=== PATIENT | male | born 1945 | race Caucasian/White ===

== ENCOUNTER 2016-04-21 06:43 | Day surgery (SDC) | payer MEDICARE, OTHER ==
[~2016-04-21] VITALS: Ht 175.3 cm; Wt 72.7 kg
[2016-04-21] VITALS (8 sets, daily range): BP systolic 129–155; BP diastolic 65–71; PULSE 74–104; RESP 12–19; Ht 175.3 cm; Wt 72.7 kg
[~2016-04-21 06:43] MED LIST: AMLO5TAB4 PO; CHOL20003 PO; CLOP75TA27 PO; HYDR-3671 PO; INSU100C3 SQ; INSU100I27 SQ; LEVO88TA3 PO; LINA5TAB PO; PENT400T2 PO; SEVE800T7 PO; URSO300C3 PO
[2016-04-21] MEDS ORDERED: LIDOCAINE 2% (SDV) 5 ML INJ ONE (07:08)
[2016-04-21] MEDS ORDERED: PROPOFOL 20 ML ONE (07:08)
[2016-04-21] MEDS ORDERED: ROCURONIUM 50 MG INJ ONE (07:08)
[2016-04-21] MEDS ORDERED: GLYCOPYRROLATE 0.4 MG INJ ONE (07:08)
[2016-04-21] MEDS ORDERED: MIDAZOLAM 1 MG/ML 2 ML INJ ONE (07:08)
[2016-04-21] MEDS ORDERED: NEOSTIGMINE 3 MG/3 ML SYRINGE ONE (07:08)
[2016-04-21] MEDS ORDERED: SUCCINYLCHOLINE CHLORIDE 100 MG/5 ML SYG IV ONE (07:09)
[2016-04-21] MEDS ORDERED: FENTAnyl 50 MCG/ML VIAL ONE (07:09)
[2016-04-21] MEDS ORDERED: OXYCODONE/ACETAMINOPHEN (5/325) TAB PO PRN ×2 (07:30)
[2016-04-21] MEDS ORDERED: MEPERIDINE 25 MG INJ IV PRN (07:30)
[2016-04-21] MEDS ORDERED: ATROPINE 1 MG/10 ML SYRINGE IV PRN (07:30)
[2016-04-21] MEDS ORDERED: DIPHENHYDRAMINE 50 MG INJ IV PRN (07:30)
[2016-04-21] MEDS ORDERED: hydrALAzine 20 MG INJ IV PRN (07:30)
[2016-04-21] MEDS ORDERED: HYDROmorphONE (0.2 MG/ML) 10ML SYG IV PRN ×3 (07:30)
[2016-04-21] MEDS ORDERED: MIDAZOLAM 1 MG/ML 2 ML INJ IV PRN (07:30)
[2016-04-21] MEDS ORDERED: EPHEDrine SULFATE 50 MG/5 ML SYG IV PRN (07:30)
[2016-04-21] MEDS ORDERED: ONDANSETRON 4 MG INJ IV PRN (07:30)
[2016-04-21] MEDS ORDERED: FENTAnyl 50 MCG/ML VIAL IV PRN ×2 (07:30)
[2016-04-21] MEDS ORDERED: LABETALOL HCL 20MG INJ IV PRN (07:30)
[2016-04-21] MEDS ORDERED: morphine (1 MG/ML) 10ML SYRINGE IV PRN ×3 (07:30)
[2016-04-21] MEDS ORDERED: LEVO75TA65 PO (07:37)
[2016-04-21] MEDS ORDERED: FOLI1CAP PO (07:38)
[2016-04-21] MEDS ORDERED: FOLI-49 PO (07:39)
[2016-04-21] MEDS ORDERED: ASPI-664 PO (07:39)
[2016-04-21] MEDS ORDERED: LEVEM SC (07:41)
[2016-04-21] MEDS ORDERED: NOVO3I SC (07:41)
[2016-04-21] MEDS ORDERED: AMLO5TAB4 PO (07:44)
[2016-04-21] MEDS ORDERED: IOHEXOL 300MG/ML 30 ML BTL ONE (08:17)
[2016-04-21 08:25] LABS: POTASSIUM 5.1 mmol/L (3.5-5.1)
[2016-04-21 08:27] LABS: INR 1.08; PARTIAL THROMBOPLASTIN TIME 33.1 Sec (25.0-35.0); PT RATIO 1.1
[2016-04-21 08:44] LABS: CALCIUM 8.4 mg/dl (8.4-10.2); CREATININE 7.93 mg/dl (0.61-1.24)
[2016-04-21 09:00] LABS: BASOPHILS % 0.8 % (0.0-2.0); EOSINOPHILS # 0.3 10^3/ul (0.0-0.5); EOSINOPHILS % 6.2 % (0.0-7.0); HEMATOCRIT 28.7 % (42.0-52.0); LYMPHOCYTES # 0.8 10^3/ul (0.8-2.9); LYMPHOCYTES % 15.5 % (15.0-51.0); MEAN CORPUSCULAR HEMOGLOBIN 29.7 pg (29.0-33.0); MEAN CORPUSCULAR HGB CONC 34.9 g/dl (32.0-37.0); MEAN CORPUSCULAR VOLUME 85.1 fl (82.0-101.0); MEAN PLATELET VOLUME 7.3 fl (7.4-10.4); MONOCYTE # 0.5 10^3/ul (0.3-0.9); MONOCYTES % 9.7 % (0.0-11.0); NEUTROPHIL # 3.6 10^3/ul (1.6-7.5); NEUTROPHILS % 67.8 % (39.0-77.0); PLATELET COUNT 246 10^3/UL (140-440); RED BLOOD COUNT 3.38 10^6/ul (4.70-6.10); RED CELL DISTRIBUTION WIDTH 15.5 % (11.5-14.5); UNCORRECTED WBC 5.3 10^3/ul (4.8-10.8); WHITE BLOOD COUNT 5.3 10^3/ul (4.8-10.8)
[2016-04-21] MEDS ORDERED: EPHEDrine SULFATE 50 MG/5 ML SYG ONE (09:07)
[2016-04-21 09:09] LABS: CONDITION 1; LH ANALYZER COMMENTS 1
--- NOTE | 2016-04-21 10:11 | RADRPT ---
PROCEDURE: XR Chest. CLINICAL INDICATION: Preoperative. TECHNIQUE: Single frontal view. COMPARISON: 02/20/2016. FINDINGS: The left internal jugular vein dialysis catheter has been removed. There is mild atelectasis at the lung bases. The lung otherwise clear. The heart is enlarged. There is calcification in the aorta consistent with atherosclerosis. There is no pleural effusion. There is no pneumothorax. IMPRESSION: 1. Left IJ catheter removed. 2. Mild atelectasis at the lung bases. 3. Cardiomegaly and atherosclerosis. RPTAT: QQ .Andrea Barry MD, MD Date Time Electronically viewed and signed by .Andrea Barry MD, on 04/21/2016 10:10 .R/
--- NOTE | 2016-04-21 11:36 | RADRPT ---
PROCEDURE: Intraoperative imaging for ERCP with fluoroscopy. CLINICAL INDICATION: Right upper quadrant pain. Intraoperative. TECHNIQUE: 8 images of the right upper quadrant of the abdomen were obtained in the operating room with an image intensifier. No radiologist was in attendance. 111 seconds of fluoroscopy time was used. COMPARISON: ERCP dated 03/05/2016. FINDINGS: Images demonstrate the endoscope in position. Contrast was injected into the common bile duct. The common bile duct is dilated. A balloon sweep was made. IMPRESSION: 1. ERCP as described above. RPTAT: QQ .Andrea Barry MD, Date Time Electronically viewed and signed by .Andrea Barry MD, on 04/21/2016 11:36 .R/
--- NOTE | 2016-04-21 21:13 | RADRPT ---
Vent Rate: 70 bpm RR Interval: 0 msec PA Interval: 240 msec QRS Duration: 82 msec QT Interval: 408 msec QTC Interval: 440 msec P-R-T [place]: 39 - 14 - 44 degrees Sinus rhythm with 1st degree AV block with premature atrial complexes Low voltage QRS Cannot rule out Anterior infarct , age undetermined Abnormal ECG Electronically Signed By: Pete Leonard [id number]
--- NOTE | 2016-04-21 22:19 | GILP ---
DATE OF PROCEDURE: NAME OF PREOPERATIVE: 1. Endoscopic retrograde cholangiopancreatography. 2. Removal of a common bile duct stent. 3. Removal of common bile duct stones. PREOPERATIVE DIAGNOSIS: Common bile duct stent. POSTOPERATIVE DIAGNOSES: 1. Common bile duct stones. 2. Common bile duct stents. DESCRIPTION OF PROCEDURE: After the informed written consent was obtained, the patient was intubate d by anesthesiologist, Dr. Torres. When the patient was somnolent in the prone position, Olympus vi karlo side-viewing duodenoscope was inserted into the oropharynx, then into the esophagus, subsequentl y into the stomach and then into the duodenum. There is a stent noted in place. By using the snare , the stent was removed. Subsequently a 9 x 12 balloon was inserted into the common bile duct. Mul tiple sweepings were performed. Large amount of sludge and multiple stones were removed. At the en d of the procedure, no more filling defects noted and at this time, procedure was terminated. PLAN: Recommend to follow the patient closely in the office. Dictated By: MARIA DEL CARMEN JUSTIN/AILYN Conf#: [id number] DID#: [id number] CC: FELIX DREW MD;*EndCC*
== END 2016-04-21 11:20 | disposition home or self-care (01) ==
LOC: SDS 06:43
PROVIDERS: ATTEND Internal Medicine Gastroenterology
DX: K80.50 Calculus of bile duct without cholangitis or cholecystitis without obstruction (principal); E11.9 Type 2 diabetes mellitus without complications; Z79.4 Long term (current) use of insulin; E78.5 Hyperlipidemia, unspecified; Z87.01 Personal history of pneumonia (recurrent)
CPT/HCPCS: 43264; 43275; 71010; 74330; 80048; 82962; 85025; 85610; 85730; 93005; J0330; J2250; J2710; J3010; Q9967

== ENCOUNTER 2016-06-22 09:55 | Inpatient (IN) | payer MEDICARE, OTHER ==
[~2016-06-22] VITALS: Ht 175.3 cm; Wt 65.8 kg
[2016-06-22] VITALS (26 sets, daily range): BP systolic 108–195; BP diastolic 53–77; PULSE 65–76; RESP 8–20; Ht 175.3 cm; Wt 65.8 kg
[~2016-06-22 09:55] MED LIST changes: +ASPI-664 PO; +BUPIVACAINE 0.25%/EPI (SDV) 30 ML INJ INJ ONE; +CEFAZOLIN 1 GM INJ ONE; +FENTAnyl 50 MCG/ML VIAL ONE; +FOLI-49 PO; +FOLI1CAP PO; -INSU100C3 SQ; -INSU100I27 SQ; +LEVEM SC; +LEVO75TA65 PO; -LEVO88TA3 PO; +LIDOCAINE 1% (MPF) 30 ML INJ INJ ONE; -LINA5TAB PO; +NOVO3I SC; -PENT400T2 PO
[2016-06-22] MEDS ORDERED: LACTATED RINGER'S 1,000 ML IV* SCH (10:00)
[2016-06-22] MEDS ORDERED: PYRI50TA80 PO (10:57)
[2016-06-22] MEDS ORDERED: ISON100T25 PO (10:58)
[2016-06-22] MEDS ORDERED: VADADUSTAT PO (11:00)
[2016-06-22] MEDS ORDERED: LEVO100T87 PO (11:01)
[2016-06-22 11:16] LABS: ADD SCAN DIFF NO
[2016-06-22 11:22] LABS: BASOPHIL # 0.1 10^3/ul (0.0-0.1); EOSINOPHILS # 0.4 10^3/ul (0.0-0.5); EOSINOPHILS % 7.3 % (0.0-7.0); HEMATOCRIT 28.3 % (42.0-52.0); HEMOGLOBIN 9.4 g/dl (14.0-18.0); LYMPHOCYTES % 21.6 % (15.0-51.0); MEAN CORPUSCULAR HEMOGLOBIN 30.1 pg (29.0-33.0); MEAN CORPUSCULAR HGB CONC 33.2 g/dl (32.0-37.0); MEAN CORPUSCULAR VOLUME 90.7 fl (82.0-101.0); MEAN PLATELET VOLUME 9.9 fl (7.4-10.4); MONOCYTE # 0.5 10^3/ul (0.3-0.9); MONOCYTES % 9.6 % (0.0-11.0); NEUTROPHIL # 2.9 10^3/ul (1.6-7.5); NEUTROPHILS % 59.9 % (39.0-77.0); PLATELET COUNT 162 10^3/UL (140-415); RED BLOOD COUNT 3.12 10^6/ul (4.70-6.10); RED CELL DISTRIBUTION WIDTH 14.5 % (11.5-14.5); WHITE BLOOD COUNT 4.8 10^3/ul (4.8-10.8)
[2016-06-22 11:50] LABS: CALCIUM 9.1 mg/dl (8.4-10.2); CREATININE 6.95 mg/dl (0.61-1.24); INR 1.09; POTASSIUM 4.9 mmol/L (3.5-5.1); PROTIME 14.1 Sec (12.2-14.2); PT RATIO 1.1
[2016-06-22 11:51] LABS: PARTIAL THROMBOPLASTIN TIME 32.4 Sec (25.0-35.0)
[2016-06-22] MEDS ORDERED: LIDOCAINE 1% (STERILE-PAK) 30 ML INJ ONE (11:52)
[2016-06-22] MEDS ORDERED: BUPIVACAINE 0.25%/EPI (SDV) 30 ML INJ ONE (11:52)
--- NOTE | 2016-06-22 12:05 | HPN ---
Date/Time of Note Date/Time of Note DATE: 06/22/16 TIME: 12:04 Interval H&P Admission Note Pt. seen H&P reviewed: No system changes patient cleared by pmd and cardiology WALLACE INGRAM MD Jun 22, 2016 12:05
[2016-06-22] MEDS ORDERED: GLUCAGON 1 MG INJ IM PRN (12:30)
[2016-06-22] MEDS ORDERED: ONDANSETRON 4 MG INJ IV PRN ×3 (12:30→19:30)
[2016-06-22] MEDS ORDERED: DEXTROSE 50% 50 ML SYRINGE IV PRN ×2 (12:30)
[2016-06-22] MEDS ORDERED: GLUCOSE GEL 15 GRAM TUBE BUCCAL PRN (12:30)
[2016-06-22] MEDS ORDERED: HYDROmorphONE (0.2 MG/ML) 10ML SYG IV PRN ×3 (12:30)
[2016-06-22] MEDS ORDERED: FENTAnyl 50 MCG/ML VIAL IV PRN ×3 (12:30)
[2016-06-22] MEDS ORDERED: MEPERIDINE 25 MG INJ IV PRN (12:30)
[2016-06-22] MEDS ORDERED: EPHEDrine SULFATE 50 MG/5 ML SYG IV PRN (12:30)
[2016-06-22] MEDS ORDERED: LABETALOL HCL 20MG INJ IV PRN (12:30)
[2016-06-22] MEDS ORDERED: INSULIN ASPART [NOVOLOG] 3 ML PEN SC SCH (12:30)
[2016-06-22] MEDS ORDERED: hydrALAzine 20 MG INJ IV PRN (12:30)
[2016-06-22] MEDS ORDERED: GLUCOSE GEL 15 GRAM TUBE PO PRN ×2 (12:30)
[2016-06-22] MEDS ORDERED: HYDROCODONE/APAP (5/325) TAB PO PRN ×2 (15:00)
[2016-06-22] MEDS ORDERED: HYDROmorphONE 1 MG/ML SYG IV PRN (15:00)
--- NOTE | 2016-06-22 16:34 | OPR ---
Date/Time of Note Date/Time of Note DATE: 06/22/16 TIME: 16:24 Operative Report Procedure Date: Jun 22, 2016 Preoperative Diagnosis Ventral incisional hernia Postoperative Diagnosis 1. Ventral incisional hernia 2. Significant adhesions Operation Performed 1. Laparoscopic ventral herniorrhaphy 2. Laparoscopic extensive lysis of adhesions 3. Local anesthetic injection, [id number] 4. Laparoscopic guided bilateral transversus abdominis plane block Surgeon: WALLACE INGRAM MD Anesthesia: general (Plus local plus regional) Anesthesiologist: RIYA DAVIS Estimated Blood Loss: 0 - 10 ml's Specimens None Tubes/Drains 10 x [address] Secure strap tacker Complications: None Pt Condition Post Procedure: stable Disposition: PACU Indications 71-year-old male here for ventral herniorrhaphy. Patient has been evaluated and cleared by primary and cardiology. Risks include but are not limited to bleeding, infection, abscess, seroma, leak , damage to intestines or any intra-abdominal/intrapelvic structures, hernia formation or recurrent, chronic pain, need for re-operations or further surgeries, TN, stroke, PE, DVT, pneumonia, organ failures, or even . Procedure Description Patient was brought and placed supine on the operating table SCDs were placed, preoperative antibiotics were administered, all pressure points were well-padded , left arm were tucked, and after induction of anesthesia patient was prepped and draped in usual sterile fashion and timeout was performed. Incision was made in the left lower quadrant, and using Optiview port and a 5 mm 0 scope abdomen was entered and insufflated to 15mmHg. Laparoscopy was performed with a 5 mm 30 scope. No injuries were identified. Another 5 mm port and a 12 mm port were placed in the left upper quadrant. 4 cm ventral incisional hernia was identified. There was extensive adhesions of bowel to the abdominal wall superior and inferior to the hernia. All port sites were injected with half percent Marcaine with epi and 1% lidocaine prior to any incisions. Bilateral transversus abdominis plane block was performed under laparoscopic visualization to aid with pain control intra-and postoperatively. Using sharp dissection I was able to open up enough space to allow repair of the ventral hernia. There was complete hemostasis. Using Endo Close, #1 Vicryl sutures were placed across the defect to approximated in a [id number] manner. Mesh was placed through the 12 mm port intra-abdominally with 4 tacking sutures of #1 Vicryl. After the mesh was positioned covering all hernia sites with at least 5 cm coverage on either side , transfacial sutures were exteriorized with an Endo Close. Then the secure strap tacker was used to tack the mesh circumferentially after the abdominal pressure was decreased to 10. There was complete hemostasis. 12 mm made port site fascia was closed with Endo Close and 0 Vicryl in a figure- of-eight manner. Ports and CO2 were removed under direct visualization. There was complete hemostasis. Wounds were thoroughly irrigated skin was closed with 4 -0 Monocryl in subcuticular fashion. Dermabond was applied. Patient was extubated and transferred to recovery room in stable condition and all counts were correct and the end of the operation 2. Abdominal binder was applied. Copies To: CC: FELIX DREW MD, SAMUEL MD Jun 22, 2016 16:34
[2016-06-22] MEDS ORDERED: NACL 0.9% 3 ML SYG IV SCH (19:30)
--- NOTE | 2016-06-22 19:46 | CONS ---
Date/Time of Note Date/Time of Note DATE: 06/22/16 TIME: 19:32 Assessment/Plan Assessment/Plan Problems: (1) Essential (primary) hypertension Status: Chronic Comment: Cont. hydralazine, amlodipine (2) DM renal manif type II Status: Chronic Comment: Cont. lantus, tradjenta, ISS. Monitor glucose (3) Hypothyroidism Status: Chronic Comment: Cont. LT4 Qualifiers: Qualified Code: E03.9 - Acquired hypothyroidism (4) End stage renal disease Status: Chronic Comment: HD tomorrow per renal (5) Latent tuberculosis by blood test Status: Chronic Comment: Cont. INH (6) Encounter for surgical aftercare following surgery of digestive system Status: Acute Comment: PT post-op. If ambulating and tolerating diet and pain controlled, d/ c home when cleared by surgery team. Consultation Date/Type/Reason Admit Date/Time Jun 22, 2016 at 14:39 Date of Consultation: Jun 22, 2016 Type of Consultation: Med/Endo Reason for Consultation Diabetes Management Referring Provider: WALLACE INGRAM MD Hx of Present Illness 71 y/o H M w/ h/o multiple medical problems incl. 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 Doing well POD#0. Constitutional: improved, no complaints Eyes: no complaints ENT: no complaints Respiratory: no complaints Cardiovascular: no complaints Gastrointestinal: pain (mild) Genitourinary: no complaints Musculoskeletal: no complaints Neurologic: no complaints Past Medical History Medical History: diabetes, high cholesterol, hypertension, hypothyroid, renal disease, other (PVD, ischemic colitis, ) Past Surgical History Past Surgical Hx: other (cataracts, facial surgery, L ankle ORIF, L 5th digit amputation, inguinal hernia repair, LLE angioplasty, ERCP) Family History Significant Family History: cancer (mother), diabetes (father, brother, son), hypertension (father), renal disease (father, brother) Social History Nicolás Esquivel, in [place] 40 y, 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 ago) Drug Use: none Exam/Review of Systems Vital Signs Vitals VS - Last 72 Hours, by Label Date Time Temp Pulse Resp B/P Pulse Ox O2 Delivery O2 Flow Rate FiO2 06/22/16 16:25 97.6 76 18 141/64 98 06/22/16 15:55 74 15 125/64 96 Room Air 06/22/16 15:45 76 17 113/64 97 Room Air 06/22/16 15:40 74 9 113/60 96 Room Air 06/22/16 15:35 74 10 118/57 96 Room Air 06/22/16 15:30 74 11 110/58 96 Room Air 06/22/16 15:25 74 9 113/53 96 Room Air 06/22/16 15:20 74 13 110/55 97 Room Air 06/22/16 15:15 74 10 115/57 96 Room Air 06/22/16 15:10 74 20 116/57 97 Room Air 06/22/16 15:05 74 11 113/54 96 Room Air 06/22/16 15:00 74 12 108/55 97 Room Air 06/22/16 14:55 72 11 111/57 97 Room Air 06/22/16 14:50 74 11 108/57 97 Room Air 06/22/16 14:45 74 14 121/56 97 Room Air 06/22/16 14:40 74 13 118/57 97 Room Air 06/22/16 14:35 74 15 120/56 97 Room Air 06/22/16 14:30 72 12 126/59 97 Room Air 06/22/16 14:25 72 8 117/59 99 Room Air 06/22/16 14:20 74 11 123/60 98 Room Air 06/22/16 14:15 72 11 114/59 99 Room Air 06/22/16 14:10 74 18 131/59 99 Room Air 06/22/16 14:05 74 18 140/64 99 Room Air 06/22/16 13:57 98.0 74 16 131/59 100 Room Air 06/22/16 11:07 97.6 65 18 195/77 100 Room Air Vital Signs Date Time Temp Pulse Resp B/P Pulse Ox O2 Delivery O2 Flow Rate FiO2 06/22/16 16:25 97.6 76 18 141/64 98 06/22/16 15:55 Room Air Intake and Output 06/21/16 06/21/16 06/22/16 15:00 23:00 07:00 Intake Total 250 ml Output Total 20 ml Balance 230 ml Exam Constitutional: alert, frail, oriented Psych: nl mood/affect, no complaints Eyes: EOMI, PERRL, nl conjunctiva, nl lids, nl sclera ENMT: mucosa pink and moist, nl external ears & nose Neck: non-tender, supple, No bruits, No masses, No thyromegaly Respiratory: clear to auscultation, normal air movement Cardiovascular: regular rate and rhythm, No edema, No murmurs/extra sounds, No rub Gastrointestinal: No bowel sounds, No soft (abd. wrapped in binder) Musculoskeletal: nl extremities to inspection Extremities: No clubbing, No cyanosis, No edema, No normal pulses 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: DIRECTOR OF ARCHITECTURE II-XII intact, nl mental status, nl speech, nl strength Additional Comments Bedside Glucose - 72 Hours Test 06/22/16 10:58 06/22/16 14:04 06/22/16 16:39 Bedside Glucose 95mg/dL (70-220) 107mg/dL (70-220) 104mg/dL (70-220) Results Result Diagram: 06/22/16 1105 06/22/16 1105 Results 24 hrs Laboratory Tests Test 06/22/16 10:58 06/22/16 11:05 06/22/16 14:04 06/22/16 16:39 Bedside Glucose 95 107 104 Activated Partial Thromboplast Time 32.4 Anion Gap 22 H Basophils # 0.1 Basophils % 1.0 Blood Urea Nitrogen 79 H Calcium Level 9.1 Carbon Dioxide Level 30 Chloride Level 100 Creatinine 6.95 H Eosinophils # 0.4 Eosinophils % 7.3 H Glucose Level 92 Hematocrit 28.3 L Hemoglobin 9.4 L INR International Normalized Ratio 1.09 Lymphocytes # 1.0 Lymphocytes % 21.6 Mean Corpuscular Hemoglobin 30.1 Mean Corpuscular Hemoglobin Concent 33.2 Mean Corpuscular Volume 90.7 Mean Platelet Volume 9.9 # Monocytes # 0.5 Monocytes % 9.6 Neutrophils # 2.9 Neutrophils % 59.9 Nucleated Red Blood Cells # 0.0 Nucleated Red Blood Cells % 0.0 Platelet Count 162 Potassium Level 4.9 Prothrombin Time 14.1 Prothrombin Time Ratio 1.1 Red Blood Count 3.12 L Red Cell Distribution Width 14.5 Sodium Level 147 H White Blood Count 4.8 Medications Medications Current Medications Lactated Ringer's (Lr) 1,000 ml @ 50 mls/hr Q20H IV* ; Start 06/22/16 at 10:00 ; Stop 06/23/16 at 05:59 Miscellaneous Information 1 ea NOTE XX ; Start 06/22/16 at 12:30 Glucose (Glutose) 15 gm Q15M PRN PO DECREASED GLUCOSE; Start 06/22/16 at 12:30 Glucose (Glutose) 22.5 gm Q15M PRN PO DECREASED GLUCOSE; Start 06/22/16 at 12: 30 Dextrose (D50w Syringe) 25 ml Q15M PRN IV DECREASED GLUCOSE; Start 06/22/16 at 12:30 Dextrose (D50w Syringe) 50 ml Q15M PRN IV DECREASED GLUCOSE; Start 06/22/16 at 12:30 Glucagon (Glucagen) 1 mg Q15M PRN IM DECREASED GLUCOSE; Start 06/22/16 at 12:30 Glucose (Glutose) 15 gm Q15M PRN BUCCAL DECREASED GLUCOSE; Start 06/22/16 at 12 :30 Ondansetron HCl (Zofran Inj) 4 mg Q6H PRN IV NAUSEA AND/OR VOMITING; Start at 15:00 Pantoprazole (Protonix Tab) 40 mg DAILY@06 PO ; Start 06/23/16 at 06:00 Acetaminophen/ Hydrocodone Bitart ([place] (5/325)) 2 tab Q4H PRN PO Pain 6-10; Start 06/22/16 at 15:00 Acetaminophen/ Hydrocodone Bitart ([place] (5/325)) 1 tab Q4H PRN PO Pain 1-5; Start 06/22/16 at 15:00 Hydromorphone HCl (Dilaudid) 0.5 mg Q2H PRN IV Breakthrough PAIN; Start at 15:00 Insulin Glargine (Lantus) 4 unit DAILY@20 SC ; Start 06/22/16 at 20:00; Status UNV Miscellaneous Information (* Miscellaneous Pharmacy Order) HYPOGLYCEMIA PROTOCOL w... ONCE ONCE XX ; Start 06/22/16 at 19:30; Stop 06/22/16 at 19:31; Status UNV Miscellaneous Information (* Miscellaneous Pharmacy Order) Discontinue Glyburide , Glipizide,... ONCE ONCE XX ; Start 06/22/16 at 19:30; Stop 06/22/16 at 19:31 ; Status UNV Miscellaneous Information (* Miscellaneous Pharmacy Order) Discontinue all previ... ONCE ONCE XX ; Start 06/22/16 at 19:30; Stop 06/22/16 at 19:31; Status UNV Diagnostic Test (Pha) (Accucheck) 1 ea XX ; Start 06/23/16 at 02:00; Status UNV Linagliptin (Tradjenta) 5 mg DAILY PO ; Start 06/23/16 at 09:00; Status UNV Amlodipine Besylate (Norvasc) 5 mg DAILY PO ; Start 06/23/16 at 09:00 Aspirin (Halfprin) 81 mg DAILY PO ; Start 06/23/16 at 09:00 Cholecalciferol (Vitamin D) 2,000 unit DAILY PO ; Start 06/23/16 at 09:00; Status UNV Clopidogrel Bisulfate (plaVIX) 75 mg DAILY PO ; Start 06/23/16 at 09:00; Status UNV Folic Acid (Folic Acid) 1 mg DAILY PO ; Start 06/23/16 at 09:00; Status UNV Hydralazine HCl (Apresoline) 75 mg TID PO ; Start 06/22/16 at 21:00; Status UNV Isoniazid (Isoniazid) 100 mg DAILY PO ; Start 06/23/16 at 09:00 Pyridoxine HCl (Vitamin B6) 100 mg DAILY PO ; Start 06/23/16 at 09:00 Miscellaneous Information 1 mg DAILY PO ; Start 06/23/16 at 09:00; Status UNV Ondansetron HCl (Zofran Inj) 4 mg Q6H PRN IV NAUSEA AND/OR VOMITING; Start at 19:30; Status UNV FELIX DREW MD Jun 22, 2016 19:43
[2016-06-22] MEDS: INSULIN ASPART [NOVOLOG] 3 ML PEN SC SCH (21:00)
[2016-06-22] MEDS: INSULIN GLARGINE [LANtus] 3 ML PEN SC SCH (21:13)
[2016-06-23] VITALS (10 sets, daily range): BP systolic 106–145; BP diastolic 51–67; PULSE 77–84; RESP 18–20
--- NOTE | 2016-06-23 00:03 | HP ---
DATE OF ADMISSION: 06/22/2016 PRESENTING COMPLAINT: Elective ventral herniorrhaphy. HISTORY OF PRESENTING COMPLAINT: Mr. Gianni Lee is a 71-year-old male with an extensive medica l history summarized below, who was brought in today by Dr. Hema Harris for an elective laparosco pic ventral herniorrhaphy and lysis of adhesions. The patient reports having a ventral incisional h ernia for the last 11 months. His primary care physician as an outpatient is Dr. Pete Rodrigues, wh o will also follow him and consult in house. At this time, he is postoperative and he is quite comf ortable, denies abdominal pain. Reports remains slightly lethargic. Has had no fever. Denies chest pain, shortness of breath. The patient does have a history of end-stage renal disease on hemodialy sis and is requesting that his dialysis doctor be notified for continued in-house dialysis. PAST MEDICAL HISTORY: 1. End-stage renal disease on hemodialysis. 2. Diabetes mellitus type 2. 3. . 4. Dyslipidemia. 5. Hypothyroidism. 6. Chronic peripheral vascular disease with history of nonhealing ulcer. SURGICAL HISTORY: Includes: 1. Small bowel resection for necrotic bowel June 2014. 2. Recent ERCP for common bile duct stone. 3. Recent open right inguinal hernia repair February of 2016. 4. Left lower extremity angiogram with atherectomy and angioplasty. Please see Dr. Kamara's not es from February of 2016 for details. 5. He has had amputation of his left 5th toe. ALLERGIES: HE HAS NO KNOWN DRUG ALLERGIES. SOCIAL HISTORY: The patient is a remote smoker but has not smoked in about 10 years. Denies alcohol or illicit drug use. FAMILY HISTORY: Positive for high blood pressure and diabetes. REVIEW OF SYSTEMS: A 12-point review of system was done and pertinent findings as noted in the HPI. PHYSICAL EXAMINATION VITAL SIGNS: Temperature 97.6, pulse is 76, respirations 18, blood pressure 141/64, saturations 98% on room air. GENERAL: The patient was calm, in no distress, alert and oriented, afebrile to touch. HEENT: Head was normocephalic. Pupils equal, round, and reactive. Mucous membranes were moist. T here was no scleral jaundice. No conjunctival pallor. Posterior pharynx was clear of erythema and exudate. NECK: Supple without JVD. CHEST: Clear with clear breath sounds bilaterally. CARDIOVASCULAR: Heart sounds S1 and 2 without murmurs. ABDOMEN: Mildly distended. He had laparoscopic scars that were open to air. They were not oozing, no bleeding, no evidence of erythema or cellulitis. He did have hypoactive bowel sounds, however. O verall his abdomen was soft. EXTREMITIES: Lower extremity was negative for edema. PSYCHIATRIC: He was calm, cooperative with exam. LABORATORY VALUES: His hemoglobin was 9.4 and hematocrit 28.3, which is stable from previous. Whit e count normal, platelet count is normal. His chemistry was consistent with his history of end-stag e renal disease with a creatinine of 6.9 and a BUN of 79. Anion gap was 22, slightly elevated. Sodiu m was also slightly elevated at 147. His potassium, chloride levels and glucose levels were within n ormal range. Calcium level 9.1, within normal range as well. Coagulation profile was normal. Urin alysis was mildly suggestive of a UTI with a cloudy clarity, 2+ leukocyte esterase, greater than 50 white blood cells, many bacteria, 2+ hemoglobin and 2+ protein. IMAGING: There are no imaging studies to report at this time. IMPRESSION: A 71-year-old male with the followin. Ventral wall hernia status post elective repair today 06/22/2016, laparoscopically. 2. End-stage renal disease on hemodialysis. 3. Hypertension with good control. 4. Diabetes mellitus type 2. 5. Dyslipidemia. 6. Chronic hypothyroidism. 7. Chronic peripheral arterial disease status post multiple interventions in the past. 8. History of a CBD status post cholecystectomy, right inguinal hernia repair in the past. PLAN OF CARE: Admit the patient for continued postoperative supportive care to include antiemetics, pain control, and if necessary antipyretics. Dr. Harris will continue to follow the patient and wi ll manage his wound and his bowel issues. We will consult Nephrology, Dr. Garcia and Dr. Roche for i n-house dialysis and I will also notify Dr. Rodrigues to follow the patient for diabetic management. In the interim, we will continue with all of the medications, titrate his medications as indicated. Further interventions will depend on his clinical course. For further information and clarificatio n, please review the patient's chart and my orders. Dictated By: MARILEE AGUILAR MD BA/NTS Conf#: [id number] DID#: [id number]
[2016-06-23] MEDS: ACCU-CHEK XX SCH (02:00)
[2016-06-23] MEDS: LEVOTHYROXINE 100 MCG TAB PO SCH (06:13)
[2016-06-23] MEDS: PANTOPRAZOLE (EC) 40 MG TAB PO SCH (06:13)
[2016-06-23 06:27] LABS: ADD SCAN DIFF NO
[2016-06-23 06:40] LABS: BASOPHIL # 0.1 10^3/ul (0.0-0.1); BASOPHILS % 0.6 % (0.0-2.0); EOSINOPHILS # 0.2 10^3/ul (0.0-0.5); EOSINOPHILS % 2.9 % (0.0-7.0); HEMATOCRIT 28.5 % (42.0-52.0); HEMOGLOBIN 9.4 g/dl (14.0-18.0); LYMPHOCYTES # 0.8 10^3/ul (0.8-2.9); LYMPHOCYTES % 10.1 % (15.0-51.0); MEAN CORPUSCULAR HEMOGLOBIN 30.2 pg (29.0-33.0); MEAN CORPUSCULAR VOLUME 91.6 fl (82.0-101.0); MEAN PLATELET VOLUME 10.1 fl (7.4-10.4); MONOCYTE # 0.6 10^3/ul (0.3-0.9); MONOCYTES % 7.8 % (0.0-11.0); NEUTROPHIL # 6.3 10^3/ul (1.6-7.5); PLATELET COUNT 175 10^3/UL (140-415); RED BLOOD COUNT 3.11 10^6/ul (4.70-6.10); RED CELL DISTRIBUTION WIDTH 14.7 % (11.5-14.5)
[2016-06-23 07:32] LABS: ALBUMIN 3.8 g/dl (3.3-4.9)
[2016-06-23 07:33] LABS: POTASSIUM 5.3 mmol/L (3.5-5.1)
[2016-06-23 07:35] LABS: BILIRUBIN,INDIRECT 0.1 mg/dl (0-1.1); BILIRUBIN,TOTAL 0.1 mg/dl (0.2-1.3); CREATININE 7.53 mg/dl (0.61-1.24)
[2016-06-23 07:36] LABS: ALBUMIN/GLOBULIN RATIO 1.22; CALCIUM 8.7 mg/dl (8.4-10.2); TOTAL PROTEIN 6.9 g/dl (6.1-8.1)
[2016-06-23] MEDS: AMLODIPINE 5 MG TAB PO SCH (09:00)
[2016-06-23] MEDS: ISONIAZID 100 MG TAB PO SCH (09:00)
[2016-06-23] MEDS: INSULIN ASPART [NOVOLOG] 3 ML PEN SC SCH ×4 (09:13→21:00)
[2016-06-23] MEDS: MULTIVIT/CA CARB/B CMPLX/FA TAB PO SCH (09:19)
[2016-06-23] MEDS: PYRIDOXINE 50 MG TAB PO SCH (09:19)
[2016-06-23] MEDS: FOLIC ACID 1 MG TAB PO SCH (09:19)
[2016-06-23] MEDS: CLOPIDOGREL 75 MG TAB PO SCH (09:19)
[2016-06-23] MEDS: ASPIRIN (EC) 81 MG TAB PO SCH (09:19)
[2016-06-23] MEDS: CHOLECALCIFEROL 2,000 UNIT CAP PO SCH (09:19)
[2016-06-23] MEDS: LINAGLIPTIN 5 MG TABLET PO SCH (09:19)
[2016-06-23] MEDS: SEVELAMER CARBONATE 0.8 GM PKT PO SCH ×3 (09:21→17:50)
--- NOTE | 2016-06-23 10:19 | PN ---
Date/Time of Note Date/Time of Note DATE: 06/23/16 TIME: 10:15 Assessment/Plan VTE Prophylaxis VTE Prophylaxis Intervention: SCD's Lines/Catheters IV Catheter Type (from Nrsg): Saline Lock Assessment/Plan Assessment/Plan A 71-year-old male with the followin. Ventral wall hernia status post elective repair 06/22/2016, laparoscopically. 2. End-stage renal disease on hemodialysis. 3. Hypertension with good control. 4. Diabetes mellitus type 2. 5. Dyslipidemia. 6. Chronic hypothyroidism. 7. Chronic peripheral arterial disease status post multiple interventions in the past. 8. History of a CBD status post cholecystectomy, right inguinal hernia repair in the past. 9. 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 PLAN OF CARE: * continue post op care and mgt to include PRN pain control/ antiemetics/ antipyretics * Clear liquid diet for now for abd distention * Encourage ambulation * Continue HD MWF regimen * Continue home med * appreciate all consultants PROPHYLAXIS: SCDs / Protonix Subjective 24 Hr Interval Summary Free Text/Dictation feels ok, no new issues Exam/Review of Systems Vital Signs Vitals Vital Signs Date Time Temp Pulse Resp B/P Pulse Ox O2 Delivery O2 Flow Rate FiO2 06/23/16 07:21 97.6 76 18 106/56 97 06/22/16 15:55 Room Air Intake and Output 06/22/16 06/22/16 06/23/16 15:00 23:00 07:00 Intake Total 900 ml Output Total 2500 ml Balance -1600 ml Exam GENERAL: The patient was calm, in no distress, alert and oriented, afebrile to touch. HEENT: Head was normocephalic. Pupils equal, round, and reactive. Mucous membranes were moist. There was no scleral jaundice. No conjunctival pallor. Posterior pharynx was clear of erythema and exudate. NECK: Supple without JVD. CHEST: Clear with clear breath sounds bilaterally. CARDIOVASCULAR: Heart sounds S1 and 2 without murmurs. ABDOMEN: More distended. He had laparoscopic scars that were open to air. They were not oozing, no bleeding, no evidence of erythema or cellulitis. He did have hypoactive bowel sounds, however. EXTREMITIES: Lower extremity was negative for edema. PSYCHIATRIC: He was calm, cooperative with exam. Results Result Diagram: 06/23/16 0535 06/23/16 0600 Results 24 hrs Laboratory Tests Test 06/22/16 10:58 06/22/16 11:05 06/22/16 14:04 06/22/16 16:39 Bedside Glucose 95 107 104 Activated Partial Thromboplast Time 32.4 Anion Gap 22 H Basophils # 0.1 Basophils % 1.0 Blood Urea Nitrogen 79 H Calcium Level 9.1 Carbon Dioxide Level 30 Chloride Level 100 Creatinine 6.95 H Eosinophils # 0.4 Eosinophils % 7.3 H Glucose Level 92 Hematocrit 28.3 L Hemoglobin 9.4 L INR International Normalized Ratio 1.09 Lymphocytes # 1.0 Lymphocytes % 21.6 Mean Corpuscular Hemoglobin 30.1 Mean Corpuscular Hemoglobin Concent 33.2 Mean Corpuscular Volume 90.7 Mean Platelet Volume 9.9 # Monocytes # 0.5 Monocytes % 9.6 Neutrophils # 2.9 Neutrophils % 59.9 Nucleated Red Blood Cells # 0.0 Nucleated Red Blood Cells % 0.0 Platelet Count 162 Potassium Level 4.9 Prothrombin Time 14.1 Prothrombin Time Ratio 1.1 Red Blood Count 3.12 L Red Cell Distribution Width 14.5 Sodium Level 147 H White Blood Count 4.8 Test 06/22/16 21:11 06/23/16 05:35 06/23/16 06:00 06/23/16 07:42 Bedside Glucose 95 182 Basophils # 0.1 Basophils % 0.6 Eosinophils # 0.2 Eosinophils % 2.9 Hematocrit 28.5 L Hemoglobin 9.4 L Lymphocytes # 0.8 Lymphocytes % 10.1 L Magnesium Level 2.2 Mean Corpuscular Hemoglobin 30.2 Mean Corpuscular Hemoglobin Concent 33.0 Mean Corpuscular Volume 91.6 Mean Platelet Volume 10.1 Monocytes # 0.6 Monocytes % 7.8 Neutrophils # 6.3 Neutrophils % 78.0 H Nucleated Red Blood Cells # 0.0 Nucleated Red Blood Cells % 0.0 Phosphorus Level 5.9 H Platelet Count 175 Red Blood Count 3.11 L Red Cell Distribution Width 14.7 H White Blood Count 8.0 # Alanine Aminotransferase (ALT/SGPT) 17 Albumin 3.8 Albumin/Globulin Ratio 1.22 Alkaline Phosphatase 135 H Anion Gap 28 H Aspartate Amino Transf (AST/SGOT) 41 Blood Urea Nitrogen 83 H Calcium Level 8.7 Carbon Dioxide Level 22 Chloride Level 100 Creatinine 7.53 H Direct Bilirubin 0.00 Globulin 3.10 Glucose Level 128 Indirect Bilirubin 0.1 Potassium Level 5.3 H Sodium Level 145 H Total Bilirubin 0.1 L Total Protein 6.9 Medications Medications Current Medications Miscellaneous Information 1 ea NOTE XX ; Start 06/22/16 at 12:30 Glucose (Glutose) 15 gm Q15M PRN PO DECREASED GLUCOSE; Start 06/22/16 at 12:30 Glucose (Glutose) 22.5 gm Q15M PRN PO DECREASED GLUCOSE; Start 06/22/16 at 12: 30 Dextrose (D50w Syringe) 25 ml Q15M PRN IV DECREASED GLUCOSE; Start 06/22/16 at 12:30 Dextrose (D50w Syringe) 50 ml Q15M PRN IV DECREASED GLUCOSE; Start 06/22/16 at 12:30 Glucagon (Glucagen) 1 mg Q15M PRN IM DECREASED GLUCOSE; Start 06/22/16 at 12:30 Glucose (Glutose) 15 gm Q15M PRN BUCCAL DECREASED GLUCOSE; Start 06/22/16 at 12 :30 Pantoprazole (Protonix Tab) 40 mg DAILY@06 PO Last administered on 06/23/16 06 :13; Admin Dose 40 MG; Start 06/23/16 at 06:00 Acetaminophen/ Hydrocodone Bitart ([place] (5/325)) 2 tab Q4H PRN PO Pain 6-10 Last administered on 06/23/16 02:25; Admin Dose 2 TAB; Start 06/22/16 at 15:00 Acetaminophen/ Hydrocodone Bitart ([place] (5/325)) 1 tab Q4H PRN PO Pain 1-5 Last administered on 06/23/16 06:13; Admin Dose 1 TAB; Start 06/22/16 at 15:00 Hydromorphone HCl (Dilaudid) 0.5 mg Q2H PRN IV Breakthrough PAIN; Start at 15:00 Insulin Glargine (Lantus) 4 unit DAILY@20 SC Last administered on 06/22/16 21: 13; Admin Dose 4 UNIT; Start 06/22/16 at 20:00 Diagnostic Test (Pha) (Accucheck) 1 ea 02 XX ; Start 06/23/16 at 02:00 Linagliptin (Tradjenta) 5 mg DAILY PO Last administered on 06/23/16 09:19; Admin Dose 5 MG; Start 06/23/16 at 09:00 Amlodipine Besylate (Norvasc) 5 mg DAILY PO ; Start 06/23/16 at 09:00 Aspirin (Halfprin) 81 mg DAILY PO Last administered on 06/23/16 09:19; Admin Dose 81 MG; Start 06/23/16 at 09:00 Cholecalciferol (Vitamin D) 2,000 unit DAILY PO Last administered on 06/23/16 09:19; Admin Dose 2,000 UNIT; Start 06/23/16 at 09:00 Clopidogrel Bisulfate (plaVIX) 75 mg DAILY PO Last administered on 06/23/16 09 :19; Admin Dose 75 MG; Start 06/23/16 at 09:00 Folic Acid (Folic Acid) 1 mg DAILY PO Last administered on 06/23/16 09:19; Admin Dose 1 MG; Start 06/23/16 at 09:00 Hydralazine HCl (Apresoline) 75 mg TID PO Last administered on 06/22/16 21:07 ; Admin Dose 75 MG; Start 06/22/16 at 21:00 Isoniazid (Isoniazid) 100 mg DAILY PO ; Start 06/23/16 at 09:00 Pyridoxine HCl (Vitamin B6) 100 mg DAILY PO Last administered on 06/23/16 09: 19; Admin Dose 100 MG; Start 06/23/16 at 09:00 Multivit/Ca Carb/ B Cmplx/FA/Prenat (Manasa-Haris) 1 tab DAILY PO Last administered on 06/23/16 09:19; Admin Dose 1 TAB; Start 06/23/16 at 09:00 Ondansetron HCl (Zofran Inj) 4 mg Q6H PRN IV NAUSEA AND/OR VOMITING; Start at 19:30 MARILEE AGUILAR Jun 23, 2016 10:19
--- NOTE | 2016-06-23 11:26 | CONS ---
Date/Time of Note Date/Time of Note DATE: 06/23/16 TIME: 11:22 Assessment/Plan Assessment/Plan Additional Assessment/Plan 71-year-old male with 1. Ventral wall hernia status post elective repair 06/22/2016 2. End-stage renal disease on hemodialysis. 3. Hypertension with good control. 4. Diabetes mellitus type 2. 5. Dyslipidemia. 6. Hypothyroidism. 7. Anemia, Chronic, ESRD 8. Mineral Bone disease, ESRD Cont maintenance HD Schedule HD Ordered, Low UF for today Cont current med Rx and plan [facility] with HD DM/Renal diet as tolerated Thank you for the opportunity to participate in the care of MR Lee. Consultation Date/Type/Reason Admit Date/Time Jun 22, 2016 at 14:39 Type of Consultation: Nephrology Reason for Consultation ESRD Referring Provider: MARILEE AGUILAR Hx of Present Illness 11-year-old male brought in by Dr. Hmea Harris for an elective laparoscopic ventral herniorrhaphy and lysis of adhesions. Historyof ventral incisional hernia for the last 11 months. Pt is S/p OR without any complication. He is due for HD today, regular HD schedule is every Tuesday, Tuesday and . Has had no fever. Denies chest pain, shortness of breath. Nephrology consulted for management of ESRD. S/p HD this am Constitutional: improved, no complaints Eyes: no complaints ENT: no complaints Respiratory: no complaints Cardiovascular: no complaints Gastrointestinal: pain (mild) Genitourinary: no complaints Musculoskeletal: no complaints Neurologic: no complaints Psychological: nl mood/affect, no complaints Past Medical History Medical History: diabetes, high cholesterol, hypertension, hypothyroid, renal disease, other (PVD, ischemic colitis, ) Past Surgical History Past Surgical Hx: other (cataracts, facial surgery, L ankle ORIF, L 5th digit amputation, inguinal hernia repair, LLE angioplasty, ERCP) Family History Significant Family History: no pertinent family hx Social History Alcohol Use: sober Smoking Status: Former smoker (1.5 ppd x 20 y, quit 14 y. ago) Drug Use: none Exam/Review of Systems Vital Signs Vitals Vital Signs Date Time Temp Pulse Resp B/P Pulse Ox O2 Delivery O2 Flow Rate FiO2 06/23/16 07:21 97.6 76 18 106/56 97 06/22/16 15:55 Room Air Intake and Output 06/22/16 06/22/16 06/23/16 15:00 23:00 07:00 Intake Total 900 ml Output Total 2500 ml Balance -1600 ml Exam Constitutional: alert, oriented, No distress Psych: No anxiety Head: atraumatic, normocephalic Eyes: EOMI ENMT: mucosa pink and moist Neck: No jvd Respiratory: clear to auscultation, No diminished breath sounds, No labored breathing Cardiovascular: regular rate and rhythm, No edema Gastrointestinal: ascites, soft, tender, No rebound or guarding Musculoskeletal: nl extremities to inspection Extremities: other (RUE AVF Good thrill) 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, nl mental status, nl speech Skin: No diaphoresis Results Result Diagram: 06/23/16 0535 06/23/16 0600 Results 24 hrs Laboratory Tests Test 06/22/16 14:04 06/22/16 16:39 06/22/16 21:11 06/23/16 05:35 Bedside Glucose 107 104 95 White Blood Count 8.0 # Red Blood Count 3.11 L Hemoglobin 9.4 L Hematocrit 28.5 L Mean Corpuscular Volume 91.6 Mean Corpuscular Hemoglobin 30.2 Mean Corpuscular Hemoglobin Concent 33.0 Red Cell Distribution Width 14.7 H Platelet Count 175 Mean Platelet Volume 10.1 Neutrophils % 78.0 H Lymphocytes % 10.1 L Monocytes % 7.8 Eosinophils % 2.9 Basophils % 0.6 Nucleated Red Blood Cells % 0.0 Neutrophils # 6.3 Lymphocytes # 0.8 Monocytes # 0.6 Eosinophils # 0.2 Basophils # 0.1 Nucleated Red Blood Cells # 0.0 Phosphorus Level 5.9 H Magnesium Level 2.2 Test 06/23/16 06:00 06/23/16 07:42 Sodium Level 145 H Potassium Level 5.3 H Chloride Level 100 Carbon Dioxide Level 22 Anion Gap 28 H Blood Urea Nitrogen 83 H Creatinine 7.53 H Glucose Level 128 Calcium Level 8.7 Total Bilirubin 0.1 L Direct Bilirubin 0.00 Indirect Bilirubin 0.1 Aspartate Amino Transf (AST/SGOT) 41 Alanine Aminotransferase (ALT/SGPT) 17 Alkaline Phosphatase 135 H Total Protein 6.9 Albumin 3.8 Globulin 3.10 Albumin/Globulin Ratio 1.22 Bedside Glucose 182 Medications Medications Current Medications Miscellaneous Information 1 ea NOTE XX ; Start 06/22/16 at 12:30 Glucose (Glutose) 15 gm Q15M PRN PO DECREASED GLUCOSE; Start 06/22/16 at 12:30 Glucose (Glutose) 22.5 gm Q15M PRN PO DECREASED GLUCOSE; Start 06/22/16 at 12: 30 Dextrose (D50w Syringe) 25 ml Q15M PRN IV DECREASED GLUCOSE; Start 06/22/16 at 12:30 Dextrose (D50w Syringe) 50 ml Q15M PRN IV DECREASED GLUCOSE; Start 06/22/16 at 12:30 Glucagon (Glucagen) 1 mg Q15M PRN IM DECREASED GLUCOSE; Start 06/22/16 at 12:30 Glucose (Glutose) 15 gm Q15M PRN BUCCAL DECREASED GLUCOSE; Start 06/22/16 at 12 :30 Pantoprazole (Protonix Tab) 40 mg DAILY@06 PO Last administered on 06/23/16 06 :13; Admin Dose 40 MG; Start 06/23/16 at 06:00 Acetaminophen/ Hydrocodone Bitart ([place] (5/325)) 2 tab Q4H PRN PO Pain 6-10 Last administered on 06/23/16 02:25; Admin Dose 2 TAB; Start 06/22/16 at 15:00 Acetaminophen/ Hydrocodone Bitart ([place] (5/325)) 1 tab Q4H PRN PO Pain 1-5 Last administered on 06/23/16 06:13; Admin Dose 1 TAB; Start 06/22/16 at 15:00 Hydromorphone HCl (Dilaudid) 0.5 mg Q2H PRN IV Breakthrough PAIN; Start at 15:00 Insulin Glargine (Lantus) 4 unit DAILY@20 SC Last administered on 06/22/16 21: 13; Admin Dose 4 UNIT; Start 06/22/16 at 20:00 Diagnostic Test (Pha) (Accucheck) 1 ea 02 XX ; Start 06/23/16 at 02:00 Linagliptin (Tradjenta) 5 mg DAILY PO Last administered on 06/23/16 09:19; Admin Dose 5 MG; Start 06/23/16 at 09:00 Amlodipine Besylate (Norvasc) 5 mg DAILY PO ; Start 06/23/16 at 09:00 Aspirin (Halfprin) 81 mg DAILY PO Last administered on 06/23/16 09:19; Admin Dose 81 MG; Start 06/23/16 at 09:00 Cholecalciferol (Vitamin D) 2,000 unit DAILY PO Last administered on 06/23/16 09:19; Admin Dose 2,000 UNIT; Start 06/23/16 at 09:00 Clopidogrel Bisulfate (plaVIX) 75 mg DAILY PO Last administered on 06/23/16 09 :19; Admin Dose 75 MG; Start 06/23/16 at 09:00 Folic Acid (Folic Acid) 1 mg DAILY PO Last administered on 06/23/16 09:19; Admin Dose 1 MG; Start 06/23/16 at 09:00 Hydralazine HCl (Apresoline) 75 mg TID PO Last administered on 06/22/16 21:07 ; Admin Dose 75 MG; Start 06/22/16 at 21:00 Isoniazid (Isoniazid) 100 mg DAILY PO ; Start 06/23/16 at 09:00 Pyridoxine HCl (Vitamin B6) 100 mg DAILY PO Last administered on 06/23/16 09: 19; Admin Dose 100 MG; Start 06/23/16 at 09:00 Multivit/Ca Carb/ B Cmplx/FA/Prenat (Manasa-Haris) 1 tab DAILY PO Last administered on 06/23/16 09:19; Admin Dose 1 TAB; Start 06/23/16 at 09:00 Ondansetron HCl (Zofran Inj) 4 mg Q6H PRN IV NAUSEA AND/OR VOMITING; Start at 19:30 JOAQUIN DESAI MD Jun 23, 2016 11:26
--- NOTE | 2016-06-23 19:55 | CONS ---
Date/Time of Note Date/Time of Note DATE: 06/23/16 TIME: 19:50 Assessment/Plan Assessment/Plan Chief Complaint/Hosp Course Doing well POD#1 Problems: (1) Diabetes mellitus type 2 with complications Status: Chronic Comment: Glucose levels in good control. Cont. current insulin doses. Qualifiers: Diabetes mellitus intermediate card tender insulin use: with half-way use Qualified Code : E11.8 - Type 2 diabetes mellitus with complication, with long-term current use of insulin Consultation Date/Type/Reason Admit Date/Time Jun 22, 2016 at 14:39 Initial Consult Date 06/22/16 Type of Consultation: Endocrinology Reason for Consultation T2DM management Referring Provider: MARILEE AGUILAR 24 HR Interval Summary Constitutional: improved, no complaints Detailed Summary Respiratory: no complaints Cardiovascular: no complaints Gastrointestinal: pain (appropriate post-op, mostly good control, ambulating) Genitourinary: no complaints Musculoskeletal: no complaints Neurologic: no complaints Exam/Review of Systems Vital Signs Vitals VS - Last 72 Hours, by Label Date Time Temp Pulse Resp B/P Pulse Ox O2 Delivery O2 Flow Rate FiO2 06/23/16 12:12 84 145/63 06/23/16 07:21 97.6 76 18 106/56 97 06/23/16 07:00 79 06/23/16 07:00 79 18 06/23/16 06:30 79 06/23/16 06:00 79 06/23/16 05:30 80 06/23/16 05:00 78 06/23/16 04:30 79 06/23/16 04:00 77 06/23/16 04:00 77 18 06/22/16 19:56 97.5 77 16 158/66 98 06/22/16 16:25 97.6 76 18 141/64 98 06/22/16 15:55 74 15 125/64 96 Room Air 06/22/16 15:45 76 17 113/64 97 Room Air 06/22/16 15:40 74 9 113/60 96 Room Air 06/22/16 15:35 74 10 118/57 96 Room Air 06/22/16 15:30 74 11 110/58 96 Room Air 06/22/16 15:25 74 9 113/53 96 Room Air 06/22/16 15:20 74 13 110/55 97 Room Air 06/22/16 15:15 74 10 115/57 96 Room Air 06/22/16 15:10 74 20 116/57 97 Room Air 06/22/16 15:05 74 11 113/54 96 Room Air 06/22/16 15:00 74 12 108/55 97 Room Air 06/22/16 14:55 72 11 111/57 97 Room Air 06/22/16 14:50 74 11 108/57 97 Room Air 06/22/16 14:45 74 14 121/56 97 Room Air 06/22/16 14:40 74 13 118/57 97 Room Air 06/22/16 14:35 74 15 120/56 97 Room Air 06/22/16 14:30 72 12 126/59 97 Room Air 06/22/16 14:25 72 8 117/59 99 Room Air 06/22/16 14:20 74 11 123/60 98 Room Air 06/22/16 14:15 72 11 114/59 99 Room Air 06/22/16 14:10 74 18 131/59 99 Room Air 06/22/16 14:05 74 18 140/64 99 Room Air 06/22/16 13:57 98.0 74 16 131/59 100 Room Air 06/22/16 11:07 97.6 65 18 195/77 100 Room Air Vital Signs Date Time Temp Pulse Resp B/P Pulse Ox O2 Delivery O2 Flow Rate FiO2 06/23/16 12:12 84 145/63 06/23/16 07:21 97.6 18 97 06/22/16 15:55 Room Air Intake and Output 06/22/16 06/22/16 06/23/16 15:00 23:00 07:00 Intake Total 900 ml Output Total 2500 ml Balance -1600 ml Exam Constitutional: alert, frail, oriented Psych: nl mood/affect, no complaints Respiratory: clear to auscultation, normal air movement Cardiovascular: regular rate and rhythm, No edema, No murmurs/extra sounds, No rub Gastrointestinal: nl liver, spleen, soft, tender (appropriate) Musculoskeletal: nl extremities to inspection Extremities: No clubbing, No cyanosis, No edema 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, nl mental status, nl speech, nl strength Additional Comments Bedside Glucose - 72 Hours Test 06/22/16 10:58 06/22/16 14:04 06/22/16 16:39 06/22/16 21:11 Bedside Glucose 95mg/dL (70-220) 107mg/dL (70-220) 104mg/dL (70-220) 95mg/dL (70-220) Test 06/23/16 07:42 06/23/16 12:06 06/23/16 17:19 Bedside Glucose 182mg/dL (70-220) 150mg/dL (70-220) 147mg/dL (70-220) Results Result Diagram: 06/23/16 0535 06/23/16 0600 Results 24 hrs Laboratory Tests Test 06/22/16 21:11 06/23/16 05:35 06/23/16 06:00 06/23/16 07:42 Bedside Glucose 95 182 White Blood Count 8.0 # Red Blood Count 3.11 L Hemoglobin 9.4 L Hematocrit 28.5 L Mean Corpuscular Volume 91.6 Mean Corpuscular Hemoglobin 30.2 Mean Corpuscular Hemoglobin Concent 33.0 Red Cell Distribution Width 14.7 H Platelet Count 175 Mean Platelet Volume 10.1 Neutrophils % 78.0 H Lymphocytes % 10.1 L Monocytes % 7.8 Eosinophils % 2.9 Basophils % 0.6 Nucleated Red Blood Cells % 0.0 Neutrophils # 6.3 Lymphocytes # 0.8 Monocytes # 0.6 Eosinophils # 0.2 Basophils # 0.1 Nucleated Red Blood Cells # 0.0 Phosphorus Level 5.9 H Magnesium Level 2.2 Sodium Level 145 H Potassium Level 5.3 H Chloride Level 100 Carbon Dioxide Level 22 Anion Gap 28 H Blood Urea Nitrogen 83 H Creatinine 7.53 H Glucose Level 128 Calcium Level 8.7 Total Bilirubin 0.1 L Direct Bilirubin 0.00 Indirect Bilirubin 0.1 Aspartate Amino Transf (AST/SGOT) 41 Alanine Aminotransferase (ALT/SGPT) 17 Alkaline Phosphatase 135 H Total Protein 6.9 Albumin 3.8 Globulin 3.10 Albumin/Globulin Ratio 1.22 Test 06/23/16 12:06 06/23/16 17:19 Bedside Glucose 150 147 Medications Medications Current Medications Miscellaneous Information 1 ea NOTE XX ; Start 06/22/16 at 12:30 Glucose (Glutose) 15 gm Q15M PRN PO DECREASED GLUCOSE; Start 06/22/16 at 12:30 Glucose (Glutose) 22.5 gm Q15M PRN PO DECREASED GLUCOSE; Start 06/22/16 at 12: 30 Dextrose (D50w Syringe) 25 ml Q15M PRN IV DECREASED GLUCOSE; Start 06/22/16 at 12:30 Dextrose (D50w Syringe) 50 ml Q15M PRN IV DECREASED GLUCOSE; Start 06/22/16 at 12:30 Glucagon (Glucagen) 1 mg Q15M PRN IM DECREASED GLUCOSE; Start 06/22/16 at 12:30 Glucose (Glutose) 15 gm Q15M PRN BUCCAL DECREASED GLUCOSE; Start 06/22/16 at 12 :30 Pantoprazole (Protonix Tab) 40 mg DAILY@06 PO Last administered on 06/23/16 06 :13; Admin Dose 40 MG; Start 06/23/16 at 06:00 Acetaminophen/ Hydrocodone Bitart ([place] (5/325)) 2 tab Q4H PRN PO Pain 6-10 Last administered on 06/23/16 02:25; Admin Dose 2 TAB; Start 06/22/16 at 15:00 Acetaminophen/ Hydrocodone Bitart ([place] (5/325)) 1 tab Q4H PRN PO Pain 1-5 Last administered on 06/23/16 06:13; Admin Dose 1 TAB; Start 06/22/16 at 15:00 Hydromorphone HCl (Dilaudid) 0.5 mg Q2H PRN IV Breakthrough PAIN; Start at 15:00 Insulin Glargine (Lantus) 4 unit DAILY@20 SC Last administered on 06/22/16 21: 13; Admin Dose 4 UNIT; Start 06/22/16 at 20:00 Diagnostic Test (Pha) (Accucheck) 1 ea 02 XX ; Start 06/23/16 at 02:00 Linagliptin (Tradjenta) 5 mg DAILY PO Last administered on 06/23/16 09:19; Admin Dose 5 MG; Start 06/23/16 at 09:00 Amlodipine Besylate (Norvasc) 5 mg DAILY PO ; Start 06/23/16 at 09:00 Aspirin (Halfprin) 81 mg DAILY PO Last administered on 06/23/16 09:19; Admin Dose 81 MG; Start 06/23/16 at 09:00 Cholecalciferol (Vitamin D) 2,000 unit DAILY PO Last administered on 06/23/16 09:19; Admin Dose 2,000 UNIT; Start 06/23/16 at 09:00 Clopidogrel Bisulfate (plaVIX) 75 mg DAILY PO Last administered on 06/23/16 09 :19; Admin Dose 75 MG; Start 06/23/16 at 09:00 Folic Acid (Folic Acid) 1 mg DAILY PO Last administered on 06/23/16 09:19; Admin Dose 1 MG; Start 06/23/16 at 09:00 Hydralazine HCl (Apresoline) 75 mg TID PO Last administered on 06/22/16 21:07 ; Admin Dose 75 MG; Start 06/22/16 at 21:00 Isoniazid (Isoniazid) 100 mg DAILY PO ; Start 06/23/16 at 09:00 Pyridoxine HCl (Vitamin B6) 100 mg DAILY PO Last administered on 06/23/16 09: 19; Admin Dose 100 MG; Start 06/23/16 at 09:00 Multivit/Ca Carb/ B Cmplx/FA/Prenat (Manasa-Haris) 1 tab DAILY PO Last administered on 06/23/16 09:19; Admin Dose 1 TAB; Start 06/23/16 at 09:00 Ondansetron HCl (Zofran Inj) 4 mg Q6H PRN IV NAUSEA AND/OR VOMITING; Start at 19:30 FELIX DREW MD Jun 23, 2016 19:54
[2016-06-23] MEDS: INSULIN GLARGINE [LANtus] 3 ML PEN SC SCH (22:26)
--- NOTE | 2016-06-23 23:00 | PN ---
Date/Time of Note Date/Time of Note DATE: 06/23/16 TIME: 22:56 Assessment/Plan Lines/Catheters IV Catheter Type (from Nrsg): Saline Lock Assessment/Plan Chief Complaint/Hosp Course 1. ?Urinary retention -bladder scan and possible turpin 2. ESRD on HD 3. DM-II -nutrition and medication optimization 4. HTN -nutrition and medication optimization 5. Dyslipidemia -nutrition and medication optimization 6. Hypothyroidism -replete hormone Thank you, Problems: Subjective 24 Hr Interval Summary No f/c. Min n/v this am but resolved now. No cough. No almanzar/dizzy/visual or neuro changes. No u/o (pt reports makes some urine at home). Flatus and diarrhea. Pain 3/10. Min ambulatory. Exam/Review of Systems Vital Signs Vitals Vital Signs Date Time Temp Pulse Resp B/P Pulse Ox O2 Delivery O2 Flow Rate FiO2 06/23/16 20:44 99.0 90 20 137/63 98 06/22/16 15:55 Room Air Intake and Output 06/22/16 06/22/16 06/23/16 15:00 23:00 07:00 Intake Total 900 ml Output Total 2500 ml Balance -1600 ml Exam Constitutional: alert, oriented, other (Uncomfortable), No distress Psych: nl mood/affect, No confusion Head: atraumatic, normocephalic Eyes: EOMI, PERRL, nl conjunctiva, No icteric ENMT: mucosa pink and moist, nl external ears & nose Neck: non-tender, supple Respiratory: normal air movement, No congested cough, No labored breathing Cardiovascular: regular rate and rhythm, No edema Gastrointestinal: distended, soft, tender, No rebound or guarding Musculoskeletal: nl extremities to inspection, No joint tenderness Extremities: normal pulses, No calf tenderness, No cyanosis 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: nl mental status, nl speech, nl strength Skin: nl turgor, No diaphoresis, No rash or lesions Lymph: nl lymph nodes Results Result Diagram: 06/23/16 0535 06/23/16 0600 WALLACE INGRAM MD Jun 23, 2016 22:59
[2016-06-24] MEDS: ACCU-CHEK XX SCH (02:00)
[2016-06-24 05:31] LABS: ADD SCAN DIFF NO
[2016-06-24 05:44] LABS: ALBUMIN 3.3 g/dl (3.3-4.9); POTASSIUM 3.9 mmol/L (3.5-5.1)
[2016-06-24 05:47] LABS: CREATININE 5.89 mg/dl (0.61-1.24)
[2016-06-24 05:48] LABS: CALCIUM 8.2 mg/dl (8.4-10.2); PHOSPHORUS 4.9 mg/dl (2.5-4.9)
[2016-06-24 05:57] LABS: BASOPHILS % 0.4 % (0.0-2.0); EOSINOPHILS # 0.1 10^3/ul (0.0-0.5); EOSINOPHILS % 2.6 % (0.0-7.0); HEMATOCRIT 23.3 % (42.0-52.0); HEMOGLOBIN 7.9 g/dl (14.0-18.0); LYMPHOCYTES # 0.7 10^3/ul (0.8-2.9); LYMPHOCYTES % 12.3 % (15.0-51.0); MEAN CORPUSCULAR HEMOGLOBIN 30.5 pg (29.0-33.0); MEAN CORPUSCULAR HGB CONC 33.9 g/dl (32.0-37.0); MEAN PLATELET VOLUME 9.7 fl (7.4-10.4); MONOCYTE # 0.5 10^3/ul (0.3-0.9); MONOCYTES % 10.1 % (0.0-11.0); NEUTROPHILS % 74.2 % (39.0-77.0); PLATELET COUNT 143 10^3/UL (140-415); RED BLOOD COUNT 2.59 10^6/ul (4.70-6.10); RED CELL DISTRIBUTION WIDTH 14.6 % (11.5-14.5); WHITE BLOOD COUNT 5.4 10^3/ul (4.8-10.8)
[2016-06-24] MEDS: LEVOTHYROXINE 100 MCG TAB PO SCH (06:29)
[2016-06-24] MEDS: PANTOPRAZOLE (EC) 40 MG TAB PO SCH (06:29)
[2016-06-24 07:42] VITALS: BP 155/71; RESP 18
[2016-06-24] MEDS: INSULIN ASPART [NOVOLOG] 3 ML PEN SC SCH ×4 (08:15→20:53)
[2016-06-24] MEDS: SEVELAMER CARBONATE 0.8 GM PKT PO SCH ×3 (08:38→17:05)
[2016-06-24] MEDS: CHOLECALCIFEROL 2,000 UNIT CAP PO SCH (08:39)
[2016-06-24] MEDS: MULTIVIT/CA CARB/B CMPLX/FA TAB PO SCH (08:39)
[2016-06-24] MEDS: CLOPIDOGREL 75 MG TAB PO SCH (08:39)
[2016-06-24] MEDS: ASPIRIN (EC) 81 MG TAB PO SCH (08:39)
[2016-06-24] MEDS: AMLODIPINE 5 MG TAB PO SCH (08:40)
[2016-06-24] MEDS: LINAGLIPTIN 5 MG TABLET PO SCH (08:40)
[2016-06-24] MEDS: PYRIDOXINE 50 MG TAB PO SCH (08:40)
[2016-06-24] MEDS: FOLIC ACID 1 MG TAB PO SCH (08:45)
[2016-06-24] MEDS: ISONIAZID 100 MG TAB PO SCH (11:00)
--- NOTE | 2016-06-24 12:48 | PN ---
Date/Time of Note Date/Time of Note DATE: 06/24/16 TIME: 12:41 Assessment/Plan VTE Prophylaxis VTE Prophylaxis Intervention: heparin Lines/Catheters IV Catheter Type (from Nrs): Saline Lock Urinary Cath still in place: Yes Reason Cath still needed: urinary retention Assessment/Plan Assessment/Plan A 71-year-old male with the followin. Ventral wall hernia status post elective repair 06/22/2016, laparoscopically. 2. End-stage renal disease on hemodialysis. 3. Hypertension with good control. 4. Diabetes mellitus type 2. 5. Dyslipidemia. 6. Chronic hypothyroidism. 7. Chronic peripheral arterial disease status post multiple interventions in the past. 8. History of a CBD status post cholecystectomy, right inguinal hernia repair in the past. 9. 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 + Hx of recurrent ascites and anasarca PLAN OF CARE: * US eval and paracentesis if enough fluid * Remain on clear liquid for now, If uSS negative, will make NPO and place NGT * encourage ambulation / Reglan therapy / miralax * continue post op care and mgt to include PRN pain control/ antiemetics/ antipyretics * Continue HD MWF regimen * Continue home med * appreciate all consultants PROPHYLAXIS: SCDs / Protonix Subjective 24 Hr Interval Summary Free Text/Dictation * c/o abd distention is persistent, patient now complaining of discomfort * he wants the fluid out, he reports hx of paracentesis a few years ago * no nausea or vomiting Exam/Review of Systems Vital Signs Vitals Vital Signs Date Time Temp Pulse Resp B/P Pulse Ox O2 Delivery O2 Flow Rate FiO2 06/24/16 07:42 98.8 82 18 155/71 100 06/22/16 15:55 Room Air Intake and Output 06/23/16 06/23/16 06/24/16 15:00 23:00 07:00 Intake Total 180 ml Balance 180 ml Exam Constitutional: alert, frail, oriented Psych: anxiety Head: normocephalic Eyes: PERRL ENMT: mucosa pink and moist Respiratory: clear to auscultation, diminished breath sounds Cardiovascular: regular rate and rhythm, No murmurs/extra sounds Gastrointestinal: bowel sounds, distended, firm, soft, surgical scars (clean and non oozing, abd binder in place) Extremities: No edema 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: lethargic Results Result Diagram: 06/24/16 0510 06/24/16 0510 Results 24 hrs Laboratory Tests Test 06/23/16 17:19 06/23/16 22:20 06/24/16 05:10 06/24/16 08:37 Bedside Glucose 147 165 119 White Blood Count 5.4 # Red Blood Count 2.59 L Hemoglobin 7.9 L Hematocrit 23.3 L Mean Corpuscular Volume 90.0 Mean Corpuscular Hemoglobin 30.5 Mean Corpuscular Hemoglobin Concent 33.9 Red Cell Distribution Width 14.6 H Platelet Count 143 Mean Platelet Volume 9.7 Neutrophils % 74.2 Lymphocytes % 12.3 L Monocytes % 10.1 Eosinophils % 2.6 Basophils % 0.4 Nucleated Red Blood Cells % 0.0 Neutrophils # 4.0 Lymphocytes # 0.7 L Monocytes # 0.5 Eosinophils # 0.1 Basophils # 0.0 Nucleated Red Blood Cells # 0.0 Sodium Level 144 Potassium Level 3.9 Chloride Level 101 Carbon Dioxide Level 28 Anion Gap 19 #H Blood Urea Nitrogen 54 H Creatinine 5.89 H Glucose Level 124 Calcium Level 8.2 L Phosphorus Level 4.9 Albumin 3.3 Test 06/24/16 12:15 Bedside Glucose 118 Medications Medications Current Medications Miscellaneous Information 1 ea NOTE XX ; Start 06/22/16 at 12:30 Glucose (Glutose) 15 gm Q15M PRN PO DECREASED GLUCOSE; Start 06/22/16 at 12:30 Glucose (Glutose) 22.5 gm Q15M PRN PO DECREASED GLUCOSE; Start 06/22/16 at 12: 30 Dextrose (D50w Syringe) 25 ml Q15M PRN IV DECREASED GLUCOSE; Start 06/22/16 at 12:30 Dextrose (D50w Syringe) 50 ml Q15M PRN IV DECREASED GLUCOSE; Start 06/22/16 at 12:30 Glucagon (Glucagen) 1 mg Q15M PRN IM DECREASED GLUCOSE; Start 06/22/16 at 12:30 Glucose (Glutose) 15 gm Q15M PRN BUCCAL DECREASED GLUCOSE; Start 06/22/16 at 12 :30 Pantoprazole (Protonix Tab) 40 mg DAILY@06 PO Last administered on 06/24/16t 06 :29; Admin Dose 40 MG; Start 06/23/16 at 06:00 Acetaminophen/ Hydrocodone Bitart ([place] (5/325)) 2 tab Q4H PRN PO Pain 6-10 Last administered on 06/23/16 02:25; Admin Dose 2 TAB; Start 06/22/16 at 15:00 Acetaminophen/ Hydrocodone Bitart ([place] (5/325)) 1 tab Q4H PRN PO Pain 1-5 Last administered on 06/23/16 06:13; Admin Dose 1 TAB; Start 06/22/16 at 15:00 Hydromorphone HCl (Dilaudid) 0.5 mg Q2H PRN IV Breakthrough PAIN; Start at 15:00 Insulin Glargine (Lantus) 4 unit DAILY@20 SC Last administered on 06/23/16 22: 26; Admin Dose 4 UNIT; Start 06/22/16 at 20:00 Diagnostic Test (Pha) (Accucheck) 1 ea 02 XX ; Start 06/23/16 at 02:00 Linagliptin (Tradjenta) 5 mg DAILY PO Last administered on 06/24/16 08:40; Admin Dose 5 MG; Start 06/23/16 at 09:00 Amlodipine Besylate (Norvasc) 5 mg DAILY PO Last administered on 06/24/16 08: 40; Admin Dose 5 MG; Start 06/23/16 at 09:00 Aspirin (Halfprin) 81 mg DAILY PO Last administered on 06/24/16 08:39; Admin Dose 81 MG; Start 06/23/16 at 09:00 Cholecalciferol (Vitamin D) 2,000 unit DAILY PO Last administered on 06/24/16 08:39; Admin Dose 2,000 UNIT; Start 06/23/16 at 09:00 Clopidogrel Bisulfate (plaVIX) 75 mg DAILY PO Last administered on 06/24/16 08 :39; Admin Dose 75 MG; Start 06/23/16 at 09:00 Folic Acid (Folic Acid) 1 mg DAILY PO Last administered on 06/24/16 08:45; Admin Dose 1 MG; Start 06/23/16 at 09:00 Hydralazine HCl (Apresoline) 75 mg TID PO Last administered on 06/24/16 08:40 ; Admin Dose 75 MG; Start 06/22/16 at 21:00 Isoniazid (Isoniazid) 100 mg DAILY PO Last administered on 06/24/16 11:00; Admin Dose 100 MG; Start 06/23/16 at 09:00 Pyridoxine HCl (Vitamin B6) 100 mg DAILY PO Last administered on 06/24/16 08: 40; Admin Dose 100 MG; Start 06/23/16 at 09:00 Multivit/Ca Carb/ B Cmplx/FA/Prenat (Manasa-Haris) 1 tab DAILY PO Last administered on 06/24/16 08:39; Admin Dose 1 TAB; Start 06/23/16 at 09:00 Ondansetron HCl (Zofran Inj) 4 mg Q6H PRN IV NAUSEA AND/OR VOMITING; Start at 19:30 MARILEE AGUILAR Jun 24, 2016 12:48
[2016-06-24] MEDS: POLYETHYLENE GLYCOL 17 GM PACKET PO SCH (13:00)
[2016-06-24] MEDS: METOCLOPRAMIDE 10 MG INJ IV SCH ×3 (13:00→23:53)
--- NOTE | 2016-06-24 13:33 | RADRPT ---
PROCEDURE: Ultrasound guided paracentesis. CLINICAL INDICATION: Ascites and shortness of breath. COMPARISON: No prior studies are available for comparison. TECHNIQUE: The risks, benefits, and alternatives were explained to the patient and/or the patient's family, inc luding but not limited to bleeding, infection, pain, visceral or vascular damage, shock, and . The patient and/or the patient's family understood the risks and the alternatives and wished to pro ceed with the procedure. Informed written consent was obtained. A procedural time out was performed . The patient's name, date of , and procedure to be performed were verified. Utilizing ultrasound guidance, optimal location for entry to the peritoneal cavity was ascertained. The overlying skin was prepped and draped in the usual sterile fashion. Approximately 10 ml of 1% Xylocaine was injected locally for pain control. Using ultrasound guidance, an 8 [place] catheter wa s introduced into the peritoneal cavity in the right lower quadrant without difficulty. FINDINGS: Initial images demonstrate ascites. Approximately 7.0 liters of serous fluid was aspirated and disc arded. The patient tolerated the procedure well without complication. IMPRESSION: 1. Successful ultrasound-guided paracentesis. RPTAT: QQ .Andrea Barry MD, Date Time Electronically viewed and signed by .Andrea Barry MD, on 06/24/2016 13:33 .R/
[2016-06-24] MEDS ORDERED: LIDOCAINE 1% (MPF) 5 ML VIAL ONE (13:36)
--- NOTE | 2016-06-24 18:28 | CONS ---
Date/Time of Note Date/Time of Note DATE: 06/24/16 TIME: 18:26 Assessment/Plan Assessment/Plan Chief Complaint/Hosp Course Doing well POD#2 but required paracentesis today. Problems: (1) Diabetes mellitus type 2 with complications Status: Chronic Comment: Ongoing excellent glycemic control on minimal interventions. Will continue. 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 Qualified Code : E11.8 - Type 2 diabetes mellitus with complication, with long-term current use of insulin Consultation Date/Type/Reason Admit Date/Time Jun 24, 2016 at 11:19 Initial Consult Date 06/22/16 Type of Consultation: Endocrinology Reason for Consultation T2DM management Referring Provider: MARILEE AGUILAR 24 HR Interval Summary Subjective hx not possible: pt non-verbal (sleeping) Exam/Review of Systems Vital Signs Vitals VS - Last 72 Hours, by Label Date Time Temp Pulse Resp B/P Pulse Ox O2 Delivery O2 Flow Rate FiO2 06/24/16 07:42 98.8 82 18 155/71 100 06/23/16 20:44 99.0 90 20 137/63 98 06/23/16 12:12 84 145/63 06/23/16 07:21 97.6 76 18 106/56 97 06/23/16 07:00 79 06/23/16 07:00 79 18 06/23/16 06:30 79 06/23/16 06:00 79 06/23/16 05:30 80 06/23/16 05:00 78 06/23/16 04:30 79 06/23/16 04:00 77 06/23/16 04:00 77 18 06/22/16 19:56 97.5 77 16 158/66 98 06/22/16 16:25 97.6 76 18 141/64 98 06/22/16 15:55 74 15 125/64 96 Room Air 06/22/16 15:45 76 17 113/64 97 Room Air 06/22/16 15:40 74 9 113/60 96 Room Air 06/22/16 15:35 74 10 118/57 96 Room Air 06/22/16 15:30 74 11 110/58 96 Room Air 06/22/16 15:25 74 9 113/53 96 Room Air 06/22/16 15:20 74 13 110/55 97 Room Air 06/22/16 15:15 74 10 115/57 96 Room Air 06/22/16 15:10 74 20 116/57 97 Room Air 06/22/16 15:05 74 11 113/54 96 Room Air 06/22/16 15:00 74 12 108/55 97 Room Air 06/22/16 14:55 72 11 111/57 97 Room Air 06/22/16 14:50 74 11 108/57 97 Room Air 06/22/16 14:45 74 14 121/56 97 Room Air 06/22/16 14:40 74 13 118/57 97 Room Air 06/22/16 14:35 74 15 120/56 97 Room Air 06/22/16 14:30 72 12 126/59 97 Room Air 06/22/16 14:25 72 8 117/59 99 Room Air 06/22/16 14:20 74 11 123/60 98 Room Air 06/22/16 14:15 72 11 114/59 99 Room Air 06/22/16 14:10 74 18 131/59 99 Room Air 06/22/16 14:05 74 18 140/64 99 Room Air 06/22/16 13:57 98.0 74 16 131/59 100 Room Air 06/22/16 11:07 97.6 65 18 195/77 100 Room Air Vital Signs Date Time Temp Pulse Resp B/P Pulse Ox O2 Delivery O2 Flow Rate FiO2 06/24/16 07:42 98.8 82 18 155/71 100 06/22/16 15:55 Room Air Intake and Output 06/23/16 06/23/16 06/24/16 15:00 23:00 07:00 Intake Total 180 ml Balance 180 ml Exam Constitutional: non-verbal, No alert (sleeping) Respiratory: clear to auscultation, normal air movement Cardiovascular: regular rate and rhythm, No edema, No murmurs/extra sounds, No rub Gastrointestinal: bowel sounds, nl liver, spleen, non-tender, soft, No mass, No rebound or guarding Musculoskeletal: nl extremities to inspection Extremities: No clubbing, No cyanosis, No edema 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: other (asleep) Additional Comments Bedside Glucose - 72 Hours Test 06/22/16 10:58 06/22/16 14:04 06/22/16 16:39 06/22/16 21:11 Bedside Glucose 95mg/dL (70-220) 107mg/dL (70-220) 104mg/dL (70-220) 95mg/dL (70-220) Test 06/23/16 07:42 06/23/16 12:06 06/23/16 17:19 06/23/16 22:20 Bedside Glucose 182mg/dL (70-220) 150mg/dL (70-220) 147mg/dL (70-220) 165mg/dL (70-220) Test 06/24/16 08:37 06/24/16 12:15 06/24/16 16:58 Bedside Glucose 119mg/dL (70-220) 118mg/dL (70-220) 138mg/dL (70-220) Results Result Diagram: 06/24/16 0510 06/24/16 0510 Results 24 hrs Laboratory Tests Test 06/23/16 22:20 06/24/16 05:10 06/24/16 08:37 06/24/16 12:15 Bedside Glucose 165 119 118 White Blood Count 5.4 # Red Blood Count 2.59 L Hemoglobin 7.9 L Hematocrit 23.3 L Mean Corpuscular Volume 90.0 Mean Corpuscular Hemoglobin 30.5 Mean Corpuscular Hemoglobin Concent 33.9 Red Cell Distribution Width 14.6 H Platelet Count 143 Mean Platelet Volume 9.7 Neutrophils % 74.2 Lymphocytes % 12.3 L Monocytes % 10.1 Eosinophils % 2.6 Basophils % 0.4 Nucleated Red Blood Cells % 0.0 Neutrophils # 4.0 Lymphocytes # 0.7 L Monocytes # 0.5 Eosinophils # 0.1 Basophils # 0.0 Nucleated Red Blood Cells # 0.0 Sodium Level 144 Potassium Level 3.9 Chloride Level 101 Carbon Dioxide Level 28 Anion Gap 19 #H Blood Urea Nitrogen 54 H Creatinine 5.89 H Glucose Level 124 Calcium Level 8.2 L Phosphorus Level 4.9 Albumin 3.3 Test 06/24/16 16:58 Bedside Glucose 138 Medications Medications Current Medications Miscellaneous Information 1 ea NOTE XX ; Start 06/22/16 at 12:30 Glucose (Glutose) 15 gm Q15M PRN PO DECREASED GLUCOSE; Start 06/22/16 at 12:30 Glucose (Glutose) 22.5 gm Q15M PRN PO DECREASED GLUCOSE; Start 06/22/16 at 12: 30 Dextrose (D50w Syringe) 25 ml Q15M PRN IV DECREASED GLUCOSE; Start 06/22/16 at 12:30 Dextrose (D50w Syringe) 50 ml Q15M PRN IV DECREASED GLUCOSE; Start 06/22/16 at 12:30 Glucagon (Glucagen) 1 mg Q15M PRN IM DECREASED GLUCOSE; Start 06/22/16 at 12:30 Glucose (Glutose) 15 gm Q15M PRN BUCCAL DECREASED GLUCOSE; Start 06/22/16 at 12 :30 Pantoprazole (Protonix Tab) 40 mg DAILY@06 PO Last administered on 06/24/16 06 :29; Admin Dose 40 MG; Start 06/23/16 at 06:00 Acetaminophen/ Hydrocodone Bitart ([place] (5/325)) 2 tab Q4H PRN PO Pain 6-10 Last administered on 06/23/16 02:25; Admin Dose 2 TAB; Start 06/22/16 at 15:00 Acetaminophen/ Hydrocodone Bitart ([place] (5/325)) 1 tab Q4H PRN PO Pain 1-5 Last administered on 06/23/16 06:13; Admin Dose 1 TAB; Start 06/22/16 at 15:00 Hydromorphone HCl (Dilaudid) 0.5 mg Q2H PRN IV Breakthrough PAIN; Start at 15:00 Insulin Glargine (Lantus) 4 unit DAILY@20 SC Last administered on 06/23/16 22: 26; Admin Dose 4 UNIT; Start 06/22/16 at 20:00 Diagnostic Test (Pha) (Accucheck) 1 ea 02 XX ; Start 06/23/16 at 02:00 Linagliptin (Tradjenta) 5 mg DAILY PO Last administered on 06/24/16 08:40; Admin Dose 5 MG; Start 06/23/16 at 09:00 Amlodipine Besylate (Norvasc) 5 mg DAILY PO Last administered on 06/24/16 08: 40; Admin Dose 5 MG; Start 06/23/16 at 09:00 Aspirin (Halfprin) 81 mg DAILY PO Last administered on 06/24/16 08:39; Admin Dose 81 MG; Start 06/23/16 at 09:00 Cholecalciferol (Vitamin D) 2,000 unit DAILY PO Last administered on 06/24/16 08:39; Admin Dose 2,000 UNIT; Start 06/23/16 at 09:00 Clopidogrel Bisulfate (plaVIX) 75 mg DAILY PO Last administered on 06/24/16 08 :39; Admin Dose 75 MG; Start 06/23/16 at 09:00 Folic Acid (Folic Acid) 1 mg DAILY PO Last administered on 06/24/16 08:45; Admin Dose 1 MG; Start 06/23/16 at 09:00 Hydralazine HCl (Apresoline) 75 mg TID PO Last administered on 06/24/16 08:40 ; Admin Dose 75 MG; Start 06/22/16 at 21:00 Isoniazid (Isoniazid) 100 mg DAILY PO Last administered on 06/24/16 11:00; Admin Dose 100 MG; Start 06/23/16 at 09:00 Pyridoxine HCl (Vitamin B6) 100 mg DAILY PO Last administered on 06/24/16 08: 40; Admin Dose 100 MG; Start 06/23/16 at 09:00 Multivit/Ca Carb/ B Cmplx/FA/Prenat (Manasa-Haris) 1 tab DAILY PO Last administered on 06/24/16 08:39; Admin Dose 1 TAB; Start 06/23/16 at 09:00 Ondansetron HCl (Zofran Inj) 4 mg Q6H PRN IV NAUSEA AND/OR VOMITING; Start at 19:30 Metoclopramide HCl (Reglan) 5 mg Q6 IV Last administered on 06/24/16 17:05; Admin Dose 5 MG; Start 06/24/16 at 13:00; Stop 06/26/16 at 12:59 Polyethylene Glycol (Miralax) 17 gm DAILY PO ; Start 06/24/16 at 13:00 Heparin Sodium (Porcine) (Heparin (5000 Units/0.5 ml)) 5,000 unit BID SC ; Start 06/24/16 at 21:00 FELIX DREW MD Jun 24, 2016 18:28
[2016-06-24 19:26] VITALS: BP 135/61; RESP 16
[2016-06-24] MEDS: INSULIN GLARGINE [LANtus] 3 ML PEN SC SCH (20:52)
--- NOTE | 2016-06-24 20:58 | CONS ---
Date/Time of Note Date/Time of Note DATE: 06/24/16 TIME: 20:51 Assessment/Plan Assessment/Plan Additional Assessment/Plan Will transfuse in AM with HD Consultation Date/Type/Reason Admit Date/Time Jun 24, 2016 at 11:19 Initial Consult Date 06/22/16 Type of Consultation: renal Referring Provider: MARILEE AGUILAR 24 HR Interval Summary Free Text/Dictation Pt had paracentasis Constitutional: improved Exam/Review of Systems Vital Signs Vitals Vital Signs Date Time Temp Pulse Resp B/P Pulse Ox O2 Delivery O2 Flow Rate FiO2 06/24/16 19:26 98.6 82 16 135/61 99 06/22/16 15:55 Room Air Intake and Output 06/23/16 06/23/16 06/24/16 15:00 23:00 07:00 Intake Total 180 ml Balance 180 ml Exam Constitutional: alert, oriented, well developed Psych: nl mood/affect, no complaints Head: atraumatic, normocephalic Eyes: EOMI, PERRL, nl conjunctiva, nl lids, nl sclera ENMT: nl external ears & nose, nl lips & teeth, nl nasal mucosa & septum Neck: non-tender, supple Respiratory: clear to auscultation, normal air movement Cardiovascular: nl pulses, regular rate and rhythm Gastrointestinal: nl liver, spleen, non-tender, other (Dressing in place around abd wall), soft Musculoskeletal: nl extremities to inspection, nl gait and stance Extremities: normal pulses 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, nl mental status, nl speech, nl strength Skin: nl turgor, No rash or lesions Lymph: nl lymph nodes Results Note drop in hbg Result Diagram: 06/24/16 0510 06/24/16 0510 Results 24 hrs Laboratory Tests Test 06/23/16 22:20 06/24/16 05:10 06/24/16 08:37 06/24/16 12:15 Bedside Glucose 165 119 118 White Blood Count 5.4 # Red Blood Count 2.59 L Hemoglobin 7.9 L Hematocrit 23.3 L Mean Corpuscular Volume 90.0 Mean Corpuscular Hemoglobin 30.5 Mean Corpuscular Hemoglobin Concent 33.9 Red Cell Distribution Width 14.6 H Platelet Count 143 Mean Platelet Volume 9.7 Neutrophils % 74.2 Lymphocytes % 12.3 L Monocytes % 10.1 Eosinophils % 2.6 Basophils % 0.4 Nucleated Red Blood Cells % 0.0 Neutrophils # 4.0 Lymphocytes # 0.7 L Monocytes # 0.5 Eosinophils # 0.1 Basophils # 0.0 Nucleated Red Blood Cells # 0.0 Sodium Level 144 Potassium Level 3.9 Chloride Level 101 Carbon Dioxide Level 28 Anion Gap 19 #H Blood Urea Nitrogen 54 H Creatinine 5.89 H Glucose Level 124 Calcium Level 8.2 L Phosphorus Level 4.9 Albumin 3.3 Test 06/24/16 16:58 06/24/16 20:45 Bedside Glucose 138 135 Medications Medications Current Medications Miscellaneous Information 1 ea NOTE XX ; Start 06/22/16 at 12:30 Glucose (Glutose) 15 gm Q15M PRN PO DECREASED GLUCOSE; Start 06/22/16 at 12:30 Glucose (Glutose) 22.5 gm Q15M PRN PO DECREASED GLUCOSE; Start 06/22/16 at 12: 30 Dextrose (D50w Syringe) 25 ml Q15M PRN IV DECREASED GLUCOSE; Start 06/22/16 at 12:30 Dextrose (D50w Syringe) 50 ml Q15M PRN IV DECREASED GLUCOSE; Start 06/22/16 at 12:30 Glucagon (Glucagen) 1 mg Q15M PRN IM DECREASED GLUCOSE; Start 06/22/16 at 12:30 Glucose (Glutose) 15 gm Q15M PRN BUCCAL DECREASED GLUCOSE; Start 06/22/16 at 12 :30 Pantoprazole (Protonix Tab) 40 mg DAILY@06 PO Last administered on 06/24/16 06 :29; Admin Dose 40 MG; Start 06/23/16 at 06:00 Acetaminophen/ Hydrocodone Bitart ([place] (5/325)) 2 tab Q4H PRN PO Pain 6-10 Last administered on 06/23/16 02:25; Admin Dose 2 TAB; Start 06/22/16 at 15:00 Acetaminophen/ Hydrocodone Bitart ([place] (5/325)) 1 tab Q4H PRN PO Pain 1-5 Last administered on 06/23/16 06:13; Admin Dose 1 TAB; Start 06/22/16 at 15:00 Hydromorphone HCl (Dilaudid) 0.5 mg Q2H PRN IV Breakthrough PAIN; Start at 15:00 Insulin Glargine (Lantus) 4 unit DAILY@20 SC Last administered on 06/23/16 22: 26; Admin Dose 4 UNIT; Start 06/22/16 at 20:00 Diagnostic Test (Pha) (Accucheck) 1 ea 02 XX ; Start 06/23/16 at 02:00 Linagliptin (Tradjenta) 5 mg DAILY PO Last administered on 06/24/16 08:40; Admin Dose 5 MG; Start 06/23/16 at 09:00 Amlodipine Besylate (Norvasc) 5 mg DAILY PO Last administered on 06/24/16 08: 40; Admin Dose 5 MG; Start 06/23/16 at 09:00 Aspirin (Halfprin) 81 mg DAILY PO Last administered on 06/24/16 08:39; Admin Dose 81 MG; Start 06/23/16 at 09:00 Cholecalciferol (Vitamin D) 2,000 unit DAILY PO Last administered on 06/24/16 08:39; Admin Dose 2,000 UNIT; Start 06/23/16 at 09:00 Clopidogrel Bisulfate (plaVIX) 75 mg DAILY PO Last administered on 06/24/16 08 :39; Admin Dose 75 MG; Start 06/23/16 at 09:00 Folic Acid (Folic Acid) 1 mg DAILY PO Last administered on 06/24/16 08:45; Admin Dose 1 MG; Start 06/23/16 at 09:00 Hydralazine HCl (Apresoline) 75 mg TID PO Last administered on 06/24/16 08:40 ; Admin Dose 75 MG; Start 06/22/16 at 21:00 Isoniazid (Isoniazid) 100 mg DAILY PO Last administered on 06/24/16 11:00; Admin Dose 100 MG; Start 06/23/16 at 09:00 Pyridoxine HCl (Vitamin B6) 100 mg DAILY PO Last administered on 06/24/16 08: 40; Admin Dose 100 MG; Start 06/23/16 at 09:00 Multivit/Ca Carb/ B Cmplx/FA/Prenat (Manasa-Haris) 1 tab DAILY PO Last administered on 06/24/16 08:39; Admin Dose 1 TAB; Start 06/23/16 at 09:00 Ondansetron HCl (Zofran Inj) 4 mg Q6H PRN IV NAUSEA AND/OR VOMITING; Start at 19:30 Metoclopramide HCl (Reglan) 5 mg Q6 IV Last administered on 06/24/16t 17:05; Admin Dose 5 MG; Start 06/24/16 at 13:00; Stop 06/26/16 at 12:59 Polyethylene Glycol (Miralax) 17 gm DAILY PO ; Start 06/24/16 at 13:00 Heparin Sodium (Porcine) (Heparin (5000 Units/0.5 ml)) 5,000 unit BID SC ; Start 06/24/16 at 21:00 RUFINO AMBRIZ MD Jun 24, 2016 20:58
[2016-06-24] MEDS: HEPARIN 5,000 UNIT/0.5 ML SYG SC SCH (21:42)
[2016-06-25] VITALS (13 sets, daily range): BP systolic 105–155; BP diastolic 51–68; PULSE 75–78; RESP 16–18
[2016-06-25] MEDS: ACCU-CHEK XX SCH (01:50)
[2016-06-25 05:29] LABS: ADD SCAN DIFF NO
[2016-06-25 05:51] LABS: BASOPHILS % 0.5 % (0.0-2.0); EOSINOPHILS # 0.2 10^3/ul (0.0-0.5); EOSINOPHILS % 3.8 % (0.0-7.0); HEMATOCRIT 26.1 % (42.0-52.0); LYMPHOCYTES # 1.2 10^3/ul (0.8-2.9); LYMPHOCYTES % 19.4 % (15.0-51.0); MEAN CORPUSCULAR HEMOGLOBIN 30.6 pg (29.0-33.0); MEAN CORPUSCULAR HGB CONC 34.5 g/dl (32.0-37.0); MEAN CORPUSCULAR VOLUME 88.8 fl (82.0-101.0); MONOCYTE # 0.6 10^3/ul (0.3-0.9); MONOCYTES % 9.1 % (0.0-11.0); NEUTROPHIL # 4.2 10^3/ul (1.6-7.5); NEUTROPHILS % 66.7 % (39.0-77.0); PLATELET COUNT 142 10^3/UL (140-415); RED BLOOD COUNT 2.94 10^6/ul (4.70-6.10); RED CELL DISTRIBUTION WIDTH 14.4 % (11.5-14.5); WHITE BLOOD COUNT 6.3 10^3/ul (4.8-10.8)
[2016-06-25] MEDS: PANTOPRAZOLE (EC) 40 MG TAB PO SCH (05:59)
[2016-06-25] MEDS: METOCLOPRAMIDE 10 MG INJ IV SCH ×3 (06:00→18:24)
[2016-06-25 06:11] LABS: POTASSIUM 4.4 mmol/L (3.5-5.1)
[2016-06-25 06:13] LABS: CREATININE 7.94 mg/dl (0.61-1.24)
[2016-06-25 06:14] LABS: CALCIUM 7.9 mg/dl (8.4-10.2); PHOSPHORUS 6.2 mg/dl (2.5-4.9)
[2016-06-25] MEDS: LEVOTHYROXINE 100 MCG TAB PO SCH (06:41)
--- NOTE | 2016-06-25 07:45 | PN ---
Date/Time of Note Date/Time of Note DATE: 06/24/16 TIME: 17:43 Assessment/Plan Lines/Catheters IV Catheter Type (from Nrs): Saline Lock Turpin in Place (from Nrs): Yes Assessment/Plan Chief Complaint/Hosp Course 1. ?Urinary retention turpin placed -?dc turpin per primary team 2. ESRD on HD 3. DM-II -nutrition and medication optimization 4. HTN -nutrition and medication optimization 5. Dyslipidemia -nutrition and medication optimization 6. Hypothyroidism -replete hormone 7. Ascitis s/p paracentesis Thank you, Problems: Subjective 24 Hr Interval Summary s/p paracentesis. feeling better. no f/c. no n/v. no cp/sob/almanzar/dizzy/visual or neuro changes. no cough. Exam/Review of Systems Vital Signs Vitals Vital Signs Date Time Temp Pulse Resp B/P Pulse Ox O2 Delivery O2 Flow Rate FiO2 06/25/16 01:05 98.6 75 16 113/56 98 06/22/16 15:55 Room Air Intake and Output 06/24/16 06/24/16 06/25/16 15:00 23:00 07:00 Intake Total 1000 ml 400 ml Output Total 200 ml Balance 800 ml 400 ml Exam Free Text/Dictation Constitutional: alert, oriented, other (Uncomfortable), No distress Psych: nl mood/affect, No confusion Head: atraumatic, normocephalic Eyes: EOMI, PERRL, nl conjunctiva, No icteric ENMT: mucosa pink and moist, nl external ears & nose Neck: non-tender, supple Respiratory: normal air movement, No congested cough, No labored breathing Cardiovascular: regular rate and rhythm, No edema Gastrointestinal: distended, soft, tender, No rebound or guarding Musculoskeletal: nl extremities to inspection, No joint tenderness Extremities: normal pulses, No calf tenderness, No cyanosis 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: nl mental status, nl speech, nl strength Skin: nl turgor, No diaphoresis, No rash or lesions Lymph: nl lymph nodes Results Result Diagram: 06/25/16 0455 06/25/16 0455 WALLACE INGRAM MD Jun 25, 2016 07:45
[2016-06-25] MEDS: INSULIN ASPART [NOVOLOG] 3 ML PEN SC SCH ×4 (08:06→20:45)
[2016-06-25] MEDS: ASPIRIN (EC) 81 MG TAB PO SCH (08:26)
[2016-06-25] MEDS: MULTIVIT/CA CARB/B CMPLX/FA TAB PO SCH (08:26)
[2016-06-25] MEDS: CLOPIDOGREL 75 MG TAB PO SCH (08:26)
[2016-06-25] MEDS: PYRIDOXINE 50 MG TAB PO SCH (08:26)
[2016-06-25] MEDS: LINAGLIPTIN 5 MG TABLET PO SCH (08:26)
[2016-06-25] MEDS: FOLIC ACID 1 MG TAB PO SCH (08:26)
[2016-06-25] MEDS: CHOLECALCIFEROL 2,000 UNIT CAP PO SCH (08:26)
[2016-06-25] MEDS: ISONIAZID 100 MG TAB PO SCH (08:26)
[2016-06-25] MEDS: POLYETHYLENE GLYCOL 17 GM PACKET PO SCH (08:27)
[2016-06-25] MEDS: SEVELAMER CARBONATE 0.8 GM PKT PO SCH ×3 (08:27→18:24)
[2016-06-25] MEDS: HEPARIN 5,000 UNIT/0.5 ML SYG SC SCH ×2 (08:42→20:59)
[2016-06-25] MEDS: AMLODIPINE 5 MG TAB PO SCH (09:00)
--- NOTE | 2016-06-25 12:34 | PN ---
Date/Time of Note Date/Time of Note DATE: 06/25/16 TIME: 12:32 Assessment/Plan VTE Prophylaxis VTE Prophylaxis Intervention: heparin Lines/Catheters IV Catheter Type (from Nrsg): Saline Lock Urinary Cath still in place: Yes Reason Cath still needed: other (indicate) (d/c) Assessment/Plan Assessment/Plan A 71-year-old male with the followin. Ventral wall hernia status post elective repair 06/22/2016, laparoscopically. 2. End-stage renal disease on hemodialysis. 3. Hypertension with good control. 4. Diabetes mellitus type 2. 5. Dyslipidemia. 6. Chronic hypothyroidism. 7. Chronic peripheral arterial disease status post multiple interventions in the past. 8. History of a CBD status post cholecystectomy, right inguinal hernia repair in the past. 9. 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 + Hx of recurrent ascites and anasarca PLAN OF CARE: * patient feels better after paracentesis / advance diet * encourage ambulation / Reglan therapy / miralax * continue post op care and mgt to include PRN pain control/ antiemetics/ antipyretics * Continue HD MWF regimen * Continue home med * appreciate all consultants PROPHYLAXIS: SCDs / Protonix Subjective 24 Hr Interval Summary Free Text/Dictation much improved 7L taken out with paracentesis Exam/Review of Systems Vital Signs Vitals Vital Signs Date Time Temp Pulse Resp B/P Pulse Ox O2 Delivery O2 Flow Rate FiO2 06/25/16 07:00 98.0 68 18 136/65 98 06/22/16 15:55 Room Air Intake and Output 06/24/16 06/24/16 06/25/16 14:59 22:59 06:59 Intake Total 1000 ml 400 ml Output Total 200 ml Balance 800 ml 400 ml Exam Constitutional: alert, frail, oriented, No distress Psych: nl mood/affect Head: atraumatic, normocephalic Eyes: PERRL ENMT: mucosa pink and moist Neck: supple Respiratory: diminished breath sounds Cardiovascular: murmurs/extra sounds, regular rate and rhythm Gastrointestinal: bowel sounds, non-tender, soft, No distended 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: lethargic (less), nl mental status, nl speech Results Result Diagram: 06/25/165 06/25/16454 Results 24 hrs Laboratory Tests Test 06/24/16 16:58 06/24/16 20:45 06/25/16 04:55 06/25/16 07:47 Bedside Glucose 138 135 113 White Blood Count 6.3 Red Blood Count 2.94 L Hemoglobin 9.0 L Hematocrit 26.1 L Mean Corpuscular Volume 88.8 Mean Corpuscular Hemoglobin 30.6 Mean Corpuscular Hemoglobin Concent 34.5 Red Cell Distribution Width 14.4 Platelet Count 142 Mean Platelet Volume 10.0 Neutrophils % 66.7 Lymphocytes % 19.4 Monocytes % 9.1 Eosinophils % 3.8 Basophils % 0.5 Nucleated Red Blood Cells % 0.0 Neutrophils # 4.2 Lymphocytes # 1.2 Monocytes # 0.6 Eosinophils # 0.2 Basophils # 0.0 Nucleated Red Blood Cells # 0.0 Sodium Level 139 Potassium Level 4.4 Chloride Level 100 Carbon Dioxide Level 25 Anion Gap 18 H Blood Urea Nitrogen 67 H Creatinine 7.94 #H Glucose Level 105 Calcium Level 7.9 L Phosphorus Level 6.2 H Albumin 3.0 L Medications Medications Current Medications Miscellaneous Information 1 ea NOTE XX ; Start 06/22/16 at 12:30 Glucose (Glutose) 15 gm Q15M PRN PO DECREASED GLUCOSE; Start 06/22/16 at 12:30 Glucose (Glutose) 22.5 gm Q15M PRN PO DECREASED GLUCOSE; Start 06/22/16 at 12: 30 Dextrose (D50w Syringe) 25 ml Q15M PRN IV DECREASED GLUCOSE; Start 06/22/16 at 12:30 Dextrose (D50w Syringe) 50 ml Q15M PRN IV DECREASED GLUCOSE; Start 06/22/16 at 12:30 Glucagon (Glucagen) 1 mg Q15M PRN IM DECREASED GLUCOSE; Start 06/22/16 at 12:30 Glucose (Glutose) 15 gm Q15M PRN BUCCAL DECREASED GLUCOSE; Start 06/22/16 at 12 :30 Pantoprazole (Protonix Tab) 40 mg DAILY@06 PO Last administered on 06/25/16 05 :59; Admin Dose 40 MG; Start 06/23/16 at 06:00 Acetaminophen/ Hydrocodone Bitart ([place] (5/325)) 2 tab Q4H PRN PO Pain 6-10 Last administered on 06/23/16 02:25; Admin Dose 2 TAB; Start 06/22/16 at 15:00 Acetaminophen/ Hydrocodone Bitart ([place] (5/325)) 1 tab Q4H PRN PO Pain 1-5 Last administered on 06/23/16 06:13; Admin Dose 1 TAB; Start 06/22/16 at 15:00 Hydromorphone HCl (Dilaudid) 0.5 mg Q2H PRN IV Breakthrough PAIN; Start at 15:00 Insulin Glargine (Lantus) 4 unit DAILY@20 SC Last administered on 06/24/16 20: 52; Admin Dose 4 UNIT; Start 06/22/16 at 20:00 Diagnostic Test (Pha) (Accucheck) 1 ea 02 XX ; Start 06/23/16 at 02:00 Linagliptin (Tradjenta) 5 mg DAILY PO Last administered on 06/25/16 08:26; Admin Dose 5 MG; Start 06/23/16 at 09:00 Amlodipine Besylate (Norvasc) 5 mg DAILY PO Last administered on 06/24/16 08: 40; Admin Dose 5 MG; Start 06/23/16 at 09:00 Aspirin (Halfprin) 81 mg DAILY PO Last administered on 06/25/16 08:26; Admin Dose 81 MG; Start 06/23/16 at 09:00 Cholecalciferol (Vitamin D) 2,000 unit DAILY PO Last administered on 06/25/16 08:26; Admin Dose 2,000 UNIT; Start 06/23/16 at 09:00 Clopidogrel Bisulfate (plaVIX) 75 mg DAILY PO Last administered on 06/25/16 08 :26; Admin Dose 75 MG; Start 06/23/16 at 09:00 Folic Acid (Folic Acid) 1 mg DAILY PO Last administered on 06/25/16 08:26; Admin Dose 1 MG; Start 06/23/16 at 09:00 Hydralazine HCl (Apresoline) 75 mg TID PO Last administered on 06/24/16 08:40 ; Admin Dose 75 MG; Start 06/22/16 at 21:00 Isoniazid (Isoniazid) 100 mg DAILY PO Last administered on 06/25/16 08:26; Admin Dose 100 MG; Start 06/23/16 at 09:00 Pyridoxine HCl (Vitamin B6) 100 mg DAILY PO Last administered on 06/25/16 08: 26; Admin Dose 100 MG; Start 06/23/16 at 09:00 Multivit/Ca Carb/ B Cmplx/FA/Prenat (Manasa-Haris) 1 tab DAILY PO Last administered on 06/25/16 08:26; Admin Dose 1 TAB; Start 06/23/16 at 09:00 Ondansetron HCl (Zofran Inj) 4 mg Q6H PRN IV NAUSEA AND/OR VOMITING; Start at 19:30 Metoclopramide HCl (Reglan) 5 mg Q6 IV Last administered on 06/25/16 06:00; Admin Dose 5 MG; Start 06/24/16 at 13:00; Stop 06/26/16 at 12:59 Polyethylene Glycol (Miralax) 17 gm DAILY PO Last administered on 06/25/16 08: 27; Admin Dose 17 GM; Start 06/24/16 at 13:00 Heparin Sodium (Porcine) (Heparin (5000 Units/0.5 ml)) 5,000 unit BID SC Last administered on 06/25/16 08:42; Admin Dose 5,000 UNIT; Start 06/24/16 at 21:00 Procedures Procedures PROCEDURE: Ultrasound guided paracentesis. CLINICAL INDICATION: Ascites and shortness of breath. COMPARISON: No prior studies are available for comparison. TECHNIQUE: The risks, benefits, and alternatives were explained to the patient and/or the patient's family, including but not limited to bleeding, infection, pain, visceral or vascular damage, shock, and . The patient and/or the patient' s family understood the risks and the alternatives and wished to proceed with the procedure. Informed written consent was obtained. A procedural time out was performed. The patient's name, date of , and procedure to be performed were verified. Utilizing ultrasound guidance, optimal location for entry to the peritoneal cavity was ascertained. The overlying skin was prepped and draped in the usual sterile fashion. Approximately 10 ml of 1% Xylocaine was injected locally for pain control. Using ultrasound guidance, an 8 [place] catheter was introduced into the peritoneal cavity in the right lower quadrant without difficulty. FINDINGS: Initial images demonstrate ascites. Approximately 7.0 liters of serous fluid was aspirated and discarded. The patient tolerated the procedure well without complication. IMPRESSION: 1. Successful ultrasound-guided paracentesis. RPTAT: QQ .Andrea Barry MD, MD Date Time Electronically viewed and signed by .Andrea Barry MD, MD on 06/24/2016 13:33 .R/ CC: MARILEE AGUILAR BOLATITO M. Jun 25, 2016 12:34
--- NOTE | 2016-06-25 14:01 | CONS ---
Date/Time of Note Date/Time of Note DATE: 06/25/16 TIME: 13:59 Assessment/Plan Assessment/Plan Chief Complaint/Hosp Course Doing well POD#3. Problems: (1) Diabetes mellitus type 2 with complications Status: Chronic Comment: Excellent glycemic control. Cont. current therapy. Ok for d/c from endo perspective when cleared by primary team Qualifiers: Diabetes mellitus long term care administrator insulin use: with chcf use Qualified Code : E11.8 - Type 2 diabetes mellitus with complication, with long-term current use of insulin Consultation Date/Type/Reason Admit Date/Time Jun 24, 2016 at 11:19 Initial Consult Date 06/22/16 Type of Consultation: Endocrinology Reason for Consultation T2DM management Referring Provider: MARILEE AGUILAR 24 HR Interval Summary Constitutional: improved, no complaints Detailed Summary Respiratory: no complaints Cardiovascular: no complaints Gastrointestinal: pain (improved daily) Genitourinary: no complaints Musculoskeletal: no complaints Neurologic: no complaints Exam/Review of Systems Vital Signs Vitals VS - Last 72 Hours, by Label Date Time Temp Pulse Resp B/P Pulse Ox O2 Delivery O2 Flow Rate FiO2 06/25/16 12:40 77 18 06/25/16 12:40 75 06/25/16 12:30 76 06/25/16 12:00 77 06/25/16 11:45 77 06/25/16 11:30 75 06/25/16 11:10 77 06/25/16 10:40 75 06/25/16 10:10 78 06/25/16 09:40 75 18 06/25/16 09:40 77 06/25/16 07:00 98.0 68 18 136/65 98 06/25/16 01:05 98.6 75 16 113/56 98 06/24/16 19:26 98.6 82 16 135/61 99 06/24/16 07:42 98.8 82 18 155/71 100 06/23/16 20:44 99.0 90 20 137/63 98 06/23/16 12:12 84 145/63 06/23/16 07:21 97.6 76 18 106/56 97 06/23/16 07:00 79 06/23/16 07:00 79 18 06/23/16 06:30 79 06/23/16 06:00 79 06/23/16 05:30 80 06/23/16 05:00 78 06/23/16 04:30 79 06/23/16 04:00 77 06/23/16 04:00 77 18 06/22/16 19:56 97.5 77 16 158/66 98 06/22/16 16:25 97.6 76 18 141/64 98 06/22/16 15:55 74 15 125/64 96 Room Air 06/22/16 15:45 76 17 113/64 97 Room Air 06/22/16 15:40 74 9 113/60 96 Room Air 06/22/16 15:35 74 10 118/57 96 Room Air 06/22/16 15:30 74 11 110/58 96 Room Air 06/22/16 15:25 74 9 113/53 96 Room Air 06/22/16 15:20 74 13 110/55 97 Room Air 06/22/16 15:15 74 10 115/57 96 Room Air 06/22/16 15:10 74 20 116/57 97 Room Air 06/22/16 15:05 74 11 113/54 96 Room Air 06/22/16 15:00 74 12 108/55 97 Room Air 06/22/16 14:55 72 11 111/57 97 Room Air 06/22/16 14:50 74 11 108/57 97 Room Air 06/22/16 14:45 74 14 121/56 97 Room Air 06/22/16 14:40 74 13 118/57 97 Room Air 06/22/16 14:35 74 15 120/56 97 Room Air 06/22/16 14:30 72 12 126/59 97 Room Air 06/22/16 14:25 72 8 117/59 99 Room Air 06/22/16 14:20 74 11 123/60 98 Room Air 06/22/16 14:15 72 11 114/59 99 Room Air 06/22/16 14:10 74 18 131/59 99 Room Air 06/22/16 14:05 74 18 140/64 99 Room Air Vital Signs Date Time Temp Pulse Resp B/P Pulse Ox O2 Delivery O2 Flow Rate FiO2 06/25/16 12:40 77 18 06/25/16 07:00 98.0 136/65 98 06/22/16 15:55 Room Air Intake and Output 06/24/16 06/24/16 06/25/16 15:00 23:00 07:00 Intake Total 1000 ml 400 ml Output Total 200 ml Balance 800 ml 400 ml Exam Constitutional: alert, frail, oriented Psych: nl mood/affect, no complaints Respiratory: clear to auscultation, normal air movement Cardiovascular: regular rate and rhythm, No edema, No murmurs/extra sounds, No rub Gastrointestinal: bowel sounds, nl liver, spleen, soft, tender, No mass, No rebound or guarding Musculoskeletal: nl extremities to inspection Extremities: No clubbing, No cyanosis, No edema 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: 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, nl mental status, nl speech, nl strength Additional Comments Bedside Glucose - 72 Hours Test 06/22/16 14:04 06/22/16 16:39 06/22/16 21:11 06/23/16 07:42 Bedside Glucose 107mg/dL (70-220) 104mg/dL (70-220) 95mg/dL (70-220) 182mg/dL (70-220) Test 06/23/16 12:06 06/23/16 17:19 06/23/16 22:20 06/24/16 08:37 Bedside Glucose 150mg/dL (70-220) 147mg/dL (70-220) 165mg/dL (70-220) 119mg/dL (70-220) Test 06/24/16 12:15 06/24/16 16:58 06/24/16 20:45 06/25/16 07:47 Bedside Glucose 118mg/dL (70-220) 138mg/dL (70-220) 135mg/dL (70-220) 113mg/dL (70-220) Test 06/25/16 13:44 Bedside Glucose 129mg/dL (70-220) Results Result Diagram: 06/25/16 0455 06/25/16 0455 Results 24 hrs Laboratory Tests Test 06/24/16 16:58 06/24/16 20:45 06/25/16 04:55 06/25/16 07:47 Bedside Glucose 138 135 113 White Blood Count 6.3 Red Blood Count 2.94 L Hemoglobin 9.0 L Hematocrit 26.1 L Mean Corpuscular Volume 88.8 Mean Corpuscular Hemoglobin 30.6 Mean Corpuscular Hemoglobin Concent 34.5 Red Cell Distribution Width 14.4 Platelet Count 142 Mean Platelet Volume 10.0 Neutrophils % 66.7 Lymphocytes % 19.4 Monocytes % 9.1 Eosinophils % 3.8 Basophils % 0.5 Nucleated Red Blood Cells % 0.0 Neutrophils # 4.2 Lymphocytes # 1.2 Monocytes # 0.6 Eosinophils # 0.2 Basophils # 0.0 Nucleated Red Blood Cells # 0.0 Sodium Level 139 Potassium Level 4.4 Chloride Level 100 Carbon Dioxide Level 25 Anion Gap 18 H Blood Urea Nitrogen 67 H Creatinine 7.94 #H Glucose Level 105 Calcium Level 7.9 L Phosphorus Level 6.2 H Albumin 3.0 L Test 06/25/16 13:44 Bedside Glucose 129 Medications Medications Current Medications Miscellaneous Information 1 ea NOTE XX ; Start 06/22/16 at 12:30 Glucose (Glutose) 15 gm Q15M PRN PO DECREASED GLUCOSE; Start 06/22/16 at 12:30 Glucose (Glutose) 22.5 gm Q15M PRN PO DECREASED GLUCOSE; Start 06/22/16 at 12: 30 Dextrose (D50w Syringe) 25 ml Q15M PRN IV DECREASED GLUCOSE; Start 06/22/16 at 12:30 Dextrose (D50w Syringe) 50 ml Q15M PRN IV DECREASED GLUCOSE; Start 06/22/16 at 12:30 Glucagon (Glucagen) 1 mg Q15M PRN IM DECREASED GLUCOSE; Start 06/22/16 at 12:30 Glucose (Glutose) 15 gm Q15M PRN BUCCAL DECREASED GLUCOSE; Start 06/22/16 at 12 :30 Pantoprazole (Protonix Tab) 40 mg DAILY@06 PO Last administered on 06/25/16 05 :59; Admin Dose 40 MG; Start 06/23/16 at 06:00 Acetaminophen/ Hydrocodone Bitart ([place] (5/325)) 2 tab Q4H PRN PO Pain 6-10 Last administered on 06/23/16 02:25; Admin Dose 2 TAB; Start 06/22/16 at 15:00 Acetaminophen/ Hydrocodone Bitart ([place] (5/325)) 1 tab Q4H PRN PO Pain 1-5 Last administered on 06/23/16 06:13; Admin Dose 1 TAB; Start 06/22/16 at 15:00 Hydromorphone HCl (Dilaudid) 0.5 mg Q2H PRN IV Breakthrough PAIN; Start at 15:00 Insulin Glargine (Lantus) 4 unit DAILY@20 SC Last administered on 06/24/16 20: 52; Admin Dose 4 UNIT; Start 06/22/16 at 20:00 Diagnostic Test (Pha) (Accucheck) 1 ea 02 XX ; Start 06/23/16 at 02:00 Linagliptin (Tradjenta) 5 mg DAILY PO Last administered on 06/25/16 08:26; Admin Dose 5 MG; Start 06/23/16 at 09:00 Amlodipine Besylate (Norvasc) 5 mg DAILY PO Last administered on 06/24/16 08: 40; Admin Dose 5 MG; Start 06/23/16 at 09:00 Aspirin (Halfprin) 81 mg DAILY PO Last administered on 06/25/16 08:26; Admin Dose 81 MG; Start 06/23/16 at 09:00 Cholecalciferol (Vitamin D) 2,000 unit DAILY PO Last administered on 06/25/16 08:26; Admin Dose 2,000 UNIT; Start 06/23/16 at 09:00 Clopidogrel Bisulfate (plaVIX) 75 mg DAILY PO Last administered on 06/25/16 08 :26; Admin Dose 75 MG; Start 06/23/16 at 09:00 Folic Acid (Folic Acid) 1 mg DAILY PO Last administered on 06/25/16 08:26; Admin Dose 1 MG; Start 06/23/16 at 09:00 Hydralazine HCl (Apresoline) 75 mg TID PO Last administered on 06/24/16 08:40 ; Admin Dose 75 MG; Start 06/22/16 at 21:00 Isoniazid (Isoniazid) 100 mg DAILY PO Last administered on 06/25/16 08:26; Admin Dose 100 MG; Start 06/23/16 at 09:00 Pyridoxine HCl (Vitamin B6) 100 mg DAILY PO Last administered on 06/25/16 08: 26; Admin Dose 100 MG; Start 06/23/16 at 09:00 Multivit/Ca Carb/ B Cmplx/FA/Prenat (Manasa-Haris) 1 tab DAILY PO Last administered on 06/25/16 08:26; Admin Dose 1 TAB; Start 06/23/16 at 09:00 Ondansetron HCl (Zofran Inj) 4 mg Q6H PRN IV NAUSEA AND/OR VOMITING; Start at 19:30 Metoclopramide HCl (Reglan) 5 mg Q6 IV Last administered on 06/25/16 06:00; Admin Dose 5 MG; Start 06/24/16 at 13:00; Stop 06/26/16 at 12:59 Polyethylene Glycol (Miralax) 17 gm DAILY PO Last administered on 06/25/16 08: 27; Admin Dose 17 GM; Start 06/24/16 at 13:00 Heparin Sodium (Porcine) (Heparin (5000 Units/0.5 ml)) 5,000 unit BID SC Last administered on 06/25/16 08:42; Admin Dose 5,000 UNIT; Start 06/24/16 at 21:00 FELIX DREW MD Jun 25, 2016 14:01
--- NOTE | 2016-06-25 19:41 | PN ---
Date/Time of Note Date/Time of Note DATE: 06/25/16 TIME: 19:39 Assessment/Plan Lines/Catheters IV Catheter Type (from [facility]): Saline Lock Turpin in Place (from [facility]): Yes Assessment/Plan Chief Complaint/Hosp Course 1. ?Urinary retention turpin placed & removed 2. ESRD on HD 3. DM-II -nutrition and medication optimization 4. HTN -nutrition and medication optimization 5. Dyslipidemia -nutrition and medication optimization 6. Hypothyroidism -replete hormone 7. Ascitis s/p paracentesis Thank you, Problems: Subjective 24 Hr Interval Summary Turpin removed. s/p paracentesis. Feeling better. no f/c. no n/v. no cp/sob/ almanzar/dizzy/visual or neuro changes. No cough. Exam/Review of Systems Vital Signs Vitals Vital Signs Date Time Temp Pulse Resp B/P Pulse Ox O2 Delivery O2 Flow Rate FiO2 06/25/16 19:25 98.4 71 16 155/68 98 06/22/16 15:55 Room Air Intake and Output 06/24/16 06/24/16 06/25/16 15:00 23:00 07:00 Intake Total 1000 ml 400 ml Output Total 200 ml Balance 800 ml 400 ml Exam Free Text/Dictation Constitutional: alert, oriented, nad No distress Psych: nl mood/affect, No confusion Head: atraumatic, normocephalic Eyes: EOMI, PERRL, nl conjunctiva, No icteric ENMT: mucosa pink and moist, nl external ears & nose Neck: non-tender, supple Respiratory: normal air movement, No congested cough, No labored breathing Cardiovascular: regular rate and rhythm, No edema Gastrointestinal: distended, soft, tender, No rebound or guarding Musculoskeletal: nl extremities to inspection, No joint tenderness Extremities: normal pulses, No calf tenderness, No cyanosis 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: nl mental status, nl speech, nl strength Skin: nl turgor, No diaphoresis, No rash or lesions Lymph: nl lymph nodes Results Result Diagram: 06/25/16 0455 06/25/16 0455 WALLACE INGRAM MD Jun 25, 2016 19:41
--- NOTE | 2016-06-25 19:45 | CONS ---
Date/Time of Note Date/Time of Note DATE: 06/25/16 TIME: 19:40 Assessment/Plan Assessment/Plan Additional Assessment/Plan Further plans per PMD/Surgery Will f/u hct in AM No epogen because pt is on anemia study. Consultation Date/Type/Reason Admit Date/Time Jun 24, 2016 at 11:19 Initial Consult Date 06/22/16 Type of Consultation: renal Referring Provider: MARILEE AUGILAR 24 HR Interval Summary Free Text/Dictation Pt seems more stable & in no distress Constitutional: improved Exam/Review of Systems Vital Signs Vitals Vital Signs Date Time Temp Pulse Resp B/P Pulse Ox O2 Delivery O2 Flow Rate FiO2 06/25/16 19:25 98.4 71 16 155/68 98 06/22/16 15:55 Room Air Intake and Output 06/24/16 06/24/16 06/25/16 15:00 23:00 07:00 Intake Total 1000 ml 400 ml Output Total 200 ml Balance 800 ml 400 ml Exam Pt received one unit RBC yesterday and one unit RBC with HD today Constitutional: alert, oriented, well developed Psych: nl mood/affect, no complaints Head: atraumatic, normocephalic Eyes: EOMI, PERRL, nl conjunctiva, nl lids, nl sclera ENMT: nl external ears & nose, nl lips & teeth, nl nasal mucosa & septum Neck: non-tender, supple Respiratory: clear to auscultation, normal air movement Cardiovascular: nl pulses, regular rate and rhythm Gastrointestinal: nl liver, spleen, non-tender, other (dressing aroundaabd wall ), soft Musculoskeletal: nl extremities to inspection, nl gait and stance Extremities: normal pulses, other (avf lt arm, bruit present) 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: PIPE STRIPPER II-XII intact, nl mental status, nl speech, nl strength Skin: nl turgor, No rash or lesions Lymph: nl lymph nodes Results hbg improved to 9, but it may not yet have equilibrated Result Diagram: 06/25/16 0455 06/25/16 0455 Results 24 hrs Laboratory Tests Test 06/24/16 20:45 06/25/16 04:55 06/25/16 07:47 06/25/16 13:44 Bedside Glucose 135 113 129 White Blood Count 6.3 Red Blood Count 2.94 L Hemoglobin 9.0 L Hematocrit 26.1 L Mean Corpuscular Volume 88.8 Mean Corpuscular Hemoglobin 30.6 Mean Corpuscular Hemoglobin Concent 34.5 Red Cell Distribution Width 14.4 Platelet Count 142 Mean Platelet Volume 10.0 Neutrophils % 66.7 Lymphocytes % 19.4 Monocytes % 9.1 Eosinophils % 3.8 Basophils % 0.5 Nucleated Red Blood Cells % 0.0 Neutrophils # 4.2 Lymphocytes # 1.2 Monocytes # 0.6 Eosinophils # 0.2 Basophils # 0.0 Nucleated Red Blood Cells # 0.0 Sodium Level 139 Potassium Level 4.4 Chloride Level 100 Carbon Dioxide Level 25 Anion Gap 18 H Blood Urea Nitrogen 67 H Creatinine 7.94 #H Glucose Level 105 Calcium Level 7.9 L Phosphorus Level 6.2 H Albumin 3.0 L Test 06/25/16 17:20 Bedside Glucose 113 Medications Medications Current Medications Miscellaneous Information 1 ea NOTE XX ; Start 06/22/16 at 12:30 Glucose (Glutose) 15 gm Q15M PRN PO DECREASED GLUCOSE; Start 06/22/16 at 12:30 Glucose (Glutose) 22.5 gm Q15M PRN PO DECREASED GLUCOSE; Start 06/22/16 at 12: 30 Dextrose (D50w Syringe) 25 ml Q15M PRN IV DECREASED GLUCOSE; Start 06/22/16 at 12:30 Dextrose (D50w Syringe) 50 ml Q15M PRN IV DECREASED GLUCOSE; Start 06/22/16 at 12:30 Glucagon (Glucagen) 1 mg Q15M PRN IM DECREASED GLUCOSE; Start 06/22/16 at 12:30 Glucose (Glutose) 15 gm Q15M PRN BUCCAL DECREASED GLUCOSE; Start 06/22/16 at 12 :30 Pantoprazole (Protonix Tab) 40 mg DAILY@06 PO Last administered on 06/25/16 05 :59; Admin Dose 40 MG; Start 06/23/16 at 06:00 Acetaminophen/ Hydrocodone Bitart ([place] (5/325)) 2 tab Q4H PRN PO Pain 6-10 Last administered on 06/23/16 02:25; Admin Dose 2 TAB; Start 06/22/16 at 15:00 Acetaminophen/ Hydrocodone Bitart ([place] (5/325)) 1 tab Q4H PRN PO Pain 1-5 Last administered on 06/23/16 06:13; Admin Dose 1 TAB; Start 06/22/16 at 15:00 Hydromorphone HCl (Dilaudid) 0.5 mg Q2H PRN IV Breakthrough PAIN; Start at 15:00 Insulin Glargine (Lantus) 4 unit DAILY@20 SC Last administered on 06/24/16 20: 52; Admin Dose 4 UNIT; Start 06/22/16 at 20:00 Diagnostic Test (Pha) (Accucheck) 1 ea 02 XX ; Start 06/23/16 at 02:00 Linagliptin (Tradjenta) 5 mg DAILY PO Last administered on 06/25/16 08:26; Admin Dose 5 MG; Start 06/23/16 at 09:00 Amlodipine Besylate (Norvasc) 5 mg DAILY PO Last administered on 06/24/16 08: 40; Admin Dose 5 MG; Start 06/23/16 at 09:00 Aspirin (Halfprin) 81 mg DAILY PO Last administered on 06/25/16 08:26; Admin Dose 81 MG; Start 06/23/16 at 09:00 Cholecalciferol (Vitamin D) 2,000 unit DAILY PO Last administered on 06/25/16 08:26; Admin Dose 2,000 UNIT; Start 06/23/16 at 09:00 Clopidogrel Bisulfate (plaVIX) 75 mg DAILY PO Last administered on 06/25/16 08 :26; Admin Dose 75 MG; Start 06/23/16 at 09:00 Folic Acid (Folic Acid) 1 mg DAILY PO Last administered on 06/25/16 08:26; Admin Dose 1 MG; Start 06/23/16 at 09:00 Hydralazine HCl (Apresoline) 75 mg TID PO Last administered on 06/24/16 08:40 ; Admin Dose 75 MG; Start 06/22/16 at 21:00 Isoniazid (Isoniazid) 100 mg DAILY PO Last administered on 06/25/16 08:26; Admin Dose 100 MG; Start 06/23/16 at 09:00 Pyridoxine HCl (Vitamin B6) 100 mg DAILY PO Last administered on 06/25/16 08: 26; Admin Dose 100 MG; Start 06/23/16 at 09:00 Multivit/Ca Carb/ B Cmplx/FA/Prenat (Manasa-Haris) 1 tab DAILY PO Last administered on 06/25/16 08:26; Admin Dose 1 TAB; Start 06/23/16 at 09:00 Ondansetron HCl (Zofran Inj) 4 mg Q6H PRN IV NAUSEA AND/OR VOMITING; Start at 19:30 Metoclopramide HCl (Reglan) 5 mg Q6 IV Last administered on 06/25/16 18:24; Admin Dose 5 MG; Start 06/24/16 at 13:00; Stop 06/26/16 at 12:59 Polyethylene Glycol (Miralax) 17 gm DAILY PO Last administered on 06/25/16 08: 27; Admin Dose 17 GM; Start 06/24/16 at 13:00 Heparin Sodium (Porcine) (Heparin (5000 Units/0.5 ml)) 5,000 unit BID SC Last administered on 06/25/16 08:42; Admin Dose 5,000 UNIT; Start 06/24/16 at 21:00 Procedures Procedures Pt had HD with blood tx withput problems RUFINO AMBRIZ MD Jun 25, 2016 19:45
[2016-06-25] MEDS: INSULIN GLARGINE [LANtus] 3 ML PEN SC SCH (20:51)
[2016-06-26] MEDS: METOCLOPRAMIDE 10 MG INJ IV SCH ×3 (00:34→12:04)
[2016-06-26] MEDS: ACCU-CHEK XX SCH (02:00)
[2016-06-26 06:15] LABS: ADD SCAN DIFF NO
[2016-06-26 06:16] LABS: BASOPHILS % 0.9 % (0.0-2.0); EOSINOPHILS # 0.2 10^3/ul (0.0-0.5); EOSINOPHILS % 4.7 % (0.0-7.0); HEMATOCRIT 29.9 % (42.0-52.0); HEMOGLOBIN 10.4 g/dl (14.0-18.0); LYMPHOCYTES # 0.9 10^3/ul (0.8-2.9); MEAN CORPUSCULAR HEMOGLOBIN 30.4 pg (29.0-33.0); MEAN CORPUSCULAR HGB CONC 34.8 g/dl (32.0-37.0); MEAN CORPUSCULAR VOLUME 87.4 fl (82.0-101.0); MEAN PLATELET VOLUME 9.9 fl (7.4-10.4); MONOCYTE # 0.5 10^3/ul (0.3-0.9); NEUTROPHIL # 3.1 10^3/ul (1.6-7.5); PLATELET COUNT 169 10^3/UL (140-415); RED BLOOD COUNT 3.42 10^6/ul (4.70-6.10); RED CELL DISTRIBUTION WIDTH 14.2 % (11.5-14.5); WHITE BLOOD COUNT 4.7 10^3/ul (4.8-10.8)
[2016-06-26] MEDS: LEVOTHYROXINE 100 MCG TAB PO SCH (06:22)
[2016-06-26] MEDS: PANTOPRAZOLE (EC) 40 MG TAB PO SCH (06:22)
[2016-06-26 06:31] LABS: ALBUMIN 3.2 g/dl (3.3-4.9); POTASSIUM 3.7 mmol/L (3.5-5.1)
[2016-06-26 06:34] LABS: CREATININE 5.82 mg/dl (0.61-1.24)
[2016-06-26 07:28] VITALS: BP 148/67; RESP 18
[2016-06-26] MEDS: INSULIN ASPART [NOVOLOG] 3 ML PEN SC SCH ×2 (08:15→12:01)
[2016-06-26] MEDS: MULTIVIT/CA CARB/B CMPLX/FA TAB PO SCH (08:27)
[2016-06-26] MEDS: ISONIAZID 100 MG TAB PO SCH (08:28)
[2016-06-26] MEDS: PYRIDOXINE 50 MG TAB PO SCH (08:29)
[2016-06-26] MEDS: ASPIRIN (EC) 81 MG TAB PO SCH (08:29)
[2016-06-26] MEDS: CHOLECALCIFEROL 2,000 UNIT CAP PO SCH (08:29)
[2016-06-26] MEDS: LINAGLIPTIN 5 MG TABLET PO SCH (08:30)
[2016-06-26] MEDS: AMLODIPINE 5 MG TAB PO SCH (08:30)
[2016-06-26] MEDS: FOLIC ACID 1 MG TAB PO SCH (08:31)
[2016-06-26] MEDS: CLOPIDOGREL 75 MG TAB PO SCH (08:31)
[2016-06-26] MEDS: SEVELAMER CARBONATE 0.8 GM PKT PO SCH ×2 (08:31→12:03)
[2016-06-26] MEDS: POLYETHYLENE GLYCOL 17 GM PACKET PO SCH (08:31)
[2016-06-26] MEDS: HEPARIN 5,000 UNIT/0.5 ML SYG SC SCH (08:42)
[2016-06-26] MEDS ORDERED: LINA5TAB PO (12:01)
[2016-06-26] MEDS ORDERED: HYDR-3498 PO (12:01)
[2016-06-26] MEDS ORDERED: PANT40TA4 PO (12:01)
[2016-06-26] MEDS ORDERED: DOCU-144 PO (12:01)
[2016-06-26] MEDS ORDERED: POLY17PO6 PO (12:01)
--- NOTE | 2016-06-26 12:01 | PDOCDIS ---
Discharge Instructions DIAGNOSIS Discharge Diagnosis: Laparoscopic ventral hernia repair CONDITION Patient Condition: Stable HOME CARE INSTRUCTIONS: Special Diet: 1800 lexx diet ACTIVITY: Activity Restrictions: Slowly Increase Activity Rest between Activity FOLLOW UP/APPOINTMENTS Appointments Followup with your primary doctor within the next 1-2 weeks. If you don't have one please let someone know, we can give you resources that may help you pick one. You may also call your insurance company to assign one to you. Review your medication list with your nurse before leaving and if you need new prescriptions please let your nurse know. I may have made changes to your home medications or given you new prescriptions , please let your primary doctor know as well. Stay compliant with your medications and report any side effects to your PCP or pharmacist. Return to the ER if you have any concerns and cannot reach your doctors or call your insurance company, they usually have a nurse that can help you. MARILEE AGUILAR Jun 26, 2016 12:01
[2016-06-26] MEDS ORDERED: LISI10TA2 PO (12:12)
[2016-06-26] MEDS ORDERED: FURO40TA4 PO (12:12)
--- NOTE | 2016-06-26 12:12 | PN ---
Date/Time of Note Date/Time of Note DATE: 06/26/16 TIME: 12:10 Assessment/Plan VTE Prophylaxis VTE Prophylaxis Intervention: other Assessment/Plan Assessment/Plan Ventral wall hernia status post elective repair 06/22/2016 2. End-stage renal disease on hemodialysis. 3. Hypertension with good control. 4. Diabetes mellitus type 2. 5. Dyslipidemia. 6. Hypothyroidism. 7. Anemia, Chronic, ESRD [id number] hd tolerated well cont per plan record noted Subjective 24 Hr Interval Summary Constitutional: no complaints Cardiovascular: no complaints Gastrointestinal: no complaints Genitourinary: no complaints Skin: no complaints Neurologic: no complaints Exam/Review of Systems Vital Signs Vitals Vital Signs Date Time Temp Pulse Resp B/P Pulse Ox O2 Delivery O2 Flow Rate FiO2 06/26/16 07:28 97.6 66 18 148/67 98 06/22/16 15:55 Room Air Intake and Output 06/25/16 06/25/16 06/26/16 15:00 23:00 07:00 Intake Total 500 ml 1000 ml 360 ml Output Total 2800 ml Balance -2300 ml 1000 ml 360 ml Exam Constitutional: alert, oriented Psych: no complaints Head: normocephalic Eyes: nl conjunctiva ENMT: nl external ears & nose Neck: supple Respiratory: clear to auscultation, normal air movement Cardiovascular: nl pulses, regular rate and rhythm Gastrointestinal: non-tender, soft Extremities: normal pulses Results Result Diagram: 06/26/1651606/26/1617 Results 24 hrs Laboratory Tests Test 06/25/16 13:44 06/25/16 17:20 06/25/16 20:42 06/26/16 05:17 Bedside Glucose 129 113 167 White Blood Count 4.7 #L Red Blood Count 3.42 L Hemoglobin 10.4 L Hematocrit 29.9 L Mean Corpuscular Volume 87.4 Mean Corpuscular Hemoglobin 30.4 Mean Corpuscular Hemoglobin Concent 34.8 Red Cell Distribution Width 14.2 Platelet Count 169 Mean Platelet Volume 9.9 Neutrophils % 65.0 Lymphocytes % 19.0 Monocytes % 10.0 Eosinophils % 4.7 Basophils % 0.9 Nucleated Red Blood Cells % 0.0 Neutrophils # 3.1 Lymphocytes # 0.9 Monocytes # 0.5 Eosinophils # 0.2 Basophils # 0.0 Nucleated Red Blood Cells # 0.0 Sodium Level 142 Potassium Level 3.7 Chloride Level 100 Carbon Dioxide Level 27 Anion Gap 19 H Blood Urea Nitrogen 44 #H Creatinine 5.82 #H Glucose Level 121 Calcium Level 8.0 L Phosphorus Level 5.0 H Albumin 3.2 L Test 06/26/16 07:45 06/26/16 11:55 Bedside Glucose 128 128 Medications Medications Current Medications Miscellaneous Information 1 ea NOTE XX ; Start 06/22/16 at 12:30 Glucose (Glutose) 15 gm Q15M PRN PO DECREASED GLUCOSE; Start 06/22/16 at 12:30 Glucose (Glutose) 22.5 gm Q15M PRN PO DECREASED GLUCOSE; Start 06/22/16 at 12: 30 Dextrose (D50w Syringe) 25 ml Q15M PRN IV DECREASED GLUCOSE; Start 06/22/16 at 12:30 Dextrose (D50w Syringe) 50 ml Q15M PRN IV DECREASED GLUCOSE; Start 06/22/16 at 12:30 Glucagon (Glucagen) 1 mg Q15M PRN IM DECREASED GLUCOSE; Start 06/22/16 at 12:30 Glucose (Glutose) 15 gm Q15M PRN BUCCAL DECREASED GLUCOSE; Start 06/22/16 at 12 :30 Pantoprazole (Protonix Tab) 40 mg DAILY@06 PO Last administered on 06/26/16 06 :22; Admin Dose 40 MG; Start 06/23/16 at 06:00 Acetaminophen/ Hydrocodone Bitart ([place] (5/325)) 2 tab Q4H PRN PO Pain 6-10 Last administered on 06/23/16 02:25; Admin Dose 2 TAB; Start 06/22/16 at 15:00 Acetaminophen/ Hydrocodone Bitart ([place] (5/325)) 1 tab Q4H PRN PO Pain 1-5 Last administered on 06/23/16 06:13; Admin Dose 1 TAB; Start 06/22/16 at 15:00 Hydromorphone HCl (Dilaudid) 0.5 mg Q2H PRN IV Breakthrough PAIN; Start at 15:00 Insulin Glargine (Lantus) 4 unit DAILY@20 SC Last administered on 06/25/16 20: 51; Admin Dose 4 UNIT; Start 06/22/16 at 20:00 Diagnostic Test (Pha) (Accucheck) 1 ea 02 XX ; Start 06/23/16 at 02:00 Linagliptin (Tradjenta) 5 mg DAILY PO Last administered on 06/26/16 08:30; Admin Dose 5 MG; Start 06/23/16 at 09:00 Amlodipine Besylate (Norvasc) 5 mg DAILY PO Last administered on 06/26/16 08: 30; Admin Dose 5 MG; Start 06/23/16 at 09:00 Aspirin (Halfprin) 81 mg DAILY PO Last administered on 06/26/16 08:29; Admin Dose 81 MG; Start 06/23/16 at 09:00 Cholecalciferol (Vitamin D) 2,000 unit DAILY PO Last administered on 06/26/16 08:29; Admin Dose 2,000 UNIT; Start 06/23/16 at 09:00 Clopidogrel Bisulfate (plaVIX) 75 mg DAILY PO Last administered on 06/26/16 08 :31; Admin Dose 75 MG; Start 06/23/16 at 09:00 Folic Acid (Folic Acid) 1 mg DAILY PO Last administered on 06/26/16 08:31; Admin Dose 1 MG; Start 06/23/16 at 09:00 Hydralazine HCl (Apresoline) 75 mg TID PO Last administered on 06/26/16 12:06 ; Admin Dose 75 MG; Start 06/22/16 at 21:00 Isoniazid (Isoniazid) 100 mg DAILY PO Last administered on 06/26/16 08:28; Admin Dose 100 MG; Start 06/23/16 at 09:00 Pyridoxine HCl (Vitamin B6) 100 mg DAILY PO Last administered on 06/26/16 08: 29; Admin Dose 100 MG; Start 06/23/16 at 09:00 Multivit/Ca Carb/ B Cmplx/FA/Prenat ([place]Haris) 1 tab DAILY PO Last administered on 06/26/16 08:27; Admin Dose 1 TAB; Start 06/23/16 at 09:00 Ondansetron HCl (Zofran Inj) 4 mg Q6H PRN IV NAUSEA AND/OR VOMITING; Start at 19:30 Metoclopramide HCl (Reglan) 5 mg Q6 IV Last administered on 06/26/16 12:04; Admin Dose 5 MG; Start 06/24/16 at 13:00; Stop 06/26/16 at 12:59 Polyethylene Glycol (Miralax) 17 gm DAILY PO Last administered on 06/26/16 08: 31; Admin Dose 17 GM; Start 06/24/16 at 13:00 Heparin Sodium (Porcine) (Heparin (5000 Units/0.5 ml)) 5,000 unit BID SC Last administered on 06/26/16 08:42; Admin Dose 5,000 UNIT; Start 06/24/16 at 21:00 ZEFERINO MORTON MD Jun 26, 2016 12:12
--- NOTE | 2016-06-26 12:55 | CONS ---
Date/Time of Note Date/Time of Note DATE: 06/26/16 TIME: 12:54 Assessment/Plan Assessment/Plan Chief Complaint/Hosp Course 1. S/p Ventral wall hernia repair 06/22/2016 2. End-stage renal disease on hemodialysis. 3. Hypertension with good control. 4. Diabetes mellitus type 2. 5. Dyslipidemia. 6. Hypothyroidism. 7. Anemia, Chronic, ESRD Problems: Additional Assessment/Plan 1. Continue HD Consultation Date/Type/Reason Admit Date/Time Jun 24, 2016 at 11:19 Initial Consult Date 06/22/16 Type of Consultation: renal Reason for Consultation Rachel Referring Provider: MARILEE AGUILAR Exam/Review of Systems Vital Signs Vitals Vital Signs Date Time Temp Pulse Resp B/P Pulse Ox O2 Delivery O2 Flow Rate FiO2 06/26/16 07:28 97.6 66 18 148/67 98 06/22/16 15:55 Room Air Intake and Output 06/25/16 06/25/16 06/26/16 15:00 23:00 07:00 Intake Total 500 ml 1000 ml 360 ml Output Total 2800 ml Balance -2300 ml 1000 ml 360 ml Exam Constitutional: alert, oriented Psych: no complaints Head: normocephalic Eyes: nl conjunctiva ENMT: nl external ears & nose Respiratory: clear to auscultation Extremities: other (right arm AV shunt) Results Result Diagram: 06/26/1651606/26/16516 Results 24 hrs Laboratory Tests Test 06/25/16 13:44 06/25/16 17:20 06/25/16 20:42 06/26/16 05:17 Bedside Glucose 129 113 167 White Blood Count 4.7 #L Red Blood Count 3.42 L Hemoglobin 10.4 L Hematocrit 29.9 L Mean Corpuscular Volume 87.4 Mean Corpuscular Hemoglobin 30.4 Mean Corpuscular Hemoglobin Concent 34.8 Red Cell Distribution Width 14.2 Platelet Count 169 Mean Platelet Volume 9.9 Neutrophils % 65.0 Lymphocytes % 19.0 Monocytes % 10.0 Eosinophils % 4.7 Basophils % 0.9 Nucleated Red Blood Cells % 0.0 Neutrophils # 3.1 Lymphocytes # 0.9 Monocytes # 0.5 Eosinophils # 0.2 Basophils # 0.0 Nucleated Red Blood Cells # 0.0 Sodium Level 142 Potassium Level 3.7 Chloride Level 100 Carbon Dioxide Level 27 Anion Gap 19 H Blood Urea Nitrogen 44 #H Creatinine 5.82 #H Glucose Level 121 Calcium Level 8.0 L Phosphorus Level 5.0 H Albumin 3.2 L Test 06/26/16 07:45 06/26/16 11:55 Bedside Glucose 128 128 Medications Medications Current Medications Miscellaneous Information 1 ea NOTE XX ; Start 06/22/16 at 12:30 Glucose (Glutose) 15 gm Q15M PRN PO DECREASED GLUCOSE; Start 06/22/16 at 12:30 Glucose (Glutose) 22.5 gm Q15M PRN PO DECREASED GLUCOSE; Start 06/22/16 at 12: 30 Dextrose (D50w Syringe) 25 ml Q15M PRN IV DECREASED GLUCOSE; Start 06/22/16 at 12:30 Dextrose (D50w Syringe) 50 ml Q15M PRN IV DECREASED GLUCOSE; Start 06/22/16 at 12:30 Glucagon (Glucagen) 1 mg Q15M PRN IM DECREASED GLUCOSE; Start 06/22/16 at 12:30 Glucose (Glutose) 15 gm Q15M PRN BUCCAL DECREASED GLUCOSE; Start 06/22/16 at 12 :30 Pantoprazole (Protonix Tab) 40 mg DAILY@06 PO Last administered on 06/26/16 06 :22; Admin Dose 40 MG; Start 06/23/16 at 06:00 Acetaminophen/ Hydrocodone Bitart ([place] (5/325)) 2 tab Q4H PRN PO Pain 6-10 Last administered on 06/23/16 02:25; Admin Dose 2 TAB; Start 06/22/16 at 15:00 Acetaminophen/ Hydrocodone Bitart ([place] (5/325)) 1 tab Q4H PRN PO Pain 1-5 Last administered on 06/23/16 06:13; Admin Dose 1 TAB; Start 06/22/16 at 15:00 Hydromorphone HCl (Dilaudid) 0.5 mg Q2H PRN IV Breakthrough PAIN; Start at 15:00 Insulin Glargine (Lantus) 4 unit DAILY@20 SC Last administered on 06/25/16 20: 51; Admin Dose 4 UNIT; Start 06/22/16 at 20:00 Diagnostic Test (Pha) (Accucheck) 1 ea 02 XX ; Start 06/23/16 at 02:00 Linagliptin (Tradjenta) 5 mg DAILY PO Last administered on 06/26/16 08:30; Admin Dose 5 MG; Start 06/23/16 at 09:00 Amlodipine Besylate (Norvasc) 5 mg DAILY PO Last administered on 06/26/16 08: 30; Admin Dose 5 MG; Start 06/23/16 at 09:00 Aspirin (Halfprin) 81 mg DAILY PO Last administered on 06/26/16 08:29; Admin Dose 81 MG; Start 06/23/16 at 09:00 Cholecalciferol (Vitamin D) 2,000 unit DAILY PO Last administered on 06/26/16 08:29; Admin Dose 2,000 UNIT; Start 06/23/16 at 09:00 Clopidogrel Bisulfate (plaVIX) 75 mg DAILY PO Last administered on 06/26/16 08 :31; Admin Dose 75 MG; Start 06/23/16 at 09:00 Folic Acid (Folic Acid) 1 mg DAILY PO Last administered on 06/26/16 08:31; Admin Dose 1 MG; Start 06/23/16 at 09:00 Hydralazine HCl (Apresoline) 75 mg TID PO Last administered on 06/26/16 12:06 ; Admin Dose 75 MG; Start 06/22/16 at 21:00 Isoniazid (Isoniazid) 100 mg DAILY PO Last administered on 06/26/16 08:28; Admin Dose 100 MG; Start 06/23/16 at 09:00 Pyridoxine HCl (Vitamin B6) 100 mg DAILY PO Last administered on 06/26/16 08: 29; Admin Dose 100 MG; Start 06/23/16 at 09:00 Multivit/Ca Carb/ B Cmplx/FA/Prenat (Manasa-Haris) 1 tab DAILY PO Last administered on 06/26/16 08:27; Admin Dose 1 TAB; Start 06/23/16 at 09:00 Ondansetron HCl (Zofran Inj) 4 mg Q6H PRN IV NAUSEA AND/OR VOMITING; Start at 19:30 Metoclopramide HCl (Reglan) 5 mg Q6 IV Last administered on 06/26/16 12:04; Admin Dose 5 MG; Start 06/24/16 at 13:00; Stop 06/26/16 at 12:59 Polyethylene Glycol (Miralax) 17 gm DAILY PO Last administered on 06/26/16 08: 31; Admin Dose 17 GM; Start 06/24/16 at 13:00 Heparin Sodium (Porcine) (Heparin (5000 Units/0.5 ml)) 5,000 unit BID SC Last administered on 06/26/16 08:42; Admin Dose 5,000 UNIT; Start 06/24/16 at 21:00 MK STORM Jun 26, 2016 12:55
--- NOTE | 2016-06-26 14:54 | PN ---
Date/Time of Note Date/Time of Note DATE: 06/26/16 TIME: 14:52 Assessment/Plan Assessment/Plan Chief Complaint/Hosp Course 1. Ascitis s/p paracentesis 2. ESRD on HD 3. DM-II -nutrition and medication optimization 4. HTN -nutrition and medication optimization 5. Dyslipidemia -nutrition and medication optimization 6. Hypothyroidism -replete hormone Thank you, Problems: Subjective 24 Hr Interval Summary Feeling better. no f/c. no n/v. no cp/sob/almanzar/dizzy/visual or neuro changes. No cough. Bowel function. Exam/Review of Systems Vital Signs Vitals Vital Signs Date Time Temp Pulse Resp B/P Pulse Ox O2 Delivery O2 Flow Rate FiO2 06/26/16 07:28 97.6 66 18 148/67 98 06/22/16 15:55 Room Air Intake and Output 06/25/16 06/25/16 06/26/16 15:00 23:00 07:00 Intake Total 500 ml 1000 ml 360 ml Output Total 2800 ml Balance -2300 ml 1000 ml 360 ml Exam Free Text/Dictation Constitutional: alert, oriented, nad No distress Psych: nl mood/affect, No confusion Head: atraumatic, normocephalic Eyes: EOMI, PERRL, nl conjunctiva, No icteric ENMT: mucosa pink and moist, nl external ears & nose Neck: non-tender, supple Respiratory: normal air movement, No congested cough, No labored breathing Cardiovascular: regular rate and rhythm, No edema Gastrointestinal: distended, soft, tender, No rebound or guarding Musculoskeletal: nl extremities to inspection, No joint tenderness Extremities: normal pulses, No calf tenderness, No cyanosis 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: nl mental status, nl speech, nl strength Skin: nl turgor, No diaphoresis, No rash or lesions Lymph: nl lymph nodes Results Result Diagram: 06/26/1651606/26/16516 WALLACE INGRAM MD Jun 26, 2016 14:54
--- NOTE | 2016-06-26 15:14 | CONS ---
Date/Time of Note Date/Time of Note DATE: 06/26/16 TIME: 15:11 Assessment/Plan Assessment/Plan Problems: (1) Diabetes mellitus type 2 with complications Status: Chronic Comment: Patient with good glycemic control on current insulin regimen. Stable for discharge from endocrine point of view. Qualifiers: Diabetes mellitus terminologist insulin use: with terminologist use Qualified Code : E11.8 - Type 2 diabetes mellitus with complication, with long-term current use of insulin Consultation Date/Type/Reason Admit Date/Time Jun 24, 2016 at 11:19 Initial Consult Date 06/22/16 Type of Consultation: endocrine Referring Provider: MARILEE AGUILAR 24 HR Interval Summary Free Text/Dictation Patient without new complaints. Anxious to go home. No hypoglycemia. Exam/Review of Systems Vital Signs Vitals Vital Signs Date Time Temp Pulse Resp B/P Pulse Ox O2 Delivery O2 Flow Rate FiO2 06/26/16 07:28 97.6 66 18 148/67 98 06/22/16 15:55 Room Air Intake and Output 06/25/16 06/25/16 06/26/16 15:00 23:00 07:00 Intake Total 500 ml 1000 ml 360 ml Output Total 2800 ml Balance -2300 ml 1000 ml 360 ml Exam Constitutional: alert, oriented, other (thin) Eyes: EOMI, PERRL, nl conjunctiva Neck: supple Respiratory: clear to auscultation Cardiovascular: regular rate and rhythm Gastrointestinal: soft Musculoskeletal: nl extremities to inspection Extremities: normal pulses Results POC glucose reviewed Result Diagram: 06/26/1651606/26/16 0517 Results 24 hrs Laboratory Tests Test 06/25/16 17:20 06/25/16 20:42 06/26/16 05:17 06/26/16 07:45 Bedside Glucose 113 167 128 White Blood Count 4.7 #L Red Blood Count 3.42 L Hemoglobin 10.4 L Hematocrit 29.9 L Mean Corpuscular Volume 87.4 Mean Corpuscular Hemoglobin 30.4 Mean Corpuscular Hemoglobin Concent 34.8 Red Cell Distribution Width 14.2 Platelet Count 169 Mean Platelet Volume 9.9 Neutrophils % 65.0 Lymphocytes % 19.0 Monocytes % 10.0 Eosinophils % 4.7 Basophils % 0.9 Nucleated Red Blood Cells % 0.0 Neutrophils # 3.1 Lymphocytes # 0.9 Monocytes # 0.5 Eosinophils # 0.2 Basophils # 0.0 Nucleated Red Blood Cells # 0.0 Sodium Level 142 Potassium Level 3.7 Chloride Level 100 Carbon Dioxide Level 27 Anion Gap 19 H Blood Urea Nitrogen 44 #H Creatinine 5.82 #H Glucose Level 121 Calcium Level 8.0 L Phosphorus Level 5.0 H Albumin 3.2 L Test 06/26/16 11:55 Bedside Glucose 128 Medications Medications Current Medications Miscellaneous Information 1 ea NOTE XX ; Start 06/22/16 at 12:30 Glucose (Glutose) 15 gm Q15M PRN PO DECREASED GLUCOSE; Start 06/22/16 at 12:30 Glucose (Glutose) 22.5 gm Q15M PRN PO DECREASED GLUCOSE; Start 06/22/16 at 12: 30 Dextrose (D50w Syringe) 25 ml Q15M PRN IV DECREASED GLUCOSE; Start 06/22/16 at 12:30 Dextrose (D50w Syringe) 50 ml Q15M PRN IV DECREASED GLUCOSE; Start 06/22/16 at 12:30 Glucagon (Glucagen) 1 mg Q15M PRN IM DECREASED GLUCOSE; Start 06/22/16 at 12:30 Glucose (Glutose) 15 gm Q15M PRN BUCCAL DECREASED GLUCOSE; Start 06/22/16 at 12 :30 Pantoprazole (Protonix Tab) 40 mg DAILY@06 PO Last administered on 06/26/16 06 :22; Admin Dose 40 MG; Start 06/23/16 at 06:00 Acetaminophen/ Hydrocodone Bitart ([place] (5/325)) 2 tab Q4H PRN PO Pain 6-10 Last administered on 06/23/16 02:25; Admin Dose 2 TAB; Start 06/22/16 at 15:00 Acetaminophen/ Hydrocodone Bitart ([place] (5/325)) 1 tab Q4H PRN PO Pain 1-5 Last administered on 06/23/16 06:13; Admin Dose 1 TAB; Start 06/22/16 at 15:00 Hydromorphone HCl (Dilaudid) 0.5 mg Q2H PRN IV Breakthrough PAIN; Start at 15:00 Insulin Glargine (Lantus) 4 unit DAILY@20 SC Last administered on 06/25/16 20: 51; Admin Dose 4 UNIT; Start 06/22/16 at 20:00 Diagnostic Test (Pha) (Accucheck) 1 ea 02 XX ; Start 06/23/16 at 02:00 Linagliptin (Tradjenta) 5 mg DAILY PO Last administered on 06/26/16 08:30; Admin Dose 5 MG; Start 06/23/16 at 09:00 Amlodipine Besylate (Norvasc) 5 mg DAILY PO Last administered on 06/26/16 08: 30; Admin Dose 5 MG; Start 06/23/16 at 09:00 Aspirin (Halfprin) 81 mg DAILY PO Last administered on 06/26/16 08:29; Admin Dose 81 MG; Start 06/23/16 at 09:00 Cholecalciferol (Vitamin D) 2,000 unit DAILY PO Last administered on 06/26/16 08:29; Admin Dose 2,000 UNIT; Start 06/23/16 at 09:00 Clopidogrel Bisulfate (plaVIX) 75 mg DAILY PO Last administered on 06/26/16 08 :31; Admin Dose 75 MG; Start 06/23/16 at 09:00 Folic Acid (Folic Acid) 1 mg DAILY PO Last administered on 06/26/16 08:31; Admin Dose 1 MG; Start 06/23/16 at 09:00 Hydralazine HCl (Apresoline) 75 mg TID PO Last administered on 06/26/16 12:06 ; Admin Dose 75 MG; Start 06/22/16 at 21:00 Isoniazid (Isoniazid) 100 mg DAILY PO Last administered on 06/26/16 08:28; Admin Dose 100 MG; Start 06/23/16 at 09:00 Pyridoxine HCl (Vitamin B6) 100 mg DAILY PO Last administered on 06/26/16 08: 29; Admin Dose 100 MG; Start 06/23/16 at 09:00 Multivit/Ca Carb/ B Cmplx/FA/Prenat ([place]-Haris) 1 tab DAILY PO Last administered on 06/26/16 08:27; Admin Dose 1 TAB; Start 06/23/16 at 09:00 Ondansetron HCl (Zofran Inj) 4 mg Q6H PRN IV NAUSEA AND/OR VOMITING; Start at 19:30 Polyethylene Glycol (Miralax) 17 gm DAILY PO Last administered on 06/26/16 08: 31; Admin Dose 17 GM; Start 06/24/16 at 13:00 Heparin Sodium (Porcine) (Heparin (5000 Units/0.5 ml)) 5,000 unit BID SC Last administered on 06/26/16 08:42; Admin Dose 5,000 UNIT; Start 06/24/16 at 21:00 MERON TEIXEIRA MD Jun 26, 2016 15:14
--- NOTE | 2016-06-26 17:15 | EN ---
Date/Time of Note Date/Time of Note DATE: 06/26/16 TIME: 17:11 Event Note Medicine Medicine Event Note DISCHARGE SUMMARY Date of admission: 06/23/16 Date of discharge: 06/26/16 Admission complaint: Elective ventral herniorrhaphy. HISTORY OF PRESENTING COMPLAINT: Mr. Gianni Lee is a 71-year-old male with an extensive medical history summarized below, who was brought in today by Dr. Hema Harris for an elective laparoscopic ventral herniorrhaphy and lysis of adhesions. The patient reports having a ventral incisional hernia for the last 11 months. His primary care physician as an outpatient is Dr. Pete Rodrigues, who will also follow him and consult in house. At this time, he is postoperative and he is quite comfortable, denies abdominal pain. Reports remains slightly lethargic. Has had no fever. Denies chest pain, shortness of breath. The patient does have a history of end-stage renal disease on hemodialysis and is requesting that his dialysis doctor be notified for continued in-house dialysis. Admission diagnosis: A 71-year-old male with the followin. Ventral wall hernia status post elective repair today 06/22/2016, laparoscopically. 2. End-stage renal disease on hemodialysis. 3. Hypertension with good control. 4. Diabetes mellitus type 2. 5. Dyslipidemia. 6. Chronic hypothyroidism. 7. Chronic peripheral arterial disease status post multiple interventions in the past. 8. History of a CBD status post cholecystectomy, right inguinal hernia repair in the past. Consults : * Andrea Harris: Surgery * Pete Rodrigues: Endo * Jorge Garcia: Nephrology Hospital course / Interventions: Full details are available in the chart for review. In summary, this 71yo M was admitted after an elective ventral herniorrhaphy which was done 06/22/16. He was observed in house for routine postop care and pain control. His post op course was however complicated by abd distention and bloating which was 2/2 severe ascites, he eventually underwent a Paracentesis and 7L of fluid was obtained and discarded. after that his abdomen was very soft, he was restarted on a diet and advanced without issues and is being discharged today in stable condition. He was continued on his routine HD MWF while in house. His antihypertensives were adjusted and an ACEi added to his regimen. Also as he made minimal urine, lasix was added to his regimen with the permission of the peanut cleaner and he is now stable for further outpt care Comorbidities were also aggressively managed as per Med records. Patient at this time has been evaluated and examined in detail and is assessed to be in stable condition and ready for discharge. Final diagnosis: 1. Ventral wall hernia status post elective repair 06/22/2016, laparoscopically. 2. End-stage renal disease on hemodialysis. 3. Hypertension with good control. 4. Diabetes mellitus type 2. 5. Dyslipidemia. 6. Chronic hypothyroidism. 7. Chronic peripheral arterial disease status post multiple interventions in the past. 8. History of a CBD status post cholecystectomy, right inguinal hernia repair in the past. 9. 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 + Hx of recurrent ascites and anasarca Discharge Condition: Stable Discharge Diet: 1800 ADA / Renal Diet Discharge Activity: As tolerated Discharge Meds: * Lisinopril* (Lisinopril*) 10 Mg Tablet, 10 MG PO DAILY, #30 TAB * Furosemide* (Furosemide*) 40 Mg Tablet, 40 MG PO DAILY for 30 Days, TAB * Docusate Sodium* (Colace*) 100 Mg Capsule, 100 MG PO BID, #28 CAP * Pantoprazole* (Pantoprazole*) 40 Mg Tablet.dr, 40 MG PO DAILY@06 for 14 Days * Polyethylene Glycol* (Miralax*) 17 Gm Powd.pack, 17 GM PO DAILY for 14 Days * Hydrocodone Bit-Acetaminophen (Hydrocodone Bit-APAP) 5-325MG Tablet, 1 TAB PO Q4H Y for Pain 1-5, #20 TAB * Linagliptin (TRADJENTA) 5 Mg Tablet, 5 MG PO DAILY for 30 Days, TAB 1 Refill * Clopidogrel Bisulfate (Clopidogrel) 75 Mg Tablet, 75 MG PO DAILY for 90 Days, #30 TAB * Levothyroxine Sodium* (Levothyroxine Sodium*) 100 Mcg Tablet, 100 MCG PO BEFORE BREAKFAST, #30 TAB * sukhi, 1 TAB PO DAILY PER PT STUDY RXSUBJECT OF STUDY CASE FOR ANEMIA RESEARCH * Isoniazid* (Isoniazid*) 100 Mg Tablet, 100 MG PO DAILY, TAB * Pyridoxine Hcl (Vitamin B6) 50 Mg Tab, 100 MG PO DAILY, TAB * Amlodipine Besylate* (Norvasc*) 5 Mg Tablet, 5 MG PO DAILY, TAB * Insulin Detemir (Levemir) 100 Unit/1 Ml Vial, 5-6 UNIT SC QHS, VIAL * Insulin Aspart* (Novolog Insulin Pen*) 100 Unit/Ml Soln, 2-6 UNIT SC WITH MEALS, EA * Aspirin (Low Dose Aspirin) 81 Mg Tablet.dr, 81 MG PO DAILY, #30 TAB * Folic Acid* (Folic Acid*) 1 Mg Tablet, 1 MG PO DAILY, TAB * Folic Acid/Vitamin B Comp W-C (Nephrocaps Capsule) 1 Mg Capsule, 1 MG PO DAILY , CAP * Hydralazine Hcl* (Hydralazine Hcl*) 25 Mg Tab, 75 MG PO TID, #120 TAB * Cholecalciferol (Vitamin D3) (VITAMIN D-3) 2,000 Unit Capsule, 2000 UNIT PO DAILY * Sevelamer Carbonate* (Renvela*) 800 Mg Tablet, 800 MG PO WITH MEALS, TAB Discontinued Reported Medications * Levothyroxine Sodium* (Levoxyl*) 75 Mcg Tablet, 75 MCG PO BEFORE BREAKFAST, # 30 TAB * Ursodiol* (Ursodiol*) 300 Mg Capsule, 300 MG PO BID, CAP Follow up plan: * Andrea Harris: Surgery: post op visit * Pete Rodrigues: Endo: primary care and DM mgt * Jorge Garcia: Nephrology: Routine HD. Time spent on final evaluation and assessment, discharge planning, counselling and coordination has been >40mins. MARILEE AGUILAR Jun 26, 2016 17:15
--- NOTE | 2016-06-26 17:16 | DS ---
Date/Time of Note Date/Time of Note DATE: 06/26/16 TIME: 17:16 Discharge Summary Admission/Discharge Info Admit Date/Time Jun 24, 2016 at 11:19 Discharge Date/Time Jun 26, 2016 at 16:15 Patient Condition: Stable Home Meds Active Scripts Lisinopril* (Lisinopril*) 10 Mg Tablet, 10 MG PO DAILY, #30 TAB Prov:MARILEE AGUILAR 06/26/16 Furosemide* (Furosemide*) 40 Mg Tablet, 40 MG PO DAILY for 30 Days, TAB [facility] 06/26/16 Docusate Sodium* (Colace*) 100 Mg Capsule, 100 MG PO BID, #28 CAP Prov:MARILEE AGUILAR 06/26/16 Pantoprazole* (Pantoprazole*) 40 Mg Tablet.dr, 40 MG PO DAILY@06 for 14 Days Prov:MARILEE AGUILAR 06/26/16 Polyethylene Glycol* (Miralax*) 17 Gm Powd.pack, 17 GM PO DAILY for 14 Days Prov:MARILEE AGUILAR 06/26/16 Hydrocodone Bit-Acetaminophen (Hydrocodone Bit-APAP) 5-325MG Tablet, 1 TAB PO Q4H Y for Pain 1-5, #20 TAB Prov:MARILEE AGUILAR 06/26/16 Linagliptin (TRADJENTA) 5 Mg Tablet, 5 MG PO DAILY for 30 Days, TAB 1 Refill Prov:MARILEE AGUILAR 06/26/16 Clopidogrel Bisulfate (Clopidogrel) 75 Mg Tablet, 75 MG PO DAILY for 90 Days, # 30 TAB Prov:ROBERT RUBIN 03/08/16 Reported Medications Levothyroxine Sodium* (Levothyroxine Sodium*) 100 Mcg Tablet, 100 MCG PO BEFORE BREAKFAST, #30 TAB 06/22/16 [Vadadustat] No Conflict Check, 1 TAB PO DAILY PER PT STUDY RXSUBJECT OF STUDY CASE FOR ANEMIA RESEARCH 06/22/16 Isoniazid* (Isoniazid*) 100 Mg Tablet, 100 MG PO DAILY, TAB 06/22/16 Pyridoxine Hcl (Vitamin B6) 50 Mg Tab, 100 MG PO DAILY, TAB 06/22/16 Amlodipine Besylate* (Norvasc*) 5 Mg Tablet, 5 MG PO DAILY, TAB 1/18/17 Insulin Detemir (Levemir) 100 Unit/1 Ml Vial, 5-6 UNIT SC QHS, VIAL 04/21/16 Insulin Aspart* (Novolog Insulin Pen*) 100 Unit/Ml Soln, 2-6 UNIT SC WITH MEALS , EA 04/21/16 Aspirin (Low Dose Aspirin) 81 Mg Tablet.dr, 81 MG PO DAILY, #30 TAB 04/21/16 Folic Acid* (Folic Acid*) 1 Mg Tablet, 1 MG PO DAILY, TAB 04/21/16 Folic Acid/Vitamin B Comp W-C (Nephrocaps Capsule) 1 Mg Capsule, 1 MG PO DAILY, CAP 04/21/16 Hydralazine Hcl* (Hydralazine Hcl*) 25 Mg Tab, 75 MG PO TID, #120 TAB 02/20/16 Cholecalciferol (Vitamin D3) (VITAMIN D-3) 2,000 Unit Capsule, 2000 UNIT PO DAILY 06/21/14 Sevelamer Carbonate* (Renvela*) 800 Mg Tablet, 800 MG PO WITH MEALS, TAB 06/21/14 Discontinued Reported Medications Levothyroxine Sodium* (Levoxyl*) 75 Mcg Tablet, 75 MCG PO BEFORE BREAKFAST, #30 TAB 04/21/16 Ursodiol* (Ursodiol*) 300 Mg Capsule, 300 MG PO BID, CAP 02/20/16 Pending Labs Laboratory Tests Test 06/25/16 17:20 06/25/16 20:42 06/26/16 05:17 06/26/16 07:45 Bedside Glucose 113mg/dL (70-220) 167mg/dL (70-220) 128mg/dL (70-220) White Blood Count 4.710^3/ul (4.8-10.8) Red Blood Count 3.4210^6/ul (4.70-6.10) Hemoglobin 10.4g/dl (14.0-18.0) Hematocrit 29.9% (42.0-52.0) Mean Corpuscular Volume 87.4fl (82.0-101.0) Mean Corpuscular Hemoglobin 30.4pg (29.0-33.0) Mean Corpuscular Hemoglobin Concent 34.8g/dl (32.0-37.0) Red Cell Distribution Width 14.2% (11.5-14.5) Platelet Count 01930^3/UL (140-415) Mean Platelet Volume 9.9fl (7.4-10.4) Neutrophils % 65.0% (39.0-77.0) Lymphocytes % 19.0% (15.0-51.0) Monocytes % 10.0% (0.0-11.0) Eosinophils % 4.7% (0.0-7.0) Basophils % 0.9% (0.0-2.0) Nucleated Red Blood Cells % 0.0/100WBC (0.0-0.0) Neutrophils # 3.110^3/ul (1.6-7.5) Lymphocytes # 0.910^3/ul (0.8-2.9) Monocytes # 0.510^3/ul (0.3-0.9) Eosinophils # 0.210^3/ul (0.0-0.5) Basophils # 0.010^3/ul (0.0-0.1) Nucleated Red Blood Cells # 0.010^3/ul (0.0-0.0) Sodium Level 142mmol/L (135-144) Potassium Level 3.7mmol/L (3.5-5.1) Chloride Level 100mmol/L (97-110) Carbon Dioxide Level 27mmol/L (21-31) Anion Gap 19 (8-16) Blood Urea Nitrogen 44mg/dl (7-20) Creatinine 5.82mg/dl (0.61-1.24) Glucose Level 121mg/dl (70-220) Calcium Level 8.0mg/dl (8.4-10.2) Phosphorus Level 5.0mg/dl (2.5-4.9) Albumin 3.2g/dl (3.3-4.9) Test 06/26/16 11:55 Bedside Glucose 128mg/dL (70-220) MARILEE AGUILAR Jun 26, 2016 17:16
== END 2016-06-26 16:15 | disposition home or self-care (01) | DRG 353 ==
LOC: SDS 09:55 → MS2 14:39 → OBSVTOIN 06-24 11:19
PROVIDERS: ADMIT Family Medicine; ATTEND Family Medicine
PROC: 0WUF4JZ Supplement Abdominal Wall with Synthetic Substitute, Percutaneous Endoscopic Approach (ICD-10-PCS; principal; 2016-06-22 12:00)
PROC: 5A1D60Z (ICD-10-PCS; 2016-06-23)
PROC: 30233N1 Transfusion of Nonautologous Red Blood Cells into Peripheral Vein, Percutaneous Approach (ICD-10-PCS; 2016-06-25)
DX: K43.9 Ventral hernia without obstruction or gangrene (principal); N18.6 End stage renal disease; I12.0 Hypertensive chronic kidney disease with stage 5 chronic kidney disease or end stage renal disease; E03.9 Hypothyroidism, unspecified; Z99.2 Dependence on renal dialysis; E11.9 Type 2 diabetes mellitus without complications; Z87.891 Personal history of nicotine dependence; I73.9 Peripheral vascular disease, unspecified; R76.11 Nonspecific reaction to tuberculin skin test without active tuberculosis; J63.4 Siderosis; Z79.4 Long term (current) use of insulin; R33.9 Retention of urine, unspecified
CPT/HCPCS: 36430; 80048; 80053; 80069; 82962; 83735; 84100; 85025; 85610; 85730; 86644; 86850; 86900; 86901; 86920; 90935; 97162; C1781; G0378; J0690; J1644; J1815; J2765; J3010; P9016

== ENCOUNTER 2017-10-15 09:41 | Emergency (ER) | END 2017-10-15 16:58 | disposition home or self-care (01) ==

== ENCOUNTER 2017-10-31 21:47 | Inpatient (IN) | END 2017-11-08 19:30 | disposition home or self-care (01) | DRG 871 ==

== ENCOUNTER 2017-11-16 19:27 | Emergency (ER) | END 2017-11-16 22:42 | disposition left against medical advice (07) ==

== ENCOUNTER 2018-10-20 19:41 | Inpatient (IN) | payer MEDICARE, OTHER ==
[~2018-10-20] VITALS: Ht 175.3 cm; Wt 76.0 kg
[~2018-10-20 19:41] MED LIST changes: -AMLO5TAB4 PO; -ASPI-664 PO; +ASPI-817 PO; +BENA20TA4 PO; -BUPIVACAINE 0.25%/EPI (SDV) 30 ML INJ INJ ONE; -CEFAZOLIN 1 GM INJ ONE; -CHOL20003 PO; +CHOL200056 PO; +DICL100G33 TP; -FENTAnyl 50 MCG/ML VIAL ONE; -FOLI-49 PO; -FOLI1CAP PO; -HYDR-3671 PO; +HYDR-3980 PO; +HYDR-4011 PO; -LEVEM SC; +LEVEM SC*; +LEVO100T8 PO; -LEVO75TA65 PO; -LIDOCAINE 1% (MPF) 30 ML INJ INJ ONE; +LINA5TAB PO; +NEPHRO-VITE PO; +PYRI100T4 PO; -URSO300C3 PO
[2018-10-20 19:50] VITALS: Ht 175.3 cm; Wt 76.0 kg
[2018-10-20] MEDS ORDERED: SOD CHLORIDE 0.9% 1,000 ML IV STA (20:19)
[2018-10-20] MEDS ORDERED: morphine 4 MG/ML VIAL IV STA (20:35)
[2018-10-20] MEDS ORDERED: ONDANSETRON 4 MG INJ IV STA ×2 (20:35→22:41)
[2018-10-20] MEDS ORDERED: HYDROmorphONE 1 MG/ML SYG IV STA (22:41)
--- NOTE | 2018-10-20 22:41 | ERD ---
ER Documentation Chief Complaint Chief Complaint left hip pain s/p mechanical GLF; unable to bear weight or straighten, -loc HPI This is a 73-year-old male who has a past medical history of type 2 diabetes mellitus, end-stage renal disease on hemodialysis every Tuesday and Tuesday, hypertension hyperlipidemia peripheral vascular disease and presents to the emergency department after he had a mechanical slip and fall onto a hardwood surface just prior to arrival. The patient landed on his left hip. He is complaining of severe pain. He stated he did not hit his head or lose consciousness. He was unable to get up due to the pain of the left hip. The patient is on Plavix. His primary care physician is Dr. Rodrigues. He states the pain is 10 out of 10 in intensity on his left hip which is exacerbated by movement. The pain does radiate to his left femur. He denies headache. He has no neck pain. He denies any pain in his chest or abdomen. ROS All systems reviewed and are negative except as per history of present illness. Medications Home Meds Active Scripts Insulin Aspart* (Novolog Insulin Pen*) 100 Unit/Ml Soln, 5 UNIT SC WITH MEALS for 30 Days, #2 SYR 5 Refills Prov:FELIX RODRIGUES MD 11/08/17 Diclofenac Sodium (Diclofenac Sodium) 100 Gm Gel..gram., 2 GM TP QID PRN for PAIN for 30 Days, #1 TUB 5 Refills Prov:FELIX RODRIGUES MD 11/08/17 Benazepril Hcl* (Benazepril Hcl*) 20 Mg Tablet, 20 MG PO BID for 30 Days, #60 TAB 5 Refills Prov:FELIX RODRIGUES MD 11/08/17 Reported Medications Hydrocodone/Acetaminophen ([place] 5-325 Tablet) 1 Each Tablet, 1 EACH PO, TAB 10/31/17 Hydrocodone/Acetaminophen ([place] 10-325 Tablet) 1 Each Tablet, 1 EACH PO Q6H, TAB 10/15/17 Clopidogrel Bisulfate (Clopidogrel) 75 Mg Tablet, 75 MG PO DAILY, #30 TAB 10/15/17 Sevelamer Carbonate* (Renvela*) 800 Mg Tablet, 1600 MG PO WITH MEALS, TAB 10/15/17 Pyridoxine Hcl* (Pyridoxine Hcl*) 100 Mg Tablet, 100 MG PO DAILY, TAB 10/15/17 Levothyroxine Sodium* (Levothyroxine Sodium*) 100 Mcg Tablet, 100 MCG PO BEFORE BREAKFAST, #30 TAB 10/15/17 Insulin Detemir (Levemir) 100 Unit/1 Ml Vial, 0 SC* QHS INJECT 12-14 UNITS QHS 10/15/17 Insulin Aspart* (Novolog Insulin Pen*) 100 Unit/Ml Soln, 0 SC .SLIDING SCALE AC, EA AC MEALS 10/15/17 Cholecalciferol (Vitamin D3) (Vitamin D-3) 2,000 Unit Tablet, 2000 UNIT PO DAILY, TAB 10/15/17 Aspirin* (Aspirin* EC) 81 Mg Tablet.dr, 81 MG PO DAILY, TAB 10/15/17 Linagliptin (TRADJENTA) 5 Mg Tablet, 5 MG PO DAILY, TAB 10/15/17 [Nephro-Haris] No Conflict Check, 1 TAB PO DAILY 10/15/17 Allergies Allergies: Coded Allergies: No Known Allergies (Unverified Allergy, Mild, 10/31/17) PMhx/Soc History of Surgery: Yes (gallbladder 2012,colon resectomy 2012,hernia 2015,left/righ toe amputation,) Anesthesia Reaction: No Hx 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 Disorder: No Hx Respiratory Disorders: No Hx Cardiac Disorders: Yes (HTN) Hx Psychiatric Problems: Yes (depression) Hx Miscellaneous Medical Probl: Yes (ESRD, RUE fistula) Hx Alcohol Use: No Hx Substance Use: No Hx Tobacco Use: No Smoking Status: Unknown if ever smoked Physical Exam Vitals Vital Signs Date Temp Pulse Resp B/P (MAP) Pulse Ox O2 O2 Flow FiO2 Time Delivery Rate 10/20/18 98.7 76 17 135/60 96 19:50 (85) Physical Exam Constitutional:Well-developed. Well-nourished. HEENT:Normocephalic. Atraumatic with no nasal septal hematoma. No hemotympanum..Pupils were equal round reactive to light. Moist mucous membranes.No tonsillar exudates. Neck: No nuchal rigidity. No lymphadenopathy. No posterior cervical spine tenderness or step-offs. Respiratory: Not using accessory muscles of respiration.Lungs were clear to auscultation bilaterally. No rhonchi. No rales. No wheezing. Cardiovascular: Regular rate regular rhythm.No murmurs. No rubs were appreciated.S1, S2 normal. Distal pulses are palpable 2+ bilaterally. GI: Abdomen was soft. Nontender. Non Distended. No pulsatile abdominal masses or bruits. No rebound. No guarding. Bowel sounds were present and normal. Muscle skeletal: No laxity on anterior posterior lateral compression of the hip. Severe pain over the left anterior superior iliac spine and proximal left femur. Patient unable to lift the left upper extremity against gravity as this exacerbates pain. Lower extremities are equal length and symmetrical no internal and external rotation. Skin: No petechia, no purpura. No lesions on the palms or the soles of the feet. No maculopapular rash. Positive thrill and bruit of the right upper extremity AV fistula. NEURO: Patient was alert, awake, orientated x3.No facial droop. Gait not observed as patient was in too much pain to ambulate. Result Diagram: 10/20/18202610/20/182026 Results 24 hrs Laboratory Tests Test 10/20/18 20:27 White Blood Count 5.9 10^3/ul Red Blood Count 2.81 10^6/ul Hemoglobin 8.2 g/dl Hematocrit 25.0 % Mean Corpuscular Volume 89.0 fl Mean Corpuscular Hemoglobin 29.2 pg Mean Corpuscular Hemoglobin Concent 32.8 g/dl Red Cell Distribution Width 15.3 % Platelet Count 178 10^3/UL Mean Platelet Volume 9.4 fl Immature Granulocytes % 0.300 % Neutrophils % 76.9 % Lymphocytes % 7.9 % Monocytes % 11.1 % Eosinophils % 3.5 % Basophils % 0.3 % Nucleated Red Blood Cells % 0.0 /100WBC Immature Granulocytes # 0.020 10^3/ul Neutrophils # 4.6 10^3/ul Lymphocytes # 0.5 10^3/ul Monocytes # 0.7 10^3/ul Eosinophils # 0.2 10^3/ul Basophils # 0.0 10^3/ul Nucleated Red Blood Cells # 0.0 10^3/ul Prothrombin Time 14.2 Sec Prothrombin Time Ratio 1.1 INR International Normalized Ratio 1.09 Activated Partial Thromboplast Time 36.2 Sec Sodium Level 139 mmol/L Potassium Level 4.8 mmol/L Chloride Level 95 mmol/L Carbon Dioxide Level 34 mmol/L Anion Gap 10 Blood Urea Nitrogen 31 mg/dl Creatinine 4.77 mg/dl Est Glomerular Filtrat Rate mL/min mL/min Glucose Level 115 mg/dl Calcium Level 9.0 mg/dl Total Bilirubin 0.4 mg/dl Direct Bilirubin 0.00 mg/dl Indirect Bilirubin 0.4 mg/dl Aspartate Amino Transf (AST/SGOT) 32 IU/L Alanine Aminotransferase (ALT/SGPT) 15 IU/L Alkaline Phosphatase 147 IU/L Troponin I 0.018 ng/ml Total Protein 7.7 g/dl Albumin 4.1 g/dl Globulin 3.60 g/dl Albumin/Globulin Ratio 1.13 Amylase Level 131 U/L Lipase 209 U/L Current Medications Medications Dose Sig/Alvarez Start Time Status Last (Trade) Ordered Route PRN Stop Time Admin Dose Reason Admin Sodium 1,000 ml @ Q1H STAT 10/20/18 DC 10/20/18 Chloride 1,000 mls/hr IV 20: 20:40 10/20/18 21:18 Morphine 4 mg ONCE STAT 10/20/18 DC 10/20/18 Sulfate IV 20:35 20:40 (morphine) 10/20/18 20:37 Ondansetron 4 mg ONCE STAT 10/20/18 DC 10/20/18 HCl (Zofran IV 20:35 20:40 Inj) 10/20/18 20:37 0.5 mg ONCE STAT 10/20/18 DC 10/20/18 Hydromorphone IV 22:41 22:56 HCl 10/20/18 22:43 (Dilaudid) Ondansetron 4 mg ONCE STAT 10/20/18 DC 10/20/18 HCl (Zofran IV 22:41 22:56 Inj) 10/20/18 22:43 Procedures/MDM This patient presented to the emergency department with left hip pain after mechanical fall. The patient was placed on marketing teacher continuous pulse oximetry and IV access was established by nursing staff. The patient received intravenous morphine and Zofran for analgesia control. The patient has known history of chronic kidney disease not on dialysis and coronary artery disease. The patient is on Plavix. Patient had no head trauma and no signs of increased intracranial pressure therefore CT scan of the patient's head was not obtained. Utilizing the Nexus criteria no radiographic imaging was obtained to the patient's cervical spine. I did obtain an x-ray of the patient's pelvis left femur and left hip. There did appear to be an intertrochanteric fracture of the left hip. He will be admitted to the hospitalist given that his primary care ph ysician Dr. Rodrigues is out of town. 12 Lead EKG tracing ordered and reviewed by myself showed: Normal sinus rhythm of 78 bpm and no arrhythmia. MN interval prolonged in all leads at 284 ms with a first-degree AV block QRS duration normal. No ST segment elevation No ST segment depression. No changes consistent with acute ischemia. The patient was unable to bear weight. He required multiple doses of analgesic medication. The radiology report from the radiographic imaging of left hip indicated the following: Nondisplaced intertrochanteric left femoral neck fracture. Mild bilateral hip degenerative changes. Lower lumbar degenerative changes seen as well. Prominent coiled air-filled loop of likely sigmoid colon identified over the lower midline abdomen, which is nonspecific, but can be seen with sigmoid volvulus. If there is further concern, CT is recommended. I went to re-evaluate the patient. The patient had no tenderness of the abdomen. My clinical suspicion for sigmoid volvulus was low. I will call the orthopedic surgeon on-call for consultation. Critical Care: Time: 70 minutes Treatments/Evaluations: Close monitoring and treatment of unstable vital signs, cardiorespiratory, and neurologic status, while maintaining tight balance of fluid, respiratory, and cardiac interventions. Time does not include performing any of the above billable procedures. Departure Diagnosis: Primary Impression: Closed left hip fracture Encounter type: initial encounter Qualified Codes: S72.002A - Fracture of unspecified part of neck of left femur, initial encounter for closed fracture Condition: Serious KAROLINA DARNELL MD Oct 20, 2018 22:41
[2018-10-20] MEDS ORDERED: ACETAMINOPHEN 325 MG TAB PO PRN (23:30)
[2018-10-20] MEDS ORDERED: ONDANSETRON 4 MG INJ IV PRN (23:30)
[2018-10-20] MEDS ORDERED: DEXTROSE 50% 50 ML SYRINGE IV PRN ×2 (23:45)
[2018-10-20] MEDS ORDERED: GLUCOSE GEL 15 GRAM TUBE BUCCAL PRN (23:45)
[2018-10-20] MEDS ORDERED: GLUCOSE GEL 15 GRAM TUBE PO PRN ×2 (23:45)
[2018-10-20] MEDS ORDERED: GLUCAGON 1 MG INJ IM PRN (23:45)
--- NOTE | 2018-10-20 23:57 | HP ---
Date/Time of Note Date/Time of Note DATE: 10/20/18 TIME: 23:57 Assessment/Plan VTE Prophylaxis Pharmacological prophylaxis: heparin Lines/Catheters IV Catheter Type (from Nrsg): Saline Lock Assessment/Plan Assessment/Plan 1. Left femoral neck fracture: Status post slip and fall accident -Pain management -Awaiting Ortho evaluation 2. Prominent coiled air-filled loop of likely sigmoid colon: Noted on the pelvic x-ray -Follow-up CT abdomen/pelvis for further evaluation. Note that patient has a history of ischemic bowel 3. ESRD on HD: Nephrology for dialysis 4. Diabetes: Insulin while in-house 5. Hypothyroidism: Continue Synthroid 6. Anemia, most likely a combination of AOCD and GI blood loss -FOBT here positive in 2014 -Outpatient colonoscopy -Previous iron study not consistent with iron deficiency -Monitor H&H and transfuse as needed Result Diagram: 10/20/18202610/20/182026 Results 24hrs Laboratory Tests Test 10/20/18 20:27 White Blood Count 5.9 Red Blood Count 2.81 #L Hemoglobin 8.2 L Hematocrit 25.0 L Mean Corpuscular Volume 89.0 Mean Corpuscular Hemoglobin 29.2 Mean Corpuscular Hemoglobin Concent 32.8 Red Cell Distribution Width 15.3 H Platelet Count 178 # Mean Platelet Volume 9.4 Immature Granulocytes % 0.300 Neutrophils % 76.9 Lymphocytes % 7.9 L Monocytes % 11.1 H Eosinophils % 3.5 Basophils % 0.3 Nucleated Red Blood Cells % 0.0 Immature Granulocytes # 0.020 Neutrophils # 4.6 Lymphocytes # 0.5 L Monocytes # 0.7 Eosinophils # 0.2 Basophils # 0.0 Nucleated Red Blood Cells # 0.0 Prothrombin Time 14.2 Prothrombin Time Ratio 1.1 INR International Normalized Ratio 1.09 Activated Partial Thromboplast Time 36.2 H Sodium Level 139 Potassium Level 4.8 Chloride Level 95 L Carbon Dioxide Level 34 H Anion Gap 10 Blood Urea Nitrogen 31 H Creatinine 4.77 H Est Glomerular Filtrat Rate mL/min Glucose Level 115 Calcium Level 9.0 Total Bilirubin 0.4 Direct Bilirubin 0.00 Indirect Bilirubin 0.4 Aspartate Amino Transf (AST/SGOT) 32 Alanine Aminotransferase (ALT/SGPT) 15 Alkaline Phosphatase 147 H Troponin I 0.018 Total Protein 7.7 Albumin 4.1 Globulin 3.60 H Albumin/Globulin Ratio 1.13 Amylase Level 131 H Lipase 209 HPI/ROS Admit Date/Time Admit Date/Time Hx of Present Illness Patient is a 81-year-old male with a history of ESRD on HD, hypertension, hypothyroidism, diabetes, choledocholithiasis status post ERCP stent, left ankle ORIF, PVD, ischemic bowel. Patient was brought to the ER with the left hip pain status post slip and fall accident. Pelvic x-ray shows the following -Nondisplaced intertrochanteric left femoral neck fracture. -Mild bilateral hip degenerative changes. Lower lumbar degenerative changes seen as well. -Prominent coiled air-filled loop of likely sigmoid colon identified over the lower midline abdomen, which is nonspecific, but can be seen with sigmoid volvulus. If there is further concern, CT is recommended. PMH/Family/Social Past Medical History Medical History: other (See HPI) Medications Current Medications Ondansetron HCl (Zofran Inj) 4 mg ER BRIDGE PRN IV NAUSEA/VOMITING; Start 10/20/18 at 23:30; Stop 10/21/18 at 23:29 Acetaminophen (Tylenol Tab) 650 mg ER BRIDGE PRN PO .MILD PAIN 1-3 OR TEMP; Start 10/20/18 at 23:30; Stop 10/21/18 at 23:29 Dextrose/Sodium Chloride 1,000 ml @ 100 mls/hr Q10H IV ; Start 10/20/18 at 23:42 IV Flush (NS 3 ml) 3 ml PER PROTOCOL IV ; Start 10/21/18 at 00:00 Ondansetron HCl (Zofran Inj) 4 mg Q6H PRN IV NAUSEA/VOMITING; Start 10/21/18 at 00:00 Morphine Sulfate (morphine) 3 mg Q4H PRN IV .SEVERE PAIN 7-10; Start 10/21/18 at 00:00 Famotidine (Pepcid Iv) 20 mg DAILY IV ; Start 10/21/18 at 09:00 Albuterol/ Ipratropium (Duoneb) 3 ml Q2H RESP THERAPY PRN HHN SHORTNESS OF BREATH; Start 10/21/18 at 00:00 Miscellaneous Information (* Miscellaneous Pharmacy Order) Discontinue current oral sulfonylur... ONCE ONCE XX ; Start 10/21/18 at 00:00; Stop 10/21/18 at 00:01 Diagnostic Test (Pha) (Accu-Chek) 1 XX ; Start 10/21/18 at 02:00 Miscellaneous Information (* Miscellaneous Pharmacy Order) HYPOGLYCEMIA PROTOCOL w... ONCE ONCE XX ; Start 10/21/18 at 00:00; Stop 10/21/18 at 00:01 Insulin Aspart (Novolog Insulin Pen) NOVOLOG *MILD* ALGORITHM WITH MEALS BEDTIME SC ; Start 10/21/18 at 08:00 Miscellaneous Information (* Miscellaneous Pharmacy Order) Discontinue all previ... ONCE ONCE XX ; Start 10/21/18 at 00:00; Stop 10/21/18 at 00:01; Status UNV Coded Allergies: No Known Allergies (Unverified Allergy, Mild, 10/31/17) Past Surgical History Past Surgical Hx: other (See HPI) Family History Significant Family History: no pertinent family hx Social History Alcohol Use: none Smoking Status: Unknown if ever smoked Drug Use: none Exam/Review of Systems Vital Signs Vitals Vital Signs Date Temp Pulse Resp B/P (MAP) Pulse Ox O2 O2 Flow FiO2 Time Delivery Rate 10/20/18 98.7 76 17 135/60 96 19:50 (85) Exam Constitutional: other (No acute distress) Head: normocephalic, atraumatic Eyes: PERRL Respiratory: clear to auscultation, normal air movement Cardiovascular: regular rate and rhythm, nl pulses Gastrointestinal: soft Extremities: normal pulses MEHNAZ POLANCO MD Oct 20, 2018 23:57
[2018-10-21] MEDS ORDERED: NACL 0.9% 3 ML SYG IV SCH
[2018-10-21] MEDS ORDERED: ONDANSETRON 4 MG INJ IV PRN
[2018-10-21] MEDS ORDERED: ALBUTEROL/IPRATROPIUM (NEB) 3 ML AMP HHN PRN
[2018-10-21] MEDS: morphine 2 MG INJ IV PRN ×2 (01:24→10:35)
[2018-10-21 01:35] VITALS: BP 146/72; PULSE 73; RESP 18
[2018-10-21] MEDS: DEXTROSE 5%-0.45% NACL 1,000 ML IV SCH ×2 (01:58→21:12)
[2018-10-21 02:00] VITALS: BP 141/67; PULSE 70; RESP 18
[2018-10-21] MEDS ORDERED: ACCU-CHEK XX SCH (02:00)
[2018-10-21] MEDS: INSULIN ASPART [NOVOLOG] 3 ML PEN SC SCH ×6 (05:15→21:00)
[2018-10-21] MEDS ORDERED: INSULIN ASPART [NOVOLOG] 3 ML PEN SC SCH ×2 (08:00→09:00)
[2018-10-21 08:20] VITALS: BP 144/66; PULSE 68; RESP 19
[2018-10-21] MEDS ORDERED: FAMOTIDINE 20 MG INJ IV SCH (09:00)
[2018-10-21] MEDS: ACCU-CHEK XX SCH ×3 (14:00→20:05)
[2018-10-21] MEDS ORDERED: HYDROCODONE/APAP (10/325) TAB PO PRN (14:00)
--- NOTE | 2018-10-21 14:03 | PN ---
Date/Time of Note Date/Time of Note DATE: 10/21/18 TIME: 13:55 Assessment/Plan VTE Prophylaxis Risk score (from [facility] [place])>0 risk: 9 SCD applied (from [facility] [place]): Yes Pharmacological prophylaxis: heparin Lines/Catheters IV Catheter Type (from [facility]): Peripheral IV Assessment/Plan Problems: (1) Closed left hip fracture Status: Acute Comment: He has been seen in orthopedic consultation by Dr. Acuña and is being prepped for surgery. From medical standpoint he is appropriate to proceed and since he had dialysis yesterday this would be fine to do today Qualifiers: Encounter type: initial encounter Qualified Codes: S72.002A - Fracture of unspecified part of neck of left femur, initial encounter for closed fracture (2) ESRD (end stage renal disease) on dialysis Status: Chronic Comment: His regular single needle operator is Dr. Jorge Garcia. Dr. Cruz is covering for him and I have left a message with him via his exchange. 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 Status: Chronic Comment: Noted and stable Qualifiers: Diabetes mellitus intermediate card tender insulin use: without intermediate card tender use Qualified Codes: E11.3391 - Type 2 diabetes mellitus with moderate nonproliferative diabetic retinopathy without macular edema, right eye (6) Type 2 diabetes mellitus with diabetic polyneuropathy Status: Chronic Comment: Noted and stable Qualifiers: Diabetes mellitus intermediate card tender insulin use: without fpc use Qualified Codes: E11.42 - Type 2 diabetes mellitus with diabetic polyneuropathy (7) Secondary hyperparathyroidism of renal origin Status: Chronic Comment: Noted and stable, nephrology to assist (8) Hypothyroidism Status: Chronic Comment: Continue with replacement therapy Qualifiers: Hypothyroidism type: acquired Qualified Codes: E03.9 - Hypothyroidism, unspecified (9) Essential (primary) hypertension Status: Chronic Comment: Adequate control (10) Anemia associated with chronic renal failure Status: Chronic Comment: Angelica Gupta (11) Chronic vascular disorder of intestine Status: Chronic Comment: Noted. Result Diagram: 10/21/18 0508 10/21/18 0507 Results 24hrs Laboratory Tests Test 10/20/18 20:27 10/21/18 02:14 10/21/18 05:07 10/21/18 05:08 White Blood Count 5.9 6.2 Red Blood Count 2.81 #L 2.86 L Hemoglobin 8.2 L 8.4 L Hematocrit 25.0 L 26.0 L Mean Corpuscular 89.0 90.9 Volume Mean Corpuscular 29.2 29.4 Hemoglobin Mean Corpuscular 32.8 32.3 Hemoglobin Concent Red Cell 15.3 H 15.7 H Distribution Width Platelet Count 178 # 171 Mean Platelet Volume 9.4 9.7 Immature 0.300 0.300 Granulocytes % Neutrophils % 76.9 69.8 Lymphocytes % 7.9 L 11.5 L Monocytes % 11.1 H 10.3 Eosinophils % 3.5 7.1 H Basophils % 0.3 1.0 Nucleated Red Blood 0.0 0.0 Cells % Immature 0.020 0.020 Granulocytes # Neutrophils # 4.6 4.3 Lymphocytes # 0.5 L 0.7 L Monocytes # 0.7 0.6 Eosinophils # 0.2 0.4 Basophils # 0.0 0.1 Nucleated Red Blood 0.0 0.0 Cells # Prothrombin Time 14.2 Prothrombin Time 1.1 Ratio INR International 1.09 Normalized Ratio Activated 36.2 H Partial Thromboplast Time Sodium Level 139 140 Potassium Level 4.8 5.2 H Chloride Level 95 L 99 Carbon Dioxide Level 34 H 31 Anion Gap 10 10 Blood Urea Nitrogen 31 H 35 H Creatinine 4.77 H 5.23 H Est Glomerular Filtrat Rate mL/min Glucose Level 115 137 Calcium Level 9.0 8.4 Total Bilirubin 0.4 0.5 Direct Bilirubin 0.00 0.00 Indirect Bilirubin 0.4 0.5 Aspartate Amino 32 35 Transf (AST/SGOT) Alanine 15 13 Aminotransferase (AL T/SGPT) Alkaline Phosphatase 147 H 131 H Troponin I 0.018 Total Protein 7.7 7.2 Albumin 4.1 3.8 Globulin 3.60 H 3.40 H Albumin/Globulin 1.13 1.11 Ratio Amylase Level 131 H Lipase 209 Bedside Glucose 137 142 Phosphorus Level 3.3 Magnesium Level 2.3 Hemoglobin A1c 4.5 Test 10/21/18 08:45 10/21/18 12:51 Bedside Glucose 139 130 Subjective 24 Hr Interval Summary Free Text/Dictation 73-year-old gentleman with end-stage renal disease on hemodialysis 3 days a week. Yesterday after coming home from dialysis he was sitting on the couch in his home. He was wearing slippers and stood up on the wooden floors slipped fell landing on his left hip and left arm. He sustained a left hip fracture. He did not have any dizziness he did not have any palpitations he did not have any head trauma. He has not had any kind of cardiac symptoms at all. He has been seen by orthopedics and the plan is for o pen reduction internal fixation. Constitutional: no complaints (No fevers chills or sweats) Eyes: no complaints (No new eye issues) ENT: no complaints Respiratory: no complaints Cardiovascular: no complaints (No chest pain no palpitations no orthopnea no PND) Gastrointestinal: no complaints Genitourinary: no complaints Musculoskeletal: other (Significant pain in left hip with inability to use the left lower extremity, some modest pain in the left upper extremity but with full range of motion) Neurologic: no complaints Endocrine: no complaints Lymphatic: no complaints Psychological: no complaints, nl mood/affect Exam/Review of Systems Exam Vitals Vital Signs Date Temp Pulse Resp B/P (MAP) Pulse Ox O2 O2 Flow FiO2 Time Delivery Rate 10/21/18 98.1 68 19 144/66 98 Room Air 1.0 08:20 (92) Constitutional: alert, oriented Neck: supple, non-tender Respiratory: clear to auscultation, normal air movement Cardiovascular: regular rate and rhythm, nl pulses Gastrointestinal: soft, nl liver, spleen, non-tender Extremities: other (Left leg internally rotated; left upper extremity with full range of motion) Results Results 24hrs Laboratory Tests Test 10/20/18 20:27 10/21/18 02:14 10/21/18 05:07 10/21/18 05:08 White Blood Count 5.9 6.2 Red Blood Count 2.81 #L 2.86 L Hemoglobin 8.2 L 8.4 L Hematocrit 25.0 L 26.0 L Mean Corpuscular 89.0 90.9 Volume Mean Corpuscular 29.2 29.4 Hemoglobin Mean Corpuscular 32.8 32.3 Hemoglobin Concent Red Cell 15.3 H 15.7 H Distribution Width Platelet Count 178 # 171 Mean Platelet Volume 9.4 9.7 Immature 0.300 0.300 Granulocytes % Neutrophils % 76.9 69.8 Lymphocytes % 7.9 L 11.5 L Monocytes % 11.1 H 10.3 Eosinophils % 3.5 7.1 H Basophils % 0.3 1.0 Nucleated Red Blood 0.0 0.0 Cells % Immature 0.020 0.020 Granulocytes # Neutrophils # 4.6 4.3 Lymphocytes # 0.5 L 0.7 L Monocytes # 0.7 0.6 Eosinophils # 0.2 0.4 Basophils # 0.0 0.1 Nucleated Red Blood 0.0 0.0 Cells # Prothrombin Time 14.2 Prothrombin Time 1.1 Ratio INR International 1.09 Normalized Ratio Activated 36.2 H Partial Thromboplast Time Sodium Level 139 140 Potassium Level 4.8 5.2 H Chloride Level 95 L 99 Carbon Dioxide Level 34 H 31 Anion Gap 10 10 Blood Urea Nitrogen 31 H 35 H Creatinine 4.77 H 5.23 H Est Glomerular Filtrat Rate mL/min Glucose Level 115 137 Calcium Level 9.0 8.4 Total Bilirubin 0.4 0.5 Direct Bilirubin 0.00 0.00 Indirect Bilirubin 0.4 0.5 Aspartate Amino 32 35 Transf (AST/SGOT) Alanine 15 13 Aminotransferase (AL T/SGPT) Alkaline Phosphatase 147 H 131 H Troponin I 0.018 Total Protein 7.7 7.2 Albumin 4.1 3.8 Globulin 3.60 H 3.40 H Albumin/Globulin 1.13 1.11 Ratio Amylase Level 131 H Lipase 209 Bedside Glucose 137 142 Phosphorus Level 3.3 Magnesium Level 2.3 Hemoglobin A1c 4.5 Test 10/21/18 08:45 10/21/18 12:51 Bedside Glucose 139 130 Medications Medication Current Medications Ondansetron HCl (Zofran Inj) 4 mg ER BRIDGE PRN IV NAUSEA/VOMITING; Start 10/20/18 at 23:30; Stop 10/21/18 at 23:29 Acetaminophen (Tylenol Tab) 650 mg ER BRIDGE PRN PO .MILD PAIN 1-3 OR TEMP; Start 10/20/18 at 23:30; Stop 10/21/18 at 23:29 Dextrose/Sodium Chloride 1,000 ml @ 40 mls/hr Q24H IV Last administered on 10/21/18at 01:58; Admin Dose 100 MLS/HR; Start 10/20/18 at 23:42 IV Flush (NS 3 ml) 3 ml PER PROTOCOL IV ; Start 10/21/18 at 00:00 Ondansetron HCl (Zofran Inj) 4 mg Q6H PRN IV NAUSEA/VOMITING; Start 10/21/18 at 00:00 Morphine Sulfate (morphine) 3 mg Q4H PRN IV .SEVERE PAIN 7-10 Last administered on 10/21/18at 10:35; Admin Dose 3 MG; Start 10/21/18 at 00:00 Famotidine (Pepcid Iv) 20 mg DAILY IV Last administered on 10/21/18 08:46; Admin Dose 20 MG; Start 10/21/18 at 09:00 Albuterol/ Ipratropium (Duoneb) 3 ml Q2H RESP THERAPY PRN HHN SHORTNESS OF BREATH; Start 10/21/18 at 00:00 Miscellaneous Information 1 ea NOTE XX ; Start 10/20/18 at 23:45 Glucose (Glutose) 15 gm Q15M PRN PO DECREASED GLUCOSE; Start 10/20/18 at 23:45 Glucose (Glutose) 22.5 gm Q15M PRN PO DECREASED GLUCOSE; Start 10/20/18 at 23:45 Dextrose (D50w Syringe) 25 ml Q15M PRN IV DECREASED GLUCOSE; Start 10/20/18 at 23:45 Dextrose (D50w Syringe) 50 ml Q15M PRN IV DECREASED GLUCOSE; Start 10/20/18 at 23:45 Glucagon (Glucagen) 1 mg Q15M PRN IM DECREASED GLUCOSE; Start 10/20/18 at 23:45 Glucose (Glutose) 15 gm Q15M PRN BUCCAL DECREASED GLUCOSE; Start 10/20/18 at 23:45 Insulin Aspart (Novolog Insulin Pen) NOVOLOG *MILD* ALGORITHM Q4 SC Last administered on 10/21/18at 05:15; Admin Dose 1 UNIT; Start 10/21/18 at 05:00 LUISANA RICHARDS MD Oct 21, 2018 14:03
[2018-10-21 14:51] VITALS: BP 116/56; PULSE 72; RESP 19
[2018-10-21] MEDS ORDERED: HYDROCODONE/APAP (5/325) TAB PO PRN (16:00)
--- NOTE | 2018-10-21 16:27 | CONS ---
DATE OF ADMISSION: 10/20/2018 DATE OF CONSULTATION: 10/21/2018 HISTORY OF PRESENT ILLNESS: The patient is a 74-year-old male who was admitted on 10/20/2018 when he was brought into the emergency room because of the painful limit of motion involving his left hip. According to the patient, he had a slip and fall at home landing on his left buttock. Following the fall, he was not able to stand up or walk. He is known to have multiple medical problems including e nd-stage renal disease on hemodialysis, hypertension, diabetes mellitus, choledocholithiasis, status post ERCP and stent placement, left ankle ORIF, history of ischemic bowel. PHYSICAL EXAMINATION: GENERAL: My examination revealed a 73-year-old male who is not in any acute distress. EXTREMITIES: There was tenderness and swelling around the left hip. The shortening of the left lowe r extremity is minimal. Range of motion of the left hip was limited with pain. There were no signs of acute neurovascular compromise involving the left lower extremity. DIAGNOSTIC STUDIES: X-rays of the left hip revealed a presence of intertrochanteric fracture which i s mildly displaced. DIAGNOSTIC IMPRESSION: Intertrochanteric fracture of the left hip, mildly displaced. TREATMENT PLAN: To carry out the open reduction and internal fixation of the intertrochanteric fract ure of the left hip, probably using gamma nail as soon as he can be medically cleared for surgery. Dictated By: CHRIS HURLEY/AILYN Conf#: [id number] DID#: [id number]
[2018-10-21] MEDS: CHOLECALCIFEROL 2,000 UNIT CAP PO SCH (17:00)
[2018-10-21] MEDS ORDERED: DICLOFENAC SODIUM 1% GEL 100 GM TUBE TP PRN (17:00)
[2018-10-21] MEDS: SEVELAMER CARBONATE 0.8 GM PKT PO SCH (17:02)
[2018-10-21 20:00] VITALS: BP 122/59; PULSE 70; RESP 18
[2018-10-21] MEDS: BENAZEPRIL 20 MG TAB PO SCH (20:10)
[2018-10-21] MEDS: INSULIN GLARGINE [LANTus] (100 UNITS/ML) SYG SC SCH (21:11)
[2018-10-22] MEDS: INSULIN ASPART [NOVOLOG] 3 ML PEN SC SCH ×9 (01:00→20:49)
[2018-10-22] MEDS: DEXTROSE 5%-0.45% NACL 1,000 ML IV SCH (01:38)
[2018-10-22 02:00] VITALS: BP 134/62; PULSE 66; RESP 18
[2018-10-22] MEDS: LEVOTHYROXINE 100 MCG TAB PO SCH (06:10)
[2018-10-22] MEDS: ACCU-CHEK XX SCH ×6 (07:30→20:05)
[2018-10-22 08:22] VITALS: BP 139/64; PULSE 71; RESP 18
[2018-10-22] MEDS: FAMOTIDINE 20 MG TAB PO SCH (08:49)
[2018-10-22] MEDS: LINAGLIPTIN 5 MG TABLET PO SCH (08:49)
[2018-10-22] MEDS: SEVELAMER CARBONATE 0.8 GM PKT PO SCH ×3 (08:50→17:51)
[2018-10-22] MEDS: MULTIVIT/CA CARB/B CMPLX/FA TAB PO SCH (08:50)
[2018-10-22] MEDS: CHOLECALCIFEROL 2,000 UNIT CAP PO SCH (08:50)
[2018-10-22] MEDS: BENAZEPRIL 20 MG TAB PO SCH ×2 (08:50→20:53)
--- NOTE | 2018-10-22 10:40 | PN ---
Date/Time of Note Date/Time of Note DATE: 10/22/18 TIME: 10:36 Assessment/Plan VTE Prophylaxis Risk score (from [facility] [place])>0 risk: 9 SCD applied (from [facility]): Yes Pharmacological prophylaxis: heparin Lines/Catheters IV Catheter Type (from [facility]): Peripheral IV Assessment/Plan Problems: (1) Closed left hip fracture Status: Acute Comment: Patient is doing stable at this time. Cleared for surgery but if he have to postpone surgery for another day and he will need to be dialyzed. Qualifiers: Encounter type: initial encounter Qualified Codes: S72.002A - Fracture of unspecified part of neck of left femur, initial encounter for closed fracture (2) ESRD (end stage renal disease) on dialysis Status: Chronic Comment: Dr. Seamus Cruz has been contacted for consultation as he is covering for Dr. 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 Status: Chronic Comment: No change in retinopathy or new complaints Qualifiers: Diabetes mellitus roasterman insulin use: without senior care use Qualified Codes: E11.3391 - Type 2 diabetes mellitus with moderate nonproliferative diabetic retinopathy without macular edema, right eye (6) Type 2 diabetes mellitus with diabetic peripheral angiopathy without gangrene Status: Chronic Comment: Peripheral vascular disease is stable at this time Qualifiers: Diabetes mellitus roasterman insulin use: without roasterman use Qualified Codes: E11.51 - Type 2 diabetes mellitus with diabetic peripheral angiopathy without gangrene (7) Prostatic hypertrophy Status: Chronic Comment: Noted. Result Diagram: 10/21/18 0508 10/21/18 0507 Results 24hrs Laboratory Tests Test 10/21/18 12:51 10/21/18 17:00 10/21/18 20:06 10/21/18 21:08 Bedside Glucose 130 109 127 128 Test 10/22/18 00:52 10/22/18 05:15 10/22/18 08:01 10/22/18 10:07 Bedside Glucose 113 102 102 97 Subjective 24 Hr Interval Summary Free Text/Dictation Patient reports that he is having a significant amount of pain at the site of the left hip fracture. He is otherwise doing well. Constitutional: no complaints (Denies fevers chills or sweats) ENT: no complaints Respiratory: no complaints (No cough no wheezing no shortness of breath) Cardiovascular: no complaints (Chest pain no palpitations no PND no orthopnea) Gastrointestinal: no complaints (No nausea no vomiting) Genitourinary: no complaints Musculoskeletal: other (Pain left hip and left lower extremity, left upper extremity is better than yesterday) Neurologic: no complaints Exam/Review of Systems Exam Vitals Vital Signs Date Temp Pulse Resp B/P (MAP) Pulse Ox O2 O2 Flow FiO2 Time Delivery Rate 10/22/18 98.2 71 18 139/64 94 Room Air 08:22 (89) 10/21/18 2.0 20:00 Intake and Output 10/21/18 10/21/18 10/22/18 1515:00 23:00 07:00 IntakeIntake Total 200 ml 400 ml 1200 ml OutputOutput Total 500 ml BalanceBalance 200 ml 400 ml 700 ml Constitutional: alert, oriented Head: normocephalic, atraumatic Neck: supple, non-tender Respiratory: clear to auscultation, normal air movement Cardiovascular: regular rate and rhythm, nl pulses Results Results 24hrs Laboratory Tests Test 10/21/18 12:51 10/21/18 17:00 10/21/18 20:06 10/21/18 21:08 Bedside Glucose 130 109 127 128 Test 10/22/18 00:52 10/22/18 05:15 10/22/18 08:01 10/22/18 10:07 Bedside Glucose 113 102 102 97 Medications Medication Current Medications Dextrose/Sodium Chloride 1,000 ml @ 40 mls/hr Q24H IV Last administered on 10/22/18at 01:38; Admin Dose 40 MLS/HR; Start 10/20/18 at 23:42 IV Flush (NS 3 ml) 3 ml PER PROTOCOL IV ; Start 10/21/18 at 00:00 Ondansetron HCl (Zofran Inj) 4 mg Q6H PRN IV NAUSEA/VOMITING; Start 10/21/18 at 00:00 Morphine Sulfate (morphine) 3 mg Q4H PRN IV .SEVERE PAIN 7-10 Last administered on 10/21/18at 10:35; Admin Dose 3 MG; Start 10/21/18 at 00:00 Albuterol/ Ipratropium (Duoneb) 3 ml Q2H RESP THERAPY PRN HHN SHORTNESS OF BREATH; Start 10/21/18 at 00:00 Miscellaneous Information 1 ea NOTE XX ; Start 10/20/18 at 23:45 Glucose (Glutose) 15 gm Q15M PRN PO DECREASED GLUCOSE; Start 10/20/18 at 23:45 Glucose (Glutose) 22.5 gm Q15M PRN PO DECREASED GLUCOSE; Start 10/20/18 at 23 :45 Dextrose (D50w Syringe) 25 ml Q15M PRN IV DECREASED GLUCOSE; Start 10/20/18 at 23:45 Dextrose (D50w Syringe) 50 ml Q15M PRN IV DECREASED GLUCOSE; Start 10/20/18 at 23:45 Glucagon (Glucagen) 1 mg Q15M PRN IM DECREASED GLUCOSE; Start 10/20/18 at 23:45 Glucose (Glutose) 15 gm Q15M PRN BUCCAL DECREASED GLUCOSE; Start 10/20/18 at 23:45 Insulin Aspart (Novolog Insulin Pen) NOVOLOG *MILD* ALGORITHM Q4 SC Last administered on 10/21/18at 05:15; Admin Dose 1 UNIT; Start 10/21/18 at 05:00 Diagnostic Test (Pha) (Accu-Chek) 1 ea AC MEALS XX Last administered on 10/22/18at 07:30; Admin Dose 1 EA; Start 10/21/18 at 17:35 Diagnostic Test (Pha) (Accu-Chek) 1 ea 2 HOURS AFTER MEALS XX Last administ ered on 10/22/18at 10:08; Admin Dose 1 EA; Start 10/21/18 at 14:00 Benazepril HCl (Lotensin) 20 mg BID PO Last administered on 10/22/18at 08:50; Admin Dose 20 MG; Start 10/21/18 at 21:00 Diclofenac Sodium (Voltaren 1% Gel) 2 gm QID PRN TP PAIN; Start 10/21/18 at 17:00 Acetaminophen/ Hydrocodone Bitart ([place] (10/325)) 1 tab Q6H PRN PO PAIN LEVEL 4-6; Start 10/21/18 at 14:00 Acetaminophen/ Hydrocodone Bitart ([place] (5/325)) 1 tab Q6H PRN PO PAIN LEVEL 1-5; Start 10/21/18 at 16:00 Insulin Aspart (Novolog Insulin Pen) 5 unit WITH MEALS SC ; Start 10/21/18 at 17:35 Insulin Glargine (Lantus) 6 units QHS SC Last administered on 10/21/18at 21:11; Admin Dose 6 UNITS; Start 10/21/18 at 21:00 Levothyroxine Sodium (Synthroid) 100 mcg BEFORE BREAKFAST PO Last administered on 10/22/18at 06:10; Admin Dose 100 MCG; Start 10/22/18 at 07:00 Linagliptin (Tradjenta) 5 mg DAILY PO Last administered on 10/22/18 08:49; Admin Dose 5 MG; Start 10/22/18 at 09:00 Sevelamer Carbonate (Renvela) 1.6 gm WITH MEALS PO Last administered on 10/22/18at 08:50; Admin Dose 1.6 GM; Start 10/21/18 at 17:35 Cholecalciferol (Vitamin D) 2,000 unit DAILY PO Last administered on 10/22/18at 08:50; Admin Dose 2,000 UNIT; Start 10/21/18 at 16:00 Multivit/Ca Carb/ B Cmplx/FA/Prenat (Manasa-Haris) 1 tab DAILY PO Last admin istered on 10/22/18at 08:50; Admin Dose 1 TAB; Start 10/22/18 at 09:00 Famotidine (Pepcid) 20 mg DAILY PO Last administered on 10/22/18at 08:49; Admin Dose 20 MG; Start 10/22/18 at 09:00 LUISANA RICHARDS MD Oct 22, 2018 10:40
[2018-10-22 14:00] VITALS: BP 132/60; PULSE 70; RESP 17
[2018-10-22 20:00] VITALS: BP 135/60; PULSE 76; RESP 18
[2018-10-22] MEDS: INSULIN GLARGINE [LANTus] (100 UNITS/ML) SYG SC SCH (20:54)
[2018-10-23] VITALS (19 sets, daily range): BP systolic 110–161; BP diastolic 53–65; PULSE 58–69; RESP 16–20
[2018-10-23] MEDS: INSULIN ASPART [NOVOLOG] 3 ML PEN SC SCH ×9 (01:03→20:13)
[2018-10-23] MEDS: morphine 2 MG INJ IV PRN ×3 (05:38→21:21)
[2018-10-23] MEDS: LEVOTHYROXINE 100 MCG TAB PO SCH (06:12)
[2018-10-23] MEDS: ACCU-CHEK XX SCH ×6 (07:30→20:05)
[2018-10-23] MEDS: SEVELAMER CARBONATE 0.8 GM PKT PO SCH ×3 (07:35→17:12)
[2018-10-23] MEDS: DEXTROSE 5%-0.45% NACL 1,000 ML IV SCH (08:11)
[2018-10-23] MEDS: BENAZEPRIL 20 MG TAB PO SCH ×2 (08:12→20:13)
[2018-10-23] MEDS: FAMOTIDINE 20 MG TAB PO SCH (09:07)
[2018-10-23] MEDS: LINAGLIPTIN 5 MG TABLET PO SCH (09:09)
[2018-10-23] MEDS: MULTIVIT/CA CARB/B CMPLX/FA TAB PO SCH (09:09)
[2018-10-23] MEDS: CHOLECALCIFEROL 2,000 UNIT CAP PO SCH (09:09)
--- NOTE | 2018-10-23 10:52 | CONS ---
Assessment/Plan Assessment/Plan Assessment/Plan (Daily) 1. ESRD on HD MWF AVF for HD Access 2. S/p Mechanical Fall 3. left femur fracture 4. H/o HTN 5. H/o HL 6. H/o Hypothyroidism Plan: HD today going on, goal UF 2to3 L as tolerated Ok to have Surgery post HD, will keep pt on MWF schedule- next HD will be on tuesday Continue other Home BP meds Thanks for consultation , I will continue to follow up Consultation Date/Type/Reason Admit Date/Time 10/21/2018 Date of Consultation: Oct 23, 2018 Type of Consult NEPHROLOGY Reason for Consultation ESRD on HD with hip fracture Requesting Provider: LUISANA RICAHRDS MD Date/Time of Note DATE: 10/23/18 TIME: 10:51 Hx of Present Illness 81-year-old male with a history of ESRD on HD, hypertension, hypothyroidism, di abetes, choledocholithiasis status post ERCP stent, left ankle ORIF, PVD, ischemic bowel. Patient was brought to the ER with the left hip pain status post slip and fall accident. Pelvic x-ray shows -Nondisplaced intertrochanteric left femoral neck fracture. Orthopedic surgery has been consulted on the case and Renal has been consulted for emergency HD prior to surgery today Constitutional: no complaints Eyes: no complaints ENT: no complaints Respiratory: no complaints Cardiovascular: no complaints Gastrointestinal: no complaints Genitourinary: no complaints Musculoskeletal: bone/joint pain, restricted range of motion, other (left hip pain ) Neurologic: no complaints Endocrine: no complaints Lymphatic: no complaints Psychological: no complaints Immunologic: no complaints Past Medical History Medical History: high cholesterol, hypertension, hypothyroid, other (ESRD on HD MWF ) Home Meds Active Scripts Insulin Aspart* (Novolog Insulin Pen*) 100 Unit/Ml Soln, 5 UNIT SC WITH MEALS for 30 Days, #2 SYR 5 Refills Prov:FELIX DREW MD 11/08/17 Diclofenac Sodium (Diclofenac Sodium) 100 Gm Gel..gram., 2 GM TP QID PRN for P AIN for 30 Days, #1 TUB 5 Refills Prov:FELIX DREW MD 11/08/17 Benazepril Hcl* (Benazepril Hcl*) 20 Mg Tablet, 20 MG PO BID for 30 Days, #60 TAB 5 Refills Prov:FELIX DREW MD 11/08/17 Reported Medications Hydrocodone/Acetaminophen ([place] 5-325 Tablet) 1 Each Tablet, 1 EACH PO, TAB 10/31/17 Hydrocodone/Acetaminophen ([place] 10-325 Tablet) 1 Each Tablet, 1 EACH PO Q6H, TAB 10/15/17 Clopidogrel Bisulfate (Clopidogrel) 75 Mg Tablet, 75 MG PO DAILY, #30 TAB 10/15/17 Sevelamer Carbonate* (Renvela*) 800 Mg Tablet, 1600 MG PO WITH MEALS, TAB 10/15/17 Pyridoxine Hcl* (Pyridoxine Hcl*) 100 Mg Tablet, 100 MG PO DAILY, TAB 10/15/17 Levothyroxine Sodium* (Levothyroxine Sodium*) 100 Mcg Tablet, 100 MCG PO BEFORE BREAKFAST, #30 TAB 10/15/17 Insulin Detemir (Levemir) 100 Unit/1 Ml Vial, 0 SC* QHS INJECT 12-14 UNITS QHS 10/15/17 Insulin Aspart* (Novolog Insulin Pen*) 100 Unit/Ml Soln, 0 SC .SLIDING SCALE AC, EA AC MEALS 10/15/17 Cholecalciferol (Vitamin D3) (Vitamin D-3) 2,000 Unit Tablet, 2000 UNIT PO DAILY, TAB 10/15/17 Aspirin* (Aspirin* EC) 81 Mg Tablet.dr, 81 MG PO DAILY, TAB 10/15/17 Linagliptin (TRADJENTA) 5 Mg Tablet, 5 MG PO DAILY, TAB 10/15/17 [Nephro-Haris] No Conflict Check, 1 TAB PO DAILY 10/15/17 Medications Current Medications Dextrose/Sodium Chloride 1,000 ml @ 40 mls/hr Q24H IV Last administered on 10/23/18at 08:11; Admin Dose 40 MLS/HR; Start 10/20/18 at 23:42 IV Flush (NS 3 ml) 3 ml PER PROTOCOL IV ; Start 10/21/18 at 00:00 Ondansetron HCl (Zofran Inj) 4 mg Q6H PRN IV NAUSEA/VOMITING; Start 10/21/18 at 00:00 Morphine Sulfate (morphine) 3 mg Q4H PRN IV .SEVERE PAIN 7-10 Last administered on 10/23/18at 05:38; Admin Dose 3 MG; Start 10/21/18 at 00:00 Albuterol/ Ipratropium (Duoneb) 3 ml Q2H RESP THERAPY PRN HHN SHORTNESS OF BREATH; Start 10/21/18 at 00:00 Miscellaneous Information 1 ea NOTE XX ; Start 10/20/18 at 23:45 Glucose (Glutose) 15 gm Q15M PRN PO DECREASED GLUCOSE; Start 10/20/18 at 23:45 Glucose (Glutose) 22.5 gm Q15M PRN PO DECREASED GLUCOSE; Start 10/20/18 at 23:45 Dextrose (D50w Syringe) 25 ml Q15M PRN IV DECREASED GLUCOSE Last administered on 10/22/18at 16:22; Admin Dose 25 ML; Start 10/20/18 at 23:45 Dextrose (D50w Syringe) 50 ml Q15M PRN IV DECREASED GLUCOSE; Start 10/20/18 at 23:45 Glucagon (Glucagen) 1 mg Q15M PRN IM DECREASED GLUCOSE; Start 10/20/18 at 23:45 Glucose (Glutose) 15 gm Q15M PRN BUCCAL DECREASED GLUCOSE Last administered on 10/22/18at 15:46; Admin Dose 15 GM; Start 10/20/18 at 23:45 Diagnostic Test (Pha) (Accu-Chek) 1 ea AC MEALS XX Last administered on 10/22/18at 17:40; Admin Dose 1 EA; Start 10/21/18 at 17:35 Diagnostic Test (Pha) (Accu-Chek) 1 ea 2 HOURS AFTER MEALS XX Last admin istered on 10/22/18at 14:00; Admin Dose 1 EA; Start 10/21/18 at 14:00 Benazepril HCl (Lotensin) 20 mg BID PO Last administered on 10/22/18at 20:53; Admin Dose 20 MG; Start 10/21/18 at 21:00 Diclofenac Sodium (Voltaren 1% Gel) 2 gm QID PRN TP PAIN; Start 10/21/18 at 17:00 Acetaminophen/ Hydrocodone Bitart ([place] (10/325)) 1 tab Q6H PRN PO PAIN LEVEL 4-6; Start 10/21/18 at 14:00 Acetaminophen/ Hydrocodone Bitart ([place] (5/325)) 1 tab Q6H PRN PO PAIN LEVEL 1-5; Start 10/21/18 at 16:00 Insulin Aspart (Novolog Insulin Pen) 5 unit WITH MEALS SC Last administered on 10/22/18 12:26; Admin Dose 5 UNIT; Start 10/21/18 at 17:35 Insulin Glargine (Lantus) 6 units QHS SC Last administered on 10/22/18at 20:54; Admin Dose 6 UNITS; Start 10/21/18 at 21:00 Levothyroxine Sodium (Synthroid) 100 mcg BEFORE BREAKFAST PO Last administered on 10/23/18 06:12; Admin Dose 100 MCG; Start 10/22/18 at 07:00 Linagliptin (Tradjenta) 5 mg DAILY PO Last administered on 10/23/18 09:09; Admin Dose 5 MG; Start 10/22/18 at 09:00 Sevelamer Carbonate (Renvela) 1.6 gm WITH MEALS PO Last administered on 10/22/18 17:51; Admin Dose 1.6 GM; Start 10/21/18 at 17:35 Cholecalciferol (Vitamin D) 2,000 unit DAILY PO Last administered on 10/23/18 09:09; Admin Dose 2,000 UNIT; Start 10/21/18 at 16:00 Multivit/Ca Carb/ B Cmplx/FA/Prenat (Manasa-Haris) 1 tab DAILY PO Last administered on 10/23/18 09:09; Admin Dose 1 TAB; Start 10/22/18 at 09:00 Famotidine (Pepcid) 20 mg DAILY PO Last administered on 10/23/18 09:07; Admin Dose 20 MG; Start 10/22/18 at 09:00 Insulin Aspart (Novolog Insulin Pen) NOVOLOG *MILD* ALGORI... Q4 SC Last administered on 10/23/18 01:03; Admin Dose 1 UNIT; Start 10/23/18 at 01:00 Allergies: Coded Allergies: No Known Allergies (Unverified Allergy, Mild, 10/31/17) Past Surgical History Past Surgical Hx: other (AV fistula surgery ) Family History Significant Family History: no pertinent family hx Social History Alcohol Use: none Smoking Status: Former smoker Drug Use: none Exam/Review of Systems Exam Vitals Vital Signs Date Temp Pulse Resp B/P (MAP) Pulse Ox O2 O2 Flow FiO2 Time Delivery Rate 10/23/18 62 10:40 10/23/18 16 116/57 96 Room Air 08:19 (76) 10/23/18 98.2 08:00 10/21/18 2.0 20:00 Intake and Output 10/22/18 10/22/18 10/23/18 1515:00 23:00 07:00 IntakeIntake Total 700 ml 500 ml BalanceBalance 700 ml 500 ml Constitutional: alert Psych: no complaints Head: normocephalic Eyes: nl conjunctiva ENMT: nl external ears & nose Neck: supple, non-tender Respiratory: clear to auscultation, normal air movement, diminished breath sounds Cardiovascular: regular rate and rhythm, nl pulses Gastrointestinal: soft, non-tender Musculoskeletal: nl extremities to inspection, other (left hip externally rotated) Extremities: other (AV fistula in place) 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, nl mental status, nl speech, nl strength Skin: nl turgor Lymph: nl lymph nodes Results Result Diagram: 10/22/18 1925 10/21/18 0507 Results 24hrs Laboratory Tests Test 10/22/18 11:58 10/22/18 14:29 10/22/18 14:52 10/22/18 15:09 Bedside Glucose 92 69 L 63 L 73 Test 10/22/18 15:24 10/22/18 15:41 10/22/18 16:02 10/22/18 16:19 Bedside Glucose 68 L 68 L 70 78 Test 10/22/18 16:33 10/22/18 17:18 10/22/18 18:07 10/22/18 19:25 Bedside Glucose 198 134 153 White Blood Count 6.2 Red Blood Count 3.55 #L Hemoglobin 10.2 #L Hematocrit 30.9 L Mean Corpuscular 87.0 Volume Mean Corpuscular 28.7 L Hemoglobin Mean Corpuscular 33.0 Hemoglobin Concen t Red Cell 15.6 H Distribution Width Platelet Count 179 Mean Platelet 9.5 Volume Immature 0.600 H Granulocytes % Neutrophils % 66.0 Lymphocytes % 12.0 L Monocytes % 11.6 H Eosinophils % 8.7 H Basophils % 1.1 Nucleated Red 0.0 Blood Cells % Immature 0.040 H Granulocytes # Neutrophils # 4.1 Lymphocytes # 0.7 L Monocytes # 0.7 Eosinophils # 0.5 Basophils # 0.1 Nucleated Red 0.0 Blood Cells # Test 10/22/18 20:06 10/22/18 20:47 10/23/18 01:00 10/23/18 05:32 Hepatitis B NEGATIVE Surface Antigen Bedside Glucose 150 152 119 Test 10/23/18 06:04 10/23/18 09:08 Lab Scanned BLOOD TRANSFUSIO Report N Bedside Glucose 96 Medications Medication Current Medications Dextrose/Sodium Chloride 1,000 ml @ 40 mls/hr Q24H IV Last administered on 10/23/18 08:11; Admin Dose 40 MLS/HR; Start 10/20/18 at 23:42 IV Flush (NS 3 ml) 3 ml PER PROTOCOL IV ; Start 10/21/18 at 00:00 Ondansetron HCl (Zofran Inj) 4 mg Q6H PRN IV NAUSEA/VOMITING; Start 10/21/18 at 00:00 Morphine Sulfate (morphine) 3 mg Q4H PRN IV .SEVERE PAIN 7-10 Last administered on 10/23/18at 05:38; Admin Dose 3 MG; Start 10/21/18 at 00:00 Albuterol/ Ipratropium (Duoneb) 3 ml Q2H RESP THERAPY PRN HHN SHORTNESS OF BREATH; Start 10/21/18 at 00:00 Miscellaneous Information 1 ea NOTE XX ; Start 10/20/18 at 23:45 Glucose (Glutose) 15 gm Q15M PRN PO DECREASED GLUCOSE; Start 10/20/18 at 23:45 Glucose (Glutose) 22.5 gm Q15M PRN PO DECREASED GLUCOSE; Start 10/20/18 at 23:45 Dextrose (D50w Syringe) 25 ml Q15M PRN IV DECREASED GLUCOSE Last administered on 10/22/18at 16:22; Admin Dose 25 ML; Start 10/20/18 at 23:45 Dextrose (D50w Syringe) 50 ml Q15M PRN IV DECREASED GLUCOSE; Start 10/20/18 at 23:45 Glucagon (Glucagen) 1 mg Q15M PRN IM DECREASED GLUCOSE; Start 10/20/18 at 23:45 Glucose (Glutose) 15 gm Q15M PRN BUCCAL DECREASED GLUCOSE Last administered on 10/22/18at 15:46; Admin Dose 15 GM; Start 10/20/18 at 23:45 Diagnostic Test (Pha) (Accu-Chek) 1 ea AC MEALS XX Last administered on 10/22/18at 17:40; Admin Dose 1 EA; Start 10/21/18 at 17:35 Diagnostic Test (Pha) (Accu-Chek) 1 ea 2 HOURS AFTER MEALS XX Last administered on 10/22/18 14:00; Admin Dose 1 EA; Start 10/21/18 at 14:00 Benazepril HCl (Lotensin) 20 mg BID PO Last administered on 10/22/18 20:53; Admin Dose 20 MG; Start 10/21/18 at 21:00 Diclofenac Sodium (Voltaren 1% Gel) 2 gm QID PRN TP PAIN; Start 10/21/18 at 17:00 Acetaminophen/ Hydrocodone Bitart ([place] (10/325)) 1 tab Q6H PRN PO PAIN LEVEL 4-6; Start 10/21/18 at 14:00 Acetaminophen/ Hydrocodone Bitart ([place] (5/325)) 1 tab Q6H PRN PO PAIN LEVEL 1-5; Start 10/21/18 at 16:00 Insulin Aspart (Novolog Insulin Pen) 5 unit WITH MEALS SC Last administered on 10/22/18 12:26; Admin Dose 5 UNIT; Start 10/21/18 at 17:35 Insulin Glargine (Lantus) 6 units QHS SC Last administered on 10/22/18 20:54; Admin Dose 6 UNITS; Start 10/21/18 at 21:00 Levothyroxine Sodium (Synthroid) 100 mcg BEFORE BREAKFAST PO Last administered on 10/23/18 06:12; Admin Dose 100 MCG; Start 10/22/18 at 07:00 Linagliptin (Tradjenta) 5 mg DAILY PO Last administered on 10/23/18 09:09; Admin Dose 5 MG; Start 10/22/18 at 09:00 Sevelamer Carbonate (Renvela) 1.6 gm WITH MEALS PO Last administered on 10/22/18 17:51; Admin Dose 1.6 GM; Start 10/21/18 at 17:35 Cholecalciferol (Vitamin D) 2,000 unit DAILY PO Last administered on 10/23/18 09:09; Admin Dose 2,000 UNIT; Start 10/21/18 at 16:00 Multivit/Ca Carb/ B Cmplx/FA/Prenat (Manasa-Haris) 1 tab DAILY PO Last administered on 7/22/19at 09:09; Admin Dose 1 TAB; Start 10/22/18 at 09:00 Famotidine (Pepcid) 20 mg DAILY PO Last administered on 10/23/18 09:07; Admin Dose 20 MG; Start 10/22/18 at 09:00 Insulin Aspart (Novolog Insulin Pen) NOVOLOG *MILD* ALGORI... Q4 SC Last administered on 10/23/18at 01:03; Admin Dose 1 UNIT; Start 10/23/18 at 01:00 ANITA FLETCHER MD Oct 23, 2018 10:52
[2018-10-23] MEDS: INSULIN GLARGINE [LANTus] (100 UNITS/ML) SYG SC SCH (20:14)
[2018-10-24] VITALS (26 sets, daily range): BP systolic 113–142; BP diastolic 54–74; PULSE 66–76; RESP 11–25
[2018-10-24] MEDS: LEVOTHYROXINE 100 MCG TAB PO SCH (06:09)
[2018-10-24] MEDS: ACCU-CHEK XX SCH ×6 (07:30→19:55)
[2018-10-24] MEDS: INSULIN ASPART [NOVOLOG] 3 ML PEN SC SCH ×6 (07:35→17:30)
[2018-10-24] MEDS: SEVELAMER CARBONATE 0.8 GM PKT PO SCH ×3 (07:35→17:34)
[2018-10-24] MEDS: FAMOTIDINE 20 MG TAB PO SCH (08:48)
[2018-10-24] MEDS: MULTIVIT/CA CARB/B CMPLX/FA TAB PO SCH (08:49)
[2018-10-24] MEDS: CHOLECALCIFEROL 2,000 UNIT CAP PO SCH (08:49)
[2018-10-24] MEDS: LINAGLIPTIN 5 MG TABLET PO SCH (08:49)
[2018-10-24] MEDS: BENAZEPRIL 20 MG TAB PO SCH ×2 (08:49→21:00)
[2018-10-24] MEDS: morphine 2 MG INJ IV PRN (10:20)
--- NOTE | 2018-10-24 10:22 | CONS ---
Assessment/Plan Assessment/Plan Assessment/Plan (Daily) 1. ESRD on HD MWF AVF for HD Access 2. S/p Mechanical Fall 3. left femur fracture 4. H/o HTN 5. H/o HL 6. H/o Hypothyroidism Plan: s/p HD yesterday 1L removed,Pt saturation karis, getting pRBC today , Plan for ORIF today will keep pt on MWF schedule- HD ordered for Tuesday Continue other Home BP Meds will follow up Consultation Date/Type/Reason Admit Date/Time Oct 20, 2018 at 23:12 Initial Consult Date 10/23/18 Type of Consult NEPHROLOGY Requesting Provider: LUISANA RICHARDS MD Date/Time of Note DATE: 10/24/18 TIME: 10:22 24 HR Interval Summary Free Text/Dictation s/p HD yesterday 1 L removed, BP stable, Plan for OR today Exam/Review of Systems Exam Vitals Vital Signs Date Temp Pulse Resp B/P (MAP) Pulse Ox O2 O2 Flow FiO2 Time Delivery Rate 10/24/18 98.6 66 20 140/60 94 Room Air 08:01 (86) 10/21/18 2.0 20:00 Intake and Output 10/23/18 10/23/18 10/24/18 1515:00 23:00 07:00 IntakeIntake Total 800 ml 440 ml OutputOutput Total 1600 ml 1000 ml BalanceBalance -1600 ml -200 ml 440 ml Exam Constitutional: alert Respiratory: clear to auscultation, normal air movement, diminished breath sounds Cardiovascular: regular rate and rhythm, nl pulses Gastrointestinal: soft, non-tender Musculoskeletal: nl extremities to inspection, other (left hip externally rotated) Extremities: other (AV fistula in place) 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, nl mental status, nl speech, nl strength Skin: nl turgor Lymph: nl lymph nodes Results Result Diagram: 10/24/18 0725 10/21/18 0507 Results 24hrs Laboratory Tests Test 10/23/18 11:09 10/23/18 12:18 10/23/18 13:52 10/23/18 17:11 White Blood Count 4.9 # Red Blood Count 3.63 L Hemoglobin 10.5 L Hematocrit 31.7 L Mean Corpuscular 87.3 Volume Mean Corpuscular 28.9 L Hemoglobin Mean Corpuscular 33.1 Hemoglobin Concent Red Cell 15.9 H Distribution Width Platelet Count 169 Mean Platelet Volume 9.4 Immature 0.600 H Granulocytes % Neutrophils % 57.4 Lymphocytes % 15.2 Monocytes % 15.4 H Eosinophils % 10.0 H Basophils % 1.4 Nucleated Red Blood 0.0 Cells % Immature 0.030 Granulocytes # Neutrophils # 2.8 Lymphocytes # 0.8 Monocytes # 0.8 Eosinophils # 0.5 Basophils # 0.1 Nucleated Red Blood 0.0 Cells # Bedside Glucose 103 113 128 Test 10/23/18 20:11 10/24/18 07:25 10/24/18 08:12 10/24/18 08:22 Bedside Glucose 122 67 L 263 H White Blood Count 4.6 L Red Blood Count 3.41 L Hemoglobin 9.8 L Hematocrit 29.9 L Mean Corpuscular 87.7 Volume Mean Corpuscular 28.7 L Hemoglobin Mean Corpuscular 32.8 Hemoglobin Concent Red Cell 15.9 H Distribution Width Platelet Count 161 Mean Platelet Volume 10.0 Immature 0.400 Granulocytes % Neutrophils % 62.8 Lymphocytes % 13.4 L Monocytes % 14.3 H Eosinophils % 7.6 H Basophils % 1.5 Nucleated Red Blood 0.0 Cells % Immature 0.020 Granulocytes # Neutrophils # 2.9 Lymphocytes # 0.6 L Monocytes # 0.7 Eosinophils # 0.4 Basophils # 0.1 Nucleated Red Blood 0.0 Cells # Test 10/24/18 08:50 Bedside Glucose 146 Medications Medication Current Medications Dextrose/Sodium Chloride 1,000 ml @ 40 mls/hr Q24H IV Last administered on 10/23/18at 08:11; Admin Dose 40 MLS/HR; Start 10/20/18 at 23:42 IV Flush (NS 3 ml) 3 ml PER PROTOCOL IV ; Start 10/21/18 at 00:00 Ondansetron HCl (Zofran Inj) 4 mg Q6H PRN IV NAUSEA/VOMITING; Start 10/21/18 at 00:00 Morphine Sulfate (morphine) 3 mg Q4H PRN IV .SEVERE PAIN 7-10 Last administered on 10/23/18at 21:21; Admin Dose 3 MG; Start 10/21/18 at 00:00 Albuterol/ Ipratropium (Duoneb) 3 ml Q2H RESP THERAPY PRN HHN SHORTNESS OF BREATH; Start 10/21/18 at 00:00 Miscellaneous Information 1 ea NOTE XX ; Start 10/20/18 at 23:45 Glucose (Glutose) 15 gm Q15M PRN PO DECREASED GLUCOSE; Start 10/20/18 at 23:45 Glucose (Glutose) 22.5 gm Q15M PRN PO DECREASED GLUCOSE; Start 10/20/18 at 23:45 Dextrose (D50w Syringe) 25 ml Q15M PRN IV DECREASED GLUCOSE Last administered on 10/22/18at 16:22; Admin Dose 25 ML; Start 10/20/18 at 23:45 Dextrose (D50w Syringe) 50 ml Q15M PRN IV DECREASED GLUCOSE Last administered on 10/24/18at 08:17; Admin Dose 50 ML; Start 10/20/18 at 23:45 Glucagon (Glucagen) 1 mg Q15M PRN IM DECREASED GLUCOSE; Start 10/20/18 at 23:45 Glucose (Glutose) 15 gm Q15M PRN BUCCAL DECREASED GLUCOSE Last administered on 10/22/18at 15:46; Admin Dose 15 GM; Start 10/20/18 at 23:45 Diagnostic Test (Pha) (Accu-Chek) 1 ea AC MEALS XX Last administered on 10/22/18at 17:40; Admin Dose 1 EA; Start 10/21/18 at 17:35 Diagnostic Test (Pha) (Accu-Chek) 1 ea 2 HOURS AFTER MEALS XX Last administered on 10/22/18at 14:00; Admin Dose 1 EA; Start 10/21/18 at 14:00 Benazepril HCl (Lotensin) 20 mg BID PO Last administered on 10/23/18at 20:13; Admin Dose 20 MG; Start 10/21/18 at 21:00 Diclofenac Sodium (Voltaren 1% Gel) 2 gm QID PRN TP PAIN; Start 10/21/18 at 17:00 Acetaminophen/ Hydrocodone Bitart ([place] (10/325)) 1 tab Q6H PRN PO PAIN LEVEL 4-6; Start 10/21/18 at 14:00 Acetaminophen/ Hydrocodone Bitart ([place] (5/325)) 1 tab Q6H PRN PO PAIN LEVEL 1-5; Start 10/21/18 at 16:00 Insulin Aspart (Novolog Insulin Pen) 5 unit WITH MEALS SC Last administered on 10/23/18 12:21; Admin Dose 5 UNIT; Start 10/21/18 at 17:35 Insulin Glargine (Lantus) 6 units QHS SC Last administered on 10/23/18 20:14; Admin Dose 6 UNITS; Start 10/21/18 at 21:00 Levothyroxine Sodium (Synthroid) 100 mcg BEFORE BREAKFAST PO Last administered on 10/24/18 06:09; Admin Dose 100 MCG; Start 10/22/18 at 07:00 Linagliptin (Tradjenta) 5 mg DAILY PO Last administered on 10/23/18 09:09; Admin Dose 5 MG; Start 10/22/18 at 09:00 Sevelamer Carbonate (Renvela) 1.6 gm WITH MEALS PO Last administered on 10/23/18 12:26; Admin Dose 1.6 GM; Start 10/21/18 at 17:35 Cholecalciferol (Vitamin D) 2,000 unit DAILY PO Last administered on 10/23/18 09:09; Admin Dose 2,000 UNIT; Start 10/21/18 at 16:00 Multivit/Ca Carb/ B Cmplx/FA/Prenat (Manasa-Haris) 1 tab DAILY PO Last administered on 10/23/18 09:09; Admin Dose 1 TAB; Start 10/22/18 at 09:00 Famotidine (Pepcid) 20 mg DAILY PO Last administered on 10/23/18 09:07; Admin Dose 20 MG; Start 10/22/18 at 09:00 Insulin Aspart (Novolog Insulin Pen) NOVOLOG *MILD* ALGORITHM WITH MEALS BEDTIME SC ; Start 10/23/18 at 12:00 ANITA FLETCHER MD Oct 24, 2018 10:22
[2018-10-24] MEDS: DEXTROSE 5%-0.45% NACL 1,000 ML IV SCH ×2 (10:33→21:37)
[2018-10-24] MEDS ORDERED: POLYMYXIN/BACITRACIN 1L IRRIG ONE (13:18)
--- NOTE | 2018-10-24 14:14 | PREAC ---
Date/Time of Note Date/Time of Note DATE: 10/24/18 TIME: 14:13 Anesthesia Eval and Record Evaluation Time Pre-Procedure Interview DATE: 10/24/18 TIME: 14:13 Age 73 Sex male NPO: 8 hrs Preoperative diagnosis left hip fx Planned procedure ORIF Past Medical History Past Medical History: Includes Cardio: HTN Endo: Diabetes, Hypothyroid Renal: ESRD on dialysis Heme: Anemia, Other (PVD ) Surgery & Anesthesia Issues No known issue Meds Anticoagulation: No Beta Hany within 24 hr: No Reason Beta Hany not given: Pt. not on B-Hany Active Scripts Insulin Aspart* (Novolog Insulin Pen*) 100 Unit/Ml Soln, 5 UNIT SC WITH MEALS for 30 Days, #2 SYR 5 Refills Prov:FELIX DREW MD 11/08/17 Diclofenac Sodium (Diclofenac Sodium) 100 Gm Gel..gram., 2 GM TP QID PRN for PAIN for 30 Days, #1 TUB 5 Refills Prov:FELIX DREW MD 11/08/17 Benazepril Hcl* (Benazepril Hcl*) 20 Mg Tablet, 20 MG PO BID for 30 Days, #60 TAB 5 Refills Prov:FELIX DREW MD 11/08/17 Reported Medications Hydrocodone/Acetaminophen (Owen 5-325 Tablet) 1 Each Tablet, 1 EACH PO, TAB 10/31/17 Hydrocodone/Acetaminophen (Owen 10-325 Tablet) 1 Each Tablet, 1 EACH PO Q6H, TAB 10/15/17 Clopidogrel Bisulfate (Clopidogrel) 75 Mg Tablet, 75 MG PO DAILY, #30 TAB 10/15/17 Sevelamer Carbonate* (Renvela*) 800 Mg Tablet, 1600 MG PO WITH MEALS, TAB 10/15/17 Pyridoxine Hcl* (Pyridoxine Hcl*) 100 Mg Tablet, 100 MG PO DAILY, TAB 10/15/17 Levothyroxine Sodium* (Levothyroxine Sodium*) 100 Mcg Tablet, 100 MCG PO BEFORE BREAKFAST, #30 TAB 10/15/17 Insulin Detemir (Levemir) 100 Unit/1 Ml Vial, 0 SC* QHS INJECT 12-14 UNITS QHS 10/15/17 Insulin Aspart* (Novolog Insulin Pen*) 100 Unit/Ml Soln, 0 SC .SLIDING SCALE AC, EA AC MEALS 10/15/17 Cholecalciferol (Vitamin D3) (Vitamin D-3) 2,000 Unit Tablet, 2000 UNIT PO DAILY, TAB 10/15/17 Aspirin* (Aspirin* EC) 81 Mg Tablet.dr, 81 MG PO DAILY, TAB 10/15/17 Linagliptin (TRADJENTA) 5 Mg Tablet, 5 MG PO DAILY, TAB 10/15/17 [Nephro-Haris] No Conflict Check, 1 TAB PO DAILY 10/15/17 Current Medications Dextrose/Sodium Chloride 1,000 ml @ 40 mls/hr Q24H IV Last administered on 10/24/18at 10:33; Admin Dose 40 MLS/HR; Start 10/20/18 at 23:42 IV Flush (NS 3 ml) 3 ml PER PROTOCOL IV ; Start 10/21/18 at 00:00 Ondansetron HCl (Zofran Inj) 4 mg Q6H PRN IV NAUSEA/VOMITING; Start 10/21/18 at 00:00 Morphine Sulfate (morphine) 3 mg Q4H PRN IV .SEVERE PAIN 7-10 Last administered on 10/24/18at 10:20; Admin Dose 3 MG; Start 10/21/18 at 00:00 Albuterol/ Ipratropium (Duoneb) 3 ml Q2H RESP THERAPY PRN HHN SHORTNESS OF BREATH; Start 10/21/18 at 00:00 Miscellaneous Information 1 ea NOTE XX ; Start 10/20/18 at 23:45 Glucose (Glutose) 15 gm Q15M PRN PO DECREASED GLUCOSE; Start 10/20/18 at 23:45 Glucose (Glutose) 22.5 gm Q15M PRN PO DECREASED GLUCOSE; Start 10/20/18 at 23:45 Dextrose (D50w Syringe) 25 ml Q15M PRN IV DECREASED GLUCOSE Last administered on 10/22/18at 16:22; Admin Dose 25 ML; Start 10/20/18 at 23:45 Dextrose (D50w Syringe) 50 ml Q15M PRN IV DECREASED GLUCOSE Last administered on 10/24/18at 08:17; Admin Dose 50 ML; Start 10/20/18 at 23:45 Glucagon (Glucagen) 1 mg Q15M PRN IM DECREASED GLUCOSE; Start 10/20/18 at 23:45 Glucose (Glutose) 15 gm Q15M PRN BUCCAL DECREASED GLUCOSE Last administered on 10/22/18at 15:46; Admin Dose 15 GM; Start 10/20/18 at 23:45 Diagnostic Test (Pha) (Accu-Chek) 1 ea AC MEALS XX Last administered on 10/22/18 17:40; Admin Dose 1 EA; Start 10/21/18 at 17:35 Diagnostic Test (Pha) (Accu-Chek) 1 ea 2 HOURS AFTER MEALS XX Last administered on 10/22/18 14:00; Admin Dose 1 EA; Start 10/21/18 at 14:00 Benazepril HCl (Lotensin) 20 mg BID PO Last administered on 10/23/18 20:13; Admin Dose 20 MG; Start 10/21/18 at 21:00 Diclofenac Sodium (Voltaren 1% Gel) 2 gm QID PRN TP PAIN; Start 10/21/18 at 17:00 Acetaminophen/ Hydrocodone Bitart (Owen (10/325)) 1 tab Q6H PRN PO PAIN LEVEL 4-6; Start 10/21/18 at 14:00 Acetaminophen/ Hydrocodone Bitart (Owen (5/325)) 1 tab Q6H PRN PO PAIN LEVEL 1-5; Start 10/21/18 at 16:00 Insulin Aspart (Novolog Insulin Pen) 5 unit WITH MEALS SC Last administered on 10/23/18 12:21; Admin Dose 5 UNIT; Start 10/21/18 at 17:35 Insulin Glargine (Lantus) 6 units QHS SC Last administered on 10/23/18 20:14; Admin Dose 6 UNITS; Start 10/21/18 at 21:00 Levothyroxine Sodium (Synthroid) 100 mcg BEFORE BREAKFAST PO Last administered on 10/24/18 06:09; Admin Dose 100 MCG; Start 10/22/18 at 07:00 Linagliptin (Tradjenta) 5 mg DAILY PO Last administered on 10/23/18 09:09; Admin Dose 5 MG; Start 10/22/18 at 09:00 Sevelamer Carbonate (Renvela) 1.6 gm WITH MEALS PO Last administered on 10/23/18 12:26; Admin Dose 1.6 GM; Start 10/21/18 at 17:35 Cholecalciferol (Vitamin D) 2,000 unit DAILY PO Last administered on 10/23/18 09:09; Admin Dose 2,000 UNIT; Start 10/21/18 at 16:00 Multivit/Ca Carb/ B Cmplx/FA/Prenat (Manasa-Haris) 1 tab DAILY PO Last administered on 10/23/18at 09:09; Admin Dose 1 TAB; Start 10/22/18 at 09:00 Famotidine (Pepcid) 20 mg DAILY PO Last administered on 10/23/18at 09:07; Admin Dose 20 MG; Start 10/22/18 at 09:00 Insulin Aspart (Novolog Insulin Pen) NOVOLOG *MILD* ALGORITHM WITH MEALS BEDTIME SC ; Start 10/23/18 at 12:00 Meds reviewed: Yes Allergies Coded Allergies: No Known Allergies (Unverified Allergy, Mild, 10/31/17) Allergies Reviewed: Yes Labs/Studies Labs Reviewed: Reviewed by anesthesiologist Result Diagram: 10/24/18 0725 10/24/18 0721 Laboratory Tests 10/24/18 07:21 10/24/18 07:25 Blood Bank Test 10/24/18 07:21 Antibody Screen NEGATIVE Blood Product Summary Counts Blood Type O NEGATIVE Crossmatch Red Blood Cells test: N/A Pre-procedure Exam Last vitals Vital Signs Date Temp Pulse Resp B/P (MAP) Pulse Ox O2 O2 Flow FiO2 Time Delivery Rate 10/24/18 98.6 66 20 140/60 94 Room Air 08:01 (86) 10/21/18 2.0 20:00 Airway: Adequate mouth opening, Adequate thyromental dist Mallampati: Mallampati IV Teeth: Abnormal Lung: Normal Heart: Normal ASA Physical Status ASA physical status: 4 Emergency: None Pre-operative Attestations Prior to commencing anesthesia and surgery, the patient was re-evaluated, there was verification of: *The patient's identity *The results of appropriate recent lab work and preoperative vital signs *The above evaluation not changing prior to induction *Anesthetic plan, risk benefits, alternative and complications discussed with patient/family; questions answered; patient/family understands, accepts and wishes to proceed. LACIE SHAIKH DO Oct 24, 2018 14:14
[2018-10-24] MEDS ORDERED: KETOROLAC 30 MG INJ IV PRN (14:30)
[2018-10-24] MEDS ORDERED: NALOXONE (0.4 MG/ML) INJ IV PRN (14:30)
[2018-10-24] MEDS ORDERED: ZOLPIDEM 5 MG TAB PO PRN (14:30)
[2018-10-24] MEDS ORDERED: ONDANSETRON 4 MG INJ IV PRN (14:30)
[2018-10-24] MEDS ORDERED: DIPHENHYDRAMINE 50 MG INJ IV PRN (14:30)
[2018-10-24] MEDS ORDERED: HYDROmorphONE 0.5 MG/0.5 ML SYG IV PRN ×2 (14:30)
[2018-10-24] MEDS ORDERED: LIDOCAINE 1% (MDV) 20 ML INJ ONE (14:32)
[2018-10-24] MEDS ORDERED: ETOMIDATE 20 MG INJ ONE (14:32)
[2018-10-24] MEDS ORDERED: morphine SULFATE/PF (10 MG/10 ML) INJ ONE (14:34)
[2018-10-24] MEDS ORDERED: MIDAZOLAM 1 MG/ML 2 ML INJ ONE (14:35)
[2018-10-24] MEDS ORDERED: CEFAZOLIN 1 GM INJ ONE (15:30)
[2018-10-24] MEDS ORDERED: DESFLURANE 15 MIN ONE (15:30)
[2018-10-24] MEDS ORDERED: DEXAMETHASONE 4 MG/ML 5 ML INJ ONE (16:57)
[2018-10-24] MEDS ORDERED: ONDANSETRON 4 MG INJ ONE (16:57)
[2018-10-24] MEDS ORDERED: ROPIVACAINE 0.5 % 30 ML VIAL ONE (16:59)
[2018-10-24] MEDS ORDERED: SUGAMMADEX SODIUM 200 MG/2 ML VIAL IV ONE (17:15)
[2018-10-24] MEDS ORDERED: KETOROLAC 30 MG INJ ONE (17:16)
[2018-10-24] MEDS ORDERED: SOD CHLORIDE 0.9% 1,000 ML IV SCH (17:17)
[2018-10-24] MEDS ORDERED: NACL 0.9% 3 ML SYG IV SCH (17:30)
--- NOTE | 2018-10-24 17:33 | SIPON ---
Date/Time of Note Date/Time of Note DATE: 10/24/18 TIME: 17:29 Operative Report Preoperative Diagnosis intertrochantereic fracture of left hip Postoperative Diagnosis same Operation/Procedure Performed O.R.I.F. of intertrchanteric fracture of left hip Surgeon see signature line review assistant none Anesthesia: general Estimated blood loss: 10 - 50 ml's Transfusion Required none Specimen none Grafts/Implants gamma nail Complications none HAROON GONZALES MD Oct 24, 2018 17:33
--- NOTE | 2018-10-24 17:38 | PAC ---
Date/Time of Note Date/Time of Note DATE: 10/24/18 TIME: 17:37 Post-Anesthesia Notes Post-Anesthesia Note Last documented vital signs Vital Signs Date Temp Pulse Resp B/P (MAP) Pulse Ox O2 O2 Flow FiO2 Time Delivery Rate 10/24/18 98 76 20 130/75 100 Room Air 1738 10/21/18 2.0 20:00 Activity: WNL Respiratory function: WNL Cardiovascular function: WNL Mental status: Baseline Pain reasonably controlled: Yes Hydration appropriate: Yes Nausea/Vomiting absent: Yes LACIE SHAIKH DO Oct 24, 2018 17:38
[2018-10-24] MEDS: CEFAZOLIN 2 GM/50 ML (PMX) 50 ML IVPB SCH (19:03)
--- NOTE | 2018-10-24 20:50 | OPR ---
DATE OF OPERATION: 10/24/2018 PREOPERATIVE DIAGNOSIS: Intertrochanteric fracture of the left hip. POSTOPERATIVE DIAGNOSIS: Intertrochanteric fracture of the left hip. OPERATION PERFORMED: Open reduction and internal fixation of intertrochanteric fracture of the left hip. ANESTHESIA: General anesthesia. SURGEON: Chris Gonzales MD PROCEDURE AND FINDINGS: Under anesthesia, the patient was placed in supine position upon the fractur e table. After confirming acceptable alignment of the fracture the usual prep and drape was done exp osing the left hip and left lower extremity. The tip of the greater trochanter was approached through the small lateral longitudinal incision over the lateral aspect of the left hip. After identifying the tip of the greater trochanter, the intram edullary canal was entered with the guide drill and after confirming satisfactory position of the jonathan de drill, opening was enlarged with the cannulated drill. At this point, the prepared short Gamma na il, along with the insertion guide, was inserted into this proximal portion of the left hip and after proper rotatory adjustment guidepin for the lag screw was properly positioned. Measurement at this time revealed that the proper length of the guide lag screw should be 9.5 cm and after reaming along this guidepin, the selected lag screw in the size of 9.5 cm was inserted. After obtaining some compr ession at the fracture site, the lag screw was properly locked. Finally, in order to stabilize the sy stem further, 1 locking screw was inserted distally through the static position. After confirming sa tisfactory alignment of the fracture and proper position of the fixation device and after irrigation and hemostasis, closure of the incision was carried out using 0 Vicryl for muscle and fascia and 2-0 Vicryl for subcutaneous tissues. Final skin closure was carried out with skin alvaro. The usual st erile pressure dressings were applied. The patient tolerated the entire procedure very well and was sent to the recovery room in good condit ion. Dictated By: CHRIS GONZALES MD IK/NTS Conf#: [id number] DID#: [id number] CC: MEHNAZ POLANCO MD;*EndCC*
[2018-10-24] MEDS: INSULIN GLARGINE [LANTus] (100 UNITS/ML) SYG SC SCH (21:31)
[2018-10-25] VITALS (20 sets, daily range): BP systolic 119–164; BP diastolic 58–77; PULSE 69–80; RESP 16–19
[2018-10-25] MEDS: INSULIN ASPART [NOVOLOG] 3 ML PEN SC SCH ×9 (01:15→21:00)
[2018-10-25] MEDS: CEFAZOLIN 2 GM/50 ML (PMX) 50 ML IVPB SCH ×2 (02:17→10:30)
[2018-10-25] MEDS: LEVOTHYROXINE 100 MCG TAB PO SCH (06:21)
[2018-10-25] MEDS: ACCU-CHEK XX SCH ×6 (07:48→20:40)
[2018-10-25] MEDS: SEVELAMER CARBONATE 0.8 GM PKT PO SCH ×3 (08:01→17:17)
[2018-10-25] MEDS: BENAZEPRIL 20 MG TAB PO SCH ×2 (08:16→20:40)
[2018-10-25] MEDS: MULTIVIT/CA CARB/B CMPLX/FA TAB PO SCH (08:16)
[2018-10-25] MEDS: LINAGLIPTIN 5 MG TABLET PO SCH (08:16)
[2018-10-25] MEDS: FAMOTIDINE 20 MG TAB PO SCH (08:16)
[2018-10-25] MEDS: CHOLECALCIFEROL 2,000 UNIT CAP PO SCH (08:16)
[2018-10-25] MEDS: ENOXAPARIN 30 MG/0.3 ML SYG SC SCH (08:25)
[2018-10-25] MEDS: DEXTROSE 5%-0.45% NACL 1,000 ML IV SCH (10:50)
--- NOTE | 2018-10-25 13:13 | CONS ---
Assessment/Plan Assessment/Plan Assessment/Plan (Daily) 1. ESRD on HD MWF AVF for HD Access 2. S/p Mechanical Fall 3. left femur fracture s/p ORIF of left hip intertrochanteric fracture on 10/24/18 4. H/o HTN 5. H/o HL 6. H/o Hypothyroidism Plan: S/p HD today 3 L removed - pt regular schedule for HD is MWF, will keep him on that schedule, Next HD will be on Tuesday Post op care as per orthopedic Continue other Home BP Meds will follow up Consultation Date/Type/Reason Admit Date/Time Oct 20, 2018 at 23:12 Initial Consult Date 10/23/18 Type of Consult NEPHROLOGY Requesting Provider: LUISANA RICHARDS MD Date/Time of Note DATE: 10/25/18 TIME: 13:13 Exam/Review of Systems Exam Vitals Vital Signs Date Temp Pulse Resp B/P (MAP) Pulse Ox O2 O2 Flow FiO2 Time Delivery Rate 10/25/18 73 13:05 10/25/18 97.4 19 139/72 100 11:20 (94) 10/25/18 Nasal 2.0 10:35 Cannula Intake and Output 10/24/18 10/24/18 10/25/18 1515:00 23:00 07:00 IntakeIntake Total 480 ml 1500 ml 775 ml OutputOutput Total 125 ml 0 ml BalanceBalance 480 ml 1375 ml 775 ml Exam Constitutional: alert Respiratory: clear to auscultation, normal air movement, diminished breath sounds Cardiovascular: regular rate and rhythm, nl pulses Gastrointestinal: soft, non-tender Musculoskeletal: left hip dressing on , AVF, no edema Extremities: other (AV fistula in place) 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: TRANSPORTATION LEAD II-XII intact, nl mental status, nl speech, nl strength Skin: nl turgor Lymph: nl lymph nodes Results Result Diagram: 10/24/18201710/24/18 0721 Results 24hrs Laboratory Tests Test 10/24/18 19:12 10/24/18 19:22 10/24/18 20:18 10/24/18 20:57 Urine Color SAMIRA Urine Clarity CLOUDY A Urine pH 9.0 Urine Specific 1.015 [place] Urine Ketones NEGATIVE Urine Nitrite NEGATIVE Urine Bilirubin NEGATIVE Urine Urobilinogen NEGATIVE Urine Leukocyte NEGATIVE Esterase Urine Microscopic 4 RBC Urine Microscopic 11 H WBC Urine Squamous MANY A Epithelial Cells Urine Bacteria FEW A Urine Hemoglobin 1+ H Urine Glucose 1+ H Urine Total Protein 3+ H Bedside Glucose 98 95 White Blood Count 8.1 # Red Blood Count 3.66 L Hemoglobin 10.4 L Hematocrit 31.7 L Mean Corpuscular 86.6 Volume Mean Corpuscular 28.4 L Hemoglobin Mean Corpuscular 32.8 Hemoglobin Concent Red Cell 16.1 H Distribution Width Platelet Count 155 Mean Platelet Volume 9.5 Immature 0.600 H Granulocytes % Neutrophils % 91.7 H Lymphocytes % 3.6 L Monocytes % 3.1 Eosinophils % 0.6 Basophils % 0.4 Nucleated Red Blood 0.0 Cells % Immature 0.050 H Granulocytes # Neutrophils # 7.5 Lymphocytes # 0.3 L Monocytes # 0.3 Eosinophils # 0.1 Basophils # 0.0 Nucleated Red Blood 0.0 Cells # Test 10/25/18 01:10 10/25/18 05:08 10/25/18 07:39 10/25/18 10:00 Bedside Glucose 164 234 H 256 H 188 Test 10/25/18 11:48 Bedside Glucose 122 Medications Medication Current Medications IV Flush (NS 3 ml) 3 ml PER PROTOCOL IV ; Start 10/21/18 at 00:00 Ondansetron HCl (Zofran Inj) 4 mg Q6H PRN IV NAUSEA/VOMITING; Start 10/21/18 at 00:00 Morphine Sulfate (morphine) 3 mg Q4H PRN IV .SEVERE PAIN 7-10 Last administered on 10/24/18at 10:20; Admin Dose 3 MG; Start 10/21/18 at 00:00 Albuterol/ Ipratropium (Duoneb) 3 ml Q2H RESP THERAPY PRN HHN SHORTNESS OF BREATH; Start 10/21/18 at 00:00 Miscellaneous Information 1 ea NOTE XX ; Start 10/20/18 at 23:45 Glucose (Glutose) 15 gm Q15M PRN PO DECREASED GLUCOSE; Start 10/20/18 at 23:45 Glucose (Glutose) 22.5 gm Q15M PRN PO DECREASED GLUCOSE; Start 10/20/18 at 23:45 Dextrose (D50w Syringe) 25 ml Q15M PRN IV DECREASED GLUCOSE Last administered on 10/22/18at 16:22; Admin Dose 25 ML; Start 10/20/18 at 23:45 Dextrose (D50w Syringe) 50 ml Q15M PRN IV DECREASED GLUCOSE Last administered on 10/24/18 08:17; Admin Dose 50 ML; Start 10/20/18 at 23:45 Glucagon (Glucagen) 1 mg Q15M PRN IM DECREASED GLUCOSE; Start 10/20/18 at 23:45 Glucose (Glutose) 15 gm Q15M PRN BUCCAL DECREASED GLUCOSE Last administered on 10/22/18 15:46; Admin Dose 15 GM; Start 10/20/18 at 23:45 Diagnostic Test (Pha) (Accu-Chek) 1 ea AC MEALS XX Last administered on 10/25/18 11:49; Admin Dose 1 EA; Start 10/21/18 at 17:35 Diagnostic Test (Pha) (Accu-Chek) 1 ea 2 HOURS AFTER MEALS XX Last administered on 10/25/18 10:10; Admin Dose 1 EA; Start 10/21/18 at 14:00 Benazepril HCl (Lotensin) 20 mg BID PO Last administered on 10/25/18 08:16; Admin Dose 20 MG; Start 10/21/18 at 21:00 Diclofenac Sodium (Voltaren 1% Gel) 2 gm QID PRN TP PAIN; Start 10/21/18 at 17:00 Insulin Aspart (Novolog Insulin Pen) 5 unit WITH MEALS SC Last administered on 10/25/18 12:03; Admin Dose 5 UNIT; Start 10/21/18 at 17:35 Insulin Glargine (Lantus) 6 units QHS SC Last administered on 10/24/18 21:31; Admin Dose 6 UNITS; Start 10/21/18 at 21:00 Levothyroxine Sodium (Synthroid) 100 mcg BEFORE BREAKFAST PO Last administered on 10/25/18 06:21; Admin Dose 100 MCG; Start 10/22/18 at 07:00 Linagliptin (Tradjenta) 5 mg DAILY PO Last administered on 10/25/18 08:16; Admin Dose 5 MG; Start 10/22/18 at 09:00 Sevelamer Carbonate (Renvela) 1.6 gm WITH MEALS PO Last administered on 10/25/18 11:49; Admin Dose 1.6 GM; Start 10/21/18 at 17:35 Cholecalciferol (Vitamin D) 2,000 unit DAILY PO Last administered on 10/25/18at 08:16; Admin Dose 2,000 UNIT; Start 10/21/18 at 16:00 Multivit/Ca Carb/ B Cmplx/FA/Prenat (Manasa-Haris) 1 tab DAILY PO Last administered on 10/25/18at 08:16; Admin Dose 1 TAB; Start 10/22/18 at 09:00 Famotidine (Pepcid) 20 mg DAILY PO Last administered on 10/25/18at 08:16; Admin Dose 20 MG; Start 10/22/18 at 09:00 Naloxone HCl (Narcan) 0.1 mg Q2M PRN IV .RESP RATE; Start 10/24/18 at 14:30; Stop 10/25/18 at 14:29 Ketorolac Tromethamine (Toradol) 30 mg Q6H PRN IV PAIN AFTER CSECTION; Start 10/24/18 at 14:30; Stop 10/25/18 at 14:29 Hydromorphone HCl (Dilaudid) 0.2 mg Q3H PRN IV .PAIN 1-5; Start 10/24/18 at 14:30; Stop 10/25/18 at 14:29 Hydromorphone HCl (Dilaudid) 0.4 mg Q3H PRN IV .PAIN 6-10; Start 10/24/18 at 14:30; Stop 10/25/18 at 14:29 Diphenhydramine HCl (Benadryl) 25 mg Q6H PRN IV .ITCHING Last administered on 10/24/18at 21:27; Admin Dose 25 MG; Start 10/24/18 at 14:30; Stop 10/25/18 at 14:29 Ondansetron HCl (Zofran Inj) 4 mg Q6H PRN IV .NAUSEA/VOMITING; Start 10/24/18 at 14:30; Stop 10/25/18 at 14:29 Zolpidem Tartrate (Ambien) 5 mg HS MAY REPEAT X 1 PRN PO .INSOMNIA; Start 10/24/18 at 14:30; Stop 10/25/18 at 14:29 Oxycodone HCl (Roxicodone) 10 mg Q4H PRN PO .PAIN; Start 10/25/18 at 14:30 Oxycodone HCl (Roxicodone) 5 mg Q4H PRN PO .PAIN; Start 10/25/18 at 14:30 Hydromorphone HCl (Dilaudid) 1 mg Q3H PRN IV .BREAKTHROUGH PAIN; Start 10/25/18 at 14:30 IV Flush (NS 3 ml) 3 ml per protocol IV ; Start 10/24/18 at 17:30 Enoxaparin Sodium (Lovenox) 30 mg DAILY SC Last administered on 10/25/18at 08:25; Admin Dose 30 MG; Start 10/25/18 at 09:00 Dextrose/Sodium Chloride 1,000 ml @ 75 mls/hr [id number] IV Last administered on 10/24/18at 21:37; Admin Dose 75 MLS/HR; Start 10/24/18 at 21:30 Insulin Aspart (Novolog Insulin Pen) NOVOLOG *MILD* ALGORITHM WITH MEALS BEDTIME SC Last administered on 10/25/18at 07:50; Admin Dose 3 UNIT; Start 10/03 07/21 at 07:55 ANITA FLETCHER MD Oct 25, 2018 13:13
[2018-10-25] MEDS ORDERED: HYDROmorphONE 1 MG/ML SYG IV PRN (14:30)
[2018-10-25] MEDS ORDERED: oxyCODONE 5 MG TAB PO PRN ×2 (14:30)
--- NOTE | 2018-10-25 18:41 | PN ---
Date/Time of Note Date/Time of Note DATE: 10/25/18 TIME: 18:39 Assessment/Plan VTE Prophylaxis Risk score (from Nsg)>0 risk: 16 SCD applied (from Nsg): Yes Pharmacological prophylaxis: LMWH Lines/Catheters IV Catheter Type (from Nrsg): Saline Lock Urinary Cath still in place: Yes Reason Cath still needed: urinary retention Assessment/Plan Result Diagram: 10/24/18201710/24/18 0721 Results 24hrs Laboratory Tests Test 10/24/18 19:12 10/24/18 19:22 10/24/18 20:18 10/24/18 20:57 Urine Color SAMIRA Urine Clarity CLOUDY A Urine pH 9.0 Urine Specific 1.015 [place] Urine Ketones NEGATIVE Urine Nitrite NEGATIVE Urine Bilirubin NEGATIVE Urine Urobilinogen NEGATIVE Urine Leukocyte NEGATIVE Esterase Urine Microscopic 4 RBC Urine Microscopic 11 H WBC Urine Squamous MANY A Epithelial Cells Urine Bacteria FEW A Urine Hemoglobin 1+ H Urine Glucose 1+ H Urine Total Protein 3+ H Bedside Glucose 98 95 White Blood Count 8.1 # Red Blood Count 3.66 L Hemoglobin 10.4 L Hematocrit 31.7 L Mean Corpuscular 86.6 Volume Mean Corpuscular 28.4 L Hemoglobin Mean Corpuscular 32.8 Hemoglobin Concent Red Cell 16.1 H Distribution Width Platelet Count 155 Mean Platelet Volume 9.5 Immature 0.600 H Granulocytes % Neutrophils % 91.7 H Lymphocytes % 3.6 L Monocytes % 3.1 Eosinophils % 0.6 Basophils % 0.4 Nucleated Red Blood 0.0 Cells % Immature 0.050 H Granulocytes # Neutrophils # 7.5 Lymphocytes # 0.3 L Monocytes # 0.3 Eosinophils # 0.1 Basophils # 0.0 Nucleated Red Blood 0.0 Cells # Test 10/25/18 01:10 10/25/18 05:08 10/25/18 07:39 10/25/18 10:00 Bedside Glucose 164 234 H 256 H 188 Test 10/25/18 11:48 10/25/18 13:26 10/25/18 16:54 Bedside Glucose 122 126 119 Subjective 24 Hr Interval Summary Free Text/Dictation following this 73 yr old man for diabetes. post op for hip fx, did not get up today as hd when pt came by. blood sugars very well controlled on current regimen. vs stable. pt alert, lungs clear continue with same rx for diabetes, will follow as needed Exam/Review of Systems Exam Vitals Vital Signs Date Temp Pulse Resp B/P (MAP) Pulse Ox O2 O2 Flow FiO2 Time Delivery Rate 10/25/18 97.5 75 17 155/69 95 15:18 (97) 10/25/18 Room Air 13:43 10/25/18 2.0 10:35 Intake and Output 10/24/18 10/24/18 10/25/18 1515:00 23:00 07:00 IntakeIntake Total 480 ml 1500 ml 775 ml OutputOutput Total 125 ml 0 ml BalanceBalance 480 ml 1375 ml 775 ml Results Results 24hrs Laboratory Tests Test 10/24/18 19:12 10/24/18 19:22 10/24/18 20:18 10/24/18 20:57 Urine Color SAMIRA Urine Clarity CLOUDY A Urine pH 9.0 Urine Specific 1.015 [place] Urine Ketones NEGATIVE Urine Nitrite NEGATIVE Urine Bilirubin NEGATIVE Urine Urobilinogen NEGATIVE Urine Leukocyte NEGATIVE Esterase Urine Microscopic 4 RBC Urine Microscopic 11 H WBC Urine Squamous MANY A Epithelial Cells Urine Bacteria FEW A Urine Hemoglobin 1+ H Urine Glucose 1+ H Urine Total Protein 3+ H Bedside Glucose 98 95 White Blood Count 8.1 # Red Blood Count 3.66 L Hemoglobin 10.4 L Hematocrit 31.7 L Mean Corpuscular 86.6 Volume Mean Corpuscular 28.4 L Hemoglobin Mean Corpuscular 32.8 Hemoglobin Concent Red Cell 16.1 H Distribution Width Platelet Count 155 Mean Platelet Volume 9.5 Immature 0.600 H Granulocytes % Neutrophils % 91.7 H Lymphocytes % 3.6 L Monocytes % 3.1 Eosinophils % 0.6 Basophils % 0.4 Nucleated Red Blood 0.0 Cells % Immature 0.050 H Granulocytes # Neutrophils # 7.5 Lymphocytes # 0.3 L Monocytes # 0.3 Eosinophils # 0.1 Basophils # 0.0 Nucleated Red Blood 0.0 Cells # Test 10/25/18 01:10 10/25/18 05:08 10/25/18 07:39 10/25/18 10:00 Bedside Glucose 164 234 H 256 H 188 Test 10/25/18 11:48 10/25/18 13:26 10/25/18 16:54 Bedside Glucose 122 126 119 Medications Medication Current Medications IV Flush (NS 3 ml) 3 ml PER PROTOCOL IV ; Start 10/21/18 at 00:00 Ondansetron HCl (Zofran Inj) 4 mg Q6H PRN IV NAUSEA/VOMITING; Start 10/21/18 at 00:00 Morphine Sulfate (morphine) 3 mg Q4H PRN IV .SEVERE PAIN 7-10 Last administered on 10/24/18 10:20; Admin Dose 3 MG; Start 10/21/18 at 00:00 Albuterol/ Ipratropium (Duoneb) 3 ml Q2H RESP THERAPY PRN HHN SHORTNESS OF BREATH; Start 10/21/18 at 00:00 Miscellaneous Information 1 ea NOTE XX ; Start 10/20/18 at 23:45 Glucose (Glutose) 15 gm Q15M PRN PO DECREASED GLUCOSE; Start 10/20/18 at 23:45 Glucose (Glutose) 22.5 gm Q15M PRN PO DECREASED GLUCOSE; Start 10/20/18 at 23:45 Dextrose (D50w Syringe) 25 ml Q15M PRN IV DECREASED GLUCOSE Last administered on 10/22/18 16:22; Admin Dose 25 ML; Start 10/20/18 at 23:45 Dextrose (D50w Syringe) 50 ml Q15M PRN IV DECREASED GLUCOSE Last administered on 10/24/18 08:17; Admin Dose 50 ML; Start 10/20/18 at 23:45 Glucagon (Glucagen) 1 mg Q15M PRN IM DECREASED GLUCOSE; Start 10/20/18 at 23:45 Glucose (Glutose) 15 gm Q15M PRN BUCCAL DECREASED GLUCOSE Last administered on 10/22/18at 15:46; Admin Dose 15 GM; Start 10/20/18 at 23:45 Diagnostic Test (Pha) (Accu-Chek) 1 ea AC MEALS XX Last administered on 10/25/18 17:02; Admin Dose 1 EA; Start 10/21/18 at 17:35 Diagnostic Test (Pha) (Accu-Chek) 1 ea 2 HOURS AFTER MEALS XX Last administered on 10/25/18 13:27; Admin Dose 1 EA; Start 10/21/18 at 14:00 Benazepril HCl (Lotensin) 20 mg BID PO Last administered on 10/25/18 08:16; Admin Dose 20 MG; Start 10/21/18 at 21:00 Diclofenac Sodium (Voltaren 1% Gel) 2 gm QID PRN TP PAIN; Start 10/21/18 at 17:00 Insulin Aspart (Novolog Insulin Pen) 5 unit WITH MEALS SC Last administered on 10/25/18 17:26; Admin Dose 5 UNIT; Start 10/21/18 at 17:35 Insulin Glargine (Lantus) 6 units QHS SC Last administered on 10/24/18 21:31; Admin Dose 6 UNITS; Start 10/21/18 at 21:00 Levothyroxine Sodium (Synthroid) 100 mcg BEFORE BREAKFAST PO Last administered on 10/25/18 06:21; Admin Dose 100 MCG; Start 10/22/18 at 07:00 Linagliptin (Tradjenta) 5 mg DAILY PO Last administered on 10/25/18 08:16; Admin Dose 5 MG; Start 10/22/18 at 09:00 Sevelamer Carbonate (Renvela) 1.6 gm WITH MEALS PO Last administered on 10/25/18 17:17; Admin Dose 1.6 GM; Start 10/21/18 at 17:35 Cholecalciferol (Vitamin D) 2,000 unit DAILY PO Last administered on 10/25/18 08:16; Admin Dose 2,000 UNIT; Start 10/21/18 at 16:00 Multivit/Ca Carb/ B Cmplx/FA/Prenat (Manasa-Haris) 1 tab DAILY PO Last administered on 10/25/18at 08:16; Admin Dose 1 TAB; Start 10/22/18 at 09:00 Famotidine (Pepcid) 20 mg DAILY PO Last administered on 10/25/18 08:16; Admin Dose 20 MG; Start 10/22/18 at 09:00 Oxycodone HCl (Roxicodone) 10 mg Q4H PRN PO .PAIN; Start 10/25/18 at 14:30 Oxycodone HCl (Roxicodone) 5 mg Q4H PRN PO .PAIN; Start 10/25/18 at 14:30 Hydromorphone HCl (Dilaudid) 1 mg Q3H PRN IV .BREAKTHROUGH PAIN; Start 10/25/18 at 14:30 IV Flush (NS 3 ml) 3 ml per protocol IV ; Start 10/24/18 at 17:30 Enoxaparin Sodium (Lovenox) 30 mg DAILY SC Last administered on 10/25/18 08:25; Admin Dose 30 MG; Start 10/25/18 at 09:00 Dextrose/Sodium Chloride 1,000 ml @ 75 mls/hr [id number] IV Last administered on 10/24/18 21:37; Admin Dose 75 MLS/HR; Start 10/24/18 at 21:30 Insulin Aspart (Novolog Insulin Pen) NOVOLOG *MILD* ALGORITHM WITH MEALS BEDTIME SC Last administered on 10/25/18 07:50; Admin Dose 3 UNIT; Start 10/25/18 at 07:55 SRIDHAR LUO MD Oct 25, 2018 18:41
[2018-10-25] MEDS: INSULIN GLARGINE [LANTus] (100 UNITS/ML) SYG SC SCH (20:42)
[2018-10-25] MEDS: morphine 2 MG INJ IV PRN (21:26)
[2018-10-26] MEDS: DEXTROSE 5%-0.45% NACL 1,000 ML IV SCH ×3 (00:10→22:53)
[2018-10-26] MEDS ORDERED: CEPASTAT LOZENGE MT PRN (01:00)
[2018-10-26 03:53] VITALS: BP 135/62; PULSE 80; RESP 18
[2018-10-26] MEDS: LEVOTHYROXINE 100 MCG TAB PO SCH (06:29)
[2018-10-26] MEDS: ACCU-CHEK XX SCH ×7 (07:25→20:20)
[2018-10-26 07:31] VITALS: BP 166/66; PULSE 83; RESP 16
[2018-10-26] MEDS: INSULIN ASPART [NOVOLOG] 3 ML PEN SC SCH ×7 (07:42→21:00)
[2018-10-26] MEDS: SEVELAMER CARBONATE 0.8 GM PKT PO SCH ×3 (07:42→17:23)
[2018-10-26] MEDS: MULTIVIT/CA CARB/B CMPLX/FA TAB PO SCH (09:26)
[2018-10-26] MEDS: FAMOTIDINE 20 MG TAB PO SCH (09:27)
[2018-10-26] MEDS: LINAGLIPTIN 5 MG TABLET PO SCH (09:27)
[2018-10-26] MEDS: BENAZEPRIL 20 MG TAB PO SCH ×2 (09:27→21:32)
[2018-10-26] MEDS: CHOLECALCIFEROL 2,000 UNIT CAP PO SCH (09:27)
[2018-10-26] MEDS: ENOXAPARIN 30 MG/0.3 ML SYG SC SCH (09:40)
--- NOTE | 2018-10-26 10:48 | CONS ---
Assessment/Plan Assessment/Plan Assessment/Plan (Daily) 1. ESRD on HD MWF AVF for HD Access 2. S/p Mechanical Fall 3. left femur fracture s/p ORIF of left hip intertrochanteric fracture on 10/24/18 4. H/o HTN 5. H/o HL 6. H/o Hypothyroidism Plan: S/p HD yesterday 3 L removed - pt regular schedule for HD is MWF, will keep him on that schedule, HD ordered for Tuesday Post op care as per orthopedic Continue other Home BP Meds will follow up Consultation Date/Type/Reason Admit Date/Time Oct 20, 2018 at 23:12 Initial Consult Date 10/23/18 Type of Consult NEPHROLOGY Requesting Provider: LUISANA RICHARDS MD Date/Time of Note DATE: 10/26/18 TIME: 10:48 Exam/Review of Systems Exam Vitals Vital Signs Date Temp Pulse Resp B/P (MAP) Pulse Ox O2 O2 Flow FiO2 Time Delivery Rate 10/26/18 Nasal 2.0 07:45 Cannula 10/26/18 97.8 83 16 166/66 96 07:31 (99) Intake and Output 10/25/18 10/25/18 10/26/18 1515:00 23:00 07:00 IntakeIntake Total 200 ml 380 ml 100 ml OutputOutput Total 3500 ml BalanceBalance -3300 ml 380 ml 100 ml Exam Constitutional: alert Respiratory: clear to auscultation, diminished breath sounds Cardiovascular: regular rate and rhythm, nl pulses Gastrointestinal: soft, non-tender Musculoskeletal: left hip dressing on , AVF, no edema Extremities: other (AV fistula in place) 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: BOTTOM SCRUBBER II-XII intact, nl mental status, nl speech, nl strength Results Result Diagram: 10/24/18201710/24/1821 Results 24hrs Laboratory Tests Test 10/25/18 11:48 10/25/18 13:26 10/25/18 16:54 10/25/18 20:25 Bedside Glucose 122 126 119 122 Test 10/26/18 07:41 Bedside Glucose 126 Medications Medication Current Medications IV Flush (NS 3 ml) 3 ml PER PROTOCOL IV ; Start 10/21/18 at 00:00 Ondansetron HCl (Zofran Inj) 4 mg Q6H PRN IV NAUSEA/VOMITING; Start 10/21/18 at 00:00 Morphine Sulfate (morphine) 3 mg Q4H PRN IV .SEVERE PAIN 7-10 Last administered on 10/25/18 21:26; Admin Dose 3 MG; Start 10/21/18 at 00:00 Albuterol/ Ipratropium (Duoneb) 3 ml Q2H RESP THERAPY PRN HHN SHORTNESS OF BREATH; Start 10/21/18 at 00:00 Miscellaneous Information 1 ea NOTE XX ; Start 10/20/18 at 23:45 Glucose (Glutose) 15 gm Q15M PRN PO DECREASED GLUCOSE; Start 10/20/18 at 23:45 Glucose (Glutose) 22.5 gm Q15M PRN PO DECREASED GLUCOSE; Start 10/20/18 at 23:45 Dextrose (D50w Syringe) 25 ml Q15M PRN IV DECREASED GLUCOSE Last administered on 10/22/18at 16:22; Admin Dose 25 ML; Start 10/20/18 at 23:45 Dextrose (D50w Syringe) 50 ml Q15M PRN IV DECREASED GLUCOSE Last administered on 10/24/18 08:17; Admin Dose 50 ML; Start 10/20/18 at 23:45 Glucagon (Glucagen) 1 mg Q15M PRN IM DECREASED GLUCOSE; Start 10/20/18 at 23:45 Glucose (Glutose) 15 gm Q15M PRN BUCCAL DECREASED GLUCOSE Last administered on 10/22/18at 15:46; Admin Dose 15 GM; Start 10/20/18 at 23:45 Diagnostic Test (Pha) (Accu-Chek) 1 ea AC MEALS XX Last administered on 10/26/18 07:25; Admin Dose 1 EA; Start 10/21/18 at 17:35 Diagnostic Test (Pha) (Accu-Chek) 1 ea 2 HOURS AFTER MEALS XX Last administered on 10/26/18 09:43; Admin Dose 1 EA; Start 10/21/18 at 14:00 Benazepril HCl (Lotensin) 20 mg BID PO Last administered on 10/26/18 09:27; Admin Dose 20 MG; Start 10/21/18 at 21:00 Diclofenac Sodium (Voltaren 1% Gel) 2 gm QID PRN TP PAIN; Start 10/21/18 at 17:00 Insulin Aspart (Novolog Insulin Pen) 5 unit WITH MEALS SC Last administered on 10/26/18 08:04; Admin Dose 5 UNIT; Start 10/21/18 at 17:35 Insulin Glargine (Lantus) 6 units QHS SC Last administered on 10/25/18 20:42; Admin Dose 6 UNITS; Start 10/21/18 at 21:00 Levothyroxine Sodium (Synthroid) 100 mcg BEFORE BREAKFAST PO Last administered on 10/26/18 06:29; Admin Dose 100 MCG; Start 10/22/18 at 07:00 Linagliptin (Tradjenta) 5 mg DAILY PO Last administered on 10/26/18 09:27; Admin Dose 5 MG; Start 10/22/18 at 09:00 Sevelamer Carbonate (Renvela) 1.6 gm WITH MEALS PO Last administered on 10/26/18 07:42; Admin Dose 1.6 GM; Start 10/21/18 at 17:35 Cholecalciferol (Vitamin D) 2,000 unit DAILY PO Last administered on 10/26/18 09:27; Admin Dose 2,000 UNIT; Start 10/21/18 at 16:00 Multivit/Ca Carb/ B Cmplx/FA/Prenat (Manasa-Haris) 1 tab DAILY PO Last administe red on 10/26/18 09:26; Admin Dose 1 TAB; Start 10/22/18 at 09:00 Famotidine (Pepcid) 20 mg DAILY PO Last administered on 10/26/18 09:27; Admin Dose 20 MG; Start 10/22/18 at 09:00 Oxycodone HCl (Roxicodone) 10 mg Q4H PRN PO .PAIN; Start 10/25/18 at 14:30 Oxycodone HCl (Roxicodone) 5 mg Q4H PRN PO .PAIN; Start 10/25/18 at 14:30 Hydromorphone HCl (Dilaudid) 1 mg Q3H PRN IV .BREAKTHROUGH PAIN; Start 10/25/18 at 14:30 IV Flush (NS 3 ml) 3 ml per protocol IV ; Start 10/24/18 at 17:30 Enoxaparin Sodium (Lovenox) 30 mg DAILY SC Last administered on 10/26/18 09:40; Admin Dose 30 MG; Start 10/25/18 at 09:00 Dextrose/Sodium Chloride 1,000 ml @ 75 mls/hr [id number] IV Last administered on 10/26/18at 07:14; Admin Dose 75 MLS/HR; Start 10/24/18 at 21:30 Insulin Aspart (Novolog Insulin Pen) NOVOLOG *MILD* ALGORITHM WITH MEALS BEDTIME SC Last administered on 10/25/18at 07:50; Admin Dose 3 UNIT; Start 10/25/18 at 07:55 ANITA FLETCHER MD Oct 26, 2018 10:48
[2018-10-26 11:53] VITALS: BP 161/75; PULSE 79; RESP 18
[2018-10-26 15:34] VITALS: BP 155/70; PULSE 79; RESP 18
--- NOTE | 2018-10-26 17:39 | PN ---
Date/Time of Note Date/Time of Note DATE: 10/26/18 TIME: 17:34 Assessment/Plan VTE Prophylaxis Risk score (from Ns)>0 risk: 7 SCD applied (from Ns): Yes SCD contraindicated: low risk/ambulating Pharmacological prophylaxis: heparin Pharm contraindication: low risk/ambulating Lines/Catheters IV [facility]from [facility] Urinary Cath still in place: No Assessment/Plan Problems: (1) Closed fracture of left hip requiring operative repair Onset Date: ~ 10/24/2018 Status: Acute Comment: He is now postop and doing relatively well. He continues to do well we will have him evaluated by the acute rehabilitation unit for assistance in recovery process Qualifiers: Encounter type: initial encounter Qualified Codes: S72.002A - Fracture of unspecified part of neck of left femur, initial encounter for closed fracture (2) Closed left hip fracture Onset Date: ~ 10/20/2018 Status: Acute Comment: Now postop Qualifiers: Encounter type: initial encounter Qualified Codes: S72.002A - Fracture of unspecified part of neck of left femur, initial encounter for closed fracture (3) ESRD (end stage renal disease) on dialysis Status: Chronic Comment: Continues on hemodialysis with guidance from our colleagues in nephrology (4) Prostatic hypertrophy Status: Chronic Comment: Noted. Given the above if his blood pressures still needs help we can use an antihypertensive alpha-issac as her adjunct of therapy. 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 We have the wound care people see him for the heel ulcer. Result Diagram: 10/24/18201710/24/18 0721 Results 24hrs Laboratory Tests Test 10/25/18 20:25 10/26/18 07:41 10/26/18 11:54 10/26/18 17:22 Bedside Glucose 122 126 156 110 CC: RUFINO AMBRIZ MD; HAROON GONZALES MD; ANITA FLETCHER MD ; Subjective 24 Hr Interval Summary Free Text/Dictation Vision complains that he has been having bleeding at the site of the dressing from the hip fracture; also right heel pain Constitutional: no complaints Respiratory: no complaints Cardiovascular: no complaints Gastrointestinal: no complaints Genitourinary: no complaints Musculoskeletal: no complaints Exam/Review of Systems Exam Vitals Vital Signs Date Temp Pulse Resp B/P (MAP) Pulse Ox O2 O2 Flow FiO2 Time Delivery Rate 10/26/18 98.7 79 18 155/70 98 Nasal 2.0 15:34 (98) Cannula Intake and Output 10/25/18 10/25/18 10/26/18 1515:00 23:00 07:00 IntakeIntake Total 200 ml 380 ml 100 ml OutputOutput Total 3500 ml BalanceBalance -3300 ml 380 ml 100 ml Constitutional: alert, oriented Neck: supple, non-tender Respiratory: clear to auscultation, normal air movement Cardiovascular: regular rate and rhythm, nl pulses Extremities: other (Right heel ulcer; status post right great toe amputation) Results Results 24hrs Laboratory Tests Test 10/25/18 20:25 10/26/18 07:41 10/26/18 11:54 10/26/18 17:22 Bedside Glucose 122 126 156 110 Medications Medication Current Medications IV Flush (NS 3 ml) 3 ml PER PROTOCOL IV ; Start 10/21/18 at 00:00 Ondansetron HCl (Zofran Inj) 4 mg Q6H PRN IV NAUSEA/VOMITING; Start 10/21/18 at 00:00 Morphine Sulfate (morphine) 3 mg Q4H PRN IV .SEVERE PAIN 7-10 Last administered on 10/25/18at 21:26; Admin Dose 3 MG; Start 10/21/18 at 00:00 Albuterol/ Ipratropium (Duoneb) 3 ml Q2H RESP THERAPY PRN HHN SHORTNESS OF BREATH; Start 10/21/18 at 00:00 Miscellaneous Information 1 ea NOTE XX ; Start 10/20/18 at 23:45 Glucose (Glutose) 15 gm Q15M PRN PO DECREASED GLUCOSE; Start 10/20/18 at 23:45 Glucose (Glutose) 22.5 gm Q15M PRN PO DECREASED GLUCOSE; Start 10/20/18 at 23:45 Dextrose (D50w Syringe) 25 ml Q15M PRN IV DECREASED GLUCOSE Last administered on 10/22/18at 16:22; Admin Dose 25 ML; Start 10/20/18 at 23:45 Dextrose (D50w Syringe) 50 ml Q15M PRN IV DECREASED GLUCOSE Last administered on 10/24/18 08:17; Admin Dose 50 ML; Start 10/20/18 at 23:45 Glucagon (Glucagen) 1 mg Q15M PRN IM DECREASED GLUCOSE; Start 10/20/18 at 23:45 Glucose (Glutose) 15 gm Q15M PRN BUCCAL DECREASED GLUCOSE Last administered on 10/22/18 15:46; Admin Dose 15 GM; Start 10/20/18 at 23:45 Diagnostic Test (Pha) (Accu-Chek) 1 ea AC MEALS XX Last administered on 10/26/18 17:22; Admin Dose 1 EA; Start 10/21/18 at 17:35 Diagnostic Test (Pha) (Accu-Chek) 1 ea 2 HOURS AFTER MEALS XX Last administered on 10/26/18 14:45; Admin Dose 1 EA; Start 10/21/18 at 14:00 Benazepril HCl (Lotensin) 20 mg BID PO Last administered on 10/26/18 09:27; Admin Dose 20 MG; Start 10/21/18 at 21:00 Diclofenac Sodium (Voltaren 1% Gel) 2 gm QID PRN TP PAIN; Start 10/21/18 at 17:00 Insulin Aspart (Novolog Insulin Pen) 5 unit WITH MEALS SC Last administered on 10/26/18 17:28; Admin Dose 5 UNIT; Start 10/21/18 at 17:35 Insulin Glargine (Lantus) 6 units QHS SC Last administered on 10/25/18 20:42; Admin Dose 6 UNITS; Start 10/21/18 at 21:00 Levothyroxine Sodium (Synthroid) 100 mcg BEFORE BREAKFAST PO Last administered on 10/26/18 06:29; Admin Dose 100 MCG; Start 10/22/18 at 07:00 Linagliptin (Tradjenta) 5 mg DAILY PO Last administered on 10/26/18 09:27; Admin Dose 5 MG; Start 10/22/18 at 09:00 Sevelamer Carbonate (Renvela) 1.6 gm WITH MEALS PO Last administered on 10/26/18 17:23; Admin Dose 1.6 GM; Start 10/21/18 at 17:35 Cholecalciferol (Vitamin D) 2,000 unit DAILY PO Last administered on 10/26/18 09:27; Admin Dose 2,000 UNIT; Start 10/21/18 at 16:00 Multivit/Ca Carb/ B Cmplx/FA/Prenat (Manasa-Haris) 1 tab DAILY PO Last administered on 10/26/18 09:26; Admin Dose 1 TAB; Start 10/22/18 at 09:00 Famotidine (Pepcid) 20 mg DAILY PO Last administered on 10/26/18at 09:27; Admin Dose 20 MG; Start 10/22/18 at 09:00 Oxycodone HCl (Roxicodone) 10 mg Q4H PRN PO .PAIN; Start 10/25/18 at 14:30 Oxycodone HCl (Roxicodone) 5 mg Q4H PRN PO .PAIN; Start 10/25/18 at 14:30 Hydromorphone HCl (Dilaudid) 1 mg Q3H PRN IV .BREAKTHROUGH PAIN; Start 10/25/18 at 14:30 IV Flush (NS 3 ml) 3 ml per protocol IV ; Start 10/24/18 at 17:30 Enoxaparin Sodium (Lovenox) 30 mg DAILY SC Last administered on 10/26/18at 09:40; Admin Dose 30 MG; Start 10/25/18 at 09:00 Dextrose/Sodium Chloride 1,000 ml @ 75 mls/hr [id number] IV Last administered on 10/26/18 07:14; Admin Dose 75 MLS/HR; Start 10/24/18 at 21:30 Insulin Aspart (Novolog Insulin Pen) NOVOLOG *MILD* ALGORITHM WITH MEALS BEDTIME SC Last administered on 10/26/18 12:06; Admin Dose 1 UNIT; Start 10/25 at 07:55 LUISANA RICHARDS MD Oct 26, 2018 17:39
[2018-10-26 19:17] VITALS: BP 148/70; PULSE 78; RESP 19
[2018-10-26] MEDS: INSULIN GLARGINE [LANTus] (100 UNITS/ML) SYG SC SCH (21:34)
[2018-10-26 23:44] VITALS: BP 151/71; PULSE 77; RESP 19
[2018-10-27] VITALS (23 sets, daily range): BP systolic 133–162; BP diastolic 52–73; PULSE 64–79; RESP 19–20
[2018-10-27] MEDS: LEVOTHYROXINE 100 MCG TAB PO SCH (06:44)
[2018-10-27] MEDS: ACCU-CHEK XX SCH ×6 (07:32→20:00)
[2018-10-27] MEDS: SEVELAMER CARBONATE 0.8 GM PKT PO SCH ×3 (07:33→17:10)
[2018-10-27] MEDS: INSULIN ASPART [NOVOLOG] 3 ML PEN SC SCH ×7 (07:53→21:00)
[2018-10-27] MEDS ORDERED: ALBUMIN HUMAN 25% 100 ML IV PRN (08:30)
--- NOTE | 2018-10-27 08:41 | CONS ---
Assessment/Plan Assessment/Plan Assessment/Plan (Daily) 1. ESRD on HD MWF AVF for HD Access 2. S/p Mechanical Fall 3. left femur fracture s/p ORIF of left hip intertrochanteric fracture on 10/24/18 4. H/o HTN 5. H/o HL 6. H/o Hypothyroidism Plan: S/p HD today 3 L removed - pt regular schedule for HD is , next HD will be on Tuesday if pt stays here Post op care as per orthopedic Continue other Home BP Meds will follow up Consultation Date/Type/Reason Admit Date/Time Oct 20, 2018 at 23:12 Initial Consult Date 10/23/18 Type of Consult NEPHROLOGY Requesting Provider: LUISANA RICHARDS MD Date/Time of Note DATE: 10/27/18 TIME: 08:41 Exam/Review of Systems Exam Vitals Vital Signs Date Temp Pulse Resp B/P (MAP) Pulse Ox O2 O2 Flow FiO2 Time Delivery Rate 10/27/18 Nasal 2.0 08:00 Cannula 10/27/18 97.9 76 20 157/71 99 07:07 (99) Intake and Output 10/26/18 10/26/18 10/27/18 1515:00 23:00 07:00 IntakeIntake Total 400 ml OutputOutput Total 1 ml BalanceBalance 399 ml Exam Constitutional: alert Respiratory: clear to auscultation, diminished breath sounds Cardiovascular: regular rate and rhythm, nl pulses Gastrointestinal: soft, non-tender Musculoskeletal: left hip dressing on , AVF, no edema Extremities: other (AV fistula in place) 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: ASSISTANT PRODUCE MANAGER II-XII intact, nl mental status, nl speech, nl strength Results Result Diagram: 10/27/18 0538 10/27/18 0538 Results 24hrs Laboratory Tests Test 10/26/18 11:54 10/26/18 17:22 10/26/18 18:02 10/26/18 20:18 Bedside Glucose 156 110 81 Iron Level 48 Total Iron Binding 190 L Capacity Percent Iron 25 Saturation Test 10/26/18 21:24 10/27/18 05:38 10/27/18 07:32 Bedside Glucose 83 134 White Blood Count 4.6 #L Red Blood Count 2.87 #L Hemoglobin 8.1 #L Hematocrit 24.9 #L Mean Corpuscular 86.8 Volume Mean Corpuscular 28.2 L Hemoglobin Mean Corpuscular 32.5 Hemoglobin Concent Red Cell 15.7 H Distribution Width Platelet Count 141 Mean Platelet Volume 9.3 Immature 0.400 Granulocytes % Neutrophils % 69.5 Lymphocytes % 12.1 L Monocytes % 11.9 H Eosinophils % 5.2 Basophils % 0.9 Nucleated Red Blood 0.0 Cells % Immature 0.020 Granulocytes # Neutrophils # 3.2 Lymphocytes # 0.6 L Monocytes # 0.6 Eosinophils # 0.2 Basophils # 0.0 Nucleated Red Blood 0.0 Cells # Prothrombin Time 14.9 Prothrombin Time 1.2 Ratio INR International 1.16 Normalized Ratio Activated 42.0 H Partial Thromboplast Time Sodium Level 137 Potassium Level 3.9 Chloride Level 102 Carbon Dioxide Level 24 Anion Gap 11 Blood Urea Nitrogen 50 H Creatinine 7.76 H Est Glomerular Filtrat Rate mL/min Glucose Level 139 Calcium Level 7.7 L Magnesium Level 2.2 Total Bilirubin 0.2 Direct Bilirubin 0.00 Indirect Bilirubin 0.2 Aspartate Amino 34 Transf (AST/SGOT) Alanine 11 L Aminotransferase (AL T/SGPT) Alkaline Phosphatase 111 Total Protein 6.3 Albumin 3.3 Globulin 3.00 Albumin/Globulin 1.10 Ratio Medications Medication Current Medications IV Flush (NS 3 ml) 3 ml PER PROTOCOL IV ; Start 10/21/18 at 00:00 Ondansetron HCl (Zofran Inj) 4 mg Q6H PRN IV NAUSEA/VOMITING; Start 10/21/18 at 00:00 Morphine Sulfate (morphine) 3 mg Q4H PRN IV .SEVERE PAIN 7-10 Last administered on 10/25/18at 21:26; Admin Dose 3 MG; Start 10/21/18 at 00:00 Albuterol/ Ipratropium (Duoneb) 3 ml Q2H RESP THERAPY PRN HHN SHORTNESS OF BREATH; Start 10/21/18 at 00:00 Miscellaneous Information 1 ea NOTE XX ; Start 10/20/18 at 23:45 Glucose (Glutose) 15 gm Q15M PRN PO DECREASED GLUCOSE; Start 10/20/18 at 23:45 Glucose (Glutose) 22.5 gm Q15M PRN PO DECREASED GLUCOSE; Start 10/20/18 at 23:45 Dextrose (D50w Syringe) 25 ml Q15M PRN IV DECREASED GLUCOSE Last administered on 10/22/18at 16:22; Admin Dose 25 ML; Start 10/20/18 at 23:45 Dextrose (D50w Syringe) 50 ml Q15M PRN IV DECREASED GLUCOSE Last administered on 10/24/18 08:17; Admin Dose 50 ML; Start 10/20/18 at 23:45 Glucagon (Glucagen) 1 mg Q15M PRN IM DECREASED GLUCOSE; Start 10/20/18 at 23:45 Glucose (Glutose) 15 gm Q15M PRN BUCCAL DECREASED GLUCOSE Last administered on 10/22/18 15:46; Admin Dose 15 GM; Start 10/20/18 at 23:45 Diagnostic Test (Pha) (Accu-Chek) 1 ea AC MEALS XX Last administered on 10/27/18 07:32; Admin Dose 1 EA; Start 10/21/18 at 17:35 Diagnostic Test (Pha) (Accu-Chek) 1 ea 2 HOURS AFTER MEALS XX Last administered on 10/26/18 20:20; Admin Dose 1 EA; Start 10/21/18 at 14:00 Diclofenac Sodium (Voltaren 1% Gel) 2 gm QID PRN TP PAIN; Start 10/21/18 at 17:00 Insulin Aspart (Novolog Insulin Pen) 5 unit WITH MEALS SC Last administered on 10/27/18 07:53; Admin Dose 5 UNIT; Start 10/21/18 at 17:35 Insulin Glargine (Lantus) 6 units QHS SC Last administered on 10/26/18 21:34; Admin Dose 6 UNITS; Start 10/21/18 at 21:00 Levothyroxine Sodium (Synthroid) 100 mcg BEFORE BREAKFAST PO Last administered on 10/27/18 06:44; Admin Dose 100 MCG; Start 10/22/18 at 07:00 Linagliptin (Tradjenta) 5 mg DAILY PO Last administered on 10/26/18 09:27; Admin Dose 5 MG; Start 10/22/18 at 09:00 Sevelamer Carbonate (Renvela) 1.6 gm WITH MEALS PO Last administered on 10/27/18 07:33; Admin Dose 1.6 GM; Start 10/21/18 at 17:35 Cholecalciferol (Vitamin D) 2,000 unit DAILY PO Last administered on 10/26/18 09:27; Admin Dose 2,000 UNIT; Start 10/21/18 at 16:00 Multivit/Ca Carb/ B Cmplx/FA/Prenat (Manasa-Haris) 1 tab DAILY PO Last administered on 10/26/18 09:26; Admin Dose 1 TAB; Start 10/22/18 at 09:00 Famotidine (Pepcid) 20 mg DAILY PO Last administered on 10/26/18 09:27; Admin Dose 20 MG; Start 10/22/18 at 09:00 Oxycodone HCl (Roxicodone) 10 mg Q4H PRN PO .PAIN; Start 10/25/18 at 14:30 Oxycodone HCl (Roxicodone) 5 mg Q4H PRN PO .PAIN; Start 10/25/18 at 14:30 Hydromorphone HCl (Dilaudid) 1 mg Q3H PRN IV .BREAKTHROUGH PAIN; Start 10/25/18 at 14:30 IV Flush (NS 3 ml) 3 ml per protocol IV ; Start 10/24/18 at 17:30 Enoxaparin Sodium (Lovenox) 30 mg DAILY SC Last administered on 10/26/18 09:40; Admin Dose 30 MG; Start 10/25/18 at 09:00 Dextrose/Sodium Chloride 1,000 ml @ 75 mls/hr [id number] IV Last administered on 10/26/18 22:53; Admin Dose 75 MLS/HR; Start 10/24/18 at 21:30 Insulin Aspart (Novolog Insulin Pen) NOVOLOG *MILD* ALGORITHM WITH MEALS BEDTIME SC Last administered on 10/26/18 12:06; Admin Dose 1 UNIT; Start 10/25/18 at 07:55 Benazepril HCl (Lotensin) 40 mg BID PO Last administered on 10/26/18 21:32; Admin Dose 40 MG; Start 10/26/18 at 21:00 Albumin Human 100 ml @ 100 mls/hr WITH DIALYSIS PRN IV SBP <90 DURING ENRIQUE LYSIS; Start 10/27/18 at 08:30 ANITA FLETCHER MD Oct 27, 2018 08:41
[2018-10-27] MEDS: FAMOTIDINE 20 MG TAB PO SCH (09:00)
[2018-10-27] MEDS: ENOXAPARIN 30 MG/0.3 ML SYG SC SCH (09:00)
[2018-10-27] MEDS: BENAZEPRIL 20 MG TAB PO SCH ×2 (09:00→20:43)
[2018-10-27] MEDS: MULTIVIT/CA CARB/B CMPLX/FA TAB PO SCH (09:00)
[2018-10-27] MEDS: CHOLECALCIFEROL 2,000 UNIT CAP PO SCH (09:00)
[2018-10-27] MEDS: LINAGLIPTIN 5 MG TABLET PO SCH (09:00)
[2018-10-27] MEDS: morphine 2 MG INJ IV PRN (11:47)
--- NOTE | 2018-10-27 12:54 | PN ---
Date/Time of Note Date/Time of Note DATE: 10/27/18 TIME: 12:51 Assessment/Plan VTE Prophylaxis Risk score (from Ns)>0 risk: 8 SCD applied (from Ns): Yes Pharmacological prophylaxis: LMWH Lines/Catheters IV [facility]from [facility] Peripheral IV Urinary Cath still in place: No Assessment/Plan Result Diagram: 10/27/18 0538 10/27/18 0538 Results 24hrs Laboratory Tests Test 10/26/18 17:22 10/26/18 18:02 10/26/18 20:18 10/26/18 21:24 Bedside Glucose 110 81 83 Iron Level 48 Total Iron Binding 190 L Capacity Percent Iron 25 Saturation Test 10/27/18 05:38 10/27/18 07:32 10/27/18 11:50 White Blood Count 4.6 #L Red Blood Count 2.87 #L Hemoglobin 8.1 #L Hematocrit 24.9 #L Mean Corpuscular 86.8 Volume Mean Corpuscular 28.2 L Hemoglobin Mean Corpuscular 32.5 Hemoglobin Concent Red Cell 15.7 H Distribution Width Platelet Count 141 Mean Platelet Volume 9.3 Immature 0.400 Granulocytes % Neutrophils % 69.5 Lymphocytes % 12.1 L Monocytes % 11.9 H Eosinophils % 5.2 Basophils % 0.9 Nucleated Red Blood 0.0 Cells % Immature 0.020 Granulocytes # Neutrophils # 3.2 Lymphocytes # 0.6 L Monocytes # 0.6 Eosinophils # 0.2 Basophils # 0.0 Nucleated Red Blood 0.0 Cells # Prothrombin Time 14.9 Prothrombin Time 1.2 Ratio INR International 1.16 Normalized Ratio Activated 42.0 H Partial Thromboplast Time Sodium Level 137 Potassium Level 3.9 Chloride Level 102 Carbon Dioxide Level 24 Anion Gap 11 Blood Urea Nitrogen 50 H Creatinine 7.76 H Est Glomerular Filtrat Rate mL/min Glucose Level 139 Calcium Level 7.7 L Magnesium Level 2.2 Total Bilirubin 0.2 Direct Bilirubin 0.00 Indirect Bilirubin 0.2 Aspartate Amino 34 Transf (AST/SGOT) Alanine 11 L Aminotransferase (AL T/SGPT) Alkaline Phosphatase 111 Total Protein 6.3 Albumin 3.3 Globulin 3.00 Albumin/Globulin 1.10 Ratio Bedside Glucose 134 97 Subjective 24 Hr Interval Summary Free Text/Dictation posr op left hip surgery, very slow to gt up. finishing hd now. has [facility] accepted by [facility], await ortho clearance diabetes, good control w current regimen hbp ok with increase in raina bph, sable. low colony count enterococcus, to follw without rxc at this point cdkd, stable alert, still leg [paikn. feels leg kis weak lungs clear, abd soft, wound bandages clean, no edema Musculoskeletal: bone/joint pain Exam/Review of Systems Exam Vitals Vital Signs Date Temp Pulse Resp B/P (MAP) Pulse Ox O2 O2 Flow FiO2 Time Delivery Rate 10/27/18 71 12:20 10/27/18 97.5 20 146/65 95 11:12 (92) 10/27/18 Nasal 2.0 08:30 Cannula Intake and Output 10/26/18 10/26/18 10/27/18 1515:00 23:00 07:00 IntakeIntake Total 400 ml OutputOutput Total 1 ml BalanceBalance 399 ml Results Results 24hrs Laboratory Tests Test 10/26/18 17:22 10/26/18 18:02 10/26/18 20:18 10/26/18 21:24 Bedside Glucose 110 81 83 Iron Level 48 Total Iron Binding 190 L Capacity Percent Iron 25 Saturation Test 10/27/18 05:38 10/27/18 07:32 10/27/18 11:50 White Blood Count 4.6 #L Red Blood Count 2.87 #L Hemoglobin 8.1 #L Hematocrit 24.9 #L Mean Corpuscular 86.8 Volume Mean Corpuscular 28.2 L Hemoglobin Mean Corpuscular 32.5 Hemoglobin Concent Red Cell 15.7 H Distribution Width Platelet Count 141 Mean Platelet Volume 9.3 Immature 0.400 Granulocytes % Neutrophils % 69.5 Lymphocytes % 12.1 L Monocytes % 11.9 H Eosinophils % 5.2 Basophils % 0.9 Nucleated Red Blood 0.0 Cells % Immature 0.020 Granulocytes # Neutrophils # 3.2 Lymphocytes # 0.6 L Monocytes # 0.6 Eosinophils # 0.2 Basophils # 0.0 Nucleated Red Blood 0.0 Cells # Prothrombin Time 14.9 Prothrombin Time 1.2 Ratio INR International 1.16 Normalized Ratio Activated 42.0 H Partial Thromboplast Time Sodium Level 137 Potassium Level 3.9 Chloride Level 102 Carbon Dioxide Level 24 Anion Gap 11 Blood Urea Nitrogen 50 H Creatinine 7.76 H Est Glomerular Filtrat Rate mL/min Glucose Level 139 Calcium Level 7.7 L Magnesium Level 2.2 Total Bilirubin 0.2 Direct Bilirubin 0.00 Indirect Bilirubin 0.2 Aspartate Amino 34 Transf (AST/SGOT) Alanine 11 L Aminotransferase (AL T/SGPT) Alkaline Phosphatase 111 Total Protein 6.3 Albumin 3.3 Globulin 3.00 Albumin/Globulin 1.10 Ratio Bedside Glucose 134 97 Medications Medication Current Medications IV Flush (NS 3 ml) 3 ml PER PROTOCOL IV ; Start 10/21/18 at 00:00 Ondansetron HCl (Zofran Inj) 4 mg Q6H PRN IV NAUSEA/VOMITING; Start 10/21/18 at 00:00 Morphine Sulfate (morphine) 3 mg Q4H PRN IV .SEVERE PAIN 7-10 Last administered on 10/27/18at 11:47; Admin Dose 3 MG; Start 10/21/18 at 00:00 Albuterol/ Ipratropium (Duoneb) 3 ml Q2H RESP THERAPY PRN HHN SHORTNESS OF BREATH; Start 10/21/18 at 00:00 Miscellaneous Information 1 ea NOTE XX ; Start 10/20/18 at 23:45 Glucose (Glutose) 15 gm Q15M PRN PO DECREASED GLUCOSE; Start 10/20/18 at 23:45 Glucose (Glutose) 22.5 gm Q15M PRN PO DECREASED GLUCOSE; Start 10/20/18 at 23:45 Dextrose (D50w Syringe) 25 ml Q15M PRN IV DECREASED GLUCOSE Last administered on 10/22/18at 16:22; Admin Dose 25 ML; Start 10/20/18 at 23:45 Dextrose (D50w Syringe) 50 ml Q15M PRN IV DECREASED GLUCOSE Last administered on 10/24/18at 08:17; Admin Dose 50 ML; Start 10/20/18 at 23:45 Glucagon (Glucagen) 1 mg Q15M PRN IM DECREASED GLUCOSE; Start 10/20/18 at 23:45 Glucose (Glutose) 15 gm Q15M PRN BUCCAL DECREASED GLUCOSE Last administered on 10/22/18at 15:46; Admin Dose 15 GM; Start 10/20/18 at 23:45 Diagnostic Test (Pha) (Accu-Chek) 1 ea AC MEALS XX Last administered on 10/27/18at 11:52; Admin Dose 1 EA; Start 10/21/18 at 17:35 Diagnostic Test (Pha) (Accu-Chek) 1 ea 2 HOURS AFTER MEALS XX Last administered on 10/27/18 10:02; Admin Dose 1 EA; Start 10/21/18 at 14:00 Diclofenac Sodium (Voltaren 1% Gel) 2 gm QID PRN TP PAIN; Start 10/21/18 at 17:00 Insulin Aspart (Novolog Insulin Pen) 5 unit WITH MEALS SC Last administered on 10/27/18 07:53; Admin Dose 5 UNIT; Start 10/21/18 at 17:35 Insulin Glargine (Lantus) 6 units QHS SC Last administered on 10/26/18 21:34; Admin Dose 6 UNITS; Start 10/21/18 at 21:00 Levothyroxine Sodium (Synthroid) 100 mcg BEFORE BREAKFAST PO Last administered on 10/27/18 06:44; Admin Dose 100 MCG; Start 10/22/18 at 07:00 Linagliptin (Tradjenta) 5 mg DAILY PO Last administered on 10/26/18 09:27; Admin Dose 5 MG; Start 10/22/18 at 09:00 Sevelamer Carbonate (Renvela) 1.6 gm WITH MEALS PO Last administered on 10/27/18 07:33; Admin Dose 1.6 GM; Start 10/21/18 at 17:35 Cholecalciferol (Vitamin D) 2,000 unit DAILY PO Last administered on 10/26/18 09:27; Admin Dose 2,000 UNIT; Start 10/21/18 at 16:00 Multivit/Ca Carb/ B Cmplx/FA/Prenat (Manasa-Haris) 1 tab DAILY PO Last administered on 10/26/18 09:26; Admin Dose 1 TAB; Start 10/22/18 at 09:00 Famotidine (Pepcid) 20 mg DAILY PO Last administered on 10/26/18 09:27; Admin Dose 20 MG; Start 10/22/18 at 09:00 Oxycodone HCl (Roxicodone) 10 mg Q4H PRN PO .PAIN; Start 10/25/18 at 14:30 Oxycodone HCl (Roxicodone) 5 mg Q4H PRN PO .PAIN; Start 10/25/18 at 14:30 Hydromorphone HCl (Dilaudid) 1 mg Q3H PRN IV .BREAKTHROUGH PAIN; Start 10/25/18 at 14:30 IV Flush (NS 3 ml) 3 ml per protocol IV ; Start 10/24/18 at 17:30 Enoxaparin Sodium (Lovenox) 30 mg DAILY SC Last administered on 10/26/18at 09:40; Admin Dose 30 MG; Start 10/25/18 at 09:00 Dextrose/Sodium Chloride 1,000 ml @ 75 mls/hr [id number] IV Last administered on 10/26/18at 22:53; Admin Dose 75 MLS/HR; Start 10/24/18 at 21:30 Insulin Aspart (Novolog Insulin Pen) NOVOLOG *MILD* ALGORITHM WITH MEALS BEDTIME SC Last administered on 10/26/18at 12:06; Admin Dose 1 UNIT; Start 10/25/18 at 07:55 Benazepril HCl (Lotensin) 40 mg BID PO Last administered on 10/26/18at 21:32; Admin Dose 40 MG; Start 10/26/18 at 21:00 Albumin Human 100 ml @ 100 mls/hr WITH DIALYSIS PRN IV SBP <90 DURING DIALY SIS; Start 10/27/18 at 08:30 SRIDHAR LUO MD Oct 27, 2018 12:54
[2018-10-27] MEDS: BALSAM PERU/CASTOR OIL 60 GM TUBE TOP SCH (14:59)
[2018-10-27] MEDS: DEXTROSE 5%-0.45% NACL 1,000 ML IV SCH (16:04)
[2018-10-27] MEDS: INSULIN GLARGINE [LANTus] (100 UNITS/ML) SYG SC SCH (20:59)
[2018-10-28 00:05] VITALS: BP 170/71; PULSE 76; RESP 19
[2018-10-28] MEDS: morphine 2 MG INJ IV PRN (00:08)
[2018-10-28 01:45] VITALS: BP 156/69; PULSE 77
[2018-10-28] MEDS: BALSAM PERU/CASTOR OIL 60 GM TUBE TOP SCH ×3 (04:57→20:22)
[2018-10-28] MEDS: LEVOTHYROXINE 100 MCG TAB PO SCH (06:48)
[2018-10-28 07:28] VITALS: BP 148/67; PULSE 71; RESP 20
[2018-10-28] MEDS: INSULIN ASPART [NOVOLOG] 3 ML PEN SC SCH ×7 (07:55→20:22)
[2018-10-28] MEDS: ACCU-CHEK XX SCH ×6 (08:05→20:22)
[2018-10-28] MEDS: BENAZEPRIL 20 MG TAB PO SCH ×2 (08:38→20:17)
[2018-10-28] MEDS: CHOLECALCIFEROL 2,000 UNIT CAP PO SCH (08:38)
[2018-10-28] MEDS: MULTIVIT/CA CARB/B CMPLX/FA TAB PO SCH (08:38)
[2018-10-28] MEDS: LINAGLIPTIN 5 MG TABLET PO SCH (08:38)
[2018-10-28] MEDS: FAMOTIDINE 20 MG TAB PO SCH (08:38)
[2018-10-28] MEDS: SEVELAMER CARBONATE 0.8 GM PKT PO SCH ×3 (08:39→17:11)
[2018-10-28] MEDS: ENOXAPARIN 30 MG/0.3 ML SYG SC SCH (08:40)
[2018-10-28 11:37] VITALS: BP 150/67; PULSE 71; RESP 18
--- NOTE | 2018-10-28 13:38 | PN ---
Date/Time of Note Date/Time of Note DATE: 10/28/18 TIME: 13:35 Assessment/Plan VTE Prophylaxis Risk score (from Ns)>0 risk: 3 SCD applied (from Ns): Yes Pharmacological prophylaxis: heparin Lines/Catheters IV C[facility] Type (from [facility] [place] Urinary Cath still in place: No Assessment/Plan Problems: (1) Closed fracture of left hip requiring operative repair Onset Date: ~ 10/24/2018 Status: Acute Comment: Has progressed nicely and is now cleared to go to the acute rehabilitation unit. Plans for him to go there tomorrow. I will recheck his CBC at this time Qualifiers: Encounter type: initial encounter Qualified Codes: S72.002A - Fracture of unspecified part of neck of left femur, initial encounter for closed fracture (2) Secondary hyperparathyroidism of renal origin Status: Chronic Comment: Noted. 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 He reports he has pain at the surgical repair site but otherwise is doing well. He reports he is not having any further bleeding into the dressing Constitutional: no complaints (Denies fevers chills or sweats) Eyes: no complaints Cardiovascular: no complaints Gastrointestinal: no complaints Genitourinary: no complaints Musculoskeletal: other (Pain left hip) Exam/Review of Systems Exam Vitals Vital Signs Date Temp Pulse Resp B/P (MAP) Pulse Ox O2 O2 Flow FiO2 Time Delivery Rate 10/28/18 97.4 71 18 150/67 100 Nasal 11:37 (94) Cannula 10/28/18 2.0 27 02:05 Intake and Output 10/27/18 10/27/18 10/28/18 1515:00 23:00 07:00 IntakeIntake Total 840 ml OutputOutput Total 3600 ml BalanceBalance -2760 ml Constitutional: alert, oriented Respiratory: clear to auscultation, normal air movement Cardiovascular: regular rate and rhythm, nl pulses Gastrointestinal: soft, nl liver, spleen, non-tender Results Results 24hrs Laboratory Tests Test 10/27/18 17:13 10/27/18 19:55 10/27/18 20:45 10/28/18 01:50 Bedside Glucose 146 99 75 99 Test 10/28/18 08:05 10/28/18 10:00 10/28/18 11:37 Bedside Glucose 107 88 83 Medications Medication Current Medications IV Flush (NS 3 ml) 3 ml PER PROTOCOL IV ; Start 10/21/18 at 00:00 Ondansetron HCl (Zofran Inj) 4 mg Q6H PRN IV NAUSEA/VOMITING; Start 10/21/18 at 00:00 Morphine Sulfate (morphine) 3 mg Q4H PRN IV .SEVERE PAIN 7-10 Last administered on 10/28/18at 00:08; Admin Dose 3 MG; Start 10/21/18 at 00:00 Albuterol/ Ipratropium (Duoneb) 3 ml Q2H RESP THERAPY PRN HHN SHORTNESS OF BREATH; Start 10/21/18 at 00:00 Miscellaneous Information 1 ea NOTE XX ; Start 10/20/18 at 23:45 Glucose (Glutose) 15 gm Q15M PRN PO DECREASED GLUCOSE; Start 10/20/18 at 23:45 Glucose (Glutose) 22.5 gm Q15M PRN PO DECREASED GLUCOSE; Start 10/20/18 at 23:45 Dextrose (D50w Syringe) 25 ml Q15M PRN IV DECREASED GLUCOSE Last administered on 10/22/18at 16:22; Admin Dose 25 ML; Start 10/20/18 at 23:45 Dextrose (D50w Syringe) 50 ml Q15M PRN IV DECREASED GLUCOSE Last administered on 10/24/18 08:17; Admin Dose 50 ML; Start 10/20/18 at 23:45 Glucagon (Glucagen) 1 mg Q15M PRN IM DECREASED GLUCOSE; Start 10/20/18 at 23:45 Glucose (Glutose) 15 gm Q15M PRN BUCCAL DECREASED GLUCOSE Last administered on 10/22/18 15:46; Admin Dose 15 GM; Start 10/20/18 at 23:45 Diagnostic Test (Pha) (Accu-Chek) 1 ea AC MEALS XX Last administered on 10/28/18 11:40; Admin Dose 1 EA; Start 10/21/18 at 17:35 Diagnostic Test (Pha) (Accu-Chek) 1 ea 2 HOURS AFTER MEALS XX Last administ ered on 10/28/18 10:01; Admin Dose 1 EA; Start 10/21/18 at 14:00 Diclofenac Sodium (Voltaren 1% Gel) 2 gm QID PRN TP PAIN; Start 10/21/18 at 17:00 Insulin Aspart (Novolog Insulin Pen) 5 unit WITH MEALS SC Last administered on 10/28/18 11:44; Admin Dose 5 UNIT; Start 10/21/18 at 17:35 Insulin Glargine (Lantus) 6 units QHS SC Last administered on 10/27/18 20:59; Admin Dose 6 UNITS; Start 10/21/18 at 21:00 Levothyroxine Sodium (Synthroid) 100 mcg BEFORE BREAKFAST PO Last administered on 10/28/18 06:48; Admin Dose 100 MCG; Start 10/22/18 at 07:00 Linagliptin (Tradjenta) 5 mg DAILY PO Last administered on 10/28/18 08:38; Admin Dose 5 MG; Start 10/22/18 at 09:00 Sevelamer Carbonate (Renvela) 1.6 gm WITH MEALS PO Last administered on 10/28/18 11:40; Admin Dose 1.6 GM; Start 10/21/18 at 17:35 Cholecalciferol (Vitamin D) 2,000 unit DAILY PO Last administered on 10/28/18 08:38; Admin Dose 2,000 UNIT; Start 10/21/18 at 16:00 Multivit/Ca Carb/ B Cmplx/FA/Prenat (Manasa-Haris) 1 tab DAILY PO Last administered on 10/28/18 08:38; Admin Dose 1 TAB; Start 10/22/18 at 09:00 Famotidine (Pepcid) 20 mg DAILY PO Last administered on 10/28/18at 08:38; Admin Dose 20 MG; Start 10/22/18 at 09:00 Oxycodone HCl (Roxicodone) 10 mg Q4H PRN PO .PAIN; Start 10/25/18 at 14:30 Oxycodone HCl (Roxicodone) 5 mg Q4H PRN PO .PAIN; Start 10/25/18 at 14:30 Hydromorphone HCl (Dilaudid) 1 mg Q3H PRN IV .BREAKTHROUGH PAIN; Start 10/25/18 at 14:30 IV Flush (NS 3 ml) 3 ml per protocol IV ; Start 10/24/18 at 17:30 Enoxaparin Sodium (Lovenox) 30 mg DAILY SC Last administered on 10/28/18at 08:40; Admin Dose 30 MG; Start 10/25/18 at 09:00 Insulin Aspart (Novolog Insulin Pen) NOVOLOG *MILD* ALGORITHM WITH MEALS BEDTIME SC Last administered on 10/27/18 17:18; Admin Dose 1 UNIT; Start 10/25/18 at 07:55 Benazepril HCl (Lotensin) 40 mg BID PO Last administered on 10/28/18 08:38; Admin Dose 40 MG; Start 10/26/18 at 21:00 Albumin Human 100 ml @ 100 mls/hr WITH DIALYSIS PRN IV SBP <90 DURING DIALY SIS; Start 10/27/18 at 08:30 Amoxicillin/ Clavulanate Potassium (Augmentin) 875 mg BID PO ; Start 10/28/18 at 14:00; Stop 11/04/18 at 13:59; Status LUISANA HEDRICK MD Oct 28, 2018 13:38
[2018-10-28] MEDS ORDERED: EPOETIN ALFA-EPBX (ESRD) 10,000 UNIT/ML VIAL SC ONE (14:00)
[2018-10-28] MEDS ORDERED: EPOETIN ALFA-EPBX (ESRD) 3,000 UNIT/ML VIAL SC ONE (14:00)
[2018-10-28] MEDS: AMOXICILLIN/CLAV 875 MG TAB PO SCH ×2 (15:05→20:10)
[2018-10-28 15:32] VITALS: BP 140/55; PULSE 74; RESP 18
--- NOTE | 2018-10-28 16:51 | CONS ---
Assessment/Plan Assessment/Plan Assessment/Plan (Daily) 1. ESRD on HD MWF AVF for HD Access 2. S/p Mechanical Fall 3. left femur fracture s/p ORIF of left hip intertrochanteric fracture on 10/24/18 4. H/o HTN 5. H/o HL 6. H/o Hypothyroidism Plan: S/p HD yesterday 3 L removed - pt regular schedule for HD is MW, next HD will be on Tuesday if pt stays here Post op care as per orthopedic Continue other Home BP Meds will follow up Patient seen in collaboration eith Dr Alecia Madden Consultation Date/Type/Reason Admit Date/Time Oct 20, 2018 at 23:12 Initial Consult Date 10/23/18 Type of Consult NEPHRO Reason for Consultation ESRD Requesting Provider: LUISANA RICHARDS MD Date/Time of Note DATE: 10/28/18 TIME: 16:51 24 HR Interval Summary Free Text/Dictation nad afebrile; feels better; sitting up im bed; wants to go home HD- MWF Family at bed side- all Qs answered Detailed Summary Eyes: no complaints ENT: no complaints Respiratory: no complaints Cardiovascular: no complaints Gastrointestinal: no complaints Genitourinary: no complaints Musculoskeletal: other (general weakness) Skin: no complaints Neurologic: no complaints Exam/Review of Systems Exam Vitals Vital Signs Date Temp Pulse Resp B/P (MAP) Pulse Ox O2 O2 Flow FiO2 Time Delivery Rate 10/28/18 97.4 74 18 140/55 96 Room Air 15:32 (83) 10/28/18 2.0 27 02:05 Intake and Output 10/27/18 10/27/18 10/28/18 1515:00 23:00 07:00 IntakeIntake Total 840 ml OutputOutput Total 3600 ml BalanceBalance -2760 ml Constitutional: alert Psych: nl mood/affect Eyes: nl lids, nl sclera ENMT: nl external ears & nose Neck: non-tender Respiratory: clear to auscultation Cardiovascular: nl pulses, other (S1S2 ; AVF intact) Gastrointestinal: soft, non-tender Musculoskeletal: joint tenderness, range of motion (Left hip -DDI) 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: other (alert) Lymph: nontender Results Result Diagram: 10/28/18 1348 10/27/18 0538 Results 24hrs Laboratory Tests Test 10/27/18 17:13 10/27/18 19:55 10/27/18 20:45 10/28/18 01:50 Bedside Glucose 146 99 75 99 Test 10/28/18 08:05 10/28/18 10:00 10/28/18 11:37 10/28/18 13:48 Bedside Glucose 107 88 83 White Blood Count 5.2 Red Blood Count 3.12 L Hemoglobin 8.8 L Hematocrit 27.2 L Mean Corpuscular 87.2 Volume Mean Corpuscular 28.2 L Hemoglobin Mean Corpuscular 32.4 Hemoglobin Concent Red Cell 15.5 H Distribution Width Platelet Count 167 Mean Platelet Volume 9.3 Immature 0.400 Granulocytes % Neutrophils % 70.6 Lymphocytes % 10.7 L Monocytes % 11.6 H Eosinophils % 5.7 Basophils % 1.0 Nucleated Red Blood 0.0 Cells % Immature 0.020 Granulocytes # Neutrophils # 3.7 Lymphocytes # 0.6 L Monocytes # 0.6 Eosinophils # 0.3 Basophils # 0.1 Nucleated Red Blood 0.0 Cells # Test 10/28/18 14:01 Bedside Glucose 72 Medications Medication Current Medications IV Flush (NS 3 ml) 3 ml PER PROTOCOL IV ; Start 10/21/18 at 00:00 Ondansetron HCl (Zofran Inj) 4 mg Q6H PRN IV NAUSEA/VOMITING; Start 10/21/18 at 00:00 Morphine Sulfate (morphine) 3 mg Q4H PRN IV .SEVERE PAIN 7-10 Last administered on 10/28/18at 00:08; Admin Dose 3 MG; Start 10/21/18 at 00:00 Albuterol/ Ipratropium (Duoneb) 3 ml Q2H RESP THERAPY PRN HHN SHORTNESS OF BREATH; Start 10/21/18 at 00:00 Miscellaneous Information 1 ea NOTE XX ; Start 10/20/18 at 23:45 Glucose (Glutose) 15 gm Q15M PRN PO DECREASED GLUCOSE; Start 10/20/18 at 23:45 Glucose (Glutose) 22.5 gm Q15M PRN PO DECREASED GLUCOSE; Start 10/20/18 at 23:45 Dextrose (D50w Syringe) 25 ml Q15M PRN IV DECREASED GLUCOSE Last administered on 10/22/18at 16:22; Admin Dose 25 ML; Start 10/20/18 at 23:45 Dextrose (D50w Syringe) 50 ml Q15M PRN IV DECREASED GLUCOSE Last administered on 10/24/18 08:17; Admin Dose 50 ML; Start 10/20/18 at 23:45 Glucagon (Glucagen) 1 mg Q15M PRN IM DECREASED GLUCOSE; Start 10/20/18 at 23:45 Glucose (Glutose) 15 gm Q15M PRN BUCCAL DECREASED GLUCOSE Last administered on 10/22/18 15:46; Admin Dose 15 GM; Start 10/20/18 at 23:45 Diagnostic Test (Pha) (Accu-Chek) 1 ea AC MEALS XX Last administered on 10/28/18 11:40; Admin Dose 1 EA; Start 10/21/18 at 17:35 Diagnostic Test (Pha) (Accu-Chek) 1 ea 2 HOURS AFTER MEALS XX Last administered on 10/28/18 14:04; Admin Dose 1 EA; Start 10/21/18 at 14:00 Diclofenac Sodium (Voltaren 1% Gel) 2 gm QID PRN TP PAIN; Start 10/21/18 at 17:00 Insulin Aspart (Novolog Insulin Pen) 5 unit WITH MEALS SC Last administered on 10/28/18 11:44; Admin Dose 5 UNIT; Start 10/21/18 at 17:35 Insulin Glargine (Lantus) 6 units QHS SC Last administered on 10/27/18 20:59; Admin Dose 6 UNITS; Start 10/21/18 at 21:00 Levothyroxine Sodium (Synthroid) 100 mcg BEFORE BREAKFAST PO Last administered on 10/28/18 06:48; Admin Dose 100 MCG; Start 10/22/18 at 07:00 Linagliptin (Tradjenta) 5 mg DAILY PO Last administered on 10/28/18 08:38; Admin Dose 5 MG; Start 10/22/18 at 09:00 Sevelamer Carbonate (Renvela) 1.6 gm WITH MEALS PO Last administered on 10/28/18 11:40; Admin Dose 1.6 GM; Start 10/21/18 at 17:35 Cholecalciferol (Vitamin D) 2,000 unit DAILY PO Last administered on 10/28/18 08:38; Admin Dose 2,000 UNIT; Start 10/21/18 at 16:00 Multivit/Ca Carb/ B Cmplx/FA/Prenat (Manasa-Haris) 1 tab DAILY PO Last administered on 10/28/18 08:38; Admin Dose 1 TAB; Start 10/22/18 at 09:00 Famotidine (Pepcid) 20 mg DAILY PO Last administered on 10/28/18 08:38; Admin Dose 20 MG; Start 10/22/18 at 09:00 Oxycodone HCl (Roxicodone) 10 mg Q4H PRN PO .PAIN Last administered on 10/28 14:21; Admin Dose 10 MG; Start 10/25/18 at 14:30 Oxycodone HCl (Roxicodone) 5 mg Q4H PRN PO .PAIN; Start 10/25/18 at 14:30 Hydromorphone HCl (Dilaudid) 1 mg Q3H PRN IV .BREAKTHROUGH PAIN; Start 10/25/18 at 14:30 IV Flush (NS 3 ml) 3 ml per protocol IV ; Start 10/24/18 at 17:30 Enoxaparin Sodium (Lovenox) 30 mg DAILY SC Last administered on 10/28/18 08:40; Admin Dose 30 MG; Start 10/25/18 at 09:00 Insulin Aspart (Novolog Insulin Pen) NOVOLOG *MILD* ALGORITHM WITH MEALS BEDTIME SC Last administered on 10/27/18 17:18; Admin Dose 1 UNIT; Start 10/25/18 at 07:55 Benazepril HCl (Lotensin) 40 mg BID PO Last administered on 10/28/18 08:38; Admin Dose 40 MG; Start 10/26/18 at 21:00 Albumin Human 100 ml @ 100 mls/hr WITH DIALYSIS PRN IV SBP <90 DURING DIALYSIS; Start 10/27/18 at 08:30 Amoxicillin/ Clavulanate Potassium (Augmentin) 875 mg BID PO Last administered on 10/28/18at 15:05; Admin Dose 875 MG; Start 10/28/18 at 14:00; Stop 11/04/18 at 13:59 ELEUTERIO GOODMAN Oct 28, 2018 16:51
[2018-10-28 20:00] VITALS: BP 156/68; PULSE 77; PULSE 79; RESP 18
[2018-10-28] MEDS: INSULIN GLARGINE [LANTus] (100 UNITS/ML) SYG SC SCH (20:21)
[2018-10-29] VITALS: BP 150/69; PULSE 77; PULSE 79; RESP 18
[2018-10-29 04:00] VITALS: BP 155/72; PULSE 74; PULSE 77; RESP 18
[2018-10-29] MEDS: LEVOTHYROXINE 100 MCG TAB PO SCH (06:02)
[2018-10-29 07:12] VITALS: BP 156/64; PULSE 78; RESP 16
[2018-10-29] MEDS: ACCU-CHEK XX SCH ×6 (07:55→19:55)
[2018-10-29] MEDS: INSULIN ASPART [NOVOLOG] 3 ML PEN SC SCH ×7 (07:55→21:00)
[2018-10-29] MEDS: ENOXAPARIN 30 MG/0.3 ML SYG SC SCH (08:00)
[2018-10-29] MEDS: LINAGLIPTIN 5 MG TABLET PO SCH (08:15)
[2018-10-29] MEDS: CHOLECALCIFEROL 2,000 UNIT CAP PO SCH (08:15)
[2018-10-29] MEDS: AMOXICILLIN/CLAV 875 MG TAB PO SCH ×2 (08:15→21:07)
[2018-10-29] MEDS: SEVELAMER CARBONATE 0.8 GM PKT PO SCH ×3 (08:15→17:08)
[2018-10-29] MEDS: MULTIVIT/CA CARB/B CMPLX/FA TAB PO SCH (08:15)
[2018-10-29] MEDS: FAMOTIDINE 20 MG TAB PO SCH (08:15)
[2018-10-29] MEDS: BENAZEPRIL 20 MG TAB PO SCH ×2 (08:16→21:07)
[2018-10-29] MEDS: BALSAM PERU/CASTOR OIL 60 GM TUBE TOP SCH ×2 (08:18→21:20)
--- NOTE | 2018-10-29 11:07 | CONS ---
Assessment/Plan Assessment/Plan Assessment/Plan (Daily) 1. ESRD on HD MWF AVF for HD Access 2. S/p Mechanical Fall 3. left femur fracture s/p ORIF of left hip intertrochanteric fracture on 10/24/18 4. H/o HTN 5. H/o HL 6. H/o Hypothyroidism Plan: S/p HD yesterday 3 L removed - pt regular schedule for HD is MW, next HD will be on Tuesday if pt stays here Post op care as per orthopedic Continue other Home BP Meds will follow up Patient seen in collaboration with Dr Alecia Madden Consultation Date/Type/Reason Admit Date/Time Oct 20, 2018 at 23:12 Initial Consult Date 10/23/18 Type of Consult NEPHRO Reason for Consultation ESRD on HD Requesting Provider: LUISANA RICHARDS MD Date/Time of Note DATE: 10/29/18 TIME: 10:58 24 HR Interval Summary Free Text/Dictation nad afebrile; feels better; resting in bed; wants to go home HD- MWF Family at bed side- all Qs answered Detailed Summary Eyes: no complaints ENT: no complaints Respiratory: no complaints Cardiovascular: no complaints Gastrointestinal: no complaints Genitourinary: no complaints Musculoskeletal: other (general weakness) Skin: no complaints Neurologic: no complaints Endocrine: no complaints Lymphatic: no complaints Psychological: nl mood/affect Exam/Review of Systems Exam Vitals Vital Signs Date Temp Pulse Resp B/P (MAP) Pulse Ox O2 O2 Flow FiO2 Time Delivery Rate 10/29/18 Nasal 2.0 08:00 Cannula 10/29/18 97.8 78 16 156/64 99 07:12 (94) 10/28/18 27 02:05 Intake and Output 10/28/18 10/28/18 10/29/18 1515:00 23:00 07:00 IntakeIntake Total 480 ml 240 ml BalanceBalance 480 ml 240 ml Constitutional: alert, well developed Psych: nl mood/affect Head: normocephalic Eyes: nl lids, nl sclera ENMT: nl external ears & nose Neck: non-tender Respiratory: clear to auscultation Cardiovascular: nl pulses, other (s1s2, AVF intact) Gastrointestinal: soft, non-tender Musculoskeletal: joint tenderness, range of motion (left hip DDI) Extremities: normal pulses 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: other (alert/reponsive) Lymph: nontender Results Result Diagram: 10/28/18 1348 10/27/18 0538 Results 24hrs Laboratory Tests Test 10/28/18 11:37 10/28/18 13:48 10/28/18 14:01 10/28/18 17:10 Bedside Glucose 83 72 90 White Blood Count 5.2 Red Blood Count 3.12 L Hemoglobin 8.8 L Hematocrit 27.2 L Mean Corpuscular 87.2 Volume Mean Corpuscular 28.2 L Hemoglobin Mean Corpuscular 32.4 Hemoglobin Concent Red Cell 15.5 H Distribution Width Platelet Count 167 Mean Platelet Volume 9.3 Immature 0.400 Granulocytes % Neutrophils % 70.6 Lymphocytes % 10.7 L Monocytes % 11.6 H Eosinophils % 5.7 Basophils % 1.0 Nucleated Red Blood 0.0 Cells % Immature 0.020 Granulocytes # Neutrophils # 3.7 Lymphocytes # 0.6 L Monocytes # 0.6 Eosinophils # 0.3 Basophils # 0.1 Nucleated Red Blood 0.0 Cells # Test 10/28/18 20:19 10/29/18 07:53 10/29/18 10:15 Bedside Glucose 80 114 94 Medications Medication Current Medications IV Flush (NS 3 ml) 3 ml PER PROTOCOL IV ; Start 10/21/18 at 00:00 Ondansetron HCl (Zofran Inj) 4 mg Q6H PRN IV NAUSEA/VOMITING; Start 10/21/18 at 00:00 Morphine Sulfate (morphine) 3 mg Q4H PRN IV .SEVERE PAIN 7-10 Last administered on 10/28/18at 00:08; Admin Dose 3 MG; Start 10/21/18 at 00:00 Albuterol/ Ipratropium (Duoneb) 3 ml Q2H RESP THERAPY PRN HHN SHORTNESS OF BREATH; Start 10/21/18 at 00:00 Miscellaneous Information 1 ea NOTE XX ; Start 10/20/18 at 23:45 Glucose (Glutose) 15 gm Q15M PRN PO DECREASED GLUCOSE; Start 10/20/18 at 23:45 Glucose (Glutose) 22.5 gm Q15M PRN PO DECREASED GLUCOSE; Start 10/20/18 at 2 3:45 Dextrose (D50w Syringe) 25 ml Q15M PRN IV DECREASED GLUCOSE Last administered on 10/22/18at 16:22; Admin Dose 25 ML; Start 10/20/18 at 23:45 Dextrose (D50w Syringe) 50 ml Q15M PRN IV DECREASED GLUCOSE Last administered on 10/24/18 08:17; Admin Dose 50 ML; Start 10/20/18 at 23:45 Glucagon (Glucagen) 1 mg Q15M PRN IM DECREASED GLUCOSE; Start 10/20/18 at 23:45 Glucose (Glutose) 15 gm Q15M PRN BUCCAL DECREASED GLUCOSE Last administered on 10/22/18 15:46; Admin Dose 15 GM; Start 10/20/18 at 23:45 Diagnostic Test (Pha) (Accu-Chek) 1 ea AC MEALS XX Last administered on 10/29/18 07:55; Admin Dose 1 EA; Start 10/21/18 at 17:35 Diagnostic Test (Pha) (Accu-Chek) 1 ea 2 HOURS AFTER MEALS XX Last administered on 10/29/18 10:15; Admin Dose 1 EA; Start 10/21/18 at 14:00 Diclofenac Sodium (Voltaren 1% Gel) 2 gm QID PRN TP PAIN; Start 10/21/18 at 17:00 Insulin Aspart (Novolog Insulin Pen) 5 unit WITH MEALS SC Last administered on 10/29/18 08:01; Admin Dose 5 UNIT; Start 10/21/18 at 17:35 Insulin Glargine (Lantus) 6 units QHS SC Last administered on 10/27/18 20:59; Admin Dose 6 UNITS; Start 10/21/18 at 21:00 Levothyroxine Sodium (Synthroid) 100 mcg BEFORE BREAKFAST PO Last administered on 10/29/18 06:02; Admin Dose 100 MCG; Start 10/22/18 at 07:00 Linagliptin (Tradjenta) 5 mg DAILY PO Last administered on 10/29/18 08:15; Admin Dose 5 MG; Start 10/22/18 at 09:00 Sevelamer Carbonate (Renvela) 1.6 gm WITH MEALS PO Last administered on 10/29/18 08:15; Admin Dose 1.6 GM; Start 10/21/18 at 17:35 Cholecalciferol (Vitamin D) 2,000 unit DAILY PO Last administered on 10/29/18 08:15; Admin Dose 2,000 UNIT; Start 10/21/18 at 16:00 Multivit/Ca Carb/ B Cmplx/FA/Prenat (Manasa-Haris) 1 tab DAILY PO Last administered on 10/29/18 08:15; Admin Dose 1 TAB; Start 10/22/18 at 09:00 Famotidine (Pepcid) 20 mg DAILY PO Last administered on 10/29/18 08:15; Admin Dose 20 MG; Start 10/22/18 at 09:00 Oxycodone HCl (Roxicodone) 10 mg Q4H PRN PO .PAIN Last administered on 10/28/18 at 14:21; Admin Dose 10 MG; Start 10/25/18 at 14:30 Oxycodone HCl (Roxicodone) 5 mg Q4H PRN PO .PAIN; Start 10/25/18 at 14:30 Hydromorphone HCl (Dilaudid) 1 mg Q3H PRN IV .BREAKTHROUGH PAIN; Start 10/25/18 at 14:30 IV Flush (NS 3 ml) 3 ml per protocol IV ; Start 10/24/18 at 17:30 Enoxaparin Sodium (Lovenox) 30 mg DAILY SC Last administered on 10/29/18 08:00; Admin Dose 30 MG; Start 10/25/18 at 09:00 Insulin Aspart (Novolog Insulin Pen) NOVOLOG *MILD* ALGORITHM WITH MEALS BEDTIME SC Last administered on 10/27/18 17:18; Admin Dose 1 UNIT; Start 10/25/18 at 07:55 Benazepril HCl (Lotensin) 40 mg BID PO Last administered on 10/29/18at 08:16; Admin Dose 40 MG; Start 10/26/18 at 21:00 Albumin Human 100 ml @ 100 mls/hr WITH DIALYSIS PRN IV SBP <90 DURING DIALYSIS; Start 10/27/18 at 08:30 Amoxicillin/ Clavulanate Potassium (Augmentin) 875 mg BID PO Last administered on 10/29/18 08:15; Admin Dose 875 MG; Start 10/28/18 at 14:00; Stop 11/04/18 at 13:59 ELEUTERIO GOODMAN Oct 29, 2018 11:07
[2018-10-29 11:39] VITALS: BP 150/70; PULSE 78; RESP 20
--- NOTE | 2018-10-29 11:57 | DS ---
Date/Time of Note Date/Time of Note DATE: 10/29/18 TIME: 11:46 Discharge Summary Admission/Discharge Info Admit Date/Time Oct 20, 2018 at 23:12 Discharge Date/Time October 29, 2018 Discharge Diagnosis Ground-level fall with left hip fracture; end-stage renal disease on CHD 3 times weekly; diabetes mellitus type 2; diabetic peripheral vascular disease; diabetic peripheral neuropathy; diabetic retinopathy; hypothyroidism; secondary hyperparathyroidism; prostatic hypertrophy; hypertension; hyperlipidemia Patient Condition: Fair Consults Orthopedic surgery-Dr. Acuña; nephrology-Dr. Anita Madden; Procedures Operative repair left hip POSTOPERATIVE DIAGNOSIS: Intertrochanteric fracture of the left hip. OPERATION PERFORMED: Open reduction and internal fixation of intertrochanteric fracture of the left hip. Abdominal pelvic CT scan IMPRESSION: 1. Mild atelectasis at the lung bases. 2. Cardiomegaly. 3. Probable anemia. 4. Status post cholecystectomy. 5. Splenomegaly. 6. Atrophic kidneys consistent with chronic renal failure. 7. Marked atherosclerosis. 8. Multiple small retroperitoneal lymph nodes, nonspecific. 9. Left inguinal lymphadenopathy measuring 3.4 x 2.9 cm. 10. Enlarged prostate. 11. Moderate ascites, unchanged. 12. Otherwise unremarkable noncontrast CT scan of the abdomen and pelvis. Hemodialysis Hx of Present Illness Hx of Present Illness Patient is a 81-year-old male with a history of ESRD on HD, hypertension, hypothyroidism, diabetes, choledocholithiasis status post ERCP stent, left ankle ORIF, PVD, ischemic bowel. Patient was brought to the ER with the left hip pain status post slip and fall accident. HPI This is a 73-year-old male who has a past medical history of type 2 diabetes mellitus, end-stage renal disease on hemodialysis every Tuesday and Tuesday, hypertension hyperlipidemia peripheral vascular disease and presents to the emergency department after he had a mechanical slip and fall onto a hardwood surface just prior to arrival. The patient landed on his left hip. He is complaining of severe pain. He stated he did not hit his head or lose consciousness. He was unable to get up due to the pain of the left hip. The patient is on Plavix. His primary care physician is Dr. Rodrigues. He states the pain is 10 out of 10 in intensity on his left hip which is exacerbated by movement. The pain does radiate to his left femur. He denies headache. He has no neck pain. He denies any pain in his chest or abdomen. HISTORY OF PRESENT ILLNESS: The patient is a 74-year-old male who was admitted on 10/20/2018 when he was brought into the emergency room because of the painful limit of motion involving his left hip. According to the patient, he had a slip and fall at home landing on his left buttock. Following the fall, he was not able to stand up or walk. He is known to have multiple medical problems including end-stage renal disease on hemodialysis, hypertension, diabetes m ellitus, choledocholithiasis, status post ERCP and stent placement, left ankle ORIF, history of ischemic bowel. Hx of Present Illness 81-year-old male with a history of ESRD on HD, hypertension, hypothyroidism, diabetes, choledocholithiasis status post ERCP stent, left ankle ORIF, PVD, ischemic bowel. Patient was brought to the ER with the left hip pain status post slip and fall accident. Pelvic x-ray shows -Nondisplaced intertrochanteric left femoral neck fracture. Orthopedic surgery has been consulted on the case and Renal has been consulted for emergency HD prior to surgery today Hospital Course 73-year-old gentleman on chronic hemodialysis for end-stage renal disease. He had a ground-level fall and suffered a left hip fracture. Is brought into the hospital stabilized. He had hemodialysis through Dr. Richy Madden prior to surgery and throughout his hospital course. Had successful surgical reduction of the fracture. He is now being transferred to the acute rehabilitation unit for ongoing care and rehabilitation. His rehabilitation potential is viewed to be good. He has capacity for medical decision-making at this time. Home Meds Active Scripts Insulin Aspart* (Novolog Insulin Pen*) 100 Unit/Ml Soln, 5 UNIT SC WITH MEALS for 30 Days, #2 SYR 5 Refills Prov:PETE RODRIGUES MD 11/08/17 Diclofenac Sodium (Diclofenac Sodium) 100 Gm Gel..gram., 2 GM TP QID PRN for PAIN for 30 Days, #1 TUB 5 Refills Prov:PETE RODRIGUES MD 11/08/17 Benazepril Hcl* (Benazepril Hcl*) 20 Mg Tablet, 20 MG PO BID for 30 Days, #60 TAB 5 Refills Prov:PETE RODRIGUES MD 11/08/17 Reported Medications Hydrocodone/Acetaminophen ([place] 5-325 Tablet) 1 Each Tablet, 1 EACH PO, TAB 10/31/17 Hydrocodone/Acetaminophen ([place] 10-325 Tablet) 1 Each Tablet, 1 EACH PO Q6H, TAB 10/15/17 Clopidogrel Bisulfate (Clopidogrel) 75 Mg Tablet, 75 MG PO DAILY, #30 TAB 10/15/17 Sevelamer Carbonate* (Renvela*) 800 Mg Tablet, 1600 MG PO WITH MEALS, TAB 10/15/17 Pyridoxine Hcl* (Pyridoxine Hcl*) 100 Mg Tablet, 100 MG PO DAILY, TAB 10/15/17 Levothyroxine Sodium* (Levothyroxine Sodium*) 100 Mcg Tablet, 100 MCG PO BEFORE BREAKFAST, #30 TAB 10/15/17 Insulin Detemir (Levemir) 100 Unit/1 Ml Vial, 0 SC* QHS INJECT 12-14 UNITS QHS 10/15/17 Insulin Aspart* (Novolog Insulin Pen*) 100 Unit/Ml Soln, 0 SC .SLIDING SCALE AC, EA AC MEALS 10/15/17 Cholecalciferol (Vitamin D3) (Vitamin D-3) 2,000 Unit Tablet, 2000 UNIT PO DAILY, TAB 10/15/17 Aspirin* (Aspirin* EC) 81 Mg Tablet.dr, 81 MG PO DAILY, TAB 10/15/17 Linagliptin (TRADJENTA) 5 Mg Tablet, 5 MG PO DAILY, TAB 10/15/17 [Nephro-Haris] No Conflict Check, 1 TAB PO DAILY 10/15/17 Follow-up Plan Transfer to the acute rehabilitation unit. Continue with hemodialysis. Primary Care Provider Pete Rodrigues MD Time spent on discharge: > 30 minutes Pending Labs Laboratory Tests Test 10/28/18 13:48 10/28/18 14:01 10/28/18 17:10 10/28/18 20:19 White Blood 5.2 Count 10^3/ul (4.8-10 .8) Red Blood 3.12 Count 10^6/ul (4.70-6 .10) Hemoglobin 8.8 g/dl (14.0-18.0 ) Hematocrit 27.2 % (42.0-52.0) Mean 87.2 Corpuscular fl (82.0-101.0) Volume Mean 28.2 Corpuscular pg (29.0-33.0) Hemoglobin Mean 32.4 Corpuscular g/dl (32.0-37.0 Hemoglobin Conc ) ent Red Cell 15.5 Distribution % (11.5-14.5) Width Platelet Count 167 10^3/UL (140-41 5) Mean Platelet 9.3 Volume fl (7.4-10.4) Immature 0.400 Granulocytes % % (0.001-0.429) Neutrophils % 70.6 % (39.0-77.0) Lymphocytes % 10.7 % (15.0-51.0) Monocytes % 11.6 % (0.0-11.0) Eosinophils % 5.7 % (0.0-7.0) Basophils % 1.0 % (0.0-2.0) Nucleated Red 0.0 Blood Cells % /100WBC (0.0-0. 0) Immature 0.020 Granulocytes # 10^3/ul (0.0-0. 031) Neutrophils # 3.7 10^3/ul (1.6-7. 5) Lymphocytes # 0.6 10^3/ul (0.8-2. 9) Monocytes # 0.6 10^3/ul (0.3-0. 9) Eosinophils # 0.3 10^3/ul (0.0-0. 5) Basophils # 0.1 10^3/ul (0.0-0. 1) Nucleated Red 0.0 Blood Cells # 10^3/ul (0.0-0. 0) Bedside 72 90 80 Glucose mg/dL (70-220) mg/dL (70-220) mg/dL (70-220) Test 10/29/18 07:53 10/29/18 10:15 Bedside 114 94 Glucose mg/dL (70-220) mg/dL (70-220) Copies To: CC: RUFINO AMBRIZ MD; HAROON ACUÑA MD; ANITA MADDEN MD ; LUISANA RICHARDS MD Oct 29, 2018 11:57
--- NOTE | 2018-10-29 11:58 | PDOCDIS ---
Discharge Instructions DIAGNOSIS Discharge Diagnosis Ground-level fall with left hip fracture; end-stage renal disease on CHD 3 times weekly; diabetes mellitus type 2; diabetic peripheral vascular disease; diabetic peripheral neuropathy; diabetic retinopathy; hypothyroidism; secondary hyperparathyroidism; prostatic hypertrophy; hypertension; hyperlipidemia CONDITION [id number] Patient Condition: [id number] Fair HOME CARE INSTRUCTIONS: [id number] Special Diet: [id number] Renal diet ACTIVITY: [id number] Activity Restrictions: [id number] Special Program (Acute rehabilitation unit protocol) FOLLOW UP/APPOINTMENTS Follow-up Plan Transfer to the acute rehabilitation unit. Continue with hemodialysis. LUISANA RICHARDS MD Oct 29, 2018 11:58
[2018-10-29] MEDS ORDERED: Insulin Glargine SC (12:03)
[2018-10-29] MEDS ORDERED: BENA20TA4 PO (12:03)
[2018-10-29] MEDS ORDERED: AMOX1TAB10 PO (12:03)
[2018-10-29 15:34] VITALS: BP 156/67; PULSE 77; RESP 18
[2018-10-29 20:00] VITALS: BP 152/64; PULSE 75; RESP 18
[2018-10-29] MEDS: INSULIN GLARGINE [LANTus] (100 UNITS/ML) SYG SC SCH (21:19)
== END 2018-10-29 21:55 | DRG 480 ==
LOC: E/R 19:41 → PP2 23:12 → CANRESERV 10-21 00:23 → EDBEDREQSVC 10-21 00:25 → TEL 10-24 18:20
PROVIDERS: ADMIT Internal Medicine; ATTEND Internal Medicine
PROC: 0QS706Z Reposition Left Upper Femur with Intramedullary Internal Fixation Device, Open Approach (ICD-10-PCS; principal; 2018-10-24 14:00)
DX: S72.142A Displaced intertrochanteric fracture of left femur, initial encounter for closed fracture (principal); N18.6 End stage renal disease; N25.81 Secondary hyperparathyroidism of renal origin; I12.0 Hypertensive chronic kidney disease with stage 5 chronic kidney disease or end stage renal disease; E11.22 Type 2 diabetes mellitus with diabetic chronic kidney disease; E11.51 Type 2 diabetes mellitus with diabetic peripheral angiopathy without gangrene; E11.42 Type 2 diabetes mellitus with diabetic polyneuropathy; E78.5 Hyperlipidemia, unspecified; E11.319 Type 2 diabetes mellitus with unspecified diabetic retinopathy without macular edema; E03.9 Hypothyroidism, unspecified; N40.0 Benign prostatic hyperplasia without lower urinary tract symptoms; D63.1 Anemia in chronic kidney disease; E11.3299 Type 2 diabetes mellitus with mild nonproliferative diabetic retinopathy without macular edema, unspecified eye; Y92.011 Dining room of single-family (private) house as the place of occurrence of the external cause; W01.0XXA Fall on same level from slipping, tripping and stumbling without subsequent striking against object, initial encounter; Z99.2 Dependence on renal dialysis; Z89.411 Acquired absence of right great toe
CPT/HCPCS: 36430; 72170; 73500; 73510; 73530; 73550; 74176; 80053; 81001; 82150; 82962; 83036; 83540; 83690; 83735; 84100; 84132; 84484; 85025; 85610; 85730; 86644; 86850; 86900; 86901; 86920; 87086; 87340; 90935; 93005; 96374; 96375; 97110; 97116; 97162; 97530; C1713; J0690; J1100; J1170; J1200; J1650; J1815; J1885; J2250; J2270; J2274; J2405; J2795; J3010; J7030; J7042; P9016; P9047; Q5105

== ENCOUNTER 2018-10-29 23:08 | Inpatient (IN) | payer MEDICARE, OTHER ==
[~2018-10-29] VITALS: Ht 175.3 cm; Wt 81.0 kg
[2018-10-29 22:20] VITALS: BP 152/76; PULSE 67; RESP 18
[~2018-10-29 23:08] MED LIST changes: +AMOX1TAB10 PO; +Insulin Glargine SC
[2018-10-29 23:30] VITALS: Ht 175.3 cm; Wt 81.0 kg
[2018-10-30] VITALS (18 sets, daily range): BP systolic 101–174; BP diastolic 52–70; PULSE 65–74; RESP 18
[2018-10-30] MEDS ORDERED: ACETAMINOPHEN 325 MG TAB PO PRN
[2018-10-30] MEDS ORDERED: BISACODYL 10 MG SUPP PR PRN
[2018-10-30] MEDS ORDERED: PENDING SANTYL ORDER FOR WOUND CARE XX PRN
[2018-10-30] MEDS ORDERED: ONDANSETRON 4 MG INJ IV PRN (01:00)
[2018-10-30] MEDS ORDERED: GLUCOSE GEL 15 GRAM TUBE BUCCAL PRN (01:30)
[2018-10-30] MEDS ORDERED: GLUCAGON 1 MG INJ IM PRN (01:30)
[2018-10-30] MEDS ORDERED: GLUCOSE GEL 15 GRAM TUBE PO PRN ×2 (01:30)
[2018-10-30] MEDS ORDERED: DEXTROSE 50% 50 ML SYRINGE IV PRN ×2 (01:30)
[2018-10-30] MEDS: ACCU-CHEK XX SCH ×8 (02:00→21:00)
[2018-10-30] MEDS ORDERED: ACCU-CHEK XX SCH ×2 (02:00)
[2018-10-30] MEDS: LEVOTHYROXINE 100 MCG TAB PO SCH (06:20)
[2018-10-30] MEDS: oxyCODONE 5 MG TAB PO PRN ×3 (07:00→19:13)
[2018-10-30] MEDS ORDERED: INSULIN ASPART [NOVOLOG] 3 ML PEN SC SCH (07:35)
[2018-10-30] MEDS: HYDROmorphONE 1 MG/ML SYG IV PRN ×4 (07:51→17:24)
[2018-10-30] MEDS: SEVELAMER CARBONATE 800 MG TABLET PO SCH ×3 (07:52→17:35)
[2018-10-30] MEDS: INSULIN ASPART [NOVOLOG] 3 ML PEN SC SCH ×3 (07:59→17:35)
[2018-10-30] MEDS: BALSAM PERU/CASTOR OIL 60 GM TUBE TOP SCH ×2 (09:00→22:09)
[2018-10-30] MEDS: BENAZEPRIL 40 MG TAB PO SCH ×2 (09:00→21:06)
[2018-10-30] MEDS ORDERED: ENOXAPARIN 30 MG/0.3 ML SYG SC SCH (09:00)
[2018-10-30] MEDS: MULTIVIT/CA CARB/B CMPLX/FA TAB PO SCH (09:00)
[2018-10-30] MEDS: DOCUSATE SODIUM 100 MG CAP PO SCH ×2 (09:00→21:05)
[2018-10-30] MEDS ORDERED: DICLOFENAC SODIUM 1% GEL 100 GM TUBE TP SCH (09:00)
[2018-10-30] MEDS: CHOLECALCIFEROL 2,000 UNIT CAP PO SCH (09:37)
[2018-10-30] MEDS: ASPIRIN (EC) 81 MG TAB PO SCH (09:37)
[2018-10-30] MEDS: LINAGLIPTIN 5 MG TABLET PO SCH ×2 (09:37→09:47)
[2018-10-30] MEDS: FAMOTIDINE 20 MG TAB PO SCH (09:37)
[2018-10-30] MEDS: AMOXICILLIN/CLAV 875 MG TAB PO SCH ×2 (09:37→21:05)
--- NOTE | 2018-10-30 16:16 | CONS ---
Assessment/Plan Assessment/Plan Assessment/Plan (Daily) 1. ESRD on HD MWF AVF for HD Access 2. S/p Mechanical Fall 3. left femur fracture s/p ORIF of left hip intertrochanteric fracture on 10/24/18 4. H/o HTN 5. H/o HL 6. H/o Hypothyroidism Plan: Transferred to acute rehab floor, Plan for HD today, pt regular schedule for HD is MWF - AVF for HD access will follow up Consultation Date/Type/Reason Admit Date/Time Oct 29, 2018 at 23:08 Date of Consultation: Oct 30, 2018 Type of Consult NEPHROLOGY Reason for Consultation ESRD on HD, S/p ORIF of hip fracture on acute rehab floor Requesting Provider: NYLA HADLEY MD Date/Time of Note DATE: 10/30/18 TIME: 16:16 Hx of Present Illness 81-year-old male with a history of ESRD on HD, hypertension, hypothyroidism, diabetes, choledocholithiasis status post ERCP stent, left ankle ORIF, PVD, ischemic bowel. Patient was brought to the ER with the left hip pain status post slip and fall accident. Pelvic x-ray shows -Nondisplaced intertrochanteric left femoral neck fracture. pt underwent ORIF of left hip frac ture, he tolerated surgery well and transferred to acute rehab floor for further rehab Constitutional: poor po Eyes: no complaints ENT: no complaints Respiratory: no complaints Cardiovascular: no complaints Gastrointestinal: no complaints Genitourinary: no complaints Musculoskeletal: no complaints Skin: no complaints Neurologic: no complaints Endocrine: no complaints Lymphatic: no complaints Psychological: no complaints Immunologic: no complaints Past Medical History Medical History: high cholesterol, hypertension, other (ESRD on HD ) Home Meds Active Scripts [Insulin Glargine] 100 UNITS/ML SOLN No Conflict Check, 6 UNITS SC QHS for 30 Days, #1 Prov:LUISANA RICHARDS MD 10/29/18 Benazepril Hcl* (Benazepril Hcl*) 20 Mg Tablet, 40 MG PO BID for 30 Days, #60 TAB Prov:LUISANA RICHARDS MD 10/29/18 Amoxicillin/Potassium Clav (Amox-Clav 875-125 mg Tablet) 875-125 mg Tab, 875 MG PO BID for 7 Days, #12 TAB Prov:LUISANA RICHARDS MD 10/29/18 Insulin Aspart* (Novolog Insulin Pen*) 100 Unit/Ml Soln, 5 UNIT SC WITH MEALS for 30 Days, #2 SYR 5 Refills Prov:FELIX DREW MD 11/08/17 Diclofenac Sodium (Diclofenac Sodium) 100 Gm Gel..gram., 2 GM TP QID PRN for PAIN for 30 Days, #1 TUB 5 Refills Prov:FELIX DREW MD 11/08/17 Reported Medications Hydrocodone/Acetaminophen ([place] 5-325 Tablet) 1 Each Tablet, 1 EACH PO, TAB 10/31/17 Hydrocodone/Acetaminophen ([place] 10-325 Tablet) 1 Each Tablet, 1 EACH PO Q6H, TAB 10/15/17 Clopidogrel Bisulfate (Clopidogrel) 75 Mg Tablet, 75 MG PO DAILY, #30 TAB 10/15/17 Sevelamer Carbonate* (Renvela*) 800 Mg Tablet, 1600 MG PO WITH MEALS, TAB 10/15/17 Pyridoxine Hcl* (Pyridoxine Hcl*) 100 Mg Tablet, 100 MG PO DAILY, TAB 10/15/17 Levothyroxine Sodium* (Levothyroxine Sodium*) 100 Mcg Tablet, 100 MCG PO BEFORE BREAKFAST, #30 TAB 10/15/17 Insulin Aspart* (Novolog Insulin Pen*) 100 Unit/Ml Soln, 0 SC .SLIDING SCALE AC, EA AC MEALS 10/15/17 Cholecalciferol (Vitamin D3) (Vitamin D-3) 2,000 Unit Tablet, 2000 UNIT PO DAILY, TAB 10/15/17 Aspirin* (Aspirin* EC) 81 Mg Tablet.dr, 81 MG PO DAILY, TAB 10/15/17 Linagliptin (TRADJENTA) 5 Mg Tablet, 5 MG PO DAILY, TAB 10/15/17 [Nephro-Haris] No Conflict Check, 1 TAB PO DAILY 10/15/17 Discontinued Reported Medications Insulin Detemir (Levemir) 100 Unit/1 Ml Vial, 0 SC* QHS INJECT 12-14 UNITS QHS 10/15/17 Discontinued Scripts Benazepril Hcl* (Benazepril Hcl*) 20 Mg Tablet, 20 MG PO BID for 30 Days, #60 TAB 5 Refills Prov:FELIX DREW MD 11/08/17 Medications Current Medications Docusate Sodium (Colace) 100 mg BID PO ; Start 10/30/18 at 09:00 Senna (Senokot) 1 tab HS PO ; Start 10/30/18 at 21:00 Lactulose (Enulose) 20 gm DAILY PRN PO CONSTIPATION; Start 10/30/18 at 00:00 Bisacodyl (Dulcolax Supp) 10 mg DAILY PRN NE CONSTIPATION; Start 10/30/18 at 00:00 Acetaminophen (Tylenol Tab) 650 mg Q4H PRN PO PAIN; Start 10/30/18 at 00:00 Miscellaneous Information (Pending [facility] Order For Wound Care) This patient almanzar... PRN PRN XX WOUND CARE; Start 10/30/18 at 00:00 Amoxicillin/ Clavulanate Potassium (Augmentin) 875 mg BID PO Last administered on 10/30/18 09:37; Admin Dose 875 MG; Start 10/30/18 at 09:00; Stop 11/04/18 at 13:59 Benazepril HCl (Lotensin) 40 mg BID PO ; Start 10/30/18 at 09:00 Cholecalciferol (Vitamin D) 2,000 unit DAILY PO Last administered on 10/30/18 09:37; Admin Dose 2,000 UNIT; Start 10/30/18 at 09:00 Aspirin (Halfprin) 81 mg DAILY PO Last administered on 10/30/18 09:37; Admin Dose 81 MG; Start 10/30/18 at 09:00 Enoxaparin Sodium (Lovenox) 30 mg DAILY SC Last administered on 10/30/18 09:54; Admin Dose 30 MG; Start 10/30/18 at 09:00 Famotidine (Pepcid) 20 mg DAILY PO Last administered on 10/30/18 09:37; Admin Dose 20 MG; Start 10/30/18 at 09:00 Hydromorphone HCl (Dilaudid) 1 mg Q3H PRN IV SEVERE PAIN LEVEL 7-10 Last administered on 10/30/18at 10:42; Admin Dose 1 MG; Start 10/30/18 at 01:00 Insulin Aspart (Novolog Insulin Pen) 5 unit WITH BREAKFAST SC Last administered on 10/30/18 07:59; Admin Dose 5 UNIT; Start 10/30/18 at 07:35 Insulin Aspart (Novolog Insulin Pen) 5 unit WITH LUNCH SC Last administered on 10/30/18at 12:55; Admin Dose 5 UNIT; Start 10/30/18 at 12:00 Insulin Aspart (Novolog Insulin Pen) 5 unit WITH DINNER SC ; Start 10/30/18 at 17:35 Diagnostic Test (Pha) (Accu-Chek) 1 ea 02 XX ; Start 10/30/18 at 02:00 Levothyroxine Sodium (Synthroid) 100 mcg DAILY@06 PO Last administered on 10/30/18at 06:20; Admin Dose 100 MCG; Start 10/30/18 at 06:00 Linagliptin (Tradjenta) 5 mg DAILY PO Last administered on 10/30/18at 09:47; Admin Dose 5 MG; Start 10/30/18 at 09:00 Diagnostic Test (Pha) (Accu-Chek) 1 ea AC MEALS AND BEDTIME XX Last administered on 10/30/18at 12:51; Admin Dose 1 EA; Start 10/30/18 at 07:05 Multivit/Ca Carb/ B Cmplx/FA/Prenat (Manasa-Haris) 1 tab DAILY PO ; Start 10/30/18 at 09:00 Ondansetron HCl (Zofran Inj) 4 mg Q6H PRN IV NAUSEA AND/OR VOMITING; Start 10/30/18 at 01:00 Oxycodone HCl (Roxicodone) 5 mg Q4H PRN PO MILD PAIN LEVEL 1-3 Last admin istered on 10/30/18at 14:32; Admin Dose 5 MG; Start 10/30/18 at 01:00 Oxycodone HCl (Roxicodone) 10 mg Q4H PRN PO MODERATE PAIN LEVEL 4-6 Last administered on 10/30/18at 07:00; Admin Dose 10 MG; Start 10/30/18 at 01:00 Sevelamer Carbonate (Renvela) 1,600 mg WITH MEALS PO Last administered on 10/30/18at 12:48; Admin Dose 1,600 MG; Start 10/30/18 at 07:35 Insulin Glargine (Lantus) 6 units HS SC ; Start 10/30/18 at 21:00 Miscellaneous Information 1 ea NOTE XX ; Start 10/30/18 at 01:30 Glucose (Glutose) 15 gm Q15M PRN PO DECREASED GLUCOSE; Start 10/30/18 at 01:30 Glucose (Glutose) 22.5 gm Q15M PRN PO DECREASED GLUCOSE; Start 10/30/18 at 01:30 Dextrose (D50w Syringe) 25 ml Q15M PRN IV DECREASED GLUCOSE; Start 10/30/18 at 01:30 Dextrose (D50w Syringe) 50 ml Q15M PRN IV DECREASED GLUCOSE; Start 10/30/18 at 01:30 Glucagon (Glucagen) 1 mg Q15M PRN IM DECREASED GLUCOSE; Start 10/30/18 at 01:30 Glucose (Glutose) 15 gm Q15M PRN BUCCAL DECREASED GLUCOSE; Start 10/30/18 at 01:30 Diclofenac Sodium (Voltaren 1% Gel) 2 gm QID PRN TP PAIN; Start 10/30/18 at 09:00 Diagnostic Test (Pha) (Accu-Chek) 1 ea 2 HOURS AFTER MEALS XX Last administered on 10/30/18at 14:34; Admin Dose 1 EA; Start 10/30/18 at 09:35 Allergies: Coded Allergies: No Known Allergies (Unverified Allergy, Mild, 10/31/17) Past Surgical History Past Surgical Hx: other (ORIF of Lef thip fracture ) Family History Significant Family History: no pertinent family hx Social History Alcohol Use: none Smoking Status: Former smoker Drug Use: none Exam/Review of Systems Exam Vitals Vital Signs Date Temp Pulse Resp B/P (MAP) Pulse Ox O2 O2 Flow FiO2 Time Delivery Rate 10/30/18 97.9 66 18 126/58 95 Room Air 14:00 (80) Constitutional: alert Psych: no complaints Head: normocephalic Eyes: nl conjunctiva ENMT: nl external ears & nose Neck: supple, non-tender Respiratory: clear to auscultation, normal air movement, diminished breath sounds Cardiovascular: regular rate and rhythm, nl pulses Gastrointestinal: soft, non-tender Musculoskeletal: nl extremities to inspection Extremities: normal pulses, other (AVF for HD access ) 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, nl mental status, nl speech Lymph: nl lymph nodes Results Result Diagram: 10/30/18 0634 10/30/18 0634 Results 24hrs Laboratory Tests Test 10/30/18 06:31 10/30/18 06:34 10/30/18 07:52 10/30/18 09:41 Hepatitis B Surface NEGATIVE Antigen White Blood Count 5.6 Red Blood Count 2.93 L Hemoglobin 8.3 L Hematocrit 25.6 L Mean Corpuscular 87.4 Volume Mean Corpuscular 28.3 L Hemoglobin Mean Corpuscular 32.4 Hemoglobin Concent Red Cell 15.3 H Distribution Width Platelet Count 202 # Mean Platelet Volume 10.0 Immature 1.300 H Granulocytes % Neutrophils % 69.8 Lymphocytes % 10.2 L Monocytes % 12.1 H Eosinophils % 5.7 Basophils % 0.9 Nucleated Red Blood 0.0 Cells % Immature 0.070 H Granulocytes # Neutrophils # 3.9 Lymphocytes # 0.6 L Monocytes # 0.7 Eosinophils # 0.3 Basophils # 0.1 Nucleated Red Blood 0.0 Cells # Sodium Level 135 Potassium Level 5.0 Chloride Level 98 Carbon Dioxide Level 25 Anion Gap 12 Blood Urea Nitrogen 62 H Creatinine 8.04 H Est Glomerular Filtrat Rate mL/min Glucose Level 120 Calcium Level 8.6 Total Bilirubin 0.4 Direct Bilirubin 0.00 Indirect Bilirubin 0.4 Aspartate Amino 35 Transf (AST/SGOT) Alanine 15 Aminotransferase (AL T/SGPT) Alkaline Phosphatase 141 H Total Protein 6.4 Albumin 3.4 Globulin 3.00 Albumin/Globulin 1.13 Ratio Bedside Glucose 125 119 Test 10/30/18 12:50 Bedside Glucose 119 Medications Medication Current Medications Docusate Sodium (Colace) 100 mg BID PO ; Start 10/30/18 at 09:00 Senna (Senokot) 1 tab HS PO ; Start 10/30/18 at 21:00 Lactulose (Enulose) 20 gm DAILY PRN PO CONSTIPATION; Start 10/30/18 at 00:00 Bisacodyl (Dulcolax Supp) 10 mg DAILY PRN NE CONSTIPATION; Start 10/30/18 at 00:00 Acetaminophen (Tylenol Tab) 650 mg Q4H PRN PO PAIN; Start 10/30/18 at 00:00 Misc[facility] This patient almanzar... PRN PRN XX WOUND CARE; Start 10/30/18 at 00:00 Amoxicillin/ Clavulanate Potassium (Augmentin) 875 mg BID PO Last administered on 10/30/18at 09:37; Admin Dose 875 MG; Start 10/30/18 at 09:00; Stop 11/04/18 at 13:59 Benazepril HCl (Lotensin) 40 mg BID PO ; Start 10/30/18 at 09:00 Cholecalciferol (Vitamin D) 2,000 unit DAILY PO Last administered on 10/30/18 09:37; Admin Dose 2,000 UNIT; Start 10/30/18 at 09:00 Aspirin (Halfprin) 81 mg DAILY PO Last administered on 10/30/18 09:37; Admin Dose 81 MG; Start 10/30/18 at 09:00 Enoxaparin Sodium (Lovenox) 30 mg DAILY SC Last administered on 10/30/18 09:54; Admin Dose 30 MG; Start 10/30/18 at 09:00 Famotidine (Pepcid) 20 mg DAILY PO Last administered on 10/30/18 09:37; Admin Dose 20 MG; Start 10/30/18 at 09:00 Hydromorphone HCl (Dilaudid) 1 mg Q3H PRN IV SEVERE PAIN LEVEL 7-10 Last administered on 10/30/18 10:42; Admin Dose 1 MG; Start 10/30/18 at 01:00 Insulin Aspart (Novolog Insulin Pen) 5 unit WITH BREAKFAST SC Last administered on 10/30/18 07:59; Admin Dose 5 UNIT; Start 10/30/18 at 07:35 Insulin Aspart (Novolog Insulin Pen) 5 unit WITH LUNCH SC Last administered on 10/30/18 12:55; Admin Dose 5 UNIT; Start 10/30/18 at 12:00 Insulin Aspart (Novolog Insulin Pen) 5 unit WITH DINNER SC ; Start 10/30/18 at 17:35 Diagnostic Test (Pha) (Accu-Chek) 1 ea 02 XX ; Start 10/30/18 at 02:00 Levothyroxine Sodium (Synthroid) 100 mcg DAILY@06 PO Last administered on 10/30/18 06:20; Admin Dose 100 MCG; Start 10/30/18 at 06:00 Linagliptin (Tradjenta) 5 mg DAILY PO Last administered on 10/30/18 09:47; Adm in Dose 5 MG; Start 10/30/18 at 09:00 Diagnostic Test (Pha) (Accu-Chek) 1 ea AC MEALS AND BEDTIME XX Last administered on 10/30/18 12:51; Admin Dose 1 EA; Start 10/30/18 at 07:05 Multivit/Ca Carb/ B Cmplx/FA/Prenat (Manasa-Haris) 1 tab DAILY PO ; Start 10/30/18 at 09:00 Ondansetron HCl (Zofran Inj) 4 mg Q6H PRN IV NAUSEA AND/OR VOMITING; Start 10/30/18 at 01:00 Oxycodone HCl (Roxicodone) 5 mg Q4H PRN PO MILD PAIN LEVEL 1-3 Last administered on 10/30/18at 14:32; Admin Dose 5 MG; Start 10/30/18 at 01:00 Oxycodone HCl (Roxicodone) 10 mg Q4H PRN PO MODERATE PAIN LEVEL 4-6 Last administered on 10/30/18at 07:00; Admin Dose 10 MG; Start 10/30/18 at 01:00 Sevelamer Carbonate (Renvela) 1,600 mg WITH MEALS PO Last administered on 10/30/18at 12:48; Admin Dose 1,600 MG; Start 10/30/18 at 07:35 Insulin Glargine (Lantus) 6 units HS SC ; Start 10/30/18 at 21:00 Miscellaneous Information 1 ea NOTE XX ; Start 10/30/18 at 01:30 Glucose (Glutose) 15 gm Q15M PRN PO DECREASED GLUCOSE; Start 10/30/18 at 01:30 Glucose (Glutose) 22.5 gm Q15M PRN PO DECREASED GLUCOSE; Start 10/30/18 at 01:30 Dextrose (D50w Syringe) 25 ml Q15M PRN IV DECREASED GLUCOSE; Start 10/30/18 at 01:30 Dextrose (D50w Syringe) 50 ml Q15M PRN IV DECREASED GLUCOSE; Start 10/30/18 at 01:30 Glucagon (Glucagen) 1 mg Q15M PRN IM DECREASED GLUCOSE; Start 10/30/18 at 01:30 Glucose (Glutose) 15 gm Q15M PRN BUCCAL DECREASED GLUCOSE; Start 10/30/18 at 01:30 Diclofenac Sodium (Voltaren 1% Gel) 2 gm QID PRN TP PAIN; Start 10/30/18 at 09:00 Diagnostic Test (Pha) (Accu-Chek) 1 ea 2 HOURS AFTER MEALS XX Last administered on 10/30/18at 14:34; Admin Dose 1 EA; Start 10/30/18 at 09:35 ANITA FLETCHER MD Oct 30, 2018 16:16
--- NOTE | 2018-10-30 17:37 | PN ---
Date/Time of Note Date/Time of Note DATE: 10/30/18 TIME: 17:30 Assessment/Plan VTE Prophylaxis Risk score (from Ns)>0 risk: 11 SCD applied (from Ns): Yes Pharmacological prophylaxis: heparin Lines/Catheters IV Catheter Type (from Nrs): [place] Urinary Cath still in place: No Assessment/Plan Problems: (1) Closed fracture of left hip requiring operative repair Onset Date: ~ 10/24/2018 Status: Resolved Comment: S/p repair. Needs rehab in ARU. Pain management po and IV. (2) Diabetes mellitus type 2 with complications Status: Chronic Comment: Good glycemic control. Cont. current doses of insulin (3) Hypothyroidism Status: Chronic Comment: Cont. LT4. (4) Anemia associated with chronic renal failure Status: Chronic Comment: Cont. EPO (5) ESRD (end stage renal disease) on dialysis Status: Chronic Comment: HD per nephrology (6) Essential (primary) hypertension Status: Chronic Comment: Cont. benazepril Result Diagram: 10/30/1834 10/30/1834 Results 24hrs Laboratory Tests Test 10/30/18 06:31 10/30/18 06:34 10/30/18 07:52 10/30/18 09:41 Hepatitis B Surface NEGATIVE Antigen White Blood Count 5.6 Red Blood Count 2.93 L Hemoglobin 8.3 L Hematocrit 25.6 L Mean Corpuscular 87.4 Volume Mean Corpuscular 28.3 L Hemoglobin Mean Corpuscular 32.4 Hemoglobin Concent Red Cell 15.3 H Distribution Width Platelet Count 202 # Mean Platelet Volume 10.0 Immature 1.300 H Granulocytes % Neutrophils % 69.8 Lymphocytes % 10.2 L Monocytes % 12.1 H Eosinophils % 5.7 Basophils % 0.9 Nucleated Red Blood 0.0 Cells % Immature 0.070 H Granulocytes # Neutrophils # 3.9 Lymphocytes # 0.6 L Monocytes # 0.7 Eosinophils # 0.3 Basophils # 0.1 Nucleated Red Blood 0.0 Cells # Sodium Level 135 Potassium Level 5.0 Chloride Level 98 Carbon Dioxide Level 25 Anion Gap 12 Blood Urea Nitrogen 62 H Creatinine 8.04 H Est Glomerular Filtrat Rate mL/min Glucose Level 120 Calcium Level 8.6 Total Bilirubin 0.4 Direct Bilirubin 0.00 Indirect Bilirubin 0.4 Aspartate Amino 35 Transf (AST/SGOT) Alanine 15 Aminotransferase (AL T/SGPT) Alkaline Phosphatase 141 H Total Protein 6.4 Albumin 3.4 Globulin 3.00 Albumin/Globulin 1.13 Ratio Bedside Glucose 125 119 Test 10/30/18 12:50 Bedside Glucose 119 Subjective 24 Hr Interval Summary Constitutional: no complaints Respiratory: no complaints Cardiovascular: no complaints Gastrointestinal: no complaints Genitourinary: no complaints Musculoskeletal: bone/joint pain (hip; cannot walk) Neurologic: no complaints Exam/Review of Systems Exam Vitals VS - Last 72 Hours, by Label Date Temp Pulse Resp B/P (MAP) Pulse Ox O2 O2 Flow FiO2 Time Delivery Rate 10/30/18 74 18 125/58 98 Room Air 15:50 (80) 10/30/18 97.9 66 18 126/58 95 Room Air 14:00 (80) 10/30/18 98.0 73 18 174/70 94 Room Air 07:00 (104) 10/30/18 97.8 74 18 149/70 97 Room Air 02:00 (96) 10/29/18 98.1 67 18 152/76 99 Room Air 22:20 (101) Vital Signs Date Temp Pulse Resp B/P (MAP) Pulse Ox O2 O2 Flow FiO2 Time Delivery Rate 10/30/18 74 18 125/58 98 Room Air 15:50 (80) 10/30/18 97.9 14:00 Constitutional: alert, oriented, frail Psych: no complaints, nl mood/affect Respiratory: clear to auscultation, normal air movement Cardiovascular: regular rate and rhythm; No nl pulses, No edema, No murmurs/extra sounds, No rub Gastrointestinal: soft, nl liver, spleen, non-tender, bowel sounds; No mass, No rebound or guarding Musculoskeletal: No nl extremities to inspection (R great toe distal amp) Extremities: No normal pulses, No cyanosis, No clubbing, No edema 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, nl mental status, nl speech, nl strength Additional Comments Bedside Glucose - 72 Hours Test 10/30/18 07:52 10/30/18 09:41 10/30/18 12:50 Bedside Glucose 125 mg/dL (70-220) 119 mg/dL (70-220) 119 mg/dL (70-220) Results Results 24hrs Laboratory Tests Test 10/30/18 06:31 10/30/18 06:34 10/30/18 07:52 10/30/18 09:41 Hepatitis B Surface NEGATIVE Antigen White Blood Count 5.6 Red Blood Count 2.93 L Hemoglobin 8.3 L Hematocrit 25.6 L Mean Corpuscular 87.4 Volume Mean Corpuscular 28.3 L Hemoglobin Mean Corpuscular 32.4 Hemoglobin Concent Red Cell 15.3 H Distribution Width Platelet Count 202 # Mean Platelet Volume 10.0 Immature 1.300 H Granulocytes % Neutrophils % 69.8 Lymphocytes % 10.2 L Monocytes % 12.1 H Eosinophils % 5.7 Basophils % 0.9 Nucleated Red Blood 0.0 Cells % Immature 0.070 H Granulocytes # Neutrophils # 3.9 Lymphocytes # 0.6 L Monocytes # 0.7 Eosinophils # 0.3 Basophils # 0.1 Nucleated Red Blood 0.0 Cells # Sodium Level 135 Potassium Level 5.0 Chloride Level 98 Carbon Dioxide Level 25 Anion Gap 12 Blood Urea Nitrogen 62 H Creatinine 8.04 H Est Glomerular Filtrat Rate mL/min Glucose Level 120 Calcium Level 8.6 Total Bilirubin 0.4 Direct Bilirubin 0.00 Indirect Bilirubin 0.4 Aspartate Amino 35 Transf (AST/SGOT) Alanine 15 Aminotransferase (AL T/SGPT) Alkaline Phosphatase 141 H Total Protein 6.4 Albumin 3.4 Globulin 3.00 Albumin/Globulin 1.13 Ratio Bedside Glucose 125 119 Test 10/30/18 12:50 Bedside Glucose 119 Medications Medication Current Medications Docusate Sodium (Colace) 100 mg BID PO ; Start 10/30/18 at 09:00 Senna (Senokot) 1 tab HS PO ; Start 10/30/18 at 21:00 Lactulose (Enulose) 20 gm DAILY PRN PO CONSTIPATION; Start 10/30/18 at 00:00 Bisacodyl (Dulcolax Supp) 10 mg DAILY PRN [place] CONSTIPATION; Start 10/30/18 at 00:00 Acetaminophen (Tylenol Tab) 650 mg Q4H PRN PO PAIN; Start 10/30/18 at 00:00 [facility] This patient almanzar ... PRN PRN XX WOUND CARE; Start 10/30/18 at 00:00 Amoxicillin/ Clavulanate Potassium (Augmentin) 875 mg BID PO Last administered on 10/30/18at 09:37; Admin Dose 875 MG; Start 10/30/18 at 09:00; Stop 8/3/19 at 13:59 Benazepril HCl (Lotensin) 40 mg BID PO ; Start 10/30/18 at 09:00 Cholecalciferol (Vitamin D) 2,000 unit DAILY PO Last administered on 10/30/18 09:37; Admin Dose 2,000 UNIT; Start 10/30/18 at 09:00 Aspirin (Halfprin) 81 mg DAILY PO Last administered on 10/30/18 09:37; Admin Dose 81 MG; Start 10/30/18 at 09:00 Enoxaparin Sodium (Lovenox) 30 mg DAILY SC Last administered on 10/30/18 09:54; Admin Dose 30 MG; Start 10/30/18 at 09:00 Famotidine (Pepcid) 20 mg DAILY PO Last administered on 10/30/18 09:37; Admin Dose 20 MG; Start 10/30/18 at 09:00 Hydromorphone HCl (Dilaudid) 1 mg Q3H PRN IV SEVERE PAIN LEVEL 7-10 Last administered on 10/30/18 17:24; Admin Dose 1 MG; Start 10/30/18 at 01:00 Insulin Aspart (Novolog Insulin Pen) 5 unit WITH BREAKFAST SC Last administere d on 10/30/18 07:59; Admin Dose 5 UNIT; Start 10/30/18 at 07:35 Insulin Aspart (Novolog Insulin Pen) 5 unit WITH LUNCH SC Last administered on 10/30/18 12:55; Admin Dose 5 UNIT; Start 10/30/18 at 12:00 Insulin Aspart (Novolog Insulin Pen) 5 unit WITH DINNER SC ; Start 10/30/18 at 17:35 Diagnostic Test (Pha) (Accu-Chek) 1 ea 02 XX ; Start 10/30/18 at 02:00 Levothyroxine Sodium (Synthroid) 100 mcg DAILY@06 PO Last administered on 10/30/18 06:20; Admin Dose 100 MCG; Start 10/30/18 at 06:00 Linagliptin (Tradjenta) 5 mg DAILY PO Last administered on 10/30/18 09:47; Admin Dose 5 MG; Start 10/30/18 at 09:00 Diagnostic Test (Pha) (Accu-Chek) 1 ea AC MEALS AND BEDTIME XX Last administered on 7/29/19at 17:25; Admin Dose 1 EA; Start 10/30/18 at 07:05 Multivit/Ca Carb/ B Cmplx/FA/Prenat (Manasa-Haris) 1 tab DAILY PO ; Start 10/30/18 at 09:00 Ondansetron HCl (Zofran Inj) 4 mg Q6H PRN IV NAUSEA AND/OR VOMITING; Start 10/30/18 at 01:00 Oxycodone HCl (Roxicodone) 5 mg Q4H PRN PO MILD PAIN LEVEL 1-3 Last administered on 10/30/18at 14:32; Admin Dose 5 MG; Start 10/30/18 at 01:00 Oxycodone HCl (Roxicodone) 10 mg Q4H PRN PO MODERATE PAIN LEVEL 4-6 Last administered on 10/30/18at 07:00; Admin Dose 10 MG; Start 10/30/18 at 01:00 Sevelamer Carbonate (Renvela) 1,600 mg WITH MEALS PO Last administered on 10/30/18at 12:48; Admin Dose 1,600 MG; Start 10/30/18 at 07:35 Insulin Glargine (Lantus) 6 units HS SC ; Start 10/30/18 at 21:00 Miscellaneous Information 1 ea NOTE XX ; Start 10/30/18 at 01:30 Glucose (Glutose) 15 gm Q15M PRN PO DECREASED GLUCOSE; Start 10/30/18 at 01:30 Glucose (Glutose) 22.5 gm Q15M PRN PO DECREASED GLUCOSE; Start 10/30/18 at 01:30 Dextrose (D50w Syringe) 25 ml Q15M PRN IV DECREASED GLUCOSE; Start 10/30/18 at 01:30 Dextrose (D50w Syringe) 50 ml Q15M PRN IV DECREASED GLUCOSE; Start 10/30/18 at 01:30 Glucagon (Glucagen) 1 mg Q15M PRN IM DECREASED GLUCOSE; Start 10/30/18 at 01:30 Glucose (Glutose) 15 gm Q15M PRN BUCCAL DECREASED GLUCOSE; Start 10/30/18 at 01 :30 Diclofenac Sodium (Voltaren 1% Gel) 2 gm QID PRN TP PAIN; Start 10/30/18 at 09:00 Diagnostic Test (Pha) (Accu-Chek) 1 ea 2 HOURS AFTER MEALS XX Last administered on 10/30/18at 14:34; Admin Dose 1 EA; Start 10/30/18 at 09:35 FELIX DREW MD Oct 30, 2018 17:36
[2018-10-30] MEDS: SENNA TAB PO SCH (21:05)
[2018-10-30] MEDS: INSULIN GLARGINE [LANTus] (100 UNITS/ML) SYG SC SCH (21:11)
[2018-10-30] MEDS: HEPARIN 5,000 UNIT/1 ML VIAL SC SCH (21:11)
--- NOTE | 2018-10-30 21:23 | CONS ---
DATE OF ADMISSION: 10/29/2018 DATE OF CONSULTATION: 10/30/2018 TYPE OF CONSULTATION: Rehabilitation post-admission physician evaluation. REHABILITATION IMPAIRMENT CATEGORY: Left intertrochanteric hip fracture status post ORIF. ACTIVE COMORBIDITIES: 1. Acute pain syndrome. 2. End-stage renal disease requiring hemodialysis. 3. Hypertension. 4. Anemia. 5. Diabetes mellitus type 2. 6. Diabetic neuropathy. 7. Diabetic retinopathy. 8. Hypothyroidism. 9. Lumbar degenerative joint disease. 10. Hyperparathyroidism. 11. Benign prostatic hypertrophy. 12. Hyperlipidemia. 13. History of ischemic bowel syndrome. 14. History of left ankle ORIF. 15. Peripheral vascular disease. 16. Left heel deep tissue injury. 17. Impairments in self-care and mobility. HISTORY OF PRESENT ILLNESS: The patient is a 73-year-old gentleman with a history of multiple medica l comorbidities including end-stage renal disease requiring hemodialysis, who is status post a mechan ical fall at home with resultant left digit intertrochanteric hip fracture. The patient was admitted and underwent a left hip ORIF on 10/24/2018. His postoperative course has been notable for signific ant pain, left heel DTI, and significant impairments in self-care and mobility as compared to matthew schaefer. The patient has been cleared to transfer to the rehabilitation unit for comprehensive interdiscip linary rehab care. FUNCTIONAL HISTORY: Prior to recent events, the patient was independent in self-care tasks and mobil ity. Currently, the patient does require moderate to maximal assist for self-care and mobility tasks . I have reviewed the preadmission screen and the patient's current functional status is consistent wit h the preadmission screen. FAMILY AND SOCIAL HISTORY: The patient reports living at home with family and hopes to return there upon discharge. PAST MEDICAL HISTORY: 1. End-stage renal disease on hemodialysis. 2. Hypertension. 3. Hypothyroidism. 4. Diabetes mellitus type 2. 5. Cholelithiasis, status post ERCP, stent. 6. History of left ankle ORIF. 7. Peripheral vascular disease. 8. History of ischemic bowel. CURRENT MEDICATIONS: 1. Augmentin 875 mg p.o. b.i.d. 2. Lotensin 40 mg p.o. b.i.d. 3. Vitamin D 2000 units p.o. daily. 4. Insulin sliding scale. 5. Aspirin 81 mg p.o. daily. 6. Lovenox 30 mg subcutaneous daily. 7. Pepcid 20 mg p.o. daily. 8. NovoLog pen 5 units subQ with meals. 9. Lantus 6 units subQ at bedtime. 10. Synthroid 100 mcg p.o. q.a.m. 11. Tradjenta 5 mg p.o. daily. 12. Manasa-Haris 1 tab p.o. daily. 13. Roxicodone 5 mg p.o. q.4 hours p.r.n. 14. Renvela 1.6 grams p.o. with meals. ALLERGIES: THE PATIENT WITH NO KNOWN DRUG ALLERGIES. PHYSICAL EXAMINATION: VITAL SIGNS: The patient is currently afebrile with stable vital signs. HEENT: The extraocular motions are intact. The oropharynx is clear. NECK: Supple. LUNGS: Clear anteriorly. CARDIAC: S1, S2. ABDOMEN: Soft, nontender, positive bowel sounds. NEUROLOGIC: The patient is awake and alert and oriented x3. He can follow simple 1-step commands. He demonstrates good strength in bilateral upper extremity and the right lower extremity dorsiflexion . Plantar flexion intact on the left. The patient with notable left heel DTI. He has ecchymosis in the ishan-incisional site. PLAN: The patient has been admitted for comprehensive interdisciplinary acute rehab and is anticipat ed to tolerate 3 hours of daily therapy in divided doses for at least 5/7 days a week. The treatment plan will include: 1. Physical therapy to focus on bed mobility, transfers, and household ambulation with the goal of h aving the patient reach a standby assist level. 2. Occupational therapy to focus on hygiene, grooming, dressing, bathing, and toileting activities w ith the goal of having the patient reach a standby assist level. 3. Rehabilitation nursing for carryover of therapeutic interventions with the goal of continent of b owel and bladder, and the goal of pain adequately managed on oral medications. REHABILITATION BARRIER: Pain. INTERVENTION FOR BARRIER: Interdisciplinary approach. ESTIMATED LENGTH OF STAY: 14 days. DISPOSITION GOAL: Home with family. I acknowledge that I performed a full physical examination on this patient within 24 hours of admissi on to the rehabilitation unit. I believe the patient is a good candidate for comprehensive interdisc iplinary rehab care and is anticipated to make reasonable goals in a reasonable period of time as out lined above. Dictated By: NYLA IZQUIERDO/AILYN Conf#: [id number] [facility]#: [id number]
[2018-10-31 02:00] VITALS: BP 109/47; PULSE 76; RESP 17
[2018-10-31] MEDS: ACCU-CHEK XX SCH ×8 (02:00→21:36)
[2018-10-31] MEDS: LEVOTHYROXINE 100 MCG TAB PO SCH (06:05)
[2018-10-31 07:30] VITALS: BP 153/78; PULSE 74; RESP 20
[2018-10-31] MEDS: INSULIN ASPART [NOVOLOG] 3 ML PEN SC SCH ×3 (08:41→17:30)
[2018-10-31] MEDS: SEVELAMER CARBONATE 800 MG TABLET PO SCH ×3 (08:42→17:29)
[2018-10-31] MEDS: HEPARIN 5,000 UNIT/1 ML VIAL SC SCH ×2 (08:42→20:18)
[2018-10-31] MEDS: MULTIVIT/CA CARB/B CMPLX/FA TAB PO SCH (08:42)
[2018-10-31] MEDS: DOCUSATE SODIUM 100 MG CAP PO SCH ×2 (08:43→20:16)
[2018-10-31] MEDS: ASPIRIN (EC) 81 MG TAB PO SCH (08:43)
[2018-10-31] MEDS: AMOXICILLIN/CLAV 875 MG TAB PO SCH ×2 (08:43→20:17)
[2018-10-31] MEDS: FAMOTIDINE 20 MG TAB PO SCH (08:43)
[2018-10-31] MEDS: LINAGLIPTIN 5 MG TABLET PO SCH (08:43)
[2018-10-31] MEDS: BENAZEPRIL 40 MG TAB PO SCH ×2 (08:43→20:17)
[2018-10-31] MEDS: BALSAM PERU/CASTOR OIL 60 GM TUBE TOP SCH ×2 (08:56→20:19)
[2018-10-31] MEDS: CHOLECALCIFEROL 2,000 UNIT CAP PO SCH (09:01)
--- NOTE | 2018-10-31 13:22 | CONS ---
Assessment/Plan Assessment/Plan Assessment/Plan (Daily) 1. ESRD on HD MWF AVF for HD Access 2. S/p Mechanical Fall 3. left femur fracture s/p ORIF of left hip intertrochanteric fracture on 10/24/18 4. H/o HTN 5. H/o HL 6. H/o Hypothyroidism Plan: Transferred to acute rehab floor, s/p HD yesterday HD ordered for tuesday , pt regular schedule for HD is MWF - AVF for HD access will follow up Consultation Date/Type/Reason Admit Date/Time Oct 29, 2018 at 23:08 Initial Consult Date Date/Time of Note DATE: 10/31/18 TIME: 13:22 Exam/Review of Systems Exam Vitals Vital Signs Date Temp Pulse Resp B/P (MAP) Pulse Ox O2 O2 Flow FiO2 Time Delivery Rate 10/31/18 98.0 74 20 153/78 96 Room Air 07:30 (103) Intake and Output 10/30/18 10/30/18 10/31/18 1515:00 23:00 07:00 IntakeIntake Total 1200 ml 500 ml OutputOutput Total 3600 ml BalanceBalance -2400 ml 500 ml Exam Constitutional: alert Respiratory: diminished breath sounds Cardiovascular: regular rate and rhythm, nl pulses Gastrointestinal: soft, non-tender Musculoskeletal: nl extremities to inspection Extremities: normal pulses, other (AVF for HD access ) 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: Non focal Results Result Diagram: 10/30/18 0634 10/30/18 0634 Results 24hrs Laboratory Tests Test 10/30/18 17:52 10/30/18 21:07 10/31/18 08:37 10/31/18 10:29 Bedside Glucose 99 119 119 119 Test 10/31/18 12:07 Bedside Glucose 108 Medications Medication Current Medications Docusate Sodium (Colace) 100 mg BID PO Last administered on 10/31/18at 08:43; Admin Dose 100 MG; Start 10/30/18 at 09:00 Senna (Senokot) 1 tab HS PO Last administered on 10/30/18at 21:05; Admin Dose 1 TAB; Start 10/30/18 at 21:00 Lactulose (Enulose) 20 gm DAILY PRN PO CONSTIPATION; Start 10/30/18 at 00:00 Bisacodyl (Dulcolax Supp) 10 mg DAILY PRN [place] CONSTIPATION; Start 10/30/18 at 00:00 Acetaminophen (Tylenol Tab) 650 mg Q4H PRN PO PAIN; Start 10/30/18 at 00:00 Miscellaneous Information (Pending Santyl Order For Wound Care) This patient almanzar... PRN PRN XX WOUND CARE; Start 10/30/18 at 00:00 Amoxicillin/ Clavulanate Potassium (Augmentin) 875 mg BID PO Last administered on 10/31/18 08:43; Admin Dose 875 MG; Start 10/30/18 at 09:00; Stop 11/04/18 at 13:59 Benazepril HCl (Lotensin) 40 mg BID PO Last administered on 10/31/18 08:43; Admin Dose 40 MG; Start 10/30/18 at 09:00 Cholecalciferol (Vitamin D) 2,000 unit DAILY PO Last administered on 10/31/18 09:01; Admin Dose 2,000 UNIT; Start 10/30/18 at 09:00 Aspirin (Halfprin) 81 mg DAILY PO Last administered on 10/31/18 08:43; Admin Dose 81 MG; Start 10/30/18 at 09:00 Famotidine (Pepcid) 20 mg DAILY PO Last administered on 10/31/18 08:43; Admin Dose 20 MG; Start 10/30/18 at 09:00 Hydromorphone HCl (Dilaudid) 1 mg Q3H PRN IV SEVERE PAIN LEVEL 7-10 Last administered on 10/30/18 17:24; Admin Dose 1 MG; Start 10/30/18 at 01:00 Insulin Aspart (Novolog Insulin Pen) 5 unit WITH BREAKFAST SC Last administered on 10/31/18 08:41; Admin Dose 5 UNIT; Start 10/30/18 at 07:35 Insulin Aspart (Novolog Insulin Pen) 5 unit WITH LUNCH SC Last administered on 10/31/18 12:10; Admin Dose 5 UNIT; Start 10/30/18 at 12:00 Insulin Aspart (Novolog Insulin Pen) 5 unit WITH DINNER SC ; Start 10/30/18 at 17:35 Diagnostic Test (Pha) (Accu-Chek) 1 ea 02 XX ; Start 10/30/18 at 02:00 Levothyroxine Sodium (Synthroid) 100 mcg DAILY@06 PO Last administered on 10/31/18 06:05; Admin Dose 100 MCG; Start 10/30/18 at 06:00 Linagliptin (Tradjenta) 5 mg DAILY PO Last administered on 10/31/18 08:43; Admin Dose 5 MG; Start 10/30/18 at 09:00 Diagnostic Test (Pha) (Accu-Chek) 1 ea AC MEALS AND BEDTIME XX Last administered on 10/30/18 17:25; Admin Dose 1 EA; Start 10/30/18 at 07:05 Multivit/Ca Carb/ B Cmplx/FA/Prenat (Manasa-Haris) 1 tab DAILY PO Last administered on 10/31/18 08:42; Admin Dose 1 TAB; Start 10/30/18 at 09:00 Ondansetron HCl (Zofran Inj) 4 mg Q6H PRN IV NAUSEA AND/OR VOMITING; Start at 01:00 Oxycodone HCl (Roxicodone) 5 mg Q4H PRN PO MILD PAIN LEVEL 1-3 Last administered on 10/30/18 14:32; Admin Dose 5 MG; Start 10/30/18 at 01:00 Oxycodone HCl (Roxicodone) 10 mg Q4H PRN PO MODERATE PAIN LEVEL 4-6 Last administered on 10/30/18 19:13; Admin Dose 10 MG; Start 10/30/18 at 01:00 Sevelamer Carbonate (Renvela) 1,600 mg WITH MEALS PO Last administered on 10/31/18 12:10; Admin Dose 1,600 MG; Start 10/30/18 at 07:35 Insulin Glargine (Lantus) 6 units HS SC Last administered on 10/30/18at 21:11; Admin Dose 6 UNITS; Start 10/30/18 at 21:00 Miscellaneous Information 1 ea NOTE XX ; Start 10/30/18 at 01:30 Glucose (Glutose) 15 gm Q15M PRN PO DECREASED GLUCOSE; Start 10/30/18 at 01:30 Glucose (Glutose) 22.5 gm Q15M PRN PO DECREASED GLUCOSE; Start 10/30/18 at 01:30 Dextrose (D50w Syringe) 25 ml Q15M PRN IV DECREASED GLUCOSE; Start 10/30/18 at 01:30 Dextrose (D50w Syringe) 50 ml Q15M PRN IV DECREASED GLUCOSE; Start 10/30/18 at 01:30 Glucagon (Glucagen) 1 mg Q15M PRN IM DECREASED GLUCOSE; Start 10/30/18 at 01:30 Glucose (Glutose) 15 gm Q15M PRN BUCCAL DECREASED GLUCOSE; Start 10/30/18 at 01:30 Diclofenac Sodium (Voltaren 1% Gel) 2 gm QID PRN TP PAIN; Start 10/30/18 at 09:00 Diagnostic Test (Pha) (Accu-Chek) 1 ea 2 HOURS AFTER MEALS XX Last administered on 10/30/18at 14:34; Admin Dose 1 EA; Start 10/30/18 at 09:35 Heparin Sodium (Porcine) (Heparin (5000 Units/1ml)) 5,000 unit BID SC Last administered on 10/31/18at 08:42; Admin Dose 5,000 UNIT; Start 10/30/18 at 21:00 ANITA FLETCHER MD Oct 31, 2018 13:22
[2018-10-31 14:00] VITALS: BP 155/68; PULSE 78; RESP 20
[2018-10-31] MEDS: oxyCODONE 5 MG TAB PO PRN (14:29)
--- NOTE | 2018-10-31 16:19 | PN ---
Date/Time of Note Date/Time of Note DATE: 10/31/18 TIME: 16:17 Subjective Reports feeling better Objective Vital Signs Date Temp Pulse Resp B/P (MAP) Pulse Ox O2 O2 Flow FiO2 Time Delivery Rate 10/31/18 98.0 74 20 153/78 96 Room Air 07:30 (103) Intake and Output 10/30/18 10/30/18 10/31/18 1515:00 23:00 07:00 IntakeIntake Total 1200 ml 500 ml OutputOutput Total 3600 ml BalanceBalance -2400 ml 500 ml Exam pulm-cta abd-soft mod transfer mod ambulation 25 feet Results/Medications Result Diagram: 10/30/18 0634 10/30/18 0634 Results 24 hrs Laboratory Tests Test 10/30/18 17:52 10/30/18 21:07 10/31/18 08:37 10/31/18 10:29 Bedside Glucose 99 119 119 119 Test 10/31/18 12:07 10/31/18 14:32 Bedside Glucose 108 110 Medications Current Medications Docusate Sodium (Colace) 100 mg BID PO Last administered on 10/31/18at 08:43; Admin Dose 100 MG; Start 10/30/18 at 09:00 Senna (Senokot) 1 tab HS PO Last administered on 10/30/18at 21:05; Admin Dose 1 TAB; Start 10/30/18 at 21:00 Lactulose (Enulose) 20 gm DAILY PRN PO CONSTIPATION; Start 10/30/18 at 00:00 Bisacodyl (Dulcolax Supp) 10 mg DAILY PRN [place] CONSTIPATION; Start 10/30/18 at 00:00 Acetaminophen (Tylenol Tab) 650 mg Q4H PRN PO PAIN; Start 10/30/18 at 00:00 Miscellaneous Information (Pending Santyl Order For Wound Care) This patient almanzar... PRN PRN XX WOUND CARE; Start 10/30/18 at 00:00 Amoxicillin/ Clavulanate Potassium (Augmentin) 875 mg BID PO Last administered on 10/31/18at 08:43; Admin Dose 875 MG; Start 10/30/18 at 09:00; Stop 11/04/18 at 13:59 Benazepril HCl (Lotensin) 40 mg BID PO Last administered on 10/31/18at 08:43; Admin Dose 40 MG; Start 10/30/18 at 09:00 Cholecalciferol (Vitamin D) 2,000 unit DAILY PO Last administered on 10/31/18 09:01; Admin Dose 2,000 UNIT; Start 10/30/18 at 09:00 Aspirin (Halfprin) 81 mg DAILY PO Last administered on 10/31/18 08:43; Admin Dose 81 MG; Start 10/30/18 at 09:00 Famotidine (Pepcid) 20 mg DAILY PO Last administered on 10/31/18 08:43; Admin Dose 20 MG; Start 10/30/18 at 09:00 Hydromorphone HCl (Dilaudid) 1 mg Q3H PRN IV SEVERE PAIN LEVEL 7-10 Last administered on 10/30/18 17:24; Admin Dose 1 MG; Start 10/30/18 at 01:00 Insulin Aspart (Novolog Insulin Pen) 5 unit WITH BREAKFAST SC Last admini stered on 10/31/18 08:41; Admin Dose 5 UNIT; Start 10/30/18 at 07:35 Insulin Aspart (Novolog Insulin Pen) 5 unit WITH LUNCH SC Last administered on 10/31/18 12:10; Admin Dose 5 UNIT; Start 10/30/18 at 12:00 Insulin Aspart (Novolog Insulin Pen) 5 unit WITH DINNER SC ; Start 10/30/18 at 17:35 Diagnostic Test (Pha) (Accu-Chek) 1 ea 02 XX ; Start 10/30/18 at 02:00 Levothyroxine Sodium (Synthroid) 100 mcg DAILY@06 PO Last administered on 10/31/18 06:05; Admin Dose 100 MCG; Start 10/30/18 at 06:00 Linagliptin (Tradjenta) 5 mg DAILY PO Last administered on 10/31/18 08:43; Admin Dose 5 MG; Start 10/30/18 at 09:00 Diagnostic Test (Pha) (Accu-Chek) 1 ea AC MEALS AND BEDTIME XX Last administ ered on 10/30/18 17:25; Admin Dose 1 EA; Start 10/30/18 at 07:05 Multivit/Ca Carb/ B Cmplx/FA/Prenat (Manasa-Haris) 1 tab DAILY PO Last administered on 10/31/18 08:42; Admin Dose 1 TAB; Start 10/30/18 at 09:00 Ondansetron HCl (Zofran Inj) 4 mg Q6H PRN IV NAUSEA AND/OR VOMITING; Start 10/30/18 at 01:00 Oxycodone HCl (Roxicodone) 5 mg Q4H PRN PO MILD PAIN LEVEL 1-3 Last administered on 10/30/18at 14:32; Admin Dose 5 MG; Start 10/30/18 at 01:00 Oxycodone HCl (Roxicodone) 10 mg Q4H PRN PO MODERATE PAIN LEVEL 4-6 Last administered on 10/31/18 14:29; Admin Dose 10 MG; Start 10/30/18 at 01:00 Sevelamer Carbonate (Renvela) 1,600 mg WITH MEALS PO Last administered on 10/31/18 12:10; Admin Dose 1,600 MG; Start 10/30/18 at 07:35 Insulin Glargine (Lantus) 6 units HS SC Last administered on 10/30/18at 21:11; Admin Dose 6 UNITS; Start 10/30/18 at 21:00 Miscellaneous Information 1 ea NOTE XX ; Start 10/30/18 at 01:30 Glucose (Glutose) 15 gm Q15M PRN PO DECREASED GLUCOSE; Start 10/30/18 at 01:30 Glucose (Glutose) 22.5 gm Q15M PRN PO DECREASED GLUCOSE; Start 10/30/18 at 01:30 Dextrose (D50w Syringe) 25 ml Q15M PRN IV DECREASED GLUCOSE; Start 10/30/18 at 01:30 Dextrose (D50w Syringe) 50 ml Q15M PRN IV DECREASED GLUCOSE; Start 10/30/18 at 01:30 Glucagon (Glucagen) 1 mg Q15M PRN IM DECREASED GLUCOSE; Start 10/30/18 at 01:30 Glucose (Glutose) 15 gm Q15M PRN BUCCAL DECREASED GLUCOSE; Start 10/30/18 at 01:30 Diclofenac Sodium (Voltaren 1% Gel) 2 gm QID PRN TP PAIN; Start 10/30/18 at 09 :00 Diagnostic Test (Pha) (Accu-Chek) 1 ea 2 HOURS AFTER MEALS XX Last administered on 10/30/18at 14:34; Admin Dose 1 EA; Start 10/30/18 at 09:35 Heparin Sodium (Porcine) (Heparin (5000 Units/1ml)) 5,000 unit BID SC Last administered on 10/31/18at 08:42; Admin Dose 5,000 UNIT; Start 10/30/18 at 21:00 Assessment/Plan Additional Assessment/Plan Rehab- Left intertrochanteric hip fracture status post ORIF, lumbar djd Tolerating rehab program Acute pain syndrome- continue current meds End-stage renal disease requiring hemodialysis-per renal Integ- Left heel deep tissue injury- continue offloading, increase po intake Hypertension. Anemia. Diabetes mellitus type 2. Diabetic neuropathy. Diabetic retinopathy. Hypothyroidism. Hyperparathyroidism. Benign prostatic hypertrophy. Hyperlipidemia. History of ischemic bowel syndrome. History of left ankle ORIF. Peripheral vascular disease. . NYLA HADLEY MD Oct 31, 2018 16:19
--- NOTE | 2018-10-31 18:48 | PN ---
Date/Time of Note Date/Time of Note DATE: 10/31/18 TIME: 18:40 Assessment/Plan VTE Prophylaxis Risk score (from Ns)>0 risk: 10 SCD applied (from Ns): Yes Pharmacological prophylaxis: heparin Lines/Catheters IV Catheter Type (from Nrs): [place] Urinary Cath still in place: No Assessment/Plan Problems: (1) Closed fracture of left hip requiring operative repair Onset Date: ~ 10/24/2018 Status: Resolved Comment: S/p repair. Cont. PT in ARU. Needs parenteral narcotics for PT. Has not been able to maintain IV. Will change dilaudid to IM for PT. (2) Diabetes mellitus type 2 with complications Status: Chronic Comment: Good glycemic control. Cont. current regimen. (3) Hypothyroidism Status: Chronic Comment: Cont. LT4 daily (4) ESRD (end stage renal disease) on dialysis Status: Chronic Comment: HD per renal (5) Essential (primary) hypertension Status: Chronic Comment: BP fluctuating but would not intensify therapy at this time due to h/o hypotension w/ HD in the past. (6) Anemia associated with chronic renal failure Status: Chronic Comment: Stable. Cont. EPO (7) Debility Status: Chronic Comment: Cont. rehab in ARU. Result Diagram: 10/30/18 0634 10/30/18 0634 Results 24hrs Laboratory Tests Test 10/30/18 21:07 10/31/18 08:37 10/31/18 10:29 10/31/18 12:07 Bedside Glucose 119 119 119 108 Test 10/31/18 14:32 10/31/18 17:27 Bedside Glucose 110 104 Subjective 24 Hr Interval Summary Constitutional: no complaints Respiratory: no complaints Cardiovascular: no complaints Gastrointestinal: no complaints Genitourinary: no complaints Musculoskeletal: bone/joint pain (L hip, radiating down LLE every time he tries to ambulate) Neurologic: no complaints Exam/Review of Systems Exam Vitals VS - Last 72 Hours, by Label Date Temp Pulse Resp B/P (MAP) Pulse Ox O2 O2 Flow FiO2 Time Delivery Rate 10/31/18 97.7 78 20 155/68 98 Room Air 14:00 (97) 10/31/18 98.0 74 20 153/78 96 Room Air 07:30 (103) 10/31/18 97.6 76 17 109/47 97 02:00 (67) 10/30/18 98.0 67 18 128/58 99 20:00 (81) 10/30/18 66 19:00 10/30/18 66 18:45 10/30/18 65 18:30 10/30/18 67 18:15 10/30/18 67 18:00 10/30/18 68 17:45 10/30/18 69 17:30 10/30/18 66 17:15 10/30/18 67 17:00 10/30/18 67 16:45 10/30/18 68 16:30 10/30/18 68 16:15 10/30/18 69 16:00 10/30/18 74 18 125/58 98 Room Air 15:50 (80) 10/30/18 97.9 66 18 126/58 95 Room Air 14:00 (80) 10/30/18 98.0 73 18 174/70 94 Room Air 07:00 (104) 10/30/18 97.8 74 18 149/70 97 Room Air 02:00 (96) 10/29/18 98.1 67 18 152/76 99 Room Air 22:20 (101) Vital Signs Date Temp Pulse Resp B/P (MAP) Pulse Ox O2 O2 Flow FiO2 Time Delivery Rate 10/31/18 97.7 78 20 155/68 98 Room Air 14:00 (97) Intake and Output 10/30/18 10/30/18 10/31/18 1515:00 23:00 07:00 IntakeIntake Total 1200 ml 500 ml OutputOutput Total 3600 ml BalanceBalance -2400 ml 500 ml Constitutional: alert, oriented, well developed Psych: no complaints, nl mood/affect Respiratory: clear to auscultation, normal air movement Cardiovascular: regular rate and rhythm, edema (1+ LLE); No murmurs/extra sounds, No rub Gastrointestinal: soft, nl liver, spleen, non-tender, bowel sounds; No mass, No rebound or guarding Musculoskeletal: No nl extremities to inspection (R distal toe amp) Extremities: edema (1+ LLE); No cyanosis, No clubbing 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: BRASS SORTER II-XII intact, nl mental status, nl speech, nl strength Additional Comments Bedside Glucose - 72 Hours Test 10/30/18 07:52 10/30/18 09:41 10/30/18 12:50 10/30/18 17:52 Bedside 125 119 119 99 Glucose mg/dL (70-220) mg/dL (70-220) mg/dL (70-220) mg/dL (70-220) Test 10/30/18 21:07 10/31/18 08:37 10/31/18 10:29 10/31/18 12:07 Bedside 119 119 119 108 Glucose mg/dL (70-220) mg/dL (70-220) mg/dL (70-220) mg/dL (70-220) Test 10/31/18 14:32 10/31/18 17:27 Bedside 110 104 Glucose mg/dL (70-220) mg/dL (70-220) Results Results 24hrs Laboratory Tests Test 10/30/18 21:07 10/31/18 08:37 10/31/18 10:29 10/31/18 12:07 Bedside Glucose 119 119 119 108 Test 10/31/18 14:32 10/31/18 17:27 Bedside Glucose 110 104 Medications Medication Current Medications Docusate Sodium (Colace) 100 mg BID PO Last administered on 10/31/18at 08:43; Admin Dose 100 MG; Start 10/30/18 at 09:00 Senna (Senokot) 1 tab HS PO Last administered on 10/30/18at 21:05; Admin Dose 1 TAB; Start 10/30/18 at 21:00 Lactulose (Enulose) 20 gm DAILY PRN PO CONSTIPATION; Start 10/30/18 at 00:00 Bisacodyl (Dulcolax Supp) 10 mg DAILY PRN [place] CONSTIPATION; Start 10/30/18 at 00:00 Acetaminophen (Tylenol Tab) 650 mg Q4H PRN PO PAIN; Start 10/30/18 at 00:00 Miscellaneous Information (Pending [facility] Order For Wound Care) This patient almanzar... PRN PRN XX WOUND CARE; Start 10/30/18 at 00:00 Amoxicillin/ Clavulanate Potassium (Augmentin) 875 mg BID PO Last administered on 10/31/18at 08:43; Admin Dose 875 MG; Start 10/30/18 at 09:00; Stop 11/04/18 at 13:59 Benazepril HCl (Lotensin) 40 mg BID PO Last administered on 10/31/18 08:43; Admin Dose 40 MG; Start 10/30/18 at 09:00 Cholecalciferol (Vitamin D) 2,000 unit DAILY PO Last administered on 10/31/18 09:01; Admin Dose 2,000 UNIT; Start 10/30/18 at 09:00 Aspirin (Halfprin) 81 mg DAILY PO Last administered on 10/31/18 08:43; Admin Dose 81 MG; Start 10/30/18 at 09:00 Famotidine (Pepcid) 20 mg DAILY PO Last administered on 10/31/18 08:43; Admin Dose 20 MG; Start 10/30/18 at 09:00 Hydromorphone HCl (Dilaudid) 1 mg Q3H PRN IV SEVERE PAIN LEVEL 7-10 Last admini stered on 10/30/18 17:24; Admin Dose 1 MG; Start 10/30/18 at 01:00 Insulin Aspart (Novolog Insulin Pen) 5 unit WITH BREAKFAST SC Last administered on 10/31/18 08:41; Admin Dose 5 UNIT; Start 10/30/18 at 07:35 Insulin Aspart (Novolog Insulin Pen) 5 unit WITH LUNCH SC Last administered on 10/31/18 12:10; Admin Dose 5 UNIT; Start 10/30/18 at 12:00 Insulin Aspart (Novolog Insulin Pen) 5 unit WITH DINNER SC ; Start 10/30/18 at 17:35 Diagnostic Test (Pha) (Accu-Chek) 1 ea 02 XX ; Start 10/30/18 at 02:00 Levothyroxine Sodium (Synthroid) 100 mcg DAILY@06 PO Last administered on 10/31/18 06:05; Admin Dose 100 MCG; Start 10/30/18 at 06:00 Linagliptin (Tradjenta) 5 mg DAILY PO Last administered on 10/31/18 08:43; Admin Dose 5 MG; Start 10/30/18 at 09:00 Diagnostic Test (Pha) (Accu-Chek) 1 ea AC MEALS AND BEDTIME XX Last administered on 10/30/18 17:25; Admin Dose 1 EA; Start 10/30/18 at 07:05 Multivit/Ca Carb/ B Cmplx/FA/Prenat (Manasa-Haris) 1 tab DAILY PO Last administered on 10/31/18 08:42; Admin Dose 1 TAB; Start 10/30/18 at 09:00 Ondansetron HCl (Zofran Inj) 4 mg Q6H PRN IV NAUSEA AND/OR VOMITING; Start 10/30/18 at 01:00 Oxycodone HCl (Roxicodone) 5 mg Q4H PRN PO MILD PAIN LEVEL 1-3 Last administered on 10/30/18at 14:32; Admin Dose 5 MG; Start 10/30/18 at 01:00 Oxycodone HCl (Roxicodone) 10 mg Q4H PRN PO MODERATE PAIN LEVEL 4-6 Last administered on 10/31/18 14:29; Admin Dose 10 MG; Start 10/30/18 at 01:00 Sevelamer Carbonate (Renvela) 1,600 mg WITH MEALS PO Last administered on 10/31/18 17:29; Admin Dose 1,600 MG; Start 10/30/18 at 07:35 Insulin Glargine (Lantus) 6 units HS SC Last administered on 10/30/18at 21:11; Admin Dose 6 UNITS; Start 10/30/18 at 21:00 Miscellaneous Information 1 ea NOTE XX ; Start 10/30/18 at 01:30 Glucose (Glutose) 15 gm Q15M PRN PO DECREASED GLUCOSE; Start 10/30/18 at 01:30 Glucose (Glutose) 22.5 gm Q15M PRN PO DECREASED GLUCOSE; Start 10/30/18 at 01:30 Dextrose (D50w Syringe) 25 ml Q15M PRN IV DECREASED GLUCOSE; Start 10/30/18 at 01:30 Dextrose (D50w Syringe) 50 ml Q15M PRN IV DECREASED GLUCOSE; Start 10/30/18 at 01:30 Glucagon (Glucagen) 1 mg Q15M PRN IM DECREASED GLUCOSE; Start 10/30/18 at 01:30 Glucose (Glutose) 15 gm Q15M PRN BUCCAL DECREASED GLUCOSE; Start 10/30/18 at 01:30 Diclofenac Sodium (Voltaren 1% Gel) 2 gm QID PRN TP PAIN; Start 10/30/18 at 09:00 Diagnostic Test (Pha) (Accu-Chek) 1 ea 2 HOURS AFTER MEALS XX Last administered on 10/30/18at 14:34; Admin Dose 1 EA; Start 10/30/18 at 09:35 Heparin Sodium (Porcine) (Heparin (5000 Units/1ml)) 5,000 unit BID SC Last administered on 10/31/18at 08:42; Admin Dose 5,000 UNIT; Start 10/30/18 at 21:00 FELIX DREW MD Oct 31, 2018 18:48
[2018-10-31] MEDS: SENNA TAB PO SCH (20:17)
[2018-10-31] MEDS: INSULIN GLARGINE [LANTus] (100 UNITS/ML) SYG SC SCH (20:19)
[2018-10-31 20:24] VITALS: BP 139/61; PULSE 74; RESP 18
[2018-11-01] VITALS (16 sets, daily range): BP systolic 121–159; BP diastolic 50–69; PULSE 67–74; RESP 18–20
[2018-11-01] MEDS: ACCU-CHEK XX SCH ×6 (02:00→21:32)
[2018-11-01] MEDS: LEVOTHYROXINE 100 MCG TAB PO SCH (06:30)
[2018-11-01] MEDS: SEVELAMER CARBONATE 800 MG TABLET PO SCH ×3 (07:44→17:57)
[2018-11-01] MEDS: LINAGLIPTIN 5 MG TABLET PO SCH (07:44)
[2018-11-01] MEDS: INSULIN ASPART [NOVOLOG] 3 ML PEN SC SCH ×3 (07:48→17:35)
[2018-11-01] MEDS: BENAZEPRIL 40 MG TAB PO SCH ×2 (09:00→21:20)
[2018-11-01] MEDS: oxyCODONE 5 MG TAB PO PRN (09:02)
[2018-11-01] MEDS: AMOXICILLIN/CLAV 875 MG TAB PO SCH ×2 (09:02→21:20)
[2018-11-01] MEDS: FAMOTIDINE 20 MG TAB PO SCH (09:03)
[2018-11-01] MEDS: ASPIRIN (EC) 81 MG TAB PO SCH (09:03)
[2018-11-01] MEDS: DOCUSATE SODIUM 100 MG CAP PO SCH ×2 (09:03→21:20)
[2018-11-01] MEDS: MULTIVIT/CA CARB/B CMPLX/FA TAB PO SCH (09:03)
[2018-11-01] MEDS: CHOLECALCIFEROL 2,000 UNIT CAP PO SCH (09:03)
[2018-11-01] MEDS: HEPARIN 5,000 UNIT/1 ML VIAL SC SCH ×2 (09:10→21:31)
[2018-11-01] MEDS: BALSAM PERU/CASTOR OIL 60 GM TUBE TOP SCH ×2 (09:11→21:21)
--- NOTE | 2018-11-01 10:33 | CONS ---
Assessment/Plan Assessment/Plan Assessment/Plan (Daily) 1. ESRD on HD MWF AVF for HD Access 2.Left femur fracture s/p ORIF of left hip intertrochanteric fracture on 10/24/18 4. H/o HTN 5. H/o HL 6. H/o Hypothyroidism Plan: s/p HD today 2.5 L removed, , pt regular schedule for HD is MWF - AVF for HD access will follow up Consultation Date/Type/Reason Admit Date/Time Oct 29, 2018 at 23:08 Initial Consult Date Date/Time of Note DATE: 11/01/18 TIME: 10:33 Exam/Review of Systems Exam Vitals Vital Signs Date Temp Pulse Resp B/P (MAP) Pulse Ox O2 O2 Flow FiO2 Time Delivery Rate 11/01/18 97.6 67 20 159/64 96 Room Air 07:30 (95) Intake and Output 10/31/18 10/31/18 11/01/18 1515:00 23:00 07:00 IntakeIntake Total 1250 ml 300 ml BalanceBalance 1250 ml 300 ml Exam Constitutional: alert Respiratory: diminished breath sounds Cardiovascular: regular rate and rhythm, nl pulses Gastrointestinal: soft, non-tender Musculoskeletal: nl extremities to inspection Extremities: normal pulses, other (AVF for HD access ) 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: Non focal Results Result Diagram: 10/30/18 0634 10/30/18 0634 Results 24hrs Laboratory Tests Test 10/31/18 12:07 10/31/18 14:32 10/31/18 17:27 10/31/18 19:57 Bedside Glucose 108 110 104 133 Test 10/31/18 21:33 11/01/18 07:43 Bedside Glucose 128 131 Medications Medication Current Medications Docusate Sodium (Colace) 100 mg BID PO Last administered on 11/01/18at 09:03; Admin Dose 100 MG; Start 10/30/18 at 09:00 Senna (Senokot) 1 tab HS PO Last administered on 10/31/18at 20:17; Admin Dose 1 TAB; Start 10/30/18 at 21:00 Lactulose (Enulose) 20 gm DAILY PRN PO CONSTIPATION; Start 10/30/18 at 00:00 Bisacodyl (Dulcolax Supp) 10 mg DAILY PRN [place] CONSTIPATION; Start 10/30/18 at 00:00 Acetaminophen (Tylenol Tab) 650 mg Q4H PRN PO PAIN; Start 10/30/18 at 00:00 Miscellaneous Information (Pending [facility] Order For Wound Care) This patient almanzar... PRN PRN XX WOUND CARE; Start 10/30/18 at 00:00 Amoxicillin/ Clavulanate Potassium (Augmentin) 875 mg BID PO Last administered on 11/01/18 09:02; Admin Dose 875 MG; Start 10/30/18 at 09:00; Stop 11/04/18 at 13:59 Benazepril HCl (Lotensin) 40 mg BID PO Last administered on 10/31/18 20:17; Admin Dose 40 MG; Start 10/30/18 at 09:00 Cholecalciferol (Vitamin D) 2,000 unit DAILY PO Last administered on 11/01/18 09:03; Admin Dose 2,000 UNIT; Start 10/30/18 at 09:00 Aspirin (Halfprin) 81 mg DAILY PO Last administered on 11/01/18 09:03; Admin Dose 81 MG; Start 10/30/18 at 09:00 Famotidine (Pepcid) 20 mg DAILY PO Last administered on 11/01/18at 09:03; Admin Dose 20 MG; Start 10/30/18 at 09:00 Insulin Aspart (Novolog Insulin Pen) 5 unit WITH BREAKFAST SC Last administered on 11/01/18at 07:48; Admin Dose 5 UNIT; Start 10/30/18 at 07:35 Insulin Aspart (Novolog Insulin Pen) 5 unit WITH LUNCH SC Last administered on 10/31/18at 12:10; Admin Dose 5 UNIT; Start 10/30/18 at 12:00 Insulin Aspart (Novolog Insulin Pen) 5 unit WITH DINNER SC ; Start 10/30/18 at 17:35 Diagnostic Test (Pha) (Accu-Chek) 1 ea 02 XX ; Start 10/30/18 at 02:00 Levothyroxine Sodium (Synthroid) 100 mcg DAILY@06 PO Last administered on 11/01/18at 06:30; Admin Dose 100 MCG; Start 10/30/18 at 06:00 Linagliptin (Tradjenta) 5 mg DAILY PO Last administered on 11/01/18at 07:44; Admin Dose 5 MG; Start 10/30/18 at 09:00 Diagnostic Test (Pha) (Accu-Chek) 1 ea AC MEALS AND BEDTIME XX Last administered on 11/01/18at 07:49; Admin Dose 1 EA; Start 10/30/18 at 07:05 Multivit/Ca Carb/ B Cmplx/FA/Prenat (Manasa-Haris) 1 tab DAILY PO Last administered on 11/01/18at 09:03; Admin Dose 1 TAB; Start 10/30/18 at 09:00 Ondansetron HCl (Zofran Inj) 4 mg Q6H PRN IV NAUSEA AND/OR VOMITING; Start 10/30/18 at 01:00 Oxycodone HCl (Roxicodone) 5 mg Q4H PRN PO MILD PAIN LEVEL 1-3 Last administered on 10/30/18at 14:32; Admin Dose 5 MG; Start 10/30/18 at 01:00 Oxycodone HCl (Roxicodone) 10 mg Q4H PRN PO MODERATE PAIN LEVEL 4-6 Last administered on 11/01/18at 09:02; Admin Dose 10 MG; Start 10/30/18 at 01:00 Sevelamer Carbonate (Renvela) 1,600 mg WITH MEALS PO Last administered on 11/01/18at 07:44; Admin Dose 1,600 MG; Start 10/30/18 at 07:35 Insulin Glargine (Lantus) 6 units HS SC Last administered on 10/31/18at 20:19; Admin Dose 6 UNITS; Start 10/30/18 at 21:00 Miscellaneous Information 1 ea NOTE XX ; Start 10/30/18 at 01:30 Glucose (Glutose) 15 gm Q15M PRN PO DECREASED GLUCOSE; Start 10/30/18 at 01:30 Glucose (Glutose) 22.5 gm Q15M PRN PO DECREASED GLUCOSE; Start 10/30/18 at 01:30 Dextrose (D50w Syringe) 25 ml Q15M PRN IV DECREASED GLUCOSE; Start 10/30/18 at 01:30 Dextrose (D50w Syringe) 50 ml Q15M PRN IV DECREASED GLUCOSE; Start 10/30/18 at 01:30 Glucagon (Glucagen) 1 mg Q15M PRN IM DECREASED GLUCOSE; Start 10/30/18 at 01:30 Glucose (Glutose) 15 gm Q15M PRN BUCCAL DECREASED GLUCOSE; Start 10/30/18 at 0 1:30 Diclofenac Sodium (Voltaren 1% Gel) 2 gm QID PRN TP PAIN; Start 10/30/18 at 09:00 Diagnostic Test (Pha) (Accu-Chek) 1 ea 2 HOURS AFTER MEALS XX Last administered on 10/31/18at 19:58; Admin Dose 1 EA; Start 10/30/18 at 09:35 Heparin Sodium (Porcine) (Heparin (5000 Units/1ml)) 5,000 unit BID SC Last administered on 11/01/18at 09:10; Admin Dose 5,000 UNIT; Start 10/30/18 at 21:00 Hydromorphone HCl (Dilaudid) 1 mg Q3H PRN IM SEVERE PAIN LEVEL 7-10; Start 10/31/18 at 19:00 ANITA FLETCHER MD Nov 01, 2018 10:33
--- NOTE | 2018-11-01 13:38 | PN ---
Date/Time of Note Date/Time of Note DATE: 11/01/18 TIME: 13:37 Subjective No new complaints Objective Vital Signs Date Temp Pulse Resp B/P (MAP) Pulse Ox O2 O2 Flow FiO2 Time Delivery Rate 11/01/18 97.6 67 20 159/64 96 Room Air 07:30 (95) Intake and Output 10/31/18 10/31/18 11/01/18 1515:00 23:00 07:00 IntakeIntake Total 1250 ml 300 ml BalanceBalance 1250 ml 300 ml Exam mod transfer mod assist ambulation 25 feet [id number] Results/Medications Result Diagram: 10/30/18 0634 10/30/18 0634 Results 24 hrs Laboratory Tests Test 10/31/18 14:32 10/31/18 17:27 10/31/18 19:57 10/31/18 21:33 Bedside Glucose 110 104 133 128 Test 11/01/18 07:43 11/01/18 11:46 Bedside Glucose 131 76 Medications Current Medications Docusate Sodium (Colace) 100 mg BID PO Last administered on 11/01/18at 09:03; Admin Dose 100 MG; Start 10/30/18 at 09:00 Senna (Senokot) 1 tab HS PO Last administered on 10/31/18at 20:17; Admin Dose 1 TAB; Start 10/30/18 at 21:00 Lactulose (Enulose) 20 gm DAILY PRN PO CONSTIPATION; Start 10/30/18 at 00:00 Bisacodyl (Dulcolax Supp) 10 mg DAILY PRN [place] CONSTIPATION; Start 10/30/18 at 00:00 Acetaminophen (Tylenol Tab) 650 mg Q4H PRN PO PAIN; Start 10/30/18 at 00:00 Miscellaneous Information (Pending Santyl Order For Wound Care) This patient almanzar... PRN PRN XX WOUND CARE; Start 10/30/18 at 00:00 Amoxicillin/ Clavulanate Potassium (Augmentin) 875 mg BID PO Last administered on 11/01/18at 09:02; Admin Dose 875 MG; Start 10/30/18 at 09:00; Stop 11/04/18 at 13:59 Benazepril HCl (Lotensin) 40 mg BID PO Last administered on 10/31/18at 20:17; Admin Dose 40 MG; Start 10/30/18 at 09:00 Cholecalciferol (Vitamin D) 2,000 unit DAILY PO Last administered on 11/01/18 09:03; Admin Dose 2,000 UNIT; Start 10/30/18 at 09:00 Aspirin (Halfprin) 81 mg DAILY PO Last administered on 11/01/18 09:03; Admin Dose 81 MG; Start 10/30/18 at 09:00 Famotidine (Pepcid) 20 mg DAILY PO Last administered on 11/01/18 09:03; Admin Dose 20 MG; Start 10/30/18 at 09:00 Insulin Aspart (Novolog Insulin Pen) 5 unit WITH BREAKFAST SC Last administered on 11/01/18 07:48; Admin Dose 5 UNIT; Start 10/30/18 at 07:35 Insulin Aspart (Novolog Insulin Pen) 5 unit WITH LUNCH SC Last administered on 10/31/18 12:10; Admin Dose 5 UNIT; Start 10/30/18 at 12:00 Insulin Aspart (Novolog Insulin Pen) 5 unit WITH DINNER SC ; Start 10/30/18 at 17:35 Diagnostic Test (Pha) (Accu-Chek) 1 ea 02 XX ; Start 10/30/18 at 02:00 Levothyroxine Sodium (Synthroid) 100 mcg DAILY@06 PO Last administered on 11/01/18 06:30; Admin Dose 100 MCG; Start 10/30/18 at 06:00 Linagliptin (Tradjenta) 5 mg DAILY PO Last administered on 11/01/18 07:44; A dmin Dose 5 MG; Start 10/30/18 at 09:00 Diagnostic Test (Pha) (Accu-Chek) 1 ea AC MEALS AND BEDTIME XX Last administered on 11/01/18 11:57; Admin Dose 1 EA; Start 10/30/18 at 07:05 Multivit/Ca Carb/ B Cmplx/FA/Prenat (Manasa-Haris) 1 tab DAILY PO Last administered on 11/01/18 09:03; Admin Dose 1 TAB; Start 10/30/18 at 09:00 Ondansetron HCl (Zofran Inj) 4 mg Q6H PRN IV NAUSEA AND/OR VOMITING; Start 10/30/18 at 01:00 Oxycodone HCl (Roxicodone) 5 mg Q4H PRN PO MILD PAIN LEVEL 1-3 Last administe red on 10/30/18at 14:32; Admin Dose 5 MG; Start 10/30/18 at 01:00 Oxycodone HCl (Roxicodone) 10 mg Q4H PRN PO MODERATE PAIN LEVEL 4-6 Last administered on 11/01/18at 09:02; Admin Dose 10 MG; Start 10/30/18 at 01:00 Sevelamer Carbonate (Renvela) 1,600 mg WITH MEALS PO Last administered on 11/01/18at 11:57; Admin Dose 1,600 MG; Start 10/30/18 at 07:35 Insulin Glargine (Lantus) 6 units HS SC Last administered on 10/31/18at 20:19; Admin Dose 6 UNITS; Start 10/30/18 at 21:00 Miscellaneous Information 1 ea NOTE XX ; Start 10/30/18 at 01:30 Glucose (Glutose) 15 gm Q15M PRN PO DECREASED GLUCOSE; Start 10/30/18 at 01:30 Glucose (Glutose) 22.5 gm Q15M PRN PO DECREASED GLUCOSE; Start 10/30/18 at 01:3 0 Dextrose (D50w Syringe) 25 ml Q15M PRN IV DECREASED GLUCOSE; Start 10/30/18 at 01:30 Dextrose (D50w Syringe) 50 ml Q15M PRN IV DECREASED GLUCOSE; Start 10/30/18 at 01:30 Glucagon (Glucagen) 1 mg Q15M PRN IM DECREASED GLUCOSE; Start 10/30/18 at 01:30 Glucose (Glutose) 15 gm Q15M PRN BUCCAL DECREASED GLUCOSE; Start 10/30/18 at 01:30 Diclofenac Sodium (Voltaren 1% Gel) 2 gm QID PRN TP PAIN; Start 10/30/18 at 09:00 Heparin Sodium (Porcine) (Heparin (5000 Units/1ml)) 5,000 unit BID SC Last a dministered on 11/01/18at 09:10; Admin Dose 5,000 UNIT; Start 10/30/18 at 21:00 Hydromorphone HCl (Dilaudid) 1 mg Q3H PRN IM SEVERE PAIN LEVEL 7-10; Start 10/31/18 at 19:00 Assessment/Plan Additional Assessment/Plan Rehab- Left intertrochanteric hip fracture status post ORIF, lumbar djd Pain has been a barrier, however patient making gains with treatment plan Acute pain syndrome- premedicate before therapies End-stage renal disease requiring hemodialysis-per renal Integ- Left heel deep tissue injury- continue offloading, increase po intake Hypertension. Anemia. Diabetes mellitus type 2. Diabetic neuropathy. Diabetic retinopathy. Hypothyroidism. Hyperparathyroidism. Benign prostatic hypertrophy. Hyperlipidemia. History of ischemic bowel syndrome. History of left ankle ORIF. Peripheral vascular disease. . NYLA HADLEY MD Nov 01, 2018 13:38
--- NOTE | 2018-11-01 17:26 | PN ---
Date/Time of Note Date/Time of Note DATE: 11/01/18 TIME: 17:20 Assessment/Plan VTE Prophylaxis Risk score (from Ns)>0 risk: 11 SCD applied (from Ns): Yes Pharmacological prophylaxis: heparin Lines/Catheters IV Catheter Type (from Nrs): [place] Urinary Cath still in place: No Assessment/Plan Problems: (1) Diabetes mellitus type 2 with complications Status: Chronic Comment: Excellent glycemic control. Cont. current regimen (2) ESRD (end stage renal disease) on dialysis Status: Chronic Comment: Cont. HD per renal (3) Essential (primary) hypertension Status: Chronic Comment: BP slightly above goal but will monitor due to h/o hypotension w/ HD in past (4) Hypothyroidism Status: Chronic Comment: Cont. LT4 (5) Anemia associated with chronic renal failure Status: Chronic Comment: Stable. Will monitor (6) Debility Status: Chronic Comment: Cont. PT in ARU (7) Closed fracture of left hip requiring operative repair Onset Date: ~ 10/24/2018 Status: Resolved Comment: S/p repair. Cont. PT in ARU. IM dilaudid prn pain intolerance. Pt. encouraged to ask for relief if needed. Result Diagram: 10/30/18 0634 10/30/18 0634 Results 24hrs Laboratory Tests Test 10/31/18 17:27 10/31/18 19:57 10/31/18 21:33 11/01/18 07:43 Bedside Glucose 104 133 128 131 Test 11/01/18 11:46 Bedside Glucose 76 Subjective 24 Hr Interval Summary Constitutional: no complaints Respiratory: no complaints Cardiovascular: no complaints Gastrointestinal: no complaints Genitourinary: no complaints Musculoskeletal: bone/joint pain (severe when he tries to walk; not getting relief from oral narcotics; does not realize he has IM dilaudid written for prn) Neurologic: no complaints Exam/Review of Systems Exam Vitals VS - Last 72 Hours, by Label Date Temp Pulse Resp B/P (MAP) Pulse Ox O2 O2 Flow FiO2 Time Delivery Rate 11/01/18 67 17:00 11/01/18 67 16:45 11/01/18 67 16:30 11/01/18 67 16:15 11/01/18 68 16:00 11/01/18 68 15:45 11/01/18 67 15:30 11/01/18 71 15:15 11/01/18 70 15:00 11/01/18 71 139/62 98 Room Air 14:45 (87) 11/01/18 71 14:45 11/01/18 97.5 74 18 144/68 96 Room Air 14:00 (93) 11/01/18 97.6 67 20 159/64 96 Room Air 07:30 (95) 10/31/18 98.3 74 18 139/61 97 Room Air 20:24 (87) 10/31/18 97.7 78 20 155/68 98 Room Air 14:00 (97) 10/31/18 98.0 74 20 153/78 96 Room Air 07:30 (103) 10/31/18 97.6 76 17 109/47 97 02:00 (67) 10/30/18 98.0 67 18 128/58 99 20:00 (81) 10/30/18 66 19:00 10/30/18 66 18:45 10/30/18 65 18:30 10/30/18 67 18:15 10/30/18 67 18:00 10/30/18 68 17:45 10/30/18 69 17:30 10/30/18 66 17:15 10/30/18 67 17:00 10/30/18 67 16:45 10/30/18 68 16:30 10/30/18 68 16:15 10/30/18 69 16:00 10/30/18 74 18 125/58 98 Room Air 15:50 (80) 10/30/18 97.9 66 18 126/58 95 Room Air 14:00 (80) 10/30/18 98.0 73 18 174/70 94 Room Air 07:00 (104) 10/30/18 97.8 74 18 149/70 97 Room Air 02:00 (96) 10/29/18 98.1 67 18 152/76 99 Room Air 22:20 (101) Vital Signs Date Temp Pulse Resp B/P (MAP) Pulse Ox O2 O2 Flow FiO2 Time Delivery Rate 11/01/18 67 17:00 11/01/18 139/62 98 Room Air 14:45 (87) 11/01/18 97.5 18 14:00 Intake and Output 10/31/18 10/31/18 11/01/18 1515:00 23:00 07:00 IntakeIntake Total 1250 ml 300 ml BalanceBalance 1250 ml 300 ml Constitutional: alert, oriented, well developed Respiratory: clear to auscultation, normal air movement Cardiovascular: regular rate and rhythm, edema (trace LLE); No nl pulses, No murmurs/extra sounds, No rub Gastrointestinal: soft, nl liver, spleen, non-tender, bowel sounds; No mass, No rebound or guarding Musculoskeletal: nl extremities to inspection Extremities: edema (trace LLE); No normal pulses, No cyanosis, No clubbing 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: 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, nl mental status, nl speech, nl strength Additional Comments Bedside Glucose - 72 Hours Test 10/30/18 07:52 10/30/18 09:41 10/30/18 12:50 10/30/18 17:52 Bedside 125 119 119 99 Glucose mg/dL (70-220) mg/dL (70-220) mg/dL (70-220) mg/dL (70-220) Test 10/30/18 21:07 10/31/18 08:37 10/31/18 10:29 10/31/18 12:07 Bedside 119 119 119 108 Glucose mg/dL (70-220) mg/dL (70-220) mg/dL (70-220) mg/dL (70-220) Test 10/31/18 14:32 10/31/18 17:27 10/31/18 19:57 10/31/18 21:33 Bedside 110 104 133 128 Glucose mg/dL (70-220) mg/dL (70-220) mg/dL (70-220) mg/dL (70-220) Test 11/01/18 07:43 11/01/18 11:46 Bedside 131 76 Glucose mg/dL (70-220) mg/dL (70-220) Results Results 24hrs Laboratory Tests Test 10/31/18 17:27 10/31/18 19:57 10/31/18 21:33 11/01/18 07:43 Bedside Glucose 104 133 128 131 Test 11/01/18 11:46 Bedside Glucose 76 Medications Medication Current Medications Docusate Sodium (Colace) 100 mg BID PO Last administered on 11/01/18at 09:03; Admin Dose 100 MG; Start 10/30/18 at 09:00 Senna (Senokot) 1 tab HS PO Last administered on 10/31/18 20:17; Admin Dose 1 TAB; Start 10/30/18 at 21:00 Lactulose (Enulose) 20 gm DAILY PRN PO CONSTIPATION; Start 10/30/18 at 00:00 Bisacodyl (Dulcolax Supp) 10 mg DAILY PRN [place] CONSTIPATION; Start 10/30/18 at 00:00 Acetaminophen (Tylenol Tab) 650 mg Q4H PRN PO PAIN; Start 10/30/18 at 00:00 Miscellaneous Information (Pending Santyl Order For Wound Care) This patient almanzar... PRN PRN XX WOUND CARE; Start 10/30/18 at 00:00 Amoxicillin/ Clavulanate Potassium (Augmentin) 875 mg BID PO Last administered on 11/01/18 09:02; Admin Dose 875 MG; Start 10/30/18 at 09:00; Stop 11/04/18 at 13:59 Benazepril HCl (Lotensin) 40 mg BID PO Last administered on 10/31/18 20:17; Admin Dose 40 MG; Start 10/30/18 at 09:00 Cholecalciferol (Vitamin D) 2,000 unit DAILY PO Last administered on 11/01/18 09:03; Admin Dose 2,000 UNIT; Start 10/30/18 at 09:00 Aspirin (Halfprin) 81 mg DAILY PO Last administered on 11/01/18 09:03; Admin Dose 81 MG; Start 10/30/18 at 09:00 Famotidine (Pepcid) 20 mg DAILY PO Last administered on 11/01/18 09:03; Admin Dose 20 MG; Start 10/30/18 at 09:00 Insulin Aspart (Novolog Insulin Pen) 5 unit WITH BREAKFAST SC Last administered on 11/01/18 07:48; Admin Dose 5 UNIT; Start 10/30/18 at 07:35 Insulin Aspart (Novolog Insulin Pen) 5 unit WITH LUNCH SC Last administered on 10/31/18at 12:10; Admin Dose 5 UNIT; Start 10/30/18 at 12:00 Insulin Aspart (Novolog Insulin Pen) 5 unit WITH DINNER SC ; Start 10/30/18 at 17:35 Diagnostic Test (Pha) (Accu-Chek) 1 ea 02 XX ; Start 10/30/18 at 02:00 Levothyroxine Sodium (Synthroid) 100 mcg DAILY@06 PO Last administered on 11/01/18 06:30; Admin Dose 100 MCG; Start 10/30/18 at 06:00 Linagliptin (Tradjenta) 5 mg DAILY PO Last administered on 11/01/18 07:44; Admin Dose 5 MG; Start 10/30/18 at 09:00 Diagnostic Test (Pha) (Accu-Chek) 1 ea AC MEALS AND BEDTIME XX Last administered on 11/01/18 11:57; Admin Dose 1 EA; Start 10/30/18 at 07:05 Multivit/Ca Carb/ B Cmplx/FA/Prenat (Manasa-Haris) 1 tab DAILY PO Last administered on 11/01/18 09:03; Admin Dose 1 TAB; Start 10/30/18 at 09:00 Ondansetron HCl (Zofran Inj) 4 mg Q6H PRN IV NAUSEA AND/OR VOMITING; Start 10/30/18 at 01:00 Oxycodone HCl (Roxicodone) 5 mg Q4H PRN PO MILD PAIN LEVEL 1-3 Last administered on 10/30/18 14:32; Admin Dose 5 MG; Start 10/30/18 at 01:00 Oxycodone HCl (Roxicodone) 10 mg Q4H PRN PO MODERATE PAIN LEVEL 4-6 Last administered on 11/01/18 09:02; Admin Dose 10 MG; Start 10/30/18 at 01:00 Sevelamer Carbonate (Renvela) 1,600 mg WITH MEALS PO Last administered on 11/01/18 11:57; Admin Dose 1,600 MG; Start 10/30/18 at 07:35 Insulin Glargine (Lantus) 6 units HS SC Last administered on 10/31/18 20:19; Admin Dose 6 UNITS; Start 10/30/18 at 21:00 Miscellaneous Information 1 ea NOTE XX ; Start 10/30/18 at 01:30 Glucose (Glutose) 15 gm Q15M PRN PO DECREASED GLUCOSE; Start 10/30/18 at 01:30 Glucose (Glutose) 22.5 gm Q15M PRN PO DECREASED GLUCOSE; Start 10/30/18 at 01:30 Dextrose (D50w Syringe) 25 ml Q15M PRN IV DECREASED GLUCOSE; Start 10/30/18 at 01:30 Dextrose (D50w Syringe) 50 ml Q15M PRN IV DECREASED GLUCOSE; Start 10/30/18 at 01:30 Glucagon (Glucagen) 1 mg Q15M PRN IM DECREASED GLUCOSE; Start 10/30/18 at 01:30 Glucose (Glutose) 15 gm Q15M PRN BUCCAL DECREASED GLUCOSE; Start 10/30/18 at 01:30 Diclofenac Sodium (Voltaren 1% Gel) 2 gm QID PRN TP PAIN; Start 10/30/18 at 09:00 Heparin Sodium (Porcine) (Heparin (5000 Units/1ml)) 5,000 unit BID SC Last administered on 11/01/18at 09:10; Admin Dose 5,000 UNIT; Start 10/30/18 at 21:00 Hydromorphone HCl (Dilaudid) 1 mg Q3H PRN IM SEVERE PAIN LEVEL 7-10; Start 10/31/18 at 19:00 FELIX DREW MD Nov 01, 2018 17:26
[2018-11-01] MEDS: DICLOFENAC SODIUM 1% GEL 100 GM TUBE TP PRN (17:59)
[2018-11-01] MEDS: HYDROmorphONE 1 MG/ML SYG IM PRN (18:46)
[2018-11-01] MEDS: SENNA TAB PO SCH (21:20)
[2018-11-01] MEDS: INSULIN GLARGINE [LANTus] (100 UNITS/ML) SYG SC SCH (21:32)
[2018-11-02 02:00] VITALS: BP 134/65; PULSE 68; RESP 18
[2018-11-02] MEDS: ACCU-CHEK XX SCH ×5 (02:00→20:57)
[2018-11-02] MEDS: LACTULOSE 30ML CUP PO PRN (02:22)
--- NOTE | 2018-11-02 04:44 | CONS ---
DATE OF ADMISSION: 10/29/2018 DATE OF CONSULTATION: 11/01/2018 TYPE OF CONSULTATION: Psychological. REFERRING PHYSICIAN: Nyla Hodges MD CONSULTING PSYCHOLOGIST: Jad Rae, PhD REASON FOR CONSULTATION: This consultation was requested by Dr. Luís Hodges in order to evaluate the cognitive and emotional functioning of this patient related to his present medical condition. HISTORY OF PRESENT ILLNESS: The patient is a 73-year-old male. He has multiple medical problems. The patient did sustain a mechanical fall and fractured his left hip. The patient was admitted to the hospital on 10/24/2018 and underwent a left hip ORIF. Postoperatively, he was in significant pain. The patient was cleared medically and sent to the acute rehabilitation unit for acute comprehensive multidisciplinary rehabilitation. The patient is motivated to get better. The patient is frustrated about the pain and his fall. The patient speaks mainly Azeri, and this interview was conducted in both Azeri and Peruvian. FAMILY AND SOCIAL HISTORY: The patient reports he lives in a house in [place] with his and 2 sons. The patient does want to return there after discharge. MEDICATIONS: The patient is currently not on any psychotropic medications. SUBSTANCE USE: The patient reports he does not smoke. The patient reports that he does not use alcohol or other drugs. The patient reports that he stopped smoking 30 years ago and stopped drinking 20 years ago. MENTAL STATUS EXAMINATION: APPEARANCE: The patient was seen up in his wheelchair. He appears to be of average height and weight. The patient is right-handed. BEHAVIOR: The patient was cooperative during the consultation. The patient did attempt to answer all questions presented to him by the interviewer. MOOD AND AFFECT: The patient's mood appears to be just slightly depressed. The patient reports that he really is not depressed or anxious, but more frustrated about the fall and consequent pain that he is having in his left hip. PERCEPTION: The patient reports no hallucinations or delusions. The patient was alert to person, place, situation and time. MEMORY AND COGNITION: The patient's memory and cognition appear to be basically intact. He was able to recall recent and remote events. The patient was able to name the hospital. The patient was able to name the month, year. The patient was able to name the safety specialist, he could not remember the governor of the state [facility] but could not remember the name of the [facility]. The patient was able to do 5 serial-7 subtractions from 100 without error. INTELLIGENCE: Intelligence appears to fall in the average range. INSIGHT: Fair. JUDGMENT: Fair. THOUGHT CONTENT: The patient is concerned about his present medical condition. The patient is frustrated about what happened. The patient is motivated to get better and wants to go home as soon as possible. DISCUSSION: The patient can likely benefit from some cognitive/behavioral psychotherapy while he is on the unit. The psychotherapy would focus on his underlying frustration about his hip problem. 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 Thank you very much, Dr. Luís Hodges, for referring this individual. Please do not hesitate to call if you have additional questions. Dictated By: JAD RAE PHD RK/AILYN Conf#: [id number] DID#: [id number] CC: NYLA HODGES MD; LUISANA RICHARDS MD;*EndCC* MTDD
[2018-11-02] MEDS: LEVOTHYROXINE 100 MCG TAB PO SCH (06:27)
[2018-11-02 07:25] VITALS: BP 169/71; PULSE 74; RESP 20
[2018-11-02] MEDS: INSULIN ASPART [NOVOLOG] 3 ML PEN SC SCH ×3 (07:35→17:28)
[2018-11-02] MEDS: SEVELAMER CARBONATE 800 MG TABLET PO SCH ×3 (07:43→17:27)
[2018-11-02] MEDS: DOCUSATE SODIUM 100 MG CAP PO SCH ×2 (08:20→20:49)
[2018-11-02] MEDS: AMOXICILLIN/CLAV 875 MG TAB PO SCH ×2 (08:20→20:49)
[2018-11-02] MEDS: BENAZEPRIL 40 MG TAB PO SCH ×2 (08:21→20:50)
[2018-11-02] MEDS: ASPIRIN (EC) 81 MG TAB PO SCH (08:21)
[2018-11-02] MEDS: MULTIVIT/CA CARB/B CMPLX/FA TAB PO SCH (08:21)
[2018-11-02] MEDS: FAMOTIDINE 20 MG TAB PO SCH (08:21)
[2018-11-02] MEDS: CHOLECALCIFEROL 2,000 UNIT CAP PO SCH (08:21)
[2018-11-02] MEDS: HEPARIN 5,000 UNIT/1 ML VIAL SC SCH ×2 (08:22→20:56)
[2018-11-02] MEDS: LINAGLIPTIN 5 MG TABLET PO SCH (09:00)
[2018-11-02] MEDS: BALSAM PERU/CASTOR OIL 60 GM TUBE TOP SCH ×2 (09:45→20:51)
[2018-11-02] MEDS: HYDROmorphONE 1 MG/ML SYG IM PRN ×3 (09:52→18:27)
--- NOTE | 2018-11-02 12:30 | PN ---
Date/Time of Note Date/Time of Note DATE: 11/02/18 TIME: 12:29 Objective Vital Signs Date Temp Pulse Resp B/P (MAP) Pulse Ox O2 O2 Flow FiO2 Time Delivery Rate 11/02/18 97.9 74 20 169/71 98 Room Air 07:25 (103) Intake and Output 11/01/18 11/01/18 11/02/18 1414:59 22:59 06:59 IntakeIntake Total 690 ml 30 ml OutputOutput Total 3000 ml BalanceBalance -2310 ml 30 ml Exam INTERDISCIPLINARY TEAM CONFERENCE Attended by PT, OT, ST, Social Work, Rehabilitation Nursing, Global Position System Technician and Head Of HistoryE Commerce Web Developer Exam: Pulm- cta Abd-soft BOWEL- Cont BLADDER-Cont SKIN- Left heel DTI OT- DRESSING- min BATHING- min TOILETING- min PT- BED MOBILITY- min/cga TRANSFERS-min/cga AMBULATION- cga 100 feet A/P- Interdisciplinary team conference held today. Please see interdisciplinary sheet. Working toward d.c. on 11/15 with post discharge follow up of physical therapy, occupational therapy. Results/Medications Result Diagram: 10/30/18 0634 10/30/1834 Results 24 hrs Laboratory Tests Test 11/01/18 17:58 11/01/18 21:19 11/02/18 02:21 11/02/18 07:40 Bedside Glucose 112 109 121 69 L Test 11/02/18 07:59 11/02/18 08:13 11/02/18 08:26 11/02/18 11:43 Bedside Glucose 70 80 90 107 Medications Current Medications Docusate Sodium (Colace) 100 mg BID PO Last administered on 11/02/18at 08:20; Admin Dose 100 MG; Start 10/30/18 at 09:00 Senna (Senokot) 1 tab HS PO Last administered on 11/01/18at 21:20; Admin Dose 1 TAB; Start 10/30/18 at 21:00 Lactulose (Enulose) 20 gm DAILY PRN PO CONSTIPATION Last administered on 11/02/18at 02:22; Admin Dose 20 GM; Start 10/30/18 at 00:00 Bisacodyl (Dulcolax Supp) 10 mg DAILY PRN [place] CONSTIPATION; Start 10/30/18 at 00:00 Acetaminophen (Tylenol Tab) 650 mg Q4H PRN PO PAIN; Start 10/30/18 at 00:00 Miscellaneous Information (Pending Santyl Order For Wound Care) This patient almanzar... PRN PRN XX WOUND CARE; Start 10/30/18 at 00:00 Amoxicillin/ Clavulanate Potassium (Augmentin) 875 mg BID PO Last administered on 11/02/18 08:20; Admin Dose 875 MG; Start 10/30/18 at 09:00; Stop 11/04/18 at 13:59 Benazepril HCl (Lotensin) 40 mg BID PO Last administered on 11/02/18 08:21; Admin Dose 40 MG; Start 10/30/18 at 09:00 Cholecalciferol (Vitamin D) 2,000 unit DAILY PO Last administered on 11/02/18 08:21; Admin Dose 2,000 UNIT; Start 10/30/18 at 09:00 Aspirin (Halfprin) 81 mg DAILY PO Last administered on 11/02/18 08:21; Admin Dose 81 MG; Start 10/30/18 at 09:00 Famotidine (Pepcid) 20 mg DAILY PO Last administered on 11/02/18 08:21; Admin Dose 20 MG; Start 10/30/18 at 09:00 Insulin Aspart (Novolog Insulin Pen) 5 unit WITH BREAKFAST SC Last administered on 11/01/18at 07:48; Admin Dose 5 UNIT; Start 10/30/18 at 07:35 Insulin Aspart (Novolog Insulin Pen) 5 unit WITH LUNCH SC Last administered on 10/31/18at 12:10; Admin Dose 5 UNIT; Start 10/30/18 at 12:00 Insulin Aspart (Novolog Insulin Pen) 5 unit WITH DINNER SC ; Start 10/30/18 at 17:35 Diagnostic Test (Pha) (Accu-Chek) 1 ea 02 XX ; Start 10/30/18 at 02:00 Levothyroxine Sodium (Synthroid) 100 mcg DAILY@06 PO Last administered on 11/02/18at 06:27; Admin Dose 100 MCG; Start 10/30/18 at 06:00 Linagliptin (Tradjenta) 5 mg DAILY PO Last administered on 11/01/18at 07:44; Admin Dose 5 MG; Start 10/30/18 at 09:00 Diagnostic Test (Pha) (Accu-Chek) 1 ea AC MEALS AND BEDTIME XX Last administered on 11/02/18 11:44; Admin Dose 1 EA; Start 10/30/18 at 07:05 Multivit/Ca Carb/ B Cmplx/FA/Prenat (Manasa-Haris) 1 tab DAILY PO Last administered on 11/02/18 08:21; Admin Dose 1 TAB; Start 10/30/18 at 09:00 Ondansetron HCl (Zofran Inj) 4 mg Q6H PRN IV NAUSEA AND/OR VOMITING; Start 10/30/18 at 01:00 Oxycodone HCl (Roxicodone) 5 mg Q4H PRN PO MILD PAIN LEVEL 1-3 Last administered on 10/30/18 14:32; Admin Dose 5 MG; Start 10/30/18 at 01:00 Oxycodone HCl (Roxicodone) 10 mg Q4H PRN PO MODERATE PAIN LEVEL 4-6 Last administered on 11/01/18 09:02; Admin Dose 10 MG; Start 10/30/18 at 01:00 Sevelamer Carbonate (Renvela) 1,600 mg WITH MEALS PO Last administered on 11/02/18 11:44; Admin Dose 1,600 MG; Start 10/30/18 at 07:35 Insulin Glargine (Lantus) 6 units HS SC Last administered on 11/01/18 21:32; Admin Dose 6 UNITS; Start 10/30/18 at 21:00 Miscellaneous Information 1 ea NOTE XX ; Start 10/30/18 at 01:30 Glucose (Glutose) 15 gm Q15M PRN PO DECREASED GLUCOSE; Start 10/30/18 at 01:30 Glucose (Glutose) 22.5 gm Q15M PRN PO DECREASED GLUCOSE; Start 10/30/18 at 01:30 Dextrose (D50w Syringe) 25 ml Q15M PRN IV DECREASED GLUCOSE; Start 10/30/18 at 01:30 Dextrose (D50w Syringe) 50 ml Q15M PRN IV DECREASED GLUCOSE; Start 10/30/18 at 01:30 Glucagon (Glucagen) 1 mg Q15M PRN IM DECREASED GLUCOSE; Start 10/30/18 at 01:30 Glucose (Glutose) 15 gm Q15M PRN BUCCAL DECREASED GLUCOSE Last administered on 11/02/18 08:03; Admin Dose 15 GM; Start 10/30/18 at 01:30 Diclofenac Sodium (Voltaren 1% Gel) 2 gm QID PRN TP PAIN Last administered on 11/01/18at 17:59; Admin Dose 2 GM; Start 10/30/18 at 09:00 Heparin Sodium (Porcine) (Heparin (5000 Units/1ml)) 5,000 unit BID SC Last administered on 11/02/18at 08:22; Admin Dose 5,000 UNIT; Start 10/30/18 at 21:00 Hydromorphone HCl (Dilaudid) 1 mg Q3H PRN IM SEVERE PAIN LEVEL 7-10 Last administered on 11/02/18at 09:52; Admin Dose 1 MG; Start 10/31/18 at 19:00 NYLA HADLEY MD Nov 02, 2018 12:30
--- NOTE | 2018-11-02 12:46 | CONS ---
Assessment/Plan Assessment/Plan Assessment/Plan (Daily) 1. ESRD on HD MWF [facility] for HD Access 2.Left femur fracture s/p ORIF of left hip intertrochanteric fracture on 10/24/18 4. H/o HTN 5. H/o HL 6. H/o Hypothyroidism Plan: s/p HD yesterday 2.5 L removed, , pt regular schedule for HD is MWF - AVF for HD access - HD ordered for Tuesday will follow up Consultation Date/Type/Reason Admit Date/Time Oct 29, 2018 at 23:08 Initial Consult Date Type of Consult NEPHROLOGY Requesting Provider: NYLA HADLEY MD Date/Time of Note DATE: 11/02/18 TIME: 12:46 Exam/Review of Systems Exam Vitals Vital Signs Date Temp Pulse Resp B/P (MAP) Pulse Ox O2 O2 Flow FiO2 Time Delivery Rate 11/02/18 97.9 74 20 169/71 98 Room Air 07:25 (103) Intake and Output 11/01/18 11/01/18 11/02/18 1515:00 23:00 07:00 IntakeIntake Total 690 ml 30 ml OutputOutput Total 3000 ml BalanceBalance -2310 ml 30 ml Results Result Diagram: 10/30/18 0634 10/30/18 0634 Results 24hrs Laboratory Tests Test 11/01/18 17:58 11/01/18 21:19 11/02/18 02:21 11/02/18 07:40 Bedside Glucose 112 109 121 69 L Test 11/02/18 07:59 11/02/18 08:13 11/02/18 08:26 11/02/18 11:43 Bedside Glucose 70 80 90 107 Medications Medication Current Medications Docusate Sodium (Colace) 100 mg BID PO Last administered on 11/02/18at 08:20; Admin Dose 100 MG; Start 10/30/18 at 09:00 Senna (Senokot) 1 tab HS PO Last administered on 11/01/18at 21:20; Admin Dose 1 TAB; Start 10/30/18 at 21:00 Lactulose (Enulose) 20 gm DAILY PRN PO CONSTIPATION Last administered on 11/02/18at 02:22; Admin Dose 20 GM; Start 10/30/18 at 00:00 Bisacodyl (Dulcolax Supp) 10 mg DAILY PRN [place] CONSTIPATION; Start 10/30/18 at 00:00 Acetaminophen (Tylenol Tab) 650 mg Q4H PRN PO PAIN; Start 10/30/18 at 00:00 Miscellaneous Information (Pending Santyl Order For Wound Care) This patient almanzar... PRN PRN XX WOUND CARE; Start 10/30/18 at 00:00 Amoxicillin/ Clavulanate Potassium (Augmentin) 875 mg BID PO Last administered on 11/02/18 08:20; Admin Dose 875 MG; Start 10/30/18 at 09:00; Stop 11/04/18 at 13:59 Benazepril HCl (Lotensin) 40 mg BID PO Last administered on 11/02/18 08:21; Admin Dose 40 MG; Start 10/30/18 at 09:00 Cholecalciferol (Vitamin D) 2,000 unit DAILY PO Last administered on 11/02/18 08:21; Admin Dose 2,000 UNIT; Start 10/30/18 at 09:00 Aspirin (Halfprin) 81 mg DAILY PO Last administered on 11/02/18 08:21; Admin Dose 81 MG; Start 10/30/18 at 09:00 Famotidine (Pepcid) 20 mg DAILY PO Last administered on 11/02/18 08:21; Admin Dose 20 MG; Start 10/30/18 at 09:00 Insulin Aspart (Novolog Insulin Pen) 5 unit WITH BREAKFAST SC Last administered on 11/01/18at 07:48; Admin Dose 5 UNIT; Start 10/30/18 at 07:35 Insulin Aspart (Novolog Insulin Pen) 5 unit WITH LUNCH SC Last administered on 10/31/18at 12:10; Admin Dose 5 UNIT; Start 10/30/18 at 12:00 Insulin Aspart (Novolog Insulin Pen) 5 unit WITH DINNER SC ; Start 10/30/18 at 17:35 Diagnostic Test (Pha) (Accu-Chek) 1 ea 02 XX ; Start 10/30/18 at 02:00 Levothyroxine Sodium (Synthroid) 100 mcg DAILY@06 PO Last administered on 11/02/18 06:27; Admin Dose 100 MCG; Start 10/30/18 at 06:00 Linagliptin (Tradjenta) 5 mg DAILY PO Last administered on 11/01/18at 07:44; Admin Dose 5 MG; Start 10/30/18 at 09:00 Diagnostic Test (Pha) (Accu-Chek) 1 ea AC MEALS AND BEDTIME XX Last administered on 11/02/18 11:44; Admin Dose 1 EA; Start 10/30/18 at 07:05 Multivit/Ca Carb/ B Cmplx/FA/Prenat (Manasa-Haris) 1 tab DAILY PO Last administered on 11/02/18 08:21; Admin Dose 1 TAB; Start 10/30/18 at 09:00 Ondansetron HCl (Zofran Inj) 4 mg Q6H PRN IV NAUSEA AND/OR VOMITING; Start 10/30/18 at 01:00 Oxycodone HCl (Roxicodone) 5 mg Q4H PRN PO MILD PAIN LEVEL 1-3 Last administered on 10/30/18at 14:32; Admin Dose 5 MG; Start 10/30/18 at 01:00 Oxycodone HCl (Roxicodone) 10 mg Q4H PRN PO MODERATE PAIN LEVEL 4-6 Last administered on 11/01/18at 09:02; Admin Dose 10 MG; Start 10/30/18 at 01:00 Sevelamer Carbonate (Renvela) 1,600 mg WITH MEALS PO Last administered on 11/02/18 11:44; Admin Dose 1,600 MG; Start 10/30/18 at 07:35 Insulin Glargine (Lantus) 6 units HS SC Last administered on 11/01/18 21:32; Admin Dose 6 UNITS; Start 10/30/18 at 21:00 Miscellaneous Information 1 ea NOTE XX ; Start 10/30/18 at 01:30 Glucose (Glutose) 15 gm Q15M PRN PO DECREASED GLUCOSE; Start 10/30/18 at 01:30 Glucose (Glutose) 22.5 gm Q15M PRN PO DECREASED GLUCOSE; Start 10/30/18 at 01:30 Dextrose (D50w Syringe) 25 ml Q15M PRN IV DECREASED GLUCOSE; Start 10/30/18 at 01:30 Dextrose (D50w Syringe) 50 ml Q15M PRN IV DECREASED GLUCOSE; Start 10/30/18 at 01:30 Glucagon (Glucagen) 1 mg Q15M PRN IM DECREASED GLUCOSE; Start 7/29/19 at 01:30 Glucose (Glutose) 15 gm Q15M PRN BUCCAL DECREASED GLUCOSE Last administered on 11/02/18 08:03; Admin Dose 15 GM; Start 10/30/18 at 01:30 Diclofenac Sodium (Voltaren 1% Gel) 2 gm QID PRN TP PAIN Last administered on 11/01/18 17:59; Admin Dose 2 GM; Start 10/30/18 at 09:00 Heparin Sodium (Porcine) (Heparin (5000 Units/1ml)) 5,000 unit BID SC Last administered on 11/02/18 08:22; Admin Dose 5,000 UNIT; Start 10/30/18 at 21:00 Hydromorphone HCl (Dilaudid) 1 mg Q3H PRN IM SEVERE PAIN LEVEL 7-10 Last administered on 11/02/18 09:52; Admin Dose 1 MG; Start 10/31/18 at 19:00 ANITA FLETCHER MD Nov 02, 2018 12:46
[2018-11-02] MEDS: DICLOFENAC SODIUM 1% GEL 100 GM TUBE TP PRN (13:58)
[2018-11-02 14:22] VITALS: BP 148/73; PULSE 79; RESP 18
--- NOTE | 2018-11-02 18:10 | PN ---
Date/Time of Note Date/Time of Note DATE: 11/02/18 TIME: 18:06 Assessment/Plan VTE Prophylaxis Risk score (from Nsg)>0 risk: 11 SCD applied (from Nsg): Yes Pharmacological prophylaxis: heparin Lines/Catheters IV Catheter Type (from Nrsg): [place] Urinary Cath still in place: No Assessment/Plan Problems: (1) Diabetes mellitus type 2 with complications Status: Chronic Comment: Minimal hypoglycemia this am. No need to change insulin dose for FBG 69 mg/dL. Asymptomatic. Will monitor on current doses. (2) ESRD (end stage renal disease) on dialysis Status: Chronic Comment: Cont. HD (3) Essential (primary) hypertension Status: Chronic Comment: BP mildly elevated but will defer intensification of therapy due to h/o hypotension w/ HD in past (4) Hypothyroidism Status: Chronic Comment: Cont. LT4 (5) Anemia associated with chronic renal failure Status: Chronic Comment: Stable. Will monitor (6) Debility Status: Chronic Comment: Cont. PT in ARU (7) Closed fracture of left hip requiring operative repair Onset Date: ~ 10/24/2018 Status: Resolved Comment: Cont. PT in ARU. Add topical diclofenac to assist w/ local pain control. Cont. oral therapy and IM dilaudid Result Diagram: 10/30/1834 10/30/1834 Results 24hrs Laboratory Tests Test 11/01/18 21:19 11/02/18 02:21 11/02/18 07:40 11/02/18 07:59 Bedside Glucose 109 121 69 L 70 Test 11/02/18 08:13 11/02/18 08:26 11/02/18 11:43 11/02/18 17:25 Bedside Glucose 80 90 107 121 Subjective 24 Hr Interval Summary Constitutional: no complaints, improved Respiratory: no complaints Cardiovascular: no complaints Gastrointestinal: no complaints Genitourinary: no complaints Musculoskeletal: bone/joint pain (LLE, especially from hip to knee on the lateral thigh; improved w/ IM dilaudid) Neurologic: no complaints Exam/Review of Systems Exam Vitals VS - Last 72 Hours, by Label Date Temp Pulse Resp B/P (MAP) Pulse Ox O2 O2 Flow FiO2 Time Delivery Rate 11/02/18 98.4 79 18 148/73 99 Room Air 14:22 (98) 11/02/18 97.9 74 20 169/71 98 Room Air 07:25 (103) 11/02/18 97.8 68 18 134/65 96 Room Air 02:00 (88) 11/01/18 98.0 72 18 149/69 97 Room Air 19:23 (95) 11/01/18 69 17:45 11/01/18 70 17:30 11/01/18 68 17:15 11/01/18 67 17:00 11/01/18 67 16:45 11/01/18 67 16:30 11/01/18 67 16:15 11/01/18 68 16:00 11/01/18 68 15:45 11/01/18 67 15:30 11/01/18 71 15:15 11/01/18 70 15:00 11/01/18 71 139/62 98 Room Air 14:45 (87) 11/01/18 71 14:45 11/01/18 97.5 74 18 144/68 96 Room Air 14:00 (93) 11/01/18 97.6 67 20 159/64 96 Room Air 07:30 (95) 10/31/18 98.3 74 18 139/61 97 Room Air 20:24 (87) 10/31/18 97.7 78 20 155/68 98 Room Air 14:00 (97) 10/31/18 98.0 74 20 153/78 96 Room Air 07:30 (103) 10/31/18 97.6 76 17 109/47 97 02:00 (67) 10/30/18 98.0 67 18 128/58 99 20:00 (81) 10/30/18 66 19:00 10/30/18 66 18:45 10/30/18 65 18:30 10/30/18 67 18:15 Vital Signs Date Temp Pulse Resp B/P (MAP) Pulse Ox O2 O2 Flow FiO2 Time Delivery Rate 11/02/18 98.4 79 18 148/73 99 Room Air 14:22 (98) Intake and Output 11/01/18 11/01/18 11/02/18 1515:00 23:00 07:00 IntakeIntake Total 690 ml 30 ml OutputOutput Total 3000 ml BalanceBalance -2310 ml 30 ml Constitutional: alert, oriented, well developed Respiratory: clear to auscultation, normal air movement Cardiovascular: regular rate and rhythm; No edema, No murmurs/extra sounds, No rub Gastrointestinal: soft, nl liver, spleen, non-tender, bowel sounds; No mass, No rebound or guarding Musculoskeletal: No nl extremities to inspection (toe amp) Extremities: No normal pulses, No cyanosis, No clubbing, No edema 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: TELEVISION ANCHOR II-XII intact, nl mental status, nl speech, nl strength Additional Comments Bedside Glucose - 72 Hours Test 10/30/18 21:07 10/31/18 08:37 10/31/18 10:29 10/31/18 12:07 Bedside 119 119 119 108 Glucose mg/dL (70-220) mg/dL (70-220) mg/dL (70-220) mg/dL (70-220) Test 10/31/18 14:32 10/31/18 17:27 10/31/18 19:57 10/31/18 21:33 Bedside 110 104 133 128 Glucose mg/dL (70-220) mg/dL (70-220) mg/dL (70-220) mg/dL (70-220) Test 11/01/18 07:43 11/01/18 11:46 11/01/18 17:58 11/01/18 21:19 Bedside 131 76 112 109 Glucose mg/dL (70-220) mg/dL (70-220) mg/dL (70-220) mg/dL (70-220) Test 11/02/18 02:21 11/02/18 07:40 11/02/18 07:59 11/02/18 08:13 Bedside 121 69 70 80 Glucose mg/dL (70-220) mg/dL (70-220) mg/dL (70-220) mg/dL (70-220) L Test 11/02/18 08:26 11/02/18 11:43 11/02/18 17:25 Bedside 90 107 121 Glucose mg/dL (70-220) mg/dL (70-220) mg/dL (70-220) Results Results 24hrs Laboratory Tests Test 11/01/18 21:19 11/02/18 02:21 11/02/18 07:40 11/02/18 07:59 Bedside Glucose 109 121 69 L 70 Test 11/02/18 08:13 11/02/18 08:26 11/02/18 11:43 11/02/18 17:25 Bedside Glucose 80 90 107 121 Medications Medication Current Medications Docusate Sodium (Colace) 100 mg BID PO Last administered on 11/02/18 08:20; Admin Dose 100 MG; Start 10/30/18 at 09:00 Senna (Senokot) 1 tab HS PO Last administered on 11/01/18 21:20; Admin Dose 1 TAB; Start 10/30/18 at 21:00 Lactulose (Enulose) 20 gm DAILY PRN PO CONSTIPATION Last administered on 11/02/18 02:22; Admin Dose 20 GM; Start 10/30/18 at 00:00 Bisacodyl (Dulcolax Supp) 10 mg DAILY PRN [place] CONSTIPATION; Start 10/30/18 at 00:00 Acetaminophen (Tylenol Tab) 650 mg Q4H PRN PO PAIN; Start 10/30/18 at 00:00 [facility] This patient almanzar... PRN PRN XX WOUND CARE; Start 10/30/18 at 00:00 Amoxicillin/ Clavulanate Potassium (Augmentin) 875 mg BID PO Last administered on 11/02/18 08:20; Admin Dose 875 MG; Start 10/30/18 at 09:00; Stop 11/04/18 at 13:59 Benazepril HCl (Lotensin) 40 mg BID PO Last administered on 11/02/18 08:21; Admin Dose 40 MG; Start 10/30/18 at 09:00 Cholecalciferol (Vitamin D) 2,000 unit DAILY PO Last administered on 11/02/18 08:21; Admin Dose 2,000 UNIT; Start 10/30/18 at 09:00 Aspirin (Halfprin) 81 mg DAILY PO Last administered on 11/02/18 08:21; Admin Dose 81 MG; Start 10/30/18 at 09:00 Famotidine (Pepcid) 20 mg DAILY PO Last administered on 11/02/18 08:21; Admin Dose 20 MG; Start 10/30/18 at 09:00 Insulin Aspart (Novolog Insulin Pen) 5 unit WITH BREAKFAST SC Last administered on 11/01/18 07:48; Admin Dose 5 UNIT; Start 10/30/18 at 07:35 Insulin Aspart (Novolog Insulin Pen) 5 unit WITH LUNCH SC Last administered on 10/31/18 12:10; Admin Dose 5 UNIT; Start 10/30/18 at 12:00 Insulin Aspart (Novolog Insulin Pen) 5 unit WITH DINNER SC ; Start 10/30/18 at 17:35 Diagnostic Test (Pha) (Accu-Chek) 1 ea 02 XX ; Start 10/30/18 at 02:00 Levothyroxine Sodium (Synthroid) 100 mcg DAILY@06 PO Last administered on 11/02/18 06:27; Admin Dose 100 MCG; Start 10/30/18 at 06:00 Linagliptin (Tradjenta) 5 mg DAILY PO Last administered on 11/01/18 07:44; Admin Dose 5 MG; Start 10/30/18 at 09:00 Diagnostic Test (Pha) (Accu-Chek) 1 ea AC MEALS AND BEDTIME XX Last administered on 11/02/18 17:27; Admin Dose 1 EA; Start 10/30/18 at 07:05 Multivit/Ca Carb/ B Cmplx/FA/Prenat (Manasa-Hrais) 1 tab DAILY PO Last administered on 11/02/18 08:21; Admin Dose 1 TAB; Start 10/30/18 at 09:00 Ondansetron HCl (Zofran Inj) 4 mg Q6H PRN IV NAUSEA AND/OR VOMITING; Start 10/30/18 at 01:00 Oxycodone HCl (Roxicodone) 5 mg Q4H PRN PO MILD PAIN LEVEL 1-3 Last administered on 10/30/18 14:32; Admin Dose 5 MG; Start 10/30/18 at 01:00 Oxycodone HCl (Roxicodone) 10 mg Q4H PRN PO MODERATE PAIN LEVEL 4-6 Last a dministered on 11/01/18 09:02; Admin Dose 10 MG; Start 10/30/18 at 01:00 Sevelamer Carbonate (Renvela) 1,600 mg WITH MEALS PO Last administered on 11/02/18 17:27; Admin Dose 1,600 MG; Start 10/30/18 at 07:35 Insulin Glargine (Lantus) 6 units HS SC Last administered on 11/01/18 21:32; Admin Dose 6 UNITS; Start 10/30/18 at 21:00 Miscellaneous Information 1 ea NOTE XX ; Start 10/30/18 at 01:30 Glucose (Glutose) 15 gm Q15M PRN PO DECREASED GLUCOSE; Start 10/30/18 at 01:30 Glucose (Glutose) 22.5 gm Q15M PRN PO DECREASED GLUCOSE; Start 10/30/18 at 01:30 Dextrose (D50w Syringe) 25 ml Q15M PRN IV DECREASED GLUCOSE; Start 10/30/18 at 01:30 Dextrose (D50w Syringe) 50 ml Q15M PRN IV DECREASED GLUCOSE; Start 10/30/18 at 01:30 Glucagon (Glucagen) 1 mg Q15M PRN IM DECREASED GLUCOSE; Start 10/30/18 at 01:30 Glucose (Glutose) 15 gm Q15M PRN BUCCAL DECREASED GLUCOSE Last administered on 11/02/18at 08:03; Admin Dose 15 GM; Start 10/30/18 at 01:30 Diclofenac Sodium (Voltaren 1% Gel) 2 gm QID PRN TP PAIN Last administered on 11/02/18at 13:58; Admin Dose 2 GM; Start 10/30/18 at 09:00 Heparin Sodium (Porcine) (Heparin (5000 Units/1ml)) 5,000 unit BID SC Last administered on 11/02/18 08:22; Admin Dose 5,000 UNIT; Start 10/30/18 at 21:00 Hydromorphone HCl (Dilaudid) 1 mg Q3H PRN IM SEVERE PAIN LEVEL 7-10 Last administered on 11/02/18 13:58; Admin Dose 1 MG; Start 10/31/18 at 19:00 FELIX DREW MD Nov 02, 2018 18:10
[2018-11-02 19:41] VITALS: BP 142/77; PULSE 70; RESP 18
[2018-11-02] MEDS: SENNA TAB PO SCH (20:49)
[2018-11-02] MEDS: DICLOFENAC SODIUM 1% GEL 100 GM TUBE TP SCH (20:50)
[2018-11-02] MEDS: INSULIN GLARGINE [LANTus] (100 UNITS/ML) SYG SC SCH (20:55)
[2018-11-03] VITALS (18 sets, daily range): BP systolic 127–148; BP diastolic 54–68; PULSE 65–77; RESP 17–18
[2018-11-03] MEDS: ACCU-CHEK XX SCH ×5 (02:00→21:00)
[2018-11-03] MEDS: LEVOTHYROXINE 100 MCG TAB PO SCH (06:25)
[2018-11-03] MEDS: LINAGLIPTIN 5 MG TABLET PO SCH (08:58)
[2018-11-03] MEDS: oxyCODONE 5 MG TAB PO PRN (08:59)
[2018-11-03] MEDS: SEVELAMER CARBONATE 800 MG TABLET PO SCH ×3 (09:00→17:35)
[2018-11-03] MEDS: BENAZEPRIL 40 MG TAB PO SCH ×2 (09:00→21:15)
[2018-11-03] MEDS: INSULIN ASPART [NOVOLOG] 3 ML PEN SC SCH ×4 (09:01→17:35)
[2018-11-03] MEDS: HEPARIN 5,000 UNIT/1 ML VIAL SC SCH (09:03)
[2018-11-03] MEDS: CHOLECALCIFEROL 2,000 UNIT CAP PO SCH (09:03)
[2018-11-03] MEDS: MULTIVIT/CA CARB/B CMPLX/FA TAB PO SCH (09:04)
[2018-11-03] MEDS: FAMOTIDINE 20 MG TAB PO SCH (09:04)
[2018-11-03] MEDS: AMOXICILLIN/CLAV 875 MG TAB PO SCH ×2 (09:04→21:14)
[2018-11-03] MEDS: ASPIRIN (EC) 81 MG TAB PO SCH (09:04)
[2018-11-03] MEDS: DOCUSATE SODIUM 100 MG CAP PO SCH ×2 (09:04→21:15)
[2018-11-03] MEDS: BALSAM PERU/CASTOR OIL 60 GM TUBE TOP SCH ×2 (09:05→21:16)
[2018-11-03] MEDS: DICLOFENAC SODIUM 1% GEL 100 GM TUBE TP SCH ×4 (09:06→21:16)
--- NOTE | 2018-11-03 11:47 | CONS ---
Assessment/Plan Assessment/Plan Assessment/Plan (Daily) 1. ESRD on HD MWF AVF for HD Access 2.Left femur fracture s/p ORIF of left hip intertrochanteric fracture on 10/24/18 4. H/o HTN 5. H/o HL 6. H/o Hypothyroidism Plan: pt regular schedule for HD is MWF - AVF for HD access - HD ordered for today Rehab care as per unit will follow up Consultation Date/Type/Reason Admit Date/Time Oct 29, 2018 at 23:08 Initial Consult Date Type of Consult NEPHROLOGY Requesting Provider: NYLA HADLEY MD Date/Time of Note DATE: 11/03/18 TIME: 11:47 Exam/Review of Systems Exam Vitals Vital Signs Date Temp Pulse Resp B/P (MAP) Pulse Ox O2 O2 Flow FiO2 Time Delivery Rate 11/03/18 97.5 76 18 137/58 100 Room Air 07:30 (84) Intake and Output 11/02/18 11/02/18 11/03/18 1515:00 23:00 07:00 IntakeIntake Total 940 ml 440 ml BalanceBalance 940 ml 440 ml Exam Constitutional: alert Respiratory: diminished breath sounds Cardiovascular: regular rate and rhythm, nl pulses Gastrointestinal: soft, non-tender Musculoskeletal: nl extremities to inspection Extremities: normal pulses, other (AVF for HD access ) 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: Non focal Results Result Diagram: 10/30/18 0634 10/30/18 0634 Results 24hrs Laboratory Tests Test 11/02/18 17:25 11/02/18 20:49 11/03/18 08:29 11/03/18 11:33 Bedside Glucose 121 145 112 60 L Medications Medication Current Medications Docusate Sodium (Colace) 100 mg BID PO Last administered on 11/03/18at 09:04; Admin Dose 100 MG; Start 10/30/18 at 09:00 Senna (Senokot) 1 tab HS PO Last administered on 11/02/18at 20:49; Admin Dose 1 TAB; Start 10/30/18 at 21:00 Lactulose (Enulose) 20 gm DAILY PRN PO CONSTIPATION Last administered on 11/02/18at 02:22; Admin Dose 20 GM; Start 10/30/18 at 00:00 Bisacodyl (Dulcolax Supp) 10 mg DAILY PRN [place] CONSTIPATION; Start 10/30/18 at 00:00 Acetaminophen (Tylenol Tab) 650 mg Q4H PRN PO PAIN; Start 10/30/18 at 00:00 Miscellaneous Information (Pending Santyl Order For Wound Care) This patient almanzar... PRN PRN XX WOUND CARE; Start 10/30/18 at 00:00 Amoxicillin/ Clavulanate Potassium (Augmentin) 875 mg BID PO Last administered on 11/03/18 09:04; Admin Dose 875 MG; Start 10/30/18 at 09:00; Stop 11/04/18 at 13:59 Benazepril HCl (Lotensin) 40 mg BID PO Last administered on 11/02/18 20:50; Adm in Dose 40 MG; Start 10/30/18 at 09:00 Cholecalciferol (Vitamin D) 2,000 unit DAILY PO Last administered on 11/03/18 09:03; Admin Dose 2,000 UNIT; Start 10/30/18 at 09:00 Aspirin (Halfprin) 81 mg DAILY PO Last administered on 11/03/18 09:04; Admin Dose 81 MG; Start 10/30/18 at 09:00 Famotidine (Pepcid) 20 mg DAILY PO Last administered on 11/03/18 09:04; Admin Dose 20 MG; Start 10/30/18 at 09:00 Insulin Aspart (Novolog Insulin Pen) 5 unit WITH BREAKFAST SC Last administered on 11/03/18 09:01; Admin Dose 5 UNIT; Start 10/30/18 at 07:35 Insulin Aspart (Novolog Insulin Pen) 5 unit WITH LUNCH SC Last administered on 10/31/18 12:10; Admin Dose 5 UNIT; Start 10/30/18 at 12:00 Insulin Aspart (Novolog Insulin Pen) 5 unit WITH DINNER SC ; Start 10/30/18 at 17:35 Diagnostic Test (Pha) (Accu-Chek) 1 ea 02 XX ; Start 10/30/18 at 02:00 Levothyroxine Sodium (Synthroid) 100 mcg DAILY@06 PO Last administered on 11/03/18 06:25; Admin Dose 100 MCG; Start 10/30/18 at 06:00 Linagliptin (Tradjenta) 5 mg DAILY PO Last administered on 11/03/18 08:58; Admin Dose 5 MG; Start 10/30/18 at 09:00 Diagnostic Test (Pha) (Accu-Chek) 1 ea AC MEALS AND BEDTIME XX Last administered on 11/02/18at 17:27; Admin Dose 1 EA; Start 10/30/18 at 07:05 Multivit/Ca Carb/ B Cmplx/FA/Prenat (Manasa-Haris) 1 tab DAILY PO Last administered on 11/03/18at 09:04; Admin Dose 1 TAB; Start 10/30/18 at 09:00 Ondansetron HCl (Zofran Inj) 4 mg Q6H PRN IV NAUSEA AND/OR VOMITING; Start 10/30/18 at 01:00 Oxycodone HCl (Roxicodone) 5 mg Q4H PRN PO MILD PAIN LEVEL 1-3 Last administered on 10/30/18at 14:32; Admin Dose 5 MG; Start 10/30/18 at 01:00 Oxycodone HCl (Roxicodone) 10 mg Q4H PRN PO MODERATE PAIN LEVEL 4-6 Last administered on 11/03/18at 08:59; Admin Dose 10 MG; Start 10/30/18 at 01:00 Sevelamer Carbonate (Renvela) 1,600 mg WITH MEALS PO Last administered on 11/03/18at 11:43; Admin Dose 1,600 MG; Start 10/30/18 at 07:35 Insulin Glargine (Lantus) 6 units HS SC Last administered on 11/02/18at 20:55; Admin Dose 6 UNITS; Start 10/30/18 at 21:00 Miscellaneous Information 1 ea NOTE XX ; Start 10/30/18 at 01:30 Glucose (Glutose) 15 gm Q15M PRN PO DECREASED GLUCOSE; Start 10/30/18 at 01:30 Glucose (Glutose) 22.5 gm Q15M PRN PO DECREASED GLUCOSE; Start 10/30/18 at 01:30 Dextrose (D50w Syringe) 25 ml Q15M PRN IV DECREASED GLUCOSE; Start 10/30/18 at 01:30 Dextrose (D50w Syringe) 50 ml Q15M PRN IV DECREASED GLUCOSE; Start 10/30/18 at 01:30 Glucagon (Glucagen) 1 mg Q15M PRN IM DECREASED GLUCOSE; Start 10/30/18 at 01:30 Glucose (Glutose) 15 gm Q15M PRN BUCCAL DECREASED GLUCOSE Last administered on 11/02/18 08:03; Admin Dose 15 GM; Start 10/30/18 at 01:30 Diclofenac Sodium (Voltaren 1% Gel) 2 gm QID PRN TP PAIN Last administered on 11/02/18 13:58; Admin Dose 2 GM; Start 10/30/18 at 09:00 Heparin Sodium (Porcine) (Heparin (5000 Units/1ml)) 5,000 unit BID SC Last administered on 11/03/18 09:03; Admin Dose 5,000 UNIT; Start 10/30/18 at 21:00 Hydromorphone HCl (Dilaudid) 1 mg Q3H PRN IM SEVERE PAIN LEVEL 7-10 Last administered on 11/02/18 18:27; Admin Dose 1 MG; Start 10/31/18 at 19:00 Diclofenac Sodium (Voltaren 1% Gel) 4 gm QID TP Last administered on 11/03/18 09:06; Admin Dose 4 GM; Start 11/02/18 at 21:00 ANITA FLETCHER MD Nov 03, 2018 11:47
[2018-11-03] MEDS ORDERED: INSULIN ASPART [NOVOLOG] 3 ML PEN SC ONE (13:10)
[2018-11-03] MEDS ORDERED: ACCU-CHEK XX ONE (13:30)
--- NOTE | 2018-11-03 14:58 | PN ---
Date/Time of Note Date/Time of Note DATE: 11/03/18 TIME: 14:48 Subjective Comfortable Objective Vital Signs Date Temp Pulse Resp B/P (MAP) Pulse Ox O2 O2 Flow FiO2 Time Delivery Rate 11/03/18 97.5 76 18 137/58 100 Room Air 07:30 (84) Intake and Output 11/02/18 11/02/18 11/03/18 1515:00 23:00 07:00 IntakeIntake Total 940 ml 440 ml BalanceBalance 940 ml 440 ml Exam pulm-cta abd-soft min ambulation Results/Medications Result Diagram: 10/30/18 0634 10/30/18 0634 Results 24 hrs Laboratory Tests Test 11/02/18 17:25 11/02/18 20:49 11/03/18 08:29 11/03/18 11:33 Bedside Glucose 121 145 112 60 L Test 11/03/18 11:54 11/03/18 12:10 Bedside Glucose 76 93 Medications Current Medications Docusate Sodium (Colace) 100 mg BID PO Last administered on 11/03/18at 09:04; Admin Dose 100 MG; Start 10/30/18 at 09:00 Senna (Senokot) 1 tab HS PO Last administered on 11/02/18at 20:49; Admin Dose 1 TAB; Start 10/30/18 at 21:00 Lactulose (Enulose) 20 gm DAILY PRN PO CONSTIPATION Last administered on 11/02/18at 02:22; Admin Dose 20 GM; Start 10/30/18 at 00:00 Bisacodyl (Dulcolax Supp) 10 mg DAILY PRN [place] CONSTIPATION; Start 10/30/18 at 00:00 Acetaminophen (Tylenol Tab) 650 mg Q4H PRN PO PAIN; Start 10/30/18 at 00:00 Miscellaneous Information (Pending Santyl Order For Wound Care) This patient almanzar... PRN PRN XX WOUND CARE; Start 10/30/18 at 00:00 Amoxicillin/ Clavulanate Potassium (Augmentin) 875 mg BID PO Last administered on 11/03/18at 09:04; Admin Dose 875 MG; Start 10/30/18 at 09:00; Stop 11/04/18 at 13:59 Benazepril HCl (Lotensin) 40 mg BID PO Last administered on 8/1/19at 20:50; Admin Dose 40 MG; Start 10/30/18 at 09:00 Cholecalciferol (Vitamin D) 2,000 unit DAILY PO Last administered on 11/03/18 09:03; Admin Dose 2,000 UNIT; Start 10/30/18 at 09:00 Aspirin (Halfprin) 81 mg DAILY PO Last administered on 11/03/18 09:04; Admin Dose 81 MG; Start 10/30/18 at 09:00 Famotidine (Pepcid) 20 mg DAILY PO Last administered on 11/03/18 09:04; Admin Dose 20 MG; Start 10/30/18 at 09:00 Insulin Aspart (Novolog Insulin Pen) 5 unit WITH BREAKFAST SC Last administered on 11/03/18 09:01; Admin Dose 5 UNIT; Start 10/30/18 at 07:35 Insulin Aspart (Novolog Insulin Pen) 5 unit WITH LUNCH SC Last administered on 10/31/18 12:10; Admin Dose 5 UNIT; Start 10/30/18 at 12:00 Insulin Aspart (Novolog Insulin Pen) 5 unit WITH DINNER SC ; Start 10/30/18 at 17:35 Diagnostic Test (Pha) (Accu-Chek) 1 ea 02 XX ; Start 10/30/18 at 02:00 Levothyroxine Sodium (Synthroid) 100 mcg DAILY@06 PO Last administered on 11/03/18 06:25; Admin Dose 100 MCG; Start 10/30/18 at 06:00 Linagliptin (Tradjenta) 5 mg DAILY PO Last administered on 11/03/18 08:58; Admin Dose 5 MG; Start 10/30/18 at 09:00 Diagnostic Test (Pha) (Accu-Chek) 1 ea AC MEALS AND BEDTIME XX Last administered on 11/02/18 17:27; Admin Dose 1 EA; Start 10/30/18 at 07:05 Multivit/Ca Carb/ B Cmplx/FA/Prenat (Manasa-Haris) 1 tab DAILY PO Last administered on 11/03/18 09:04; Admin Dose 1 TAB; Start 10/30/18 at 09:00 Ondansetron HCl (Zofran Inj) 4 mg Q6H PRN IV NAUSEA AND/OR VOMITING; Start 10/30/18 at 01:00 Oxycodone HCl (Roxicodone) 5 mg Q4H PRN PO MILD PAIN LEVEL 1-3 Last admin istered on 10/30/18 14:32; Admin Dose 5 MG; Start 10/30/18 at 01:00 Oxycodone HCl (Roxicodone) 10 mg Q4H PRN PO MODERATE PAIN LEVEL 4-6 Last administered on 11/03/18 08:59; Admin Dose 10 MG; Start 10/30/18 at 01:00 Sevelamer Carbonate (Renvela) 1,600 mg WITH MEALS PO Last administered on 11/03/18 11:43; Admin Dose 1,600 MG; Start 10/30/18 at 07:35 Insulin Glargine (Lantus) 6 units HS SC Last administered on 11/02/18 20:55; Admin Dose 6 UNITS; Start 10/30/18 at 21:00 Miscellaneous Information 1 ea NOTE XX ; Start 10/30/18 at 01:30 Glucose (Glutose) 15 gm Q15M PRN PO DECREASED GLUCOSE; Start 10/30/18 at 01:30 Glucose (Glutose) 22.5 gm Q15M PRN PO DECREASED GLUCOSE; Start 10/30/18 at 01: 30 Dextrose (D50w Syringe) 25 ml Q15M PRN IV DECREASED GLUCOSE; Start 10/30/18 at 01:30 Dextrose (D50w Syringe) 50 ml Q15M PRN IV DECREASED GLUCOSE; Start 10/30/18 at 01:30 Glucagon (Glucagen) 1 mg Q15M PRN IM DECREASED GLUCOSE; Start 10/30/18 at 01:30 Glucose (Glutose) 15 gm Q15M PRN BUCCAL DECREASED GLUCOSE Last administered on 11/02/18 08:03; Admin Dose 15 GM; Start 10/30/18 at 01:30 Diclofenac Sodium (Voltaren 1% Gel) 2 gm QID PRN TP PAIN Last administered on 11/02/18 13:58; Admin Dose 2 GM; Start 10/30/18 at 09:00 Heparin Sodium (Porcine) (Heparin (5000 Units/1ml)) 5,000 unit BID SC Last administered on 11/03/18 09:03; Admin Dose 5,000 UNIT; Start 10/30/18 at 21:00 Hydromorphone HCl (Dilaudid) 1 mg Q3H PRN IM SEVERE PAIN LEVEL 7-10 Last administered on 11/02/18at 18:27; Admin Dose 1 MG; Start 10/31/18 at 19:00 Diclofenac Sodium (Voltaren 1% Gel) 4 gm QID TP Last administered on 11/03/18at 13:14; Admin Dose 4 GM; Start 11/02/18 at 21:00 Assessment/Plan Additional Assessment/Plan Rehab- Left intertrochanteric hip fracture status post ORIF, lumbar djd Activity tolerance improving, continue care Acute pain syndrome- premedicate before therapies End-stage renal disease requiring hemodialysis-per renal Integ- Left heel deep tissue injury- continue offloading, increase po intake Hypertension. Anemia. Diabetes mellitus type 2. Diabetic neuropathy. Diabetic retinopathy. Hypothyroidism. Hyperparathyroidism. Benign prostatic hypertrophy. Hyperlipidemia. History of ischemic bowel syndrome. History of left ankle ORIF. Peripheral vascular disease. NYLA HADLEY MD Nov 03, 2018 14:58
--- NOTE | 2018-11-03 17:36 | PN ---
Date/Time of Note Date/Time of Note DATE: 11/03/18 TIME: 17:33 Assessment/Plan VTE Prophylaxis Risk score (from Ns)>0 risk: 9 SCD applied (from Ns): Yes Pharmacological prophylaxis: heparin Lines/Catheters IV Catheter Type (from Nrsg): Saline Lock Urinary Cath still in place: No Assessment/Plan Problems: (1) Diabetes mellitus type 2 with complications Status: Chronic Comment: BG now < 70 mg/dL 2 days in a row. Will decrease lantus from 6 to 5 units qhs. Will monitor. (2) ESRD (end stage renal disease) on dialysis Status: Chronic Comment: Cont. HD per renal (3) Essential (primary) hypertension Status: Chronic Comment: BP improved. Cont. current regimen (4) Hypothyroidism Status: Chronic Comment: Cont. LT4 daily (5) Anemia associated with chronic renal failure Status: Chronic Comment: Stable. Will recheck in am (6) Debility Status: Chronic Comment: Cont. PT in ARU (7) Closed fracture of left hip requiring operative repair Onset Date: ~ 10/24/2018 Status: Resolved Comment: Cont. pain management and PT in ARU Result Diagram: 10/30/18 0634 10/30/18 0634 Results 24hrs Laboratory Tests Test 11/02/18 20:49 11/03/18 08:29 11/03/18 11:33 11/03/18 11:54 Bedside Glucose 145 112 60 L 76 Test 11/03/18 12:10 Bedside Glucose 93 Subjective 24 Hr Interval Summary Constitutional: no complaints; No improved Respiratory: no complaints Cardiovascular: no complaints Gastrointestinal: no complaints Genitourinary: no complaints Musculoskeletal: bone/joint pain (severe when he tries to walk; pain meds and injections help but not sufficient) Neurologic: no complaints Exam/Review of Systems Exam Vitals VS - Last 72 Hours, by Label Date Temp Pulse Resp B/P (MAP) Pulse Ox O2 O2 Flow FiO2 Time Delivery Rate 11/03/18 97.8 70 18 138/60 96 Room Air 14:00 (86) 11/03/18 97.5 76 18 137/58 100 Room Air 07:30 (84) 11/03/18 97.8 68 18 138/60 99 Room Air 02:08 (86) 11/02/18 98.3 70 18 142/77 98 Room Air 19:41 (98) 11/02/18 98.4 79 18 148/73 99 Room Air 14:22 (98) 11/02/18 97.9 74 20 169/71 98 Room Air 07:25 (103) 11/02/18 97.8 68 18 134/65 96 Room Air 02:00 (88) 11/01/18 98.0 72 18 149/69 97 Room Air 19:23 (95) 11/01/18 69 17:45 11/01/18 70 17:30 11/01/18 68 17:15 11/01/18 67 17:00 11/01/18 67 16:45 11/01/18 67 16:30 11/01/18 67 16:15 11/01/18 68 16:00 11/01/18 68 15:45 11/01/18 67 15:30 11/01/18 71 15:15 11/01/18 70 15:00 11/01/18 71 139/62 98 Room Air 14:45 (87) 11/01/18 71 14:45 11/01/18 97.5 74 18 144/68 96 Room Air 14:00 (93) 11/01/18 97.6 67 20 159/64 96 Room Air 07:30 (95) 10/31/18 98.3 74 18 139/61 97 Room Air 20:24 (87) Vital Signs Date Temp Pulse Resp B/P (MAP) Pulse Ox O2 O2 Flow FiO2 Time Delivery Rate 11/03/18 97.8 70 18 138/60 96 Room Air 14:00 (86) Intake and Output 11/02/18 11/02/18 11/03/18 1515:00 23:00 07:00 IntakeIntake Total 940 ml 440 ml BalanceBalance 940 ml 440 ml Constitutional: alert, oriented, well developed Psych: no complaints, nl mood/affect Respiratory: clear to auscultation, normal air movement Cardiovascular: regular rate and rhythm, edema (1+ LLE); No nl pulses, No murmurs/extra sounds, No rub Gastrointestinal: soft, nl liver, spleen, non-tender, bowel sounds; No mass, No rebound or guarding Musculoskeletal: No nl extremities to inspection (R great toe amp) Extremities: edema (1+ RLE); No normal pulses, No cyanosis, No clubbing 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: 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, nl mental status, nl speech, nl strength Additional Comments Bedside Glucose - 72 Hours Test 10/31/18 19:57 10/31/18 21:33 11/01/18 07:43 11/01/18 11:46 Bedside 133 128 131 76 Glucose mg/dL (70-220) mg/dL (70-220) mg/dL (70-220) mg/dL (70-220) Test 11/01/18 17:58 11/01/18 21:19 11/02/18 02:21 11/02/18 07:40 Bedside 112 109 121 69 Glucose mg/dL (70-220) mg/dL (70-220) mg/dL (70-220) mg/dL (70-220) L Test 11/02/18 07:59 11/02/18 08:13 11/02/18 08:26 11/02/18 11:43 Bedside 70 80 90 107 Glucose mg/dL (70-220) mg/dL (70-220) mg/dL (70-220) mg/dL (70-220) Test 11/02/18 17:25 11/02/18 20:49 11/03/18 08:29 11/03/18 11:33 Bedside 121 145 112 60 Glucose mg/dL (70-220) mg/dL (70-220) mg/dL (70-220) mg/dL (70-220) L Test 11/03/18 11:54 11/03/18 12:10 Bedside 76 93 Glucose mg/dL (70-220) mg/dL (70-220) Results Results 24hrs Laboratory Tests Test 11/02/18 20:49 11/03/18 08:29 11/03/18 11:33 11/03/18 11:54 Bedside Glucose 145 112 60 L 76 Test 11/03/18 12:10 Bedside Glucose 93 Medications Medication Current Medications Docusate Sodium (Colace) 100 mg BID PO Last administered on 11/03/18at 09:04; Admin Dose 100 MG; Start 10/30/18 at 09:00 Senna (Senokot) 1 tab HS PO Last administered on 11/02/18at 20:49; Admin Dose 1 TAB; Start 10/30/18 at 21:00 Lactulose (Enulose) 20 gm DAILY PRN PO CONSTIPATION Last administered on 11/02/18 02:22; Admin Dose 20 GM; Start 10/30/18 at 00:00 Bisacodyl (Dulcolax Supp) 10 mg DAILY PRN [place] CONSTIPATION; Start 10/30/18 at 00:00 Acetaminophen (Tylenol Tab) 650 mg Q4H PRN PO PAIN; Start 10/30/18 at 00:00 Miscellaneous Information (Pending Santyl Order For Wound Care) This patient almanzar... PRN PRN XX WOUND CARE; Start 10/30/18 at 00:00 Amoxicillin/ Clavulanate Potassium (Augmentin) 875 mg BID PO Last administered on 11/03/18 09:04; Admin Dose 875 MG; Start 10/30/18 at 09:00; Stop 11/04/18 at 13:59 Benazepril HCl (Lotensin) 40 mg BID PO Last administered on 11/02/18 20:50; Admin Dose 40 MG; Start 10/30/18 at 09:00 Cholecalciferol (Vitamin D) 2,000 unit DAILY PO Last administered on 11/03/18 09:03; Admin Dose 2,000 UNIT; Start 10/30/18 at 09:00 Aspirin (Halfprin) 81 mg DAILY PO Last administered on 11/03/18 09:04; Admin Dose 81 MG; Start 10/30/18 at 09:00 Famotidine (Pepcid) 20 mg DAILY PO Last administered on 11/03/18 09:04; Admin Dose 20 MG; Start 10/30/18 at 09:00 Insulin Aspart (Novolog Insulin Pen) 5 unit WITH BREAKFAST SC Last administered on 11/03/18 09:01; Admin Dose 5 UNIT; Start 10/30/18 at 07:35 Insulin Aspart (Novolog Insulin Pen) 5 unit WITH LUNCH SC Last administered on 10/31/18 12:10; Admin Dose 5 UNIT; Start 10/30/18 at 12:00 Insulin Aspart (Novolog Insulin Pen) 5 unit WITH DINNER SC ; Start 10/30/18 at 17:35 Diagnostic Test (Pha) (Accu-Chek) 1 ea 02 XX ; Start 10/30/18 at 02:00 Levothyroxine Sodium (Synthroid) 100 mcg DAILY@06 PO Last administered on 8/2/19at 06:25; Admin Dose 100 MCG; Start 10/30/18 at 06:00 Linagliptin (Tradjenta) 5 mg DAILY PO Last administered on 11/03/18at 08:58; Admin Dose 5 MG; Start 10/30/18 at 09:00 Diagnostic Test (Pha) (Accu-Chek) 1 ea AC MEALS AND BEDTIME XX Last administered on 11/02/18at 17:27; Admin Dose 1 EA; Start 10/30/18 at 07:05 Multivit/Ca Carb/ B Cmplx/FA/Prenat (Manasa-Haris) 1 tab DAILY PO Last administered on 11/03/18at 09:04; Admin Dose 1 TAB; Start 10/30/18 at 09:00 Ondansetron HCl (Zofran Inj) 4 mg Q6H PRN IV NAUSEA AND/OR VOMITING; Start 10/30/18 at 01:00 Oxycodone HCl (Roxicodone) 5 mg Q4H PRN PO MILD PAIN LEVEL 1-3 Last administered on 10/30/18at 14:32; Admin Dose 5 MG; Start 10/30/18 at 01:00 Oxycodone HCl (Roxicodone) 10 mg Q4H PRN PO MODERATE PAIN LEVEL 4-6 Last ad ministered on 11/03/18at 08:59; Admin Dose 10 MG; Start 10/30/18 at 01:00 Sevelamer Carbonate (Renvela) 1,600 mg WITH MEALS PO Last administered on 11/03/18at 11:43; Admin Dose 1,600 MG; Start 10/30/18 at 07:35 Miscellaneous Information 1 ea NOTE XX ; Start 10/30/18 at 01:30 Glucose (Glutose) 15 gm Q15M PRN PO DECREASED GLUCOSE; Start 10/30/18 at 01:30 Glucose (Glutose) 22.5 gm Q15M PRN PO DECREASED GLUCOSE; Start 10/30/18 at 01:30 Dextrose (D50w Syringe) 25 ml Q15M PRN IV DECREASED GLUCOSE; Start 10/30/18 at 01:30 Dextrose (D50w Syringe) 50 ml Q15M PRN IV DECREASED GLUCOSE; Start 10/30/18 at 01:30 Glucagon (Glucagen) 1 mg Q15M PRN IM DECREASED GLUCOSE; Start 10/30/18 at 01:30 Glucose (Glutose) 15 gm Q15M PRN BUCCAL DECREASED GLUCOSE Last administered on 11/02/18 08:03; Admin Dose 15 GM; Start 10/30/18 at 01:30 Diclofenac Sodium (Voltaren 1% Gel) 2 gm QID PRN TP PAIN Last administered on 11/02/18 13:58; Admin Dose 2 GM; Start 10/30/18 at 09:00 Heparin Sodium (Porcine) (Heparin (5000 Units/1ml)) 5,000 unit BID SC Last administered on 11/03/18 09:03; Admin Dose 5,000 UNIT; Start 10/30/18 at 21:00 Hydromorphone HCl (Dilaudid) 1 mg Q3H PRN IM SEVERE PAIN LEVEL 7-10 Last administered on 11/02/18 18:27; Admin Dose 1 MG; Start 10/31/18 at 19:00 Diclofenac Sodium (Voltaren 1% Gel) 4 gm QID TP Last administered on 11/03/18 13:14; Admin Dose 4 GM; Start 11/02/18 at 21:00 Insulin Glargine (Lantus) 5 units HS SC ; Start 11/03/18 at 21:00; Status FELIX TAVERA MD Nov 03, 2018 17:36
[2018-11-03] MEDS: INSULIN GLARGINE [LANTus] (100 UNITS/ML) SYG SC SCH (21:14)
[2018-11-03] MEDS: SENNA TAB PO SCH (21:15)
[2018-11-04] MEDS: HEPARIN 5,000 UNIT/1 ML VIAL SC SCH ×3 (00:50→20:37)
[2018-11-04 02:00] VITALS: BP 142/65; PULSE 72; RESP 18
[2018-11-04] MEDS: ACCU-CHEK XX SCH ×5 (02:00→20:40)
[2018-11-04] MEDS: LEVOTHYROXINE 100 MCG TAB PO SCH (06:27)
[2018-11-04 07:00] VITALS: BP 149/78; PULSE 72; RESP 18
[2018-11-04] MEDS: HYDROmorphONE 1 MG/ML SYG IM PRN ×5 (07:52→17:28)
[2018-11-04] MEDS: INSULIN ASPART [NOVOLOG] 3 ML PEN SC SCH ×3 (07:58→17:36)
[2018-11-04] MEDS: SEVELAMER CARBONATE 800 MG TABLET PO SCH ×3 (07:59→17:27)
--- NOTE | 2018-11-04 09:53 | PN ---
Date/Time of Note Date/Time of Note DATE: 11/04/18 TIME: 09:51 Subjective Much better today Objective Vital Signs Date Temp Pulse Resp B/P (MAP) Pulse Ox O2 O2 Flow FiO2 Time Delivery Rate 11/04/18 97.6 72 18 149/78 99 Room Air 07:00 (101) Intake and Output 11/03/18 11/03/18 11/04/18 1515:00 23:00 07:00 IntakeIntake Total 200 ml 320 ml 200 ml OutputOutput Total 3700 ml BalanceBalance 200 ml -3380 ml 200 ml Exam [id number] [id number] ambulation Results/Medications Result Diagram: 11/04/18 0743 Results 24 hrs Laboratory Tests Test 11/03/18 11:33 11/03/18 11:54 11/03/18 12:10 11/03/18 17:49 Bedside Glucose 60 L 76 93 127 Test 11/03/18 21:12 11/04/18 07:43 11/04/18 07:53 Bedside Glucose 117 144 White Blood Count 4.7 L Red Blood Count 3.07 L Hemoglobin 8.5 L Hematocrit 27.2 L Mean Corpuscular Volume 88.6 Mean Corpuscular 27.7 L Hemoglobin Mean Corpuscular 31.3 L Hemoglobin Concent Red Cell Distribution 16.0 H Width Platelet Count 246 # Mean Platelet Volume 9.5 Immature Granulocytes % 0.900 H Neutrophils % 63.5 Lymphocytes % 14.8 L Monocytes % 12.0 H Eosinophils % 7.7 H Basophils % 1.1 Nucleated Red Blood 0.0 Cells % Immature Granulocytes # 0.040 H Neutrophils # 3.0 Lymphocytes # 0.7 L Monocytes # 0.6 Eosinophils # 0.4 Basophils # 0.1 Nucleated Red Blood 0.0 Cells # Medications Current Medications Docusate Sodium (Colace) 100 mg BID PO Last administered on 11/03/18at 21:15; Admin Dose 100 MG; Start 10/30/18 at 09:00 Senna (Senokot) 1 tab HS PO Last administered on 11/03/18at 21:15; Admin Dose 1 TAB; Start 10/30/18 at 21:00 Lactulose (Enulose) 20 gm DAILY PRN PO CONSTIPATION Last administered on 11/02/18at 02:22; Admin Dose 20 GM; Start 10/30/18 at 00:00 Bisacodyl (Dulcolax Supp) 10 mg DAILY PRN [place] CONSTIPATION; Start 10/30/18 at 00:00 Acetaminophen (Tylenol Tab) 650 mg Q4H PRN PO PAIN; Start 10/30/18 at 00:00 Misc[facility] Information [facility] This patient almanzar... PRN PRN XX WOUND CARE; Start 10/30/18 at 00:00 Amoxicillin/ Clavulanate Potassium (Augmentin) 875 mg BID PO Last administered on 11/03/18 21:14; Admin Dose 875 MG; Start 10/30/18 at 09:00; Stop 11/04/18 at 13:59 Benazepril HCl (Lotensin) 40 mg BID PO Last administered on 11/03/18 21:15; Admin Dose 40 MG; Start 10/30/18 at 09:00 Cholecalciferol (Vitamin D) 2,000 unit DAILY PO Last administered on 11/03/18 09:03; Admin Dose 2,000 UNIT; Start 10/30/18 at 09:00 Aspirin (Halfprin) 81 mg DAILY PO Last administered on 11/03/18 09:04; Admin Dose 81 MG; Start 10/30/18 at 09:00 Famotidine (Pepcid) 20 mg DAILY PO Last administered on 11/03/18 09:04; Admin Dose 20 MG; Start 10/30/18 at 09:00 Insulin Aspart (Novolog Insulin Pen) 5 unit WITH BREAKFAST SC Last administered on 11/04/18at 07:58; Admin Dose 5 UNIT; Start 10/30/18 at 07:35 Insulin Aspart (Novolog Insulin Pen) 5 unit WITH LUNCH SC Last administered on 10/31/18at 12:10; Admin Dose 5 UNIT; Start 10/30/18 at 12:00 Insulin Aspart (Novolog Insulin Pen) 5 unit WITH DINNER SC ; Start 10/30/18 at 17:35 Diagnostic Test (Pha) (Accu-Chek) 1 ea 02 XX ; Start 10/30/18 at 02:00 Levothyroxine Sodium (Synthroid) 100 mcg DAILY@06 PO Last administered on 11/04/18 06:27; Admin Dose 100 MCG; Start 10/30/18 at 06:00 Linagliptin (Tradjenta) 5 mg DAILY PO Last administered on 11/03/18 08:58; Ad min Dose 5 MG; Start 10/30/18 at 09:00 Diagnostic Test (Pha) (Accu-Chek) 1 ea AC MEALS AND BEDTIME XX Last administered on 11/04/18 07:59; Admin Dose 1 EA; Start 10/30/18 at 07:05 Multivit/Ca Carb/ B Cmplx/FA/Prenat (Manasa-Haris) 1 tab DAILY PO Last administered on 11/03/18 09:04; Admin Dose 1 TAB; Start 10/30/18 at 09:00 Ondansetron HCl (Zofran Inj) 4 mg Q6H PRN IV NAUSEA AND/OR VOMITING; Start 10/30/18 at 01:00 Oxycodone HCl (Roxicodone) 5 mg Q4H PRN PO MILD PAIN LEVEL 1-3 Last administered on 10/30/18at 14:32; Admin Dose 5 MG; Start 10/30/18 at 01:00 Oxycodone HCl (Roxicodone) 10 mg Q4H PRN PO MODERATE PAIN LEVEL 4-6 Last administered on 11/03/18 08:59; Admin Dose 10 MG; Start 10/30/18 at 01:00 Sevelamer Carbonate (Renvela) 1,600 mg WITH MEALS PO Last administered on 11/04/18 07:59; Admin Dose 1,600 MG; Start 10/30/18 at 07:35 Miscellaneous Information 1 ea NOTE XX ; Start 10/30/18 at 01:30 Glucose (Glutose) 15 gm Q15M PRN PO DECREASED GLUCOSE; Start 10/30/18 at 01:30 Glucose (Glutose) 22.5 gm Q15M PRN PO DECREASED GLUCOSE; Start 10/30/18 at 01:30 Dextrose (D50w Syringe) 25 ml Q15M PRN IV DECREASED GLUCOSE; Start 10/30/18 at 01:30 Dextrose (D50w Syringe) 50 ml Q15M PRN IV DECREASED GLUCOSE; Start 10/30/18 at 01:30 Glucagon (Glucagen) 1 mg Q15M PRN IM DECREASED GLUCOSE; Start 10/30/18 at 01:30 Glucose (Glutose) 15 gm Q15M PRN BUCCAL DECREASED GLUCOSE Last administered on 11/02/18 08:03; Admin Dose 15 GM; Start 10/30/18 at 01:30 Diclofenac Sodium (Voltaren 1% Gel) 2 gm QID PRN TP PAIN Last administered on 11/02/18at 13:58; Admin Dose 2 GM; Start 10/30/18 at 09:00 Heparin Sodium (Porcine) (Heparin (5000 Units/1ml)) 5,000 unit BID SC Last administered on 11/04/18 00:50; Admin Dose 5,000 UNIT; Start 10/30/18 at 21:00 Hydromorphone HCl (Dilaudid) 1 mg Q3H PRN IM SEVERE PAIN LEVEL 7-10 Last administered on 11/04/18 07:52; Admin Dose 1 MG; Start 10/31/18 at 19:00 Diclofenac Sodium (Voltaren 1% Gel) 4 gm QID TP Last administered on 11/03/18at 21:16; Admin Dose 4 GM; Start 11/02/18 at 21:00 Insulin Glargine (Lantus) 5 units HS SC Last administered on 11/03/18 21:14; Admin Dose 5 UNITS; Start 11/03/18 at 21:00 Assessment/Plan Additional Assessment/Plan Rehab- Left intertrochanteric hip fracture status post ORIF, lumbar djd Good improvement, continue care Acute pain syndrome- under adequate control End-stage renal disease requiring hemodialysis-per renal Integ- Left heel deep tissue injury- improving Hypertension. Anemia. Diabetes mellitus type 2. Diabetic neuropathy. Diabetic retinopathy. Hypothyroidism. Hyperparathyroidism. Benign prostatic hypertrophy. Hyperlipidemia. History of ischemic bowel syndrome. History of left ankle ORIF. Peripheral vascular disease. NYLA HADLEY MD Nov 04, 2018 09:53
--- NOTE | 2018-11-04 10:09 | PN ---
Date/Time of Note Date/Time of Note DATE: 11/04/18 TIME: 10:05 Assessment/Plan VTE Prophylaxis Risk score (from Ns)>0 risk: 8 SCD applied (from Ns): Yes Pharmacological prophylaxis: heparin Lines/Catheters IV Catheter Type (from Nrsg): [place] [facility] Urinary Cath still in place: No Assessment/Plan Problems: (1) Diabetes mellitus type 2 with complications Status: Chronic Comment: Lantus reduced by 1 unit last night. Glucose remains in goal range. Monitor for hyper and hypoglycemic episodes. Cont. current therapies. (2) ESRD (end stage renal disease) on dialysis Status: Chronic Comment: Cont. HD per nephrology (3) Essential (primary) hypertension Status: Chronic Comment: Fair control. Cont. current regimen (4) Hypothyroidism Status: Chronic Comment: Cont. LT4 daily (5) Anemia associated with chronic renal failure Status: Chronic Comment: Stable on current CBC (6) Debility Status: Chronic Comment: Cont. rehab in ARU (7) Closed fracture of left hip requiring operative repair Onset Date: ~ 10/24/2018 Status: Resolved Comment: Pain control mildly improved. Cont. current pain management. Cont. rehab in ARU Result Diagram: 11/04/18 0743 Results 24hrs Laboratory Tests Test 11/03/18 11:33 11/03/18 11:54 11/03/18 12:10 11/03/18 17:49 Bedside Glucose 60 L 76 93 127 Test 11/03/18 21:12 11/04/18 07:43 11/04/18 07:53 Bedside Glucose 117 144 White Blood Count 4.7 L Red Blood Count 3.07 L Hemoglobin 8.5 L Hematocrit 27.2 L Mean Corpuscular Volume 88.6 Mean Corpuscular 27.7 L Hemoglobin Mean Corpuscular 31.3 L Hemoglobin Concent Red Cell Distribution 16.0 H Width Platelet Count 246 # Mean Platelet Volume 9.5 Immature Granulocytes % 0.900 H Neutrophils % 63.5 Lymphocytes % 14.8 L Monocytes % 12.0 H Eosinophils % 7.7 H Basophils % 1.1 Nucleated Red Blood 0.0 Cells % Immature Granulocytes # 0.040 H Neutrophils # 3.0 Lymphocytes # 0.7 L Monocytes # 0.6 Eosinophils # 0.4 Basophils # 0.1 Nucleated Red Blood 0.0 Cells # Subjective 24 Hr Interval Summary Constitutional: no complaints, improved Respiratory: no complaints Cardiovascular: no complaints Gastrointestinal: no complaints Genitourinary: no complaints Musculoskeletal: bone/joint pain (LLE. Now seated in w/c. Pain a little better than yesterday. Not sure if diclofenac helping or not. ) Neurologic: no complaints Exam/Review of Systems Exam Vitals VS - Last 72 Hours, by Label Date Temp Pulse Resp B/P (MAP) Pulse Ox O2 O2 Flow FiO2 Time Delivery Rate 11/04/18 97.6 72 18 149/78 99 Room Air 07:00 (101) 11/04/18 97.8 72 18 142/65 99 Room Air 02:00 (90) 11/03/18 67 20:45 11/03/18 66 20:30 11/03/18 65 20:15 11/03/18 66 20:00 11/03/18 66 19:45 11/03/18 66 19:30 11/03/18 98.0 77 18 138/58 98 Room Air 19:25 (84) 11/03/18 66 19:15 11/03/18 74 17 148/66 Room Air 19:02 (93) 11/03/18 67 19:00 11/03/18 68 18:45 11/03/18 69 18:30 11/03/18 69 18:15 11/03/18 70 18:00 11/03/18 72 17:45 11/03/18 97.8 70 18 138/60 96 Room Air 14:00 (86) 11/03/18 97.5 76 18 137/58 100 Room Air 07:30 (84) 11/03/18 97.8 68 18 138/60 99 Room Air 02:08 (86) 11/02/18 98.3 70 18 142/77 98 Room Air 19:41 (98) 11/02/18 98.4 79 18 148/73 99 Room Air 14:22 (98) 11/02/18 97.9 74 20 169/71 98 Room Air 07:25 (103) 11/02/18 97.8 68 18 134/65 96 Room Air 02:00 (88) 11/01/18 98.0 72 18 149/69 97 Room Air 19:23 (95) 11/01/18 69 17:45 11/01/18 70 17:30 11/01/18 68 17:15 11/01/18 67 17:00 11/01/18 67 16:45 11/01/18 67 16:30 11/01/18 67 16:15 11/01/18 68 16:00 11/01/18 68 15:45 11/01/18 67 15:30 11/01/18 71 15:15 11/01/18 70 15:00 11/01/18 71 139/62 98 Room Air 14:45 (87) 11/01/18 71 14:45 11/01/18 97.5 74 18 144/68 96 Room Air 14:00 (93) Vital Signs Date Temp Pulse Resp B/P (MAP) Pulse Ox O2 O2 Flow FiO2 Time Delivery Rate 11/04/18 97.6 72 18 149/78 99 Room Air 07:00 (101) Intake and Output 11/03/18 11/03/18 11/04/18 1515:00 23:00 07:00 IntakeIntake Total 200 ml 320 ml 200 ml OutputOutput Total 3700 ml BalanceBalance 200 ml -3380 ml 200 ml Constitutional: alert, oriented, well developed Respiratory: clear to auscultation, normal air movement Cardiovascular: regular rate and rhythm, edema (1+ LLE); No murmurs/extra sounds, No rub Gastrointestinal: soft, nl liver, spleen, non-tender, bowel sounds; No mass, No rebound or guarding Musculoskeletal: No nl extremities to inspection (R great toe amp) Extremities: edema (1+ LLE); No cyanosis, No clubbing 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: COOPER HELPER II-XII intact, nl mental status, nl speech, nl strength Additional Comments Bedside Glucose - 72 Hours Test 11/01/18 11:46 11/01/18 17:58 11/01/18 21:19 11/02/18 02:21 Bedside 76 112 109 121 Glucose mg/dL (70-220) mg/dL (70-220) mg/dL (70-220) mg/dL (70-220) Test 11/02/18 07:40 11/02/18 07:59 11/02/18 08:13 11/02/18 08:26 Bedside 69 70 80 90 Glucose mg/dL (70-220) mg/dL (70-220) mg/dL (70-220) mg/dL (70-220) L Test 11/02/18 11:43 11/02/18 17:25 11/02/18 20:49 11/03/18 08:29 Bedside 107 121 145 112 Glucose mg/dL (70-220) mg/dL (70-220) mg/dL (70-220) mg/dL (70-220) Test 11/03/18 11:33 11/03/18 11:54 11/03/18 12:10 11/03/18 17:49 Bedside 60 76 93 127 Glucose mg/dL (70-220) mg/dL (70-220) mg/dL (70-220) mg/dL (70-220) L Test 11/03/18 21:12 11/04/18 07:53 Bedside 117 144 Glucose mg/dL (70-220) mg/dL (70-220) Results Results 24hrs Laboratory Tests Test 11/03/18 11:33 11/03/18 11:54 11/03/18 12:10 11/03/18 17:49 Bedside Glucose 60 L 76 93 127 Test 11/03/18 21:12 11/04/18 07:43 11/04/18 07:53 Bedside Glucose 117 144 White Blood Count 4.7 L Red Blood Count 3.07 L Hemoglobin 8.5 L Hematocrit 27.2 L Mean Corpuscular Volume 88.6 Mean Corpuscular 27.7 L Hemoglobin Mean Corpuscular 31.3 L Hemoglobin Concent Red Cell Distribution 16.0 H Width Platelet Count 246 # Mean Platelet Volume 9.5 Immature Granulocytes % 0.900 H Neutrophils % 63.5 Lymphocytes % 14.8 L Monocytes % 12.0 H Eosinophils % 7.7 H Basophils % 1.1 Nucleated Red Blood 0.0 Cells % Immature Granulocytes # 0.040 H Neutrophils # 3.0 Lymphocytes # 0.7 L Monocytes # 0.6 Eosinophils # 0.4 Basophils # 0.1 Nucleated Red Blood 0.0 Cells # Medications Medication Current Medications Docusate Sodium (Colace) 100 mg BID PO Last administered on 11/03/18at 21:15; Admin Dose 100 MG; Start 10/30/18 at 09:00 Senna (Senokot) 1 tab HS PO Last administered on 11/03/18at 21:15; Admin Dose 1 TAB; Start 10/30/18 at 21:00 Lactulose (Enulose) 20 gm DAILY PRN PO CONSTIPATION Last administered on 11/02/18 02:22; Admin Dose 20 GM; Start 10/30/18 at 00:00 Bisacodyl (Dulcolax Supp) 10 mg DAILY PRN [place] CONSTIPATION; Start 10/30/18 at 00:00 Acetaminophen (Tylenol Tab) 650 mg Q4H PRN PO PAIN; Start 10/30/18 at 00:00 Miscellaneous Information [facility] This patient almanzar... PRN PRN XX WOUND CARE; Start 10/30/18 at 00:00 Amoxicillin/ Clavulanate Potassium (Augmentin) 875 mg BID PO Last administered on 11/03/18 21:14; Admin Dose 875 MG; Start 10/30/18 at 09:00; Stop 11/04/18 at 13:59 Benazepril HCl (Lotensin) 40 mg BID PO Last administered on 11/03/18 21:15; Admin Dose 40 MG; Start 10/30/18 at 09:00 Cholecalciferol (Vitamin D) 2,000 unit DAILY PO Last administered on 11/03/18 09:03; Admin Dose 2,000 UNIT; Start 10/30/18 at 09:00 Aspirin (Halfprin) 81 mg DAILY PO Last administered on 11/03/18 09:04; Admin Dose 81 MG; Start 10/30/18 at 09:00 Famotidine (Pepcid) 20 mg DAILY PO Last administered on 11/03/18 09:04; Admin Dose 20 MG; Start 10/30/18 at 09:00 Insulin Aspart (Novolog Insulin Pen) 5 unit WITH BREAKFAST SC Last administered on 11/04/18 07:58; Admin Dose 5 UNIT; Start 10/30/18 at 07:35 Insulin Aspart (Novolog Insulin Pen) 5 unit WITH LUNCH SC Last administered on 10/31/18 12:10; Admin Dose 5 UNIT; Start 10/30/18 at 12:00 Insulin Aspart (Novolog Insulin Pen) 5 unit WITH DINNER SC ; Start 10/30/18 at 17:35 Diagnostic Test (Pha) (Accu-Chek) 1 ea 02 XX ; Start 10/30/18 at 02:00 Levothyroxine Sodium (Synthroid) 100 mcg DAILY@06 PO Last administered on 11/04/18 06:27; Admin Dose 100 MCG; Start 10/30/18 at 06:00 Linagliptin (Tradjenta) 5 mg DAILY PO Last administered on 11/03/18 08:58; Admin Dose 5 MG; Start 10/30/18 at 09:00 Diagnostic Test (Pha) (Accu-Chek) 1 ea AC MEALS AND BEDTIME XX Last admi nistered on 11/04/18 07:59; Admin Dose 1 EA; Start 10/30/18 at 07:05 Multivit/Ca Carb/ B Cmplx/FA/Prenat (Manasa-Haris) 1 tab DAILY PO Last administered on 11/03/18 09:04; Admin Dose 1 TAB; Start 10/30/18 at 09:00 Ondansetron HCl (Zofran Inj) 4 mg Q6H PRN IV NAUSEA AND/OR VOMITING; Start 10/30/18 at 01:00 Oxycodone HCl (Roxicodone) 5 mg Q4H PRN PO MILD PAIN LEVEL 1-3 Last administered on 10/30/18at 14:32; Admin Dose 5 MG; Start 10/30/18 at 01:00 Oxycodone HCl (Roxicodone) 10 mg Q4H PRN PO MODERATE PAIN LEVEL 4-6 Last administered on 11/03/18 08:59; Admin Dose 10 MG; Start 10/30/18 at 01:00 Sevelamer Carbonate (Renvela) 1,600 mg WITH MEALS PO Last administered on 11/04/18 07:59; Admin Dose 1,600 MG; Start 10/30/18 at 07:35 Miscellaneous Information 1 ea NOTE XX ; Start 10/30/18 at 01:30 Glucose (Glutose) 15 gm Q15M PRN PO DECREASED GLUCOSE; Start 10/30/18 at 01:30 Glucose (Glutose) 22.5 gm Q15M PRN PO DECREASED GLUCOSE; Start 10/30/18 at 01:30 Dextrose (D50w Syringe) 25 ml Q15M PRN IV DECREASED GLUCOSE; Start 10/30/18 at 01:30 Dextrose (D50w Syringe) 50 ml Q15M PRN IV DECREASED GLUCOSE; Start 10/30/18 at 01:30 Glucagon (Glucagen) 1 mg Q15M PRN IM DECREASED GLUCOSE; Start 10/30/18 at 01:30 Glucose (Glutose) 15 gm Q15M PRN BUCCAL DECREASED GLUCOSE Last administered on 11/02/18 08:03; Admin Dose 15 GM; Start 10/30/18 at 01:30 Diclofenac Sodium (Voltaren 1% Gel) 2 gm QID PRN TP PAIN Last administered on 11/02/18at 13:58; Admin Dose 2 GM; Start 10/30/18 at 09:00 Heparin Sodium (Porcine) (Heparin (5000 Units/1ml)) 5,000 unit BID SC Last administered on 11/04/18 00:50; Admin Dose 5,000 UNIT; Start 10/30/18 at 21:00 Hydromorphone HCl (Dilaudid) 1 mg Q3H PRN IM SEVERE PAIN LEVEL 7-10 Last administered on 11/04/18 07:52; Admin Dose 1 MG; Start 10/31/18 at 19:00 Diclofenac Sodium (Voltaren 1% Gel) 4 gm QID TP Last administered on 11/03/18 21:16; Admin Dose 4 GM; Start 11/02/18 at 21:00 Insulin Glargine (Lantus) 5 units HS SC Last administered on 11/03/18 21:14; Admin Dose 5 UNITS; Start 11/03/18 at 21:00 FELIX DERW MD Nov 04, 2018 10:09
[2018-11-04] MEDS: LINAGLIPTIN 5 MG TABLET PO SCH (10:12)
[2018-11-04] MEDS: CHOLECALCIFEROL 2,000 UNIT CAP PO SCH (10:12)
[2018-11-04] MEDS: ASPIRIN (EC) 81 MG TAB PO SCH (10:13)
[2018-11-04] MEDS: FAMOTIDINE 20 MG TAB PO SCH (10:14)
[2018-11-04] MEDS: DOCUSATE SODIUM 100 MG CAP PO SCH ×2 (10:15→20:38)
[2018-11-04] MEDS: AMOXICILLIN/CLAV 875 MG TAB PO SCH (10:15)
[2018-11-04] MEDS: BENAZEPRIL 40 MG TAB PO SCH ×2 (10:19→20:39)
[2018-11-04] MEDS: DICLOFENAC SODIUM 1% GEL 100 GM TUBE TP SCH ×4 (10:23→20:39)
[2018-11-04] MEDS: BALSAM PERU/CASTOR OIL 60 GM TUBE TOP SCH ×2 (10:23→20:39)
[2018-11-04] MEDS: MULTIVIT/CA CARB/B CMPLX/FA TAB PO SCH (10:30)
[2018-11-04 14:00] VITALS: BP 150/61; PULSE 74; RESP 18
--- NOTE | 2018-11-04 17:29 | CONS ---
Assessment/Plan Assessment/Plan Assessment/Plan (Daily) 1. ESRD on HD MWF [facility] for HD Access 2.Left femur fracture s/p ORIF of left hip intertrochanteric fracture on 10/24/18 4. H/o HTN 5. H/o HL 6. H/o Hypothyroidism Plan: pt regular schedule for HD is MWF - AVF for HD access - s/p HD yesterday, next HD will be on Tuesday Rehab care as per unit will follow up Consultation Date/Type/Reason Admit Date/Time Oct 29, 2018 at 23:08 Initial Consult Date Type of Consult NEPHROLOGY Requesting Provider: NYLA HADLEY MD Date/Time of Note DATE: 11/04/18 TIME: 17:29 Exam/Review of Systems Exam Vitals Vital Signs Date Temp Pulse Resp B/P (MAP) Pulse Ox O2 O2 Flow FiO2 Time Delivery Rate 11/04/18 98.0 74 18 150/61 98 Room Air 14:00 (90) Intake and Output 11/03/18 11/03/18 11/04/18 1515:00 23:00 07:00 IntakeIntake Total 200 ml 320 ml 200 ml OutputOutput Total 3700 ml BalanceBalance 200 ml -3380 ml 200 ml Results Result Diagram: 11/04/18 0743 11/04/18 0743 Results 24hrs Laboratory Tests Test 11/03/18 17:49 11/03/18 21:12 11/04/18 07:43 11/04/18 07:53 Bedside Glucose 127 117 144 White Blood Count 4.7 L Red Blood Count 3.07 L Hemoglobin 8.5 L Hematocrit 27.2 L Mean Corpuscular Volume 88.6 Mean Corpuscular 27.7 L Hemoglobin Mean Corpuscular 31.3 L Hemoglobin Concent Red Cell Distribution 16.0 H Width Platelet Count 246 # Mean Platelet Volume 9.5 Immature Granulocytes % 0.900 H Neutrophils % 63.5 Lymphocytes % 14.8 L Monocytes % 12.0 H Eosinophils % 7.7 H Basophils % 1.1 Nucleated Red Blood 0.0 Cells % Immature Granulocytes # 0.040 H Neutrophils # 3.0 Lymphocytes # 0.7 L Monocytes # 0.6 Eosinophils # 0.4 Basophils # 0.1 Nucleated Red Blood 0.0 Cells # Sodium Level 139 Potassium Level 4.5 Chloride Level 97 Carbon Dioxide Level 29 Anion Gap 13 Blood Urea Nitrogen 39 H Creatinine 5.66 H Glucose Level 138 Calcium Level 9.3 Phosphorus Level 4.2 Albumin 4.1 Test 11/04/18 12:20 Bedside Glucose 103 Medications Medication Current Medications Docusate Sodium (Colace) 100 mg BID PO Last administered on 11/04/18 10:15; Admin Dose 100 MG; Start 10/30/18 at 09:00 Senna (Senokot) 1 tab HS PO Last administered on 11/03/18 21:15; Admin Dose 1 TAB; Start 10/30/18 at 21:00 Lactulose (Enulose) 20 gm DAILY PRN PO CONSTIPATION Last administered on 11/02/18 02:22; Admin Dose 20 GM; Start 10/30/18 at 00:00 Bisacodyl (Dulcolax Supp) 10 mg DAILY PRN [place] CONSTIPATION; Start 10/30/18 at 00:00 Acetaminophen (Tylenol Tab) 650 mg Q4H PRN PO PAIN; Start 10/30/18 at 00:00 Miscellaneous Information (Pending [facility] For [facility] Care) This patient h a... PRN PRN XX WOUND CARE; Start 10/30/18 at 00:00 Benazepril HCl (Lotensin) 40 mg BID PO Last administered on 11/04/18 10:19; Admin Dose 40 MG; Start 10/30/18 at 09:00 Cholecalciferol (Vitamin D) 2,000 unit DAILY PO Last administered on 11/04/18 10:12; Admin Dose 2,000 UNIT; Start 10/30/18 at 09:00 Aspirin (Halfprin) 81 mg DAILY PO Last administered on 11/04/18 10:13; Admin Dose 81 MG; Start 10/30/18 at 09:00 Famotidine (Pepcid) 20 mg DAILY PO Last administered on 11/04/18 10:14; Admin Dose 20 MG; Start 10/30/18 at 09:00 Insulin Aspart (Novolog Insulin Pen) 5 unit WITH BREAKFAST SC Last administered on 11/04/18 07:58; Admin Dose 5 UNIT; Start 10/30/18 at 07:35 Insulin Aspart (Novolog Insulin Pen) 5 unit WITH LUNCH SC Last administered on 10/31/18 12:10; Admin Dose 5 UNIT; Start 10/30/18 at 12:00 Insulin Aspart (Novolog Insulin Pen) 5 unit WITH DINNER SC ; Start 10/30/18 at 17:35 Diagnostic Test (Pha) (Accu-Chek) 1 ea 02 XX ; Start 10/30/18 at 02:00 Levothyroxine Sodium (Synthroid) 100 mcg DAILY@06 PO Last administered on 11/04/18 06:27; Admin Dose 100 MCG; Start 10/30/18 at 06:00 Linagliptin (Tradjenta) 5 mg DAILY PO Last administered on 11/04/18at 10:12; Admin Dose 5 MG; Start 10/30/18 at 09:00 Diagnostic Test (Pha) (Accu-Chek) 1 ea AC MEALS AND BEDTIME XX Last ad ministered on 11/04/18at 12:23; Admin Dose 1 EA; Start 10/30/18 at 07:05 Multivit/Ca Carb/ B Cmplx/FA/Prenat (Manasa-Haris) 1 tab DAILY PO Last administered on 11/04/18 10:30; Admin Dose 1 TAB; Start 10/30/18 at 09:00 Ondansetron HCl (Zofran Inj) 4 mg Q6H PRN IV NAUSEA AND/OR VOMITING; Start 10/30/18 at 01:00 Oxycodone HCl (Roxicodone) 5 mg Q4H PRN PO MILD PAIN LEVEL 1-3 Last administered on 10/30/18at 14:32; Admin Dose 5 MG; Start 10/30/18 at 01:00 Oxycodone HCl (Roxicodone) 10 mg Q4H PRN PO MODERATE PAIN LEVEL 4-6 Last administered on 11/03/18 08:59; Admin Dose 10 MG; Start 10/30/18 at 01:00 Sevelamer Carbonate (Renvela) 1,600 mg WITH MEALS PO Last administered on 11/04/18 17:27; Admin Dose 1,600 MG; Start 10/30/18 at 07:35 Miscellaneous Information 1 ea NOTE XX ; Start 10/30/18 at 01:30 Glucose (Glutose) 15 gm Q15M PRN PO DECREASED GLUCOSE; Start 10/30/18 at 01:30 Glucose (Glutose) 22.5 gm Q15M PRN PO DECREASED GLUCOSE; Start 10/30/18 at 01:30 Dextrose (D50w Syringe) 25 ml Q15M PRN IV DECREASED GLUCOSE; Start 10/30/18 at 01:30 Dextrose (D50w Syringe) 50 ml Q15M PRN IV DECREASED GLUCOSE; Start 10/30/18 at 01:30 Glucagon (Glucagen) 1 mg Q15M PRN IM DECREASED GLUCOSE; Start 10/30/18 at 01:30 Glucose (Glutose) 15 gm Q15M PRN BUCCAL DECREASED GLUCOSE Last administered on 11/02/18 08:03; Admin Dose 15 GM; Start 10/30/18 at 01:30 Diclofenac Sodium (Voltaren 1% Gel) 2 gm QID PRN TP PAIN Last administered on 11/02/18 13:58; Admin Dose 2 GM; Start 10/30/18 at 09:00 Heparin Sodium (Porcine) (Heparin (5000 Units/1ml)) 5,000 unit BID SC Last administered on 11/04/18at 10:20; Admin Dose 5,000 UNIT; Start 10/30/18 at 21:00 Hydromorphone HCl (Dilaudid) 1 mg Q3H PRN IM SEVERE PAIN LEVEL 7-10 Last administered on 11/04/18 17:28; Admin Dose 1 MG; Start 10/31/18 at 19:00 Diclofenac Sodium (Voltaren 1% Gel) 4 gm QID TP Last administered on 11/04/18 14:15; Admin Dose 4 GM; Start 11/02/18 at 21:00 Insulin Glargine (Lantus) 5 units HS SC Last administered on 11/03/18at 21:14; Admin Dose 5 UNITS; Start 11/03/18 at 21:00 ANITA FLETCHER MD Nov 04, 2018 17:29
[2018-11-04 19:03] VITALS: BP 138/65; PULSE 77; RESP 18
[2018-11-04] MEDS: SENNA TAB PO SCH (20:38)
[2018-11-04] MEDS: INSULIN GLARGINE [LANTus] (100 UNITS/ML) SYG SC SCH (20:40)
[2018-11-05 02:00] VITALS: BP 142/63; PULSE 75; RESP 18
[2018-11-05] MEDS: ACCU-CHEK XX SCH ×5 (02:00→20:47)
[2018-11-05] MEDS: LEVOTHYROXINE 100 MCG TAB PO SCH (06:13)
[2018-11-05 07:00] VITALS: BP 169/70; PULSE 66; RESP 18
[2018-11-05] MEDS: SEVELAMER CARBONATE 800 MG TABLET PO SCH ×3 (07:33→17:05)
[2018-11-05] MEDS: INSULIN ASPART [NOVOLOG] 3 ML PEN SC SCH ×3 (07:35→17:07)
[2018-11-05] MEDS: BALSAM PERU/CASTOR OIL 60 GM TUBE TOP SCH ×2 (08:22→20:33)
[2018-11-05] MEDS: DICLOFENAC SODIUM 1% GEL 100 GM TUBE TP SCH ×4 (08:22→20:32)
[2018-11-05] MEDS: CHOLECALCIFEROL 2,000 UNIT CAP PO SCH (08:23)
[2018-11-05] MEDS: MULTIVIT/CA CARB/B CMPLX/FA TAB PO SCH (08:23)
[2018-11-05] MEDS: FAMOTIDINE 20 MG TAB PO SCH (08:23)
[2018-11-05] MEDS: BENAZEPRIL 40 MG TAB PO SCH ×2 (08:23→20:24)
[2018-11-05] MEDS: ASPIRIN (EC) 81 MG TAB PO SCH (08:23)
[2018-11-05] MEDS: LINAGLIPTIN 5 MG TABLET PO SCH (08:23)
[2018-11-05] MEDS: DOCUSATE SODIUM 100 MG CAP PO SCH ×2 (08:23→20:23)
[2018-11-05] MEDS: HEPARIN 5,000 UNIT/1 ML VIAL SC SCH ×2 (08:24→20:28)
--- NOTE | 2018-11-05 08:25 | CONS ---
Assessment/Plan Assessment/Plan Assessment/Plan (Daily) 1. ESRD on HD MWF AVF for HD Access 2.Left femur fracture s/p ORIF of left hip intertrochanteric fracture on 10/24/18 4. H/o HTN 5. H/o HL 6. H/o Hypothyroidism Plan: pt regular schedule for HD is MWF - AVF for HD access - , next HD will be on Tuesday Rehab care as per unit will follow up Consultation Date/Type/Reason Admit Date/Time Oct 29, 2018 at 23:08 Initial Consult Date Type of Consult NEPHROLOGY Requesting Provider: NYLA HADLEY MD Date/Time of Note DATE: 11/05/18 TIME: 08:25 Exam/Review of Systems Exam Vitals Vital Signs Date Temp Pulse Resp B/P (MAP) Pulse Ox O2 O2 Flow FiO2 Time Delivery Rate 11/05/18 97.7 75 18 142/63 97 Room Air 02:00 (89) Intake and Output 11/04/18 11/04/18 11/05/18 1515:00 23:00 07:00 IntakeIntake Total 1350 ml OutputOutput Total 200 ml BalanceBalance 1150 ml Exam Constitutional: alert Respiratory: diminished breath sounds Cardiovascular: regular rate and rhythm, nl pulses Gastrointestinal: soft, non-tender Musculoskeletal: nl extremities to inspection Extremities: normal pulses, other (AVF for HD access ) 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: Non focal Results Result Diagram: 11/04/18 0743 11/04/18 0743 Results 24hrs Laboratory Tests Test 11/04/18 12:20 11/04/18 17:29 11/04/18 20:29 11/04/18 21:38 Bedside Glucose 103 116 70 108 Test 11/05/18 07:31 Bedside Glucose 146 Medications Medication Current Medications Docusate Sodium (Colace) 100 mg BID PO Last administered on 11/04/18at 20:38; Admin Dose 100 MG; Start 10/30/18 at 09:00 Senna (Senokot) 1 tab HS PO Last administered on 11/04/18at 20:38; Admin Dose 1 TAB; Start 10/30/18 at 21:00 Lactulose (Enulose) 20 gm DAILY PRN PO CONSTIPATION Last administered on 11/02/18at 02:22; Admin Dose 20 GM; Start 10/30/18 at 00:00 Bisacodyl (Dulcolax Supp) 10 mg DAILY PRN [place] CONSTIPATION; Start 10/30/18 at 00:00 Acetaminophen (Tylenol Tab) 650 mg Q4H PRN PO PAIN; Start 10/30/18 at 00:00 [facility] This patient almanzar... PRN PRN XX WOUND CARE; Start 10/30/18 at 00:00 Benazepril HCl (Lotensin) 40 mg BID PO Last administered on 11/04/18 20:39; Admin Dose 40 MG; Start 10/30/18 at 09:00 Cholecalciferol (Vitamin D) 2,000 unit DAILY PO Last administered on 11/04/18 10:12; Admin Dose 2,000 UNIT; Start 10/30/18 at 09:00 Aspirin (Halfprin) 81 mg DAILY PO Last administered on 11/04/18 10:13; Admin Dose 81 MG; Start 10/30/18 at 09:00 Famotidine (Pepcid) 20 mg DAILY PO Last administered on 11/04/18 10:14; Admin Dose 20 MG; Start 10/30/18 at 09:00 Insulin Aspart (Novolog Insulin Pen) 5 unit WITH BREAKFAST SC Last administered on 11/04/18 07:58; Admin Dose 5 UNIT; Start 10/30/18 at 07:35 Insulin Aspart (Novolog Insulin Pen) 5 unit WITH LUNCH SC Last administered on 10/31/18 12:10; Admin Dose 5 UNIT; Start 10/30/18 at 12:00 Insulin Aspart (Novolog Insulin Pen) 5 unit WITH DINNER SC Last administered on 11/04/18 17:36; Admin Dose 5 UNIT; Start 10/30/18 at 17:35 Diagnostic Test (Pha) (Accu-Chek) 1 ea 02 XX ; Start 10/30/18 at 02:00 Levothyroxine Sodium (Synthroid) 100 mcg DAILY@06 PO Last administered on 11/05/18 06:13; Admin Dose 100 MCG; Start 10/30/18 at 06:00 Linagliptin (Tradjenta) 5 mg DAILY PO Last administered on 11/04/18 10:12; Admin Dose 5 MG; Start 10/30/18 at 09:00 Diagnostic Test (Pha) (Accu-Chek) 1 ea AC MEALS AND BEDTIME XX Last administered on 11/05/18 07:40; Admin Dose 1 EA; Start 10/30/18 at 07:05 Multivit/Ca Carb/ B Cmplx/FA/Prenat (Manasa-Haris) 1 tab DAILY PO Last administered on 11/04/18 10:30; Admin Dose 1 TAB; Start 10/30/18 at 09:00 Ondansetron HCl (Zofran Inj) 4 mg Q6H PRN IV NAUSEA AND/OR VOMITING; Start 10/30/18 at 01:00 Oxycodone HCl (Roxicodone) 5 mg Q4H PRN PO MILD PAIN LEVEL 1-3 Last administered on 10/30/18 14:32; Admin Dose 5 MG; Start 10/30/18 at 01:00 Oxycodone HCl (Roxicodone) 10 mg Q4H PRN PO MODERATE PAIN LEVEL 4-6 Last administered on 11/03/18 08:59; Admin Dose 10 MG; Start 10/30/18 at 01:00 Sevelamer Carbonate (Renvela) 1,600 mg WITH MEALS PO Last administered on 11/05/18 07:33; Admin Dose 1,600 MG; Start 10/30/18 at 07:35 Miscellaneous Information 1 ea NOTE XX ; Start 10/30/18 at 01:30 Glucose (Glutose) 15 gm Q15M PRN PO DECREASED GLUCOSE; Start 10/30/18 at 01:30 Glucose (Glutose) 22.5 gm Q15M PRN PO DECREASED GLUCOSE; Start 10/30/18 at 01:30 Dextrose (D50w Syringe) 25 ml Q15M PRN IV DECREASED GLUCOSE; Start 10/30/18 at 01:30 Dextrose (D50w Syringe) 50 ml Q15M PRN IV DECREASED GLUCOSE; Start 10/30/18 at 01:30 Glucagon (Glucagen) 1 mg Q15M PRN IM DECREASED GLUCOSE; Start 10/30/18 at 01:30 Glucose (Glutose) 15 gm Q15M PRN BUCCAL DECREASED GLUCOSE Last administered on 11/02/18 08:03; Admin Dose 15 GM; Start 10/30/18 at 01:30 Diclofenac Sodium (Voltaren 1% Gel) 2 gm QID PRN TP PAIN Last administered on 11/02/18 13:58; Admin Dose 2 GM; Start 10/30/18 at 09:00 Heparin Sodium (Porcine) (Heparin (5000 Units/1ml)) 5,000 unit BID SC Last administered on 11/04/18 20:37; Admin Dose 5,000 UNIT; Start 10/30/18 at 21:00 Hydromorphone HCl (Dilaudid) 1 mg Q3H PRN IM SEVERE PAIN LEVEL 7-10 Last administered on 11/04/18 17:28; Admin Dose 1 MG; Start 10/31/18 at 19:00 Diclofenac Sodium (Voltaren 1% Gel) 4 gm QID TP Last administered on 11/04/18 20:39; Admin Dose 4 GM; Start 11/02/18 at 21:00 Insulin Glargine (Lantus) 5 units HS SC Last administered on 11/03/18 21:14; Admin Dose 5 UNITS; Start 11/03/18 at 21:00 ANITA FLETCHER MD Nov 05, 2018 08:25
[2018-11-05] MEDS: LACTULOSE 30ML CUP PO PRN (12:08)
--- NOTE | 2018-11-05 13:36 | PN ---
Date/Time of Note Date/Time of Note DATE: 11/05/18 TIME: 13:31 Assessment/Plan VTE Prophylaxis Risk score (from Nsg)>0 risk: 9 SCD applied (from Nsg): Yes Pharmacological prophylaxis: heparin Lines/Catheters IV Catheter Type (from Nrsg): [place] Lock Urinary Cath still in place: No Assessment/Plan Problems: (1) Diabetes mellitus type 2 with complications Status: Chronic Comment: BG control is good. Less hypoglycemia w/ reduction of lantus although did get down to 70 mg/dL last night. Will monitor. (2) ESRD (end stage renal disease) on dialysis Status: Chronic Comment: Cont. HD per renal. Will have RN ice AV shunt to prepare for repeat HD tomorrow (3) Essential (primary) hypertension Status: Chronic Comment: Mildly elevated but will tolerate for now. (4) Hypothyroidism Status: Chronic Comment: Cont. LT4 (5) Anemia associated with chronic renal failure Status: Chronic Comment: Stable (6) Debility Status: Chronic Comment: Cont. PT in ARU (7) Closed fracture of left hip requiring operative repair Onset Date: ~ 10/24/2018 Status: Resolved Comment: Pt. improving slowly. Pt. to cont. PT in ARU. Cont. pain control. Monitor. Result Diagram: 11/04/18 0743 11/04/18 0743 Results 24hrs Laboratory Tests Test 11/04/18 17:29 11/04/18 20:29 11/04/18 21:38 11/05/18 07:31 Bedside Glucose 116 70 108 146 Test 11/05/18 12:08 Bedside Glucose 150 Subjective 24 Hr Interval Summary Constitutional: no complaints, improved Respiratory: no complaints Cardiovascular: no complaints Gastrointestinal: no complaints Genitourinary: no complaints Musculoskeletal: bone/joint pain (LLE but improved today; however, pt. points out he has not been up w/ PT today) Neurologic: no complaints Additional Comments RUE AV shunt extensively bruised following HD yesterday Exam/Review of Systems Exam Vitals Vital Signs Date Temp Pulse Resp B/P (MAP) Pulse Ox O2 O2 Flow FiO2 Time Delivery Rate 11/05/18 97.9 66 18 169/70 99 Room Air 07:00 (103) Intake and Output 11/04/18 11/04/18 11/05/18 1515:00 23:00 07:00 IntakeIntake Total 1350 ml OutputOutput Total 200 ml BalanceBalance 1150 ml Constitutional: alert, oriented, well developed Psych: no complaints, nl mood/affect Respiratory: clear to auscultation, normal air movement Cardiovascular: regular rate and rhythm, edema (1+ LLE); No murmurs/extra sounds, No rub Gastrointestinal: soft, nl liver, spleen, non-tender, bowel sounds; No mass, No rebound or guarding Musculoskeletal: No nl extremities to inspection (RLE great toe amp) Extremities: edema (1+ LLE); No cyanosis, No clubbing 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: TUNNEL MAN II-XII intact, nl mental status, nl speech, nl strength Skin: ecchymosis (extensive over AV shunt area) Additional Comments Bedside Glucose - 72 Hours Test 11/02/18 17:25 11/02/18 20:49 11/03/18 08:29 11/03/18 11:33 Bedside 121 145 112 60 Glucose mg/dL (70-220) mg/dL (70-220) mg/dL (70-220) mg/dL (70-220) L Test 11/03/18 11:54 11/03/18 12:10 11/03/18 17:49 11/03/18 21:12 Bedside 76 93 127 117 Glucose mg/dL (70-220) mg/dL (70-220) mg/dL (70-220) mg/dL (70-220) Test 11/04/18 07:53 11/04/18 12:20 11/04/18 17:29 11/04/18 20:29 Bedside 144 103 116 70 Glucose mg/dL (70-220) mg/dL (70-220) mg/dL (70-220) mg/dL (70-220) Test 11/04/18 21:38 11/05/18 07:31 11/05/18 12:08 Bedside 108 146 150 Glucose mg/dL (70-220) mg/dL (70-220) mg/dL (70-220) Results Results 24hrs Laboratory Tests Test 11/04/18 17:29 11/04/18 20:29 11/04/18 21:38 11/05/18 07:31 Bedside Glucose 116 70 108 146 Test 11/05/18 12:08 Bedside Glucose 150 Medications Medication Current Medications Docusate Sodium (Colace) 100 mg BID PO Last administered on 11/05/18 08:23; Admin Dose 100 MG; Start 10/30/18 at 09:00 Senna (Senokot) 1 tab HS PO Last administered on 11/04/18 20:38; Admin Dose 1 TAB; Start 10/30/18 at 21:00 Lactulose (Enulose) 20 gm DAILY PRN PO CONSTIPATION Last administered on 11/05/18 12:08; Admin Dose 20 GM; Start 10/30/18 at 00:00 Bisacodyl (Dulcolax Supp) 10 mg DAILY PRN [place] CONSTIPATION; Start 10/30/18 at 00:00 Acetaminophen (Tylenol Tab) 650 mg Q4H PRN PO PAIN; Start 10/30/18 at 00:00 [facility] This patient almanzar... PRN PRN XX WOUND CARE; Start 10/30/18 at 00:00 Benazepril HCl (Lotensin) 40 mg BID PO Last administered on 11/05/18 08:23; Admin Dose 40 MG; Start 10/30/18 at 09:00 Cholecalciferol (Vitamin D) 2,000 unit DAILY PO Last administered on 11/05/18 08:23; Admin Dose 2,000 UNIT; Start 10/30/18 at 09:00 Aspirin (Halfprin) 81 mg DAILY PO Last administered on 11/05/18 08:23; Admin Dose 81 MG; Start 10/30/18 at 09:00 Famotidine (Pepcid) 20 mg DAILY PO Last administered on 11/05/18 08:23; Admin Dose 20 MG; Start 10/30/18 at 09:00 Insulin Aspart (Novolog Insulin Pen) 5 unit WITH BREAKFAST SC Last administered on 11/04/18 07:58; Admin Dose 5 UNIT; Start 10/30/18 at 07:35 Insulin Aspart (Novolog Insulin Pen) 5 unit WITH LUNCH SC Last administered on 11/05/18 12:15; Admin Dose 5 UNIT; Start 10/30/18 at 12:00 Insulin Aspart (Novolog Insulin Pen) 5 unit WITH DINNER SC Last administered on 11/04/18 17:36; Admin Dose 5 UNIT; Start 10/30/18 at 17:35 Diagnostic Test (Pha) (Accu-Chek) 1 ea 02 XX ; Start 10/30/18 at 02:00 Levothyroxine Sodium (Synthroid) 100 mcg DAILY@06 PO Last administered on 11/05/18 06:13; Admin Dose 100 MCG; Start 10/30/18 at 06:00 Linagliptin (Tradjenta) 5 mg DAILY PO Last administered on 11/05/18 08:23; Admin Dose 5 MG; Start 10/30/18 at 09:00 Diagnostic Test (Pha) (Accu-Chek) 1 ea AC MEALS AND BEDTIME XX Last admin istered on 11/05/18 12:15; Admin Dose 1 EA; Start 10/30/18 at 07:05 Multivit/Ca Carb/ B Cmplx/FA/Prenat (Manasa-Haris) 1 tab DAILY PO Last administered on 11/05/18 08:23; Admin Dose 1 TAB; Start 10/30/18 at 09:00 Ondansetron HCl (Zofran Inj) 4 mg Q6H PRN IV NAUSEA AND/OR VOMITING; Start 10/30/18 at 01:00 Oxycodone HCl (Roxicodone) 5 mg Q4H PRN PO MILD PAIN LEVEL 1-3 Last administered on 10/30/18 14:32; Admin Dose 5 MG; Start 10/30/18 at 01:00 Oxycodone HCl (Roxicodone) 10 mg Q4H PRN PO MODERATE PAIN LEVEL 4-6 Last administered on 11/03/18 08:59; Admin Dose 10 MG; Start 10/30/18 at 01:00 Sevelamer Carbonate (Renvela) 1,600 mg WITH MEALS PO Last administered on 11/05/18 12:07; Admin Dose 1,600 MG; Start 10/30/18 at 07:35 Miscellaneous Information 1 ea NOTE XX ; Start 10/30/18 at 01:30 Glucose (Glutose) 15 gm Q15M PRN PO DECREASED GLUCOSE; Start 10/30/18 at 01:30 Glucose (Glutose) 22.5 gm Q15M PRN PO DECREASED GLUCOSE; Start 10/30/18 at 01:30 Dextrose (D50w Syringe) 25 ml Q15M PRN IV DECREASED GLUCOSE; Start 10/30/18 at 01:30 Dextrose (D50w Syringe) 50 ml Q15M PRN IV DECREASED GLUCOSE; Start 10/30/18 at 01:30 Glucagon (Glucagen) 1 mg Q15M PRN IM DECREASED GLUCOSE; Start 10/30/18 at 01:30 Glucose (Glutose) 15 gm Q15M PRN BUCCAL DECREASED GLUCOSE Last administered on 11/02/18 08:03; Admin Dose 15 GM; Start 10/30/18 at 01:30 Diclofenac Sodium (Voltaren 1% Gel) 2 gm QID PRN TP PAIN Last administered on 11/02/18 13:58; Admin Dose 2 GM; Start 10/30/18 at 09:00 Heparin Sodium (Porcine) (Heparin (5000 Units/1ml)) 5,000 unit BID SC Last administered on 11/05/18 08:24; Admin Dose 5,000 UNIT; Start 10/30/18 at 21:00 Hydromorphone HCl (Dilaudid) 1 mg Q3H PRN IM SEVERE PAIN LEVEL 7-10 Last administered on 11/04/18 17:28; Admin Dose 1 MG; Start 10/31/18 at 19:00 Diclofenac Sodium (Voltaren 1% Gel) 4 gm QID TP Last administered on 11/05/18 12:07; Admin Dose 4 GM; Start 11/02/18 at 21:00 Insulin Glargine (Lantus) 5 units HS SC Last administered on 11/03/18 21:14; Admin Dose 5 UNITS; Start 11/03/18 at 21:00 FELIX DREW MD Nov 05, 2018 13:36
[2018-11-05 14:00] VITALS: BP 165/68; PULSE 68; RESP 18
[2018-11-05 20:00] VITALS: BP 150/67; RESP 18
[2018-11-05] MEDS: SENNA TAB PO SCH (20:24)
[2018-11-05] MEDS: INSULIN GLARGINE [LANTus] (100 UNITS/ML) SYG SC SCH (20:26)
[2018-11-06] VITALS (21 sets, daily range): BP systolic 118–189; BP diastolic 54–77; PULSE 60–80; RESP 18
[2018-11-06] MEDS: INSULIN GLARGINE [LANTus] (100 UNITS/ML) SYG SC SCH ×2 (00:01→20:29)
[2018-11-06] MEDS: ACCU-CHEK XX SCH ×5 (02:13→21:07)
[2018-11-06] MEDS: LEVOTHYROXINE 100 MCG TAB PO SCH (06:26)
[2018-11-06] MEDS: HYDROmorphONE 1 MG/ML SYG IM PRN ×4 (08:17→18:07)
[2018-11-06] MEDS: SEVELAMER CARBONATE 800 MG TABLET PO SCH ×3 (08:18→17:45)
[2018-11-06] MEDS: INSULIN ASPART [NOVOLOG] 3 ML PEN SC SCH ×3 (08:22→17:48)
[2018-11-06] MEDS: FAMOTIDINE 20 MG TAB PO SCH (09:12)
[2018-11-06] MEDS: MULTIVIT/CA CARB/B CMPLX/FA TAB PO SCH (09:12)
[2018-11-06] MEDS: ASPIRIN (EC) 81 MG TAB PO SCH (09:12)
[2018-11-06] MEDS: DOCUSATE SODIUM 100 MG CAP PO SCH ×2 (09:12→20:19)
[2018-11-06] MEDS: CHOLECALCIFEROL 2,000 UNIT CAP PO SCH (09:12)
[2018-11-06] MEDS: HEPARIN 5,000 UNIT/1 ML VIAL SC SCH ×2 (09:12→20:29)
[2018-11-06] MEDS: LINAGLIPTIN 5 MG TABLET PO SCH (09:13)
[2018-11-06] MEDS: DICLOFENAC SODIUM 1% GEL 100 GM TUBE TP SCH ×4 (09:19→20:34)
[2018-11-06] MEDS: BALSAM PERU/CASTOR OIL 60 GM TUBE TOP SCH ×2 (09:19→20:20)
[2018-11-06] MEDS: BENAZEPRIL 40 MG TAB PO SCH ×2 (09:24→20:31)
--- NOTE | 2018-11-06 09:49 | PN ---
Date/Time of Note Date/Time of Note DATE: 11/06/18 TIME: 09:46 Subjective Patient overall improving Objective Vital Signs Date Temp Pulse Resp B/P (MAP) Pulse Ox O2 O2 Flow FiO2 Time Delivery Rate 11/06/18 97.6 70 18 189/74 100 Room Air 07:00 (112) Intake and Output 11/05/18 11/05/18 11/06/18 1515:00 23:00 07:00 IntakeIntake Total 1200 ml OutputOutput Total 800 ml BalanceBalance 400 ml Exam pulm-cta abd-soft sba 80 feet Results/Medications Result Diagram: 11/04/18 0743 11/04/18 0743 Results 24 hrs Laboratory Tests Test 11/05/18 12:08 11/05/18 17:06 11/05/18 20:22 11/05/18 23:58 Bedside Glucose 150 94 129 121 Test 11/06/18 08:17 Bedside Glucose 111 Medications Current Medications Docusate Sodium (Colace) 100 mg BID PO Last administered on 11/06/18at 09:12; Admin Dose 100 MG; Start 10/30/18 at 09:00 Senna (Senokot) 1 tab HS PO Last administered on 11/05/18at 20:24; Admin Dose 1 TAB; Start 10/30/18 at 21:00 Lactulose (Enulose) 20 gm DAILY PRN PO CONSTIPATION Last administered on 11/05/18at 12:08; Admin Dose 20 GM; Start 10/30/18 at 00:00 Bisacodyl (Dulcolax Supp) 10 mg DAILY PRN [place] CONSTIPATION; Start 10/30/18 at 00:00 Acetaminophen (Tylenol Tab) 650 mg Q4H PRN PO PAIN; Start 10/30/18 at 00:00 Miscellaneous Information (Pending [facility] Order For Wound Care) This patient almanzar... PRN PRN XX WOUND CARE; Start 10/30/18 at 00:00 Benazepril HCl (Lotensin) 40 mg BID PO Last administered on 11/06/18at 09:24; Admin Dose 40 MG; Start 10/30/18 at 09:00 Cholecalciferol (Vitamin D) 2,000 unit DAILY PO Last administered on 11/06/18at 09:12; Admin Dose 2,000 UNIT; Start 10/30/18 at 09:00 Aspirin (Halfprin) 81 mg DAILY PO Last administered on 11/06/18 09:12; Admin Dose 81 MG; Start 10/30/18 at 09:00 Famotidine (Pepcid) 20 mg DAILY PO Last administered on 11/06/18 09:12; Admin Dose 20 MG; Start 10/30/18 at 09:00 Insulin Aspart (Novolog Insulin Pen) 5 unit WITH BREAKFAST SC Last administered on 11/06/18 08:22; Admin Dose 5 UNIT; Start 10/30/18 at 07:35 Insulin Aspart (Novolog Insulin Pen) 5 unit WITH LUNCH SC Last administered on 11/05/18 12:15; Admin Dose 5 UNIT; Start 10/30/18 at 12:00 Insulin Aspart (Novolog Insulin Pen) 5 unit WITH DINNER SC Last administered on 11/04/18 17:36; Admin Dose 5 UNIT; Start 10/30/18 at 17:35 Diagnostic Test (Pha) (Accu-Chek) 1 ea 02 XX Last administered on 11/06/18 02:1 3; Admin Dose 1 EA; Start 10/30/18 at 02:00 Levothyroxine Sodium (Synthroid) 100 mcg DAILY@06 PO Last administered on 11/06/18 06:26; Admin Dose 100 MCG; Start 10/30/18 at 06:00 Linagliptin (Tradjenta) 5 mg DAILY PO Last administered on 11/06/18 09:13; Admin Dose 5 MG; Start 10/30/18 at 09:00 Diagnostic Test (Pha) (Accu-Chek) 1 ea AC MEALS AND BEDTIME XX Last administered on 11/06/18 08:17; Admin Dose 1 EA; Start 10/30/18 at 07:05 Multivit/Ca Carb/ B Cmplx/FA/Prenat (Manasa-Haris) 1 tab DAILY PO Last administered on 11/06/18 09:12; Admin Dose 1 TAB; Start 10/30/18 at 09:00 Ondansetron HCl (Zofran Inj) 4 mg Q6H PRN IV NAUSEA AND/OR VOMITING; Start 10/30/18 at 01:00 Oxycodone HCl (Roxicodone) 5 mg Q4H PRN PO MILD PAIN LEVEL 1-3 Last administered on 7/29/19at 14:32; Admin Dose 5 MG; Start 10/30/18 at 01:00 Oxycodone HCl (Roxicodone) 10 mg Q4H PRN PO MODERATE PAIN LEVEL 4-6 Last administered on 11/03/18 08:59; Admin Dose 10 MG; Start 10/30/18 at 01:00 Sevelamer Carbonate (Renvela) 1,600 mg WITH MEALS PO Last administered on 11/06/18 08:18; Admin Dose 1,600 MG; Start 10/30/18 at 07:35 Miscellaneous Information 1 ea NOTE XX ; Start 10/30/18 at 01:30 Glucose (Glutose) 15 gm Q15M PRN PO DECREASED GLUCOSE; Start 10/30/18 at 01:30 Glucose (Glutose) 22.5 gm Q15M PRN PO DECREASED GLUCOSE; Start 10/30/18 at 01:30 Dextrose (D50w Syringe) 25 ml Q15M PRN IV DECREASED GLUCOSE; Start 10/30/18 at 01:30 Dextrose (D50w Syringe) 50 ml Q15M PRN IV DECREASED GLUCOSE; Start 10/30/18 at 01:30 Glucagon (Glucagen) 1 mg Q15M PRN IM DECREASED GLUCOSE; Start 10/30/18 at 01:30 Glucose (Glutose) 15 gm Q15M PRN BUCCAL DECREASED GLUCOSE Last administered on 11/02/18 08:03; Admin Dose 15 GM; Start 10/30/18 at 01:30 Diclofenac Sodium (Voltaren 1% Gel) 2 gm QID PRN TP PAIN Last administered on 11/02/18 13:58; Admin Dose 2 GM; Start 10/30/18 at 09:00 Heparin Sodium (Porcine) (Heparin (5000 Units/1ml)) 5,000 unit BID SC Last administered on 11/06/18 09:12; Admin Dose 5,000 UNIT; Start 10/30/18 at 21:00 Hydromorphone HCl (Dilaudid) 1 mg Q3H PRN IM SEVERE PAIN LEVEL 7-10 Last administered on 11/06/18 08:17; Admin Dose 1 MG; Start 10/31/18 at 19:00 Diclofenac Sodium (Voltaren 1% Gel) 4 gm QID TP Last administered on 11/06/18 09:19; Admin Dose 4 GM; Start 11/02/18 at 21:00 Insulin Glargine (Lantus) 3 units DAILY@2000 SC Last administered on 11/06/18at 00:01; Admin Dose 3 UNITS; Start 11/06/18 at 00:00 Assessment/Plan Additional Assessment/Plan Rehab- Left intertrochanteric hip fracture status post ORIF, lumbar djd Doing very well, working towards tidy this week Acute pain syndrome- under adequate control End-stage renal disease requiring hemodialysis-per renal Integ- Left heel deep tissue injury- better Hypertension. Anemia. Diabetes mellitus type 2. Diabetic neuropathy. Diabetic retinopathy. Hypothyroidism. Hyperparathyroidism. Benign prostatic hypertrophy. Hyperlipidemia. History of ischemic bowel syndrome. History of left ankle ORIF. Peripheral vascular disease. NYLA HADLEY MD Nov 06, 2018 09:49
--- NOTE | 2018-11-06 11:24 | CONS ---
Assessment/Plan Assessment/Plan Assessment/Plan (Daily) 1. ESRD on HD MWF AVF for HD Access 2.Left femur fracture s/p ORIF of left hip intertrochanteric fracture on 10/24/18 4. H/o HTN 5. H/o HL 6. H/o Hypothyroidism Plan: pt regular schedule for HD is MWF - AVF for HD access - ,plan for HD today Rehab care as per unit will follow up Consultation Date/Type/Reason Admit Date/Time Oct 29, 2018 at 23:08 Initial Consult Date Type of Consult NEPHROLOGY Requesting Provider: NYLA HADLEY MD Date/Time of Note DATE: 11/06/18 TIME: 11:24 Exam/Review of Systems Exam Vitals Vital Signs Date Temp Pulse Resp B/P (MAP) Pulse Ox O2 O2 Flow FiO2 Time Delivery Rate 11/06/18 97.6 70 18 189/74 100 Room Air 07:00 (112) Intake and Output 11/05/18 11/05/18 11/06/18 1515:00 23:00 07:00 IntakeIntake Total 1200 ml OutputOutput Total 800 ml BalanceBalance 400 ml Exam Constitutional: alert Respiratory: diminished breath sounds Cardiovascular: regular rate and rhythm, nl pulses Gastrointestinal: soft, non-tender Musculoskeletal: nl extremities to inspection Extremities: normal pulses, other (AVF for HD access ) 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: Non focal Results Result Diagram: 11/04/18 0743 11/04/18 0743 Results 24hrs Laboratory Tests Test 11/05/18 12:08 11/05/18 17:06 11/05/18 20:22 11/05/18 23:58 Bedside Glucose 150 94 129 121 Test 11/06/18 08:17 Bedside Glucose 111 Medications Medication Current Medications Docusate Sodium (Colace) 100 mg BID PO Last administered on 11/06/18at 09:12; Admin Dose 100 MG; Start 10/30/18 at 09:00 Senna (Senokot) 1 tab HS PO Last administered on 11/05/18at 20:24; Admin Dose 1 TAB; Start 10/30/18 at 21:00 Lactulose (Enulose) 20 gm DAILY PRN PO CONSTIPATION Last administered on 11/05/18at 12:08; Admin Dose 20 GM; Start 10/30/18 at 00:00 Bisacodyl (Dulcolax Supp) 10 mg DAILY PRN [place] CONSTIPATION; Start 10/30/18 at 00:00 Acetaminophen (Tylenol Tab) 650 mg Q4H PRN PO PAIN; Start 10/30/18 at 00:00 Miscellaneous Information (Pending [facility] Order For Wound Care) This patient almanzar... PRN PRN XX WOUND CARE; Start 10/30/18 at 00:00 Benazepril HCl (Lotensin) 40 mg BID PO Last administered on 11/06/18 09:24; Admin Dose 40 MG; Start 10/30/18 at 09:00 Cholecalciferol (Vitamin D) 2,000 unit DAILY PO Last administered on 11/06/18 09:12; Admin Dose 2,000 UNIT; Start 10/30/18 at 09:00 Aspirin (Halfprin) 81 mg DAILY PO Last administered on 11/06/18 09:12; Admin Dose 81 MG; Start 10/30/18 at 09:00 Famotidine (Pepcid) 20 mg DAILY PO Last administered on 11/06/18 09:12; Admin Dose 20 MG; Start 10/30/18 at 09:00 Insulin Aspart (Novolog Insulin Pen) 5 unit WITH BREAKFAST SC Last administered on 11/06/18 08:22; Admin Dose 5 UNIT; Start 10/30/18 at 07:35 Insulin Aspart (Novolog Insulin Pen) 5 unit WITH LUNCH SC Last administered on 11/05/18 12:15; Admin Dose 5 UNIT; Start 10/30/18 at 12:00 Insulin Aspart (Novolog Insulin Pen) 5 unit WITH DINNER SC Last administered on 11/04/18 17:36; Admin Dose 5 UNIT; Start 10/30/18 at 17:35 Diagnostic Test (Pha) (Accu-Chek) 1 ea 02 XX Last administered on 11/06/18 02:13; Admin Dose 1 EA; Start 10/30/18 at 02:00 Levothyroxine Sodium (Synthroid) 100 mcg DAILY@06 PO Last administered on 11/06/18 06:26; Admin Dose 100 MCG; Start 10/30/18 at 06:00 Linagliptin (Tradjenta) 5 mg DAILY PO Last administered on 11/06/18 09:13; Admin Dose 5 MG; Start 10/30/18 at 09:00 Diagnostic Test (Pha) (Accu-Chek) 1 ea AC MEALS AND BEDTIME XX Last administered on 11/06/18 08:17; Admin Dose 1 EA; Start 10/30/18 at 07:05 Multivit/Ca Carb/ B Cmplx/FA/Prenat (Manasa-Haris) 1 tab DAILY PO Last administered on 11/06/18 09:12; Admin Dose 1 TAB; Start 10/30/18 at 09:00 Ondansetron HCl (Zofran Inj) 4 mg Q6H PRN IV NAUSEA AND/OR VOMITING; Start 10/30/18 at 01:00 Oxycodone HCl (Roxicodone) 5 mg Q4H PRN PO MILD PAIN LEVEL 1-3 Last administered on 10/30/18 14:32; Admin Dose 5 MG; Start 10/30/18 at 01:00 Oxycodone HCl (Roxicodone) 10 mg Q4H PRN PO MODERATE PAIN LEVEL 4-6 Last ad ministered on 11/03/18at 08:59; Admin Dose 10 MG; Start 10/30/18 at 01:00 Sevelamer Carbonate (Renvela) 1,600 mg WITH MEALS PO Last administered on 11/06/18 08:18; Admin Dose 1,600 MG; Start 10/30/18 at 07:35 Miscellaneous Information 1 ea NOTE XX ; Start 10/30/18 at 01:30 Glucose (Glutose) 15 gm Q15M PRN PO DECREASED GLUCOSE; Start 10/30/18 at 01:30 Glucose (Glutose) 22.5 gm Q15M PRN PO DECREASED GLUCOSE; Start 10/30/18 at 01:30 Dextrose (D50w Syringe) 25 ml Q15M PRN IV DECREASED GLUCOSE; Start 10/30/18 at 01:30 Dextrose (D50w Syringe) 50 ml Q15M PRN IV DECREASED GLUCOSE; Start 10/30/18 at 01:30 Glucagon (Glucagen) 1 mg Q15M PRN IM DECREASED GLUCOSE; Start 10/30/18 at 01:30 Glucose (Glutose) 15 gm Q15M PRN BUCCAL DECREASED GLUCOSE Last administered on 11/02/18 08:03; Admin Dose 15 GM; Start 10/30/18 at 01:30 Diclofenac Sodium (Voltaren 1% Gel) 2 gm QID PRN TP PAIN Last administered on 11/02/18at 13:58; Admin Dose 2 GM; Start 10/30/18 at 09:00 Heparin Sodium (Porcine) (Heparin (5000 Units/1ml)) 5,000 unit BID SC Last administered on 11/06/18 09:12; Admin Dose 5,000 UNIT; Start 10/30/18 at 21:00 Hydromorphone HCl (Dilaudid) 1 mg Q3H PRN IM SEVERE PAIN LEVEL 7-10 Last administered on 11/06/18 08:17; Admin Dose 1 MG; Start 10/31/18 at 19:00 Diclofenac Sodium (Voltaren 1% Gel) 4 gm QID TP Last administered on 11/06/18 09:19; Admin Dose 4 GM; Start 11/02/18 at 21:00 Insulin Glargine (Lantus) 3 units DAILY@2000 SC Last administered on 11/06/18 00:01; Admin Dose 3 UNITS; Start 11/06/18 at 00:00 ANITA FLETCHER MD Nov 06, 2018 11:24
--- NOTE | 2018-11-06 17:40 | PN ---
Date/Time of Note Date/Time of Note DATE: 11/06/18 TIME: 17:35 Assessment/Plan VTE Prophylaxis Risk score (from Nsg)>0 risk: 8 SCD applied (from Ns): Yes Pharmacological prophylaxis: heparin Lines/Catheters IV Catheter Type (from Nrs): Saline Lock Urinary Cath still in place: No Assessment/Plan Problems: (1) Diabetes mellitus type 2 with complications Status: Chronic Comment: Pt. worried about hypoglycemia and has been refusing doses of insulin. Last night refused lantus despite euglycemia. Lantus dose reduced to 3 units and pt. accepted it. BG has been in therapeutic range. (2) ESRD (end stage renal disease) on dialysis Status: Chronic Comment: Cont. HD per renal (3) Essential (primary) hypertension Status: Chronic Comment: BP elevated. Defer to nephrology to see if treatment necessary (4) Hypothyroidism Status: Chronic Comment: Cont. LT4 daily (5) Anemia associated with chronic renal failure Status: Chronic Comment: Stable. (6) Debility Status: Chronic Comment: Cont. rehab in ARU. (7) Closed fracture of left hip requiring operative repair Onset Date: ~ 10/24/2018 Status: Resolved Comment: Pain controlled at rest. Still very painful to try to ambulate. Concerning at this point that pt. may have to go to SNF after d/c from hospital. Cont. PT in ARU and monitor for improvement. Result Diagram: 11/04/18 0743 11/04/18 0743 Results 24hrs Laboratory Tests Test 11/05/18 20:22 11/05/18 23:58 11/06/18 08:17 11/06/18 11:40 Bedside Glucose 129 121 111 81 Subjective 24 Hr Interval Summary Constitutional: no complaints, improved Respiratory: no complaints Cardiovascular: no complaints Gastrointestinal: no complaints Genitourinary: no complaints Musculoskeletal: bone/joint pain (LLE when he tries to ambulate) Neurologic: no complaints Exam/Review of Systems Exam Vitals VS - Last 72 Hours, by Label Date Temp Pulse Resp B/P (MAP) Pulse Ox O2 O2 Flow FiO2 Time Delivery Rate 11/06/18 97.9 68 18 168/75 97 Room Air 14:00 (106) 11/06/18 97.6 70 18 189/74 100 Room Air 07:00 (112) 11/06/18 65 148/64 06:37 (92) 11/06/18 97.9 18 162/69 99 Room Air 02:00 (100) 11/05/18 98.2 18 150/67 98 Room Air 20:00 (94) 11/05/18 97.9 68 18 165/68 97 Room Air 14:00 (100) 11/05/18 97.9 66 18 169/70 99 Room Air 07:00 (103) 11/05/18 97.7 75 18 142/63 97 Room Air 02:00 (89) 11/04/18 97.8 77 18 138/65 98 Room Air 19:03 (89) 11/04/18 98.0 74 18 150/61 98 Room Air 14:00 (90) 11/04/18 97.6 72 18 149/78 99 Room Air 07:00 (101) 11/04/18 97.8 72 18 142/65 99 Room Air 02:00 (90) 11/03/18 67 20:45 11/03/18 66 20:30 11/03/18 65 20:15 11/03/18 66 20:00 11/03/18 66 19:45 11/03/18 66 19:30 11/03/18 98.0 77 18 138/58 98 Room Air 19:25 (84) 11/03/18 66 19:15 11/03/18 74 17 148/66 Room Air 19:02 (93) 11/03/18 67 19:00 11/03/18 68 18:45 11/03/18 69 18:30 11/03/18 69 18:15 11/03/18 70 18:00 11/03/18 72 17:45 Vital Signs Date Temp Pulse Resp B/P (MAP) Pulse Ox O2 O2 Flow FiO2 Time Delivery Rate 11/06/18 97.9 68 18 168/75 97 Room Air 14:00 (106) Intake and Output 11/05/18 11/05/18 11/06/18 1414:59 22:59 06:59 IntakeIntake Total 1200 ml OutputOutput Total 800 ml BalanceBalance 400 ml Constitutional: alert, oriented, well developed Respiratory: clear to auscultation, normal air movement Cardiovascular: regular rate and rhythm; No edema, No murmurs/extra sounds, No rub Gastrointestinal: soft, nl liver, spleen, non-tender, bowel sounds; No mass, No rebound or guarding Musculoskeletal: No nl extremities to inspection (R great ) Extremities: No cyanosis, No clubbing, No edema 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: 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, nl mental status, nl speech, nl strength Additional Comments Bedside Glucose - 72 Hours Test 11/03/18 17:49 11/03/18 21:12 11/04/18 07:53 11/04/18 12:20 Bedside 127 117 144 103 Glucose mg/dL (70-220) mg/dL (70-220) mg/dL (70-220) mg/dL (70-220) Test 11/04/18 17:29 11/04/18 20:29 11/04/18 21:38 11/05/18 07:31 Bedside 116 70 108 146 Glucose mg/dL (70-220) mg/dL (70-220) mg/dL (70-220) mg/dL (70-220) Test 11/05/18 12:08 11/05/18 17:06 11/05/18 20:22 11/05/18 23:58 Bedside 150 94 129 121 Glucose mg/dL (70-220) mg/dL (70-220) mg/dL (70-220) mg/dL (70-220) Test 11/06/18 08:17 11/06/18 11:40 Bedside 111 81 Glucose mg/dL (70-220) mg/dL (70-220) Results Results 24hrs Laboratory Tests Test 11/05/18 20:22 11/05/18 23:58 11/06/18 08:17 11/06/18 11:40 Bedside Glucose 129 121 111 81 Medications Medication Current Medications Docusate Sodium (Colace) 100 mg BID PO Last administered on 11/06/18at 09:12; Admin Dose 100 MG; Start 10/30/18 at 09:00 Senna (Senokot) 1 tab HS PO Last administered on 11/05/18at 20:24; Admin Dose 1 TAB; Start 10/30/18 at 21:00 Lactulose (Enulose) 20 gm DAILY PRN PO CONSTIPATION Last administered on 11/05/18at 12:08; Admin Dose 20 GM; Start 10/30/18 at 00:00 Bisacodyl (Dulcolax Supp) 10 mg DAILY PRN [place] CONSTIPATION; Start 10/30/18 at 00:00 Acetaminophen (Tylenol Tab) 650 mg Q4H PRN PO PAIN; Start 10/30/18 at 00:00 Miscellaneous Information (Pending Santyl Order For Wound Care) This patient almanzar... PRN PRN XX WOUND CARE; Start 10/30/18 at 00:00 Benazepril HCl (Lotensin) 40 mg BID PO Last administered on 11/06/18 09:24; Admin Dose 40 MG; Start 10/30/18 at 09:00 Cholecalciferol (Vitamin D) 2,000 unit DAILY PO Last administered on 11/06/18 09:12; Admin Dose 2,000 UNIT; Start 10/30/18 at 09:00 Aspirin (Halfprin) 81 mg DAILY PO Last administered on 11/06/18 09:12; Admin Dose 81 MG; Start 10/30/18 at 09:00 Famotidine (Pepcid) 20 mg DAILY PO Last administered on 11/06/18 09:12; Admin Dose 20 MG; Start 10/30/18 at 09:00 Insulin Aspart (Novolog Insulin Pen) 5 unit WITH BREAKFAST SC Last administered on 11/06/18 08:22; Admin Dose 5 UNIT; Start 10/30/18 at 07:35 Insulin Aspart (Novolog Insulin Pen) 5 unit WITH LUNCH SC Last administered on 11/05/18 12:15; Admin Dose 5 UNIT; Start 10/30/18 at 12:00 Insulin Aspart (Novolog Insulin Pen) 5 unit WITH DINNER SC Last administered on 11/04/18 17:36; Admin Dose 5 UNIT; Start 10/30/18 at 17:35 Diagnostic Test (Pha) (Accu-Chek) 1 ea 02 XX Last administered on 11/06/18 02:13; Admin Dose 1 EA; Start 10/30/18 at 02:00 Levothyroxine Sodium (Synthroid) 100 mcg DAILY@06 PO Last administered on 11/06/18 06:26; Admin Dose 100 MCG; Start 10/30/18 at 06:00 Linagliptin (Tradjenta) 5 mg DAILY PO Last administered on 11/06/18 09:13; Admin Dose 5 MG; Start 10/30/18 at 09:00 Diagnostic Test (Pha) (Accu-Chek) 1 ea AC MEALS AND BEDTIME XX Last administered on 11/06/18 11:40; Admin Dose 1 EA; Start 10/30/18 at 07:05 Multivit/Ca Carb/ B Cmplx/FA/Prenat (Manasa-Haris) 1 tab DAILY PO Last administ ered on 11/06/18 09:12; Admin Dose 1 TAB; Start 10/30/18 at 09:00 Ondansetron HCl (Zofran Inj) 4 mg Q6H PRN IV NAUSEA AND/OR VOMITING; Start 10/30/18 at 01:00 Oxycodone HCl (Roxicodone) 5 mg Q4H PRN PO MILD PAIN LEVEL 1-3 Last administered on 10/30/18 14:32; Admin Dose 5 MG; Start 10/30/18 at 01:00 Oxycodone HCl (Roxicodone) 10 mg Q4H PRN PO MODERATE PAIN LEVEL 4-6 Last administered on 11/03/18 08:59; Admin Dose 10 MG; Start 10/30/18 at 01:00 Sevelamer Carbonate (Renvela) 1,600 mg WITH MEALS PO Last administered on 11/06/18 11:41; Admin Dose 1,600 MG; Start 10/30/18 at 07:35 Miscellaneous Information 1 ea NOTE XX ; Start 10/30/18 at 01:30 Glucose (Glutose) 15 gm Q15M PRN PO DECREASED GLUCOSE; Start 10/30/18 at 01:30 Glucose (Glutose) 22.5 gm Q15M PRN PO DECREASED GLUCOSE; Start 10/30/18 at 01:30 Dextrose (D50w Syringe) 25 ml Q15M PRN IV DECREASED GLUCOSE; Start 10/30/18 at 01:30 Dextrose (D50w Syringe) 50 ml Q15M PRN IV DECREASED GLUCOSE; Start 10/30/18 at 01:30 Glucagon (Glucagen) 1 mg Q15M PRN IM DECREASED GLUCOSE; Start 10/30/18 at 01:30 Glucose (Glutose) 15 gm Q15M PRN BUCCAL DECREASED GLUCOSE Last administered on 11/02/18 08:03; Admin Dose 15 GM; Start 10/30/18 at 01:30 Diclofenac Sodium (Voltaren 1% Gel) 2 gm QID PRN TP PAIN Last administered on 11/02/18 13:58; Admin Dose 2 GM; Start 10/30/18 at 09:00 Heparin Sodium (Porcine) (Heparin (5000 Units/1ml)) 5,000 unit BID SC Last administered on 11/06/18 09:12; Admin Dose 5,000 UNIT; Start 10/30/18 at 21:00 Hydromorphone HCl (Dilaudid) 1 mg Q3H PRN IM SEVERE PAIN LEVEL 7-10 Last administered on 11/06/18 15:00; Admin Dose 1 MG; Start 10/31/18 at 19:00 Diclofenac Sodium (Voltaren 1% Gel) 4 gm QID TP Last administered on 11/06/18 09:19; Admin Dose 4 GM; Start 11/02/18 at 21:00 Insulin Glargine (Lantus) 3 units DAILY@2000 SC Last administered on 11/06/18 00:01; Admin Dose 3 UNITS; Start 11/06/18 at 00:00 FELIX DREW MD Nov 06, 2018 17:40
[2018-11-06] MEDS: SENNA TAB PO SCH (20:19)
[2018-11-07] MEDS: ACCU-CHEK XX SCH ×5 (01:56→21:00)
[2018-11-07 02:23] VITALS: BP 147/58; PULSE 59; RESP 18
[2018-11-07] MEDS: LEVOTHYROXINE 100 MCG TAB PO SCH (06:13)
[2018-11-07 07:30] VITALS: BP 151/72; PULSE 70; RESP 18
[2018-11-07] MEDS: INSULIN ASPART [NOVOLOG] 3 ML PEN SC SCH ×3 (07:35→17:09)
[2018-11-07] MEDS: LINAGLIPTIN 5 MG TABLET PO SCH (07:40)
[2018-11-07] MEDS: SEVELAMER CARBONATE 800 MG TABLET PO SCH ×3 (07:40→17:06)
[2018-11-07] MEDS: HYDROmorphONE 1 MG/ML SYG IM PRN (07:42)
[2018-11-07] MEDS: HEPARIN 5,000 UNIT/1 ML VIAL SC SCH ×2 (08:24→20:20)
[2018-11-07] MEDS: FAMOTIDINE 20 MG TAB PO SCH (08:25)
[2018-11-07] MEDS: MULTIVIT/CA CARB/B CMPLX/FA TAB PO SCH (08:25)
[2018-11-07] MEDS: DOCUSATE SODIUM 100 MG CAP PO SCH ×2 (08:25→20:18)
[2018-11-07] MEDS: CHOLECALCIFEROL 2,000 UNIT CAP PO SCH (08:25)
[2018-11-07] MEDS: BENAZEPRIL 40 MG TAB PO SCH ×2 (08:25→20:18)
[2018-11-07] MEDS: ASPIRIN (EC) 81 MG TAB PO SCH (08:25)
[2018-11-07] MEDS: BALSAM PERU/CASTOR OIL 60 GM TUBE TOP SCH ×2 (08:26→20:22)
[2018-11-07] MEDS: DICLOFENAC SODIUM 1% GEL 100 GM TUBE TP SCH ×4 (08:26→20:22)
--- NOTE | 2018-11-07 12:06 | CONS ---
Assessment/Plan Assessment/Plan Assessment/Plan (Daily) 1. ESRD on HD MWF [facility] for HD Access 2.Left femur fracture s/p ORIF of left hip intertrochanteric fracture on 10/24/18 4. H/o HTN 5. H/o HL 6. H/o Hypothyroidism Plan: pt regular schedule for HD is MWF - AVF for HD access - ,plan for HD tomorrow Rehab care as per unit will follow up Consultation Date/Type/Reason Admit Date/Time Oct 29, 2018 at 23:08 Initial Consult Date Type of Consult NEPHROLOGY Requesting Provider: NYLA HADLEY MD Date/Time of Note DATE: 11/07/18 TIME: 12:06 Exam/Review of Systems Exam Vitals Vital Signs Date Temp Pulse Resp B/P (MAP) Pulse Ox O2 O2 Flow FiO2 Time Delivery Rate 11/07/18 97.5 70 18 151/72 100 Room Air 07:30 (98) Intake and Output 11/06/18 11/06/18 11/07/18 1515:00 23:00 07:00 IntakeIntake Total 1700 ml OutputOutput Total 3400 ml BalanceBalance -1700 ml Exam Constitutional: alert Respiratory: diminished breath sounds Cardiovascular: regular rate and rhythm, nl pulses Gastrointestinal: soft, non-tender Musculoskeletal: nl extremities to inspection Extremities: normal pulses, other (AVF for HD access ) 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: Non focal Results Result Diagram: 11/04/18 0743 11/04/18 0743 Results 24hrs Laboratory Tests Test 11/06/18 17:39 11/06/18 20:18 11/07/18 07:39 11/07/18 11:50 Bedside Glucose 115 113 123 145 Medications Medication Current Medications Docusate Sodium (Colace) 100 mg BID PO Last administered on 11/07/18at 08:25; Admin Dose 100 MG; Start 10/30/18 at 09:00 Senna (Senokot) 1 tab HS PO Last administered on 11/06/18at 20:19; Admin Dose 1 TAB; Start 10/30/18 at 21:00 Lactulose (Enulose) 20 gm DAILY PRN PO CONSTIPATION Last administered on 11/05/18at 12:08; Admin Dose 20 GM; Start 10/30/18 at 00:00 Bisacodyl (Dulcolax Supp) 10 mg DAILY PRN [place] CONSTIPATION; Start 10/30/18 at 00:00 Acetaminophen (Tylenol Tab) 650 mg Q4H PRN PO PAIN; Start 10/30/18 at 00:00 Miscellaneous Information (Pending Santyl Order For Wound Care) This patient almanzar... PRN PRN XX WOUND CARE; Start 10/30/18 at 00:00 Benazepril HCl (Lotensin) 40 mg BID PO Last administered on 11/07/18 08:25; Admin Dose 40 MG; Start 10/30/18 at 09:00 Cholecalciferol (Vitamin D) 2,000 unit DAILY PO Last administered on 11/07/18 08:25; Admin Dose 2,000 UNIT; Start 10/30/18 at 09:00 Aspirin (Halfprin) 81 mg DAILY PO Last administered on 11/07/18 08:25; Admin Dose 81 MG; Start 10/30/18 at 09:00 Famotidine (Pepcid) 20 mg DAILY PO Last administered on 11/07/18 08:25; Admin Dose 20 MG; Start 10/30/18 at 09:00 Insulin Aspart (Novolog Insulin Pen) 5 unit WITH BREAKFAST SC Last administered on 11/06/18 08:22; Admin Dose 5 UNIT; Start 10/30/18 at 07:35 Insulin Aspart (Novolog Insulin Pen) 5 unit WITH LUNCH SC Last administered on 11/05/18 12:15; Admin Dose 5 UNIT; Start 10/30/18 at 12:00 Insulin Aspart (Novolog Insulin Pen) 5 unit WITH DINNER SC Last administered on 11/06/18 17:48; Admin Dose 5 UNIT; Start 10/30/18 at 17:35 Diagnostic Test (Pha) (Accu-Chek) 1 ea 02 XX Last administered on 11/06/18 02:13; Admin Dose 1 EA; Start 10/30/18 at 02:00 Levothyroxine Sodium (Synthroid) 100 mcg DAILY@06 PO Last administered on 11/07/18 06:13; Admin Dose 100 MCG; Start 10/30/18 at 06:00 Linagliptin (Tradjenta) 5 mg DAILY PO Last administered on 11/07/18 07:40; Admin Dose 5 MG; Start 10/30/18 at 09:00 Diagnostic Test (Pha) (Accu-Chek) 1 ea AC MEALS AND BEDTIME XX Last administered on 11/07/18at 07:40; Admin Dose 1 EA; Start 10/30/18 at 07:05 Multivit/Ca Carb/ B Cmplx/FA/Prenat (Manasa-Haris) 1 tab DAILY PO Last administered on 11/07/18at 08:25; Admin Dose 1 TAB; Start 10/30/18 at 09:00 Ondansetron HCl (Zofran Inj) 4 mg Q6H PRN IV NAUSEA AND/OR VOMITING; Start 10/30/18 at 01:00 Oxycodone HCl (Roxicodone) 5 mg Q4H PRN PO MILD PAIN LEVEL 1-3 Last administered on 10/30/18at 14:32; Admin Dose 5 MG; Start 10/30/18 at 01:00 Oxycodone HCl (Roxicodone) 10 mg Q4H PRN PO MODERATE PAIN LEVEL 4-6 Last administered on 11/03/18at 08:59; Admin Dose 10 MG; Start 10/30/18 at 01:00 Sevelamer Carbonate (Renvela) 1,600 mg WITH MEALS PO Last administered on 11/07/18at 07:40; Admin Dose 1,600 MG; Start 10/30/18 at 07:35 Miscellaneous Information 1 ea NOTE XX ; Start 10/30/18 at 01:30 Glucose (Glutose) 15 gm Q15M PRN PO DECREASED GLUCOSE; Start 10/30/18 at 01:30 Glucose (Glutose) 22.5 gm Q15M PRN PO DECREASED GLUCOSE; Start 10/30/18 at 01:30 Dextrose (D50w Syringe) 25 ml Q15M PRN IV DECREASED GLUCOSE; Start 10/30/18 at 01:30 Dextrose (D50w Syringe) 50 ml Q15M PRN IV DECREASED GLUCOSE; Start 10/30/18 at 01:30 Glucagon (Glucagen) 1 mg Q15M PRN IM DECREASED GLUCOSE; Start 10/30/18 at 01:30 Glucose (Glutose) 15 gm Q15M PRN BUCCAL DECREASED GLUCOSE Last administered on 11/02/18at 08:03; Admin Dose 15 GM; Start 10/30/18 at 01:30 Diclofenac Sodium (Voltaren 1% Gel) 2 gm QID PRN TP PAIN Last administered on 11/02/18 13:58; Admin Dose 2 GM; Start 10/30/18 at 09:00 Heparin Sodium (Porcine) (Heparin (5000 Units/1ml)) 5,000 unit BID SC Last administered on 11/07/18 08:24; Admin Dose 5,000 UNIT; Start 10/30/18 at 21:00 Hydromorphone HCl (Dilaudid) 1 mg Q3H PRN IM SEVERE PAIN LEVEL 7-10 Last administered on 11/07/18 07:42; Admin Dose 1 MG; Start 10/31/18 at 19:00 Diclofenac Sodium (Voltaren 1% Gel) 4 gm QID TP Last administered on 11/07/18 08:26; Admin Dose 4 GM; Start 11/02/18 at 21:00 Insulin Glargine (Lantus) 3 units DAILY@2000 SC Last administered on 11/06/18 20:29; Admin Dose 3 UNITS; Start 11/06/18 at 00:00 ANITA FLETCHER MD Nov 07, 2018 12:06
--- NOTE | 2018-11-07 13:05 | PN ---
Date/Time of Note Date/Time of Note DATE: 11/07/18 TIME: 13:03 Subjective Patient remains motivated for activities Objective Vital Signs Date Temp Pulse Resp B/P (MAP) Pulse Ox O2 O2 Flow FiO2 Time Delivery Rate 11/07/18 97.5 70 18 151/72 100 Room Air 07:30 (98) Intake and Output 11/06/18 11/06/18 11/07/18 1515:00 23:00 07:00 IntakeIntake Total 1700 ml OutputOutput Total 3400 ml BalanceBalance -1700 ml Exam supervised transfers supervised ambulation 200 feet [id number] Results/Medications Result Diagram: 11/04/18 0743 11/04/18 0743 Results 24 hrs Laboratory Tests Test 11/06/18 17:39 11/06/18 20:18 11/07/18 07:39 11/07/18 11:50 Bedside Glucose 115 113 123 145 Medications Current Medications Docusate Sodium (Colace) 100 mg BID PO Last administered on 11/07/18 08:25; Admin Dose 100 MG; Start 10/30/18 at 09:00 Senna (Senokot) 1 tab HS PO Last administered on 11/06/18 20:19; Admin Dose 1 TAB; Start 10/30/18 at 21:00 Lactulose (Enulose) 20 gm DAILY PRN PO CONSTIPATION Last administered on 11/05/18 12:08; Admin Dose 20 GM; Start 10/30/18 at 00:00 Bisacodyl (Dulcolax Supp) 10 mg DAILY PRN [place] CONSTIPATION; Start 10/30/18 at 00:00 Acetaminophen (Tylenol Tab) 650 mg Q4H PRN PO PAIN; Start 10/30/18 at 00:00 Miscellaneous Information (Pending Santyl Order For Wound Care) This patient almanzar... PRN PRN XX WOUND CARE; Start 10/30/18 at 00:00 Benazepril HCl (Lotensin) 40 mg BID PO Last administered on 11/07/18 08:25; Admin Dose 40 MG; Start 10/30/18 at 09:00 Cholecalciferol (Vitamin D) 2,000 unit DAILY PO Last administered on 11/07/18 08:25; Admin Dose 2,000 UNIT; Start 10/30/18 at 09:00 Aspirin (Halfprin) 81 mg DAILY PO Last administered on 11/07/18 08:25; Admin Dose 81 MG; Start 10/30/18 at 09:00 Famotidine (Pepcid) 20 mg DAILY PO Last administered on 11/07/18 08:25; Admin Dose 20 MG; Start 10/30/18 at 09:00 Insulin Aspart (Novolog Insulin Pen) 5 unit WITH BREAKFAST SC Last administered on 11/06/18 08:22; Admin Dose 5 UNIT; Start 10/30/18 at 07:35 Insulin Aspart (Novolog Insulin Pen) 5 unit WITH LUNCH SC Last administered on 11/07/18 12:09; Admin Dose 5 UNIT; Start 10/30/18 at 12:00 Insulin Aspart (Novolog Insulin Pen) 5 unit WITH DINNER SC Last administered on 11/06/18 17:48; Admin Dose 5 UNIT; Start 10/30/18 at 17:35 Diagnostic Test (Pha) (Accu-Chek) 1 ea 02 XX Last administered on 11/06/18 02:13; Admin Dose 1 EA; Start 10/30/18 at 02:00 Levothyroxine Sodium (Synthroid) 100 mcg DAILY@06 PO Last administered on 11/07/18 06:13; Admin Dose 100 MCG; Start 10/30/18 at 06:00 Linagliptin (Tradjenta) 5 mg DAILY PO Last administered on 11/07/18 07:40; Admin Dose 5 MG; Start 10/30/18 at 09:00 Diagnostic Test (Pha) (Accu-Chek) 1 ea AC MEALS AND BEDTIME XX Last administered on 11/07/18 12:10; Admin Dose 1 EA; Start 10/30/18 at 07:05 Multivit/Ca Carb/ B Cmplx/FA/Prenat (Manasa-Haris) 1 tab DAILY PO Last administered on 11/07/18 08:25; Admin Dose 1 TAB; Start 10/30/18 at 09:00 Ondansetron HCl (Zofran Inj) 4 mg Q6H PRN IV NAUSEA AND/OR VOMITING; Start 10/30/18 at 01:00 Oxycodone HCl (Roxicodone) 5 mg Q4H PRN PO MILD PAIN LEVEL 1-3 Last administered on 10/30/18 14:32; Admin Dose 5 MG; Start 10/30/18 at 01:00 Oxycodone HCl (Roxicodone) 10 mg Q4H PRN PO MODERATE PAIN LEVEL 4-6 Last administered on 11/03/18 08:59; Admin Dose 10 MG; Start 10/30/18 at 01:00 Sevelamer Carbonate (Renvela) 1,600 mg WITH MEALS PO Last administered on 11/07/18 12:07; Admin Dose 1,600 MG; Start 10/30/18 at 07:35 Miscellaneous Information 1 ea NOTE XX ; Start 10/30/18 at 01:30 Glucose (Glutose) 15 gm Q15M PRN PO DECREASED GLUCOSE; Start 10/30/18 at 01:30 Glucose (Glutose) 22.5 gm Q15M PRN PO DECREASED GLUCOSE; Start 10/30/18 at 01:30 Dextrose (D50w Syringe) 25 ml Q15M PRN IV DECREASED GLUCOSE; Start 10/30/18 at 01:30 Dextrose (D50w Syringe) 50 ml Q15M PRN IV DECREASED GLUCOSE; Start 10/30/18 at 01:30 Glucagon (Glucagen) 1 mg Q15M PRN IM DECREASED GLUCOSE; Start 10/30/18 at 01:30 Glucose (Glutose) 15 gm Q15M PRN BUCCAL DECREASED GLUCOSE Last administered on 11/02/18 08:03; Admin Dose 15 GM; Start 10/30/18 at 01:30 Diclofenac Sodium (Voltaren 1% Gel) 2 gm QID PRN TP PAIN Last administered on 11/02/18 13:58; Admin Dose 2 GM; Start 10/30/18 at 09:00 Heparin Sodium (Porcine) (Heparin (5000 Units/1ml)) 5,000 unit BID SC Last administered on 11/07/18 08:24; Admin Dose 5,000 UNIT; Start 10/30/18 at 21:00 Hydromorphone HCl (Dilaudid) 1 mg Q3H PRN IM SEVERE PAIN LEVEL 7-10 Last administered on 11/07/18 07:42; Admin Dose 1 MG; Start 10/31/18 at 19:00 Diclofenac Sodium (Voltaren 1% Gel) 4 gm QID TP Last administered on 11/07/18 12:07; Admin Dose 4 GM; Start 11/02/18 at 21:00 Insulin Glargine (Lantus) 3 units DAILY@2000 SC Last administered on 11/06/18at 20:29; Admin Dose 3 UNITS; Start 11/06/18 at 00:00 Assessment/Plan Additional Assessment/Plan Rehab- Left intertrochanteric hip fracture status post ORIF, lumbar djd He is actively participating in his care and making steady progress. SW working on dc planing for safe transition home. Acute pain syndrome- under adequate control End-stage renal disease requiring hemodialysis-per renal Integ- Left heel deep tissue injury- better Hypertension. Anemia. Diabetes mellitus type 2. Diabetic neuropathy. Diabetic retinopathy. Hypothyroidism. Hyperparathyroidism. Benign prostatic hypertrophy. Hyperlipidemia. History of ischemic bowel syndrome. History of left ankle ORIF. Peripheral vascular disease. NYLA HADLEY MD Nov 07, 2018 13:05
[2018-11-07 14:00] VITALS: BP 132/56; PULSE 70; RESP 18
--- NOTE | 2018-11-07 18:42 | PN ---
Date/Time of Note Date/Time of Note DATE: 11/07/18 TIME: 18:39 Assessment/Plan VTE Prophylaxis Risk score (from Ns)>0 risk: 9 SCD applied (from Ns): Yes Pharmacological prophylaxis: heparin Lines/Catheters IV Catheter Type (from Nrsg): [place] [facility] Urinary Cath still in place: No Assessment/Plan Problems: (1) Diabetes mellitus type 2 with complications Status: Chronic Comment: Excellent glycemic control. Cont. current insulin doses (2) ESRD (end stage renal disease) on dialysis Status: Chronic Comment: Cont. HD per nephrology (3) Essential (primary) hypertension Status: Chronic Comment: BP occ. elevated. Defer to nephrology to decide about treatment (4) Hypothyroidism Status: Chronic Comment: Cont. LT4 (5) Type 2 diabetes mellitus with diabetic peripheral angiopathy without gangrene Status: Chronic Comment: Stable PVD at this time. Per vascular surgery, not a candidate for further interventions (6) Anemia associated with chronic renal failure Status: Chronic Comment: Stable (7) Debility Status: Chronic Comment: Cont. rehab in ARU (8) Closed fracture of left hip requiring operative repair Onset Date: ~ 10/24/2018 Status: Resolved Comment: Pain control improved. Pt. improving daily. Cont. PT in ARU. Result Diagram: 11/04/18 0743 11/04/18 0743 Results 24hrs Laboratory Tests Test 11/06/18 20:18 11/07/18 07:39 11/07/18 11:50 11/07/18 17:05 Bedside Glucose 113 123 145 91 Subjective 24 Hr Interval Summary Constitutional: no complaints, improved Respiratory: no complaints Cardiovascular: no complaints Gastrointestinal: no complaints Genitourinary: no complaints Musculoskeletal: bone/joint pain (improved w/ ambulation today) Neurologic: no complaints Exam/Review of Systems Exam Vitals VS - Last 72 Hours, by Label Date Temp Pulse Resp B/P (MAP) Pulse Ox O2 O2 Flow FiO2 Time Delivery Rate 11/07/18 97.5 70 18 132/56 100 Room Air 14:00 (81) 11/07/18 97.5 70 18 151/72 100 Room Air 07:30 (98) 11/07/18 97.7 59 18 147/58 99 Room Air 02:23 (87) 11/06/18 70 148/77 20:35 (100) 11/06/18 97.8 66 18 134/59 96 Room Air 20:29 (84) 11/06/18 60 19:25 11/06/18 61 19:10 11/06/18 61 18:55 11/06/18 62 18:40 11/06/18 61 18:25 11/06/18 63 18:10 11/06/18 63 17:55 11/06/18 67 17:40 11/06/18 65 17:25 11/06/18 61 17:10 11/06/18 63 16:55 11/06/18 67 16:40 11/06/18 65 16:25 11/06/18 61 18 128/59 96 Room Air 16:25 (82) 11/06/18 97.9 68 18 168/75 97 Room Air 14:00 (106) 11/06/18 80 150/60 09:00 (90) 11/06/18 189/74 08:17 (112) 11/06/18 97.6 70 18 189/74 100 Room Air 07:00 (112) 11/06/18 65 148/64 06:37 (92) 11/06/18 97.9 18 162/69 99 Room Air 02:00 (100) 11/05/18 98.2 18 150/67 98 Room Air 20:00 (94) 11/05/18 97.9 68 18 165/68 97 Room Air 14:00 (100) 11/05/18 97.9 66 18 169/70 99 Room Air 07:00 (103) 11/05/18 97.7 75 18 142/63 97 Room Air 02:00 (89) 11/04/18 97.8 77 18 138/65 98 Room Air 19:03 (89) Vital Signs Date Temp Pulse Resp B/P (MAP) Pulse Ox O2 O2 Flow FiO2 Time Delivery Rate 11/07/18 97.5 70 18 132/56 100 Room Air 14:00 (81) Intake and Output 11/06/18 11/06/18 11/07/18 1515:00 23:00 07:00 IntakeIntake Total 1700 ml OutputOutput Total 3400 ml BalanceBalance -1700 ml Constitutional: alert, oriented, well developed Respiratory: clear to auscultation, normal air movement Cardiovascular: regular rate and rhythm, edema (1+ LLE); No nl pulses, No murmurs/extra sounds, No rub Gastrointestinal: soft, nl liver, spleen, non-tender, bowel sounds; No mass, No rebound or guarding Musculoskeletal: No nl extremities to inspection (R great toe amp) Extremities: edema (1+ BLE); No normal pulses, No cyanosis, No clubbing 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: 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, nl mental status, nl speech, nl strength Additional Comments Bedside Glucose - 72 Hours Test 11/04/18 20:29 11/04/18 21:38 11/05/18 07:31 11/05/18 12:08 Bedside 70 108 146 150 Glucose mg/dL (70-220) mg/dL (70-220) mg/dL (70-220) mg/dL (70-220) Test 11/05/18 17:06 11/05/18 20:22 11/05/18 23:58 11/06/18 08:17 Bedside 94 129 121 111 Glucose mg/dL (70-220) mg/dL (70-220) mg/dL (70-220) mg/dL (70-220) Test 11/06/18 11:40 11/06/18 17:39 11/06/18 20:18 11/07/18 07:39 Bedside 81 115 113 123 Glucose mg/dL (70-220) mg/dL (70-220) mg/dL (70-220) mg/dL (70-220) Test 11/07/18 11:50 11/07/18 17:05 Bedside 145 91 Glucose mg/dL (70-220) mg/dL (70-220) Results Results 24hrs Laboratory Tests Test 11/06/18 20:18 11/07/18 07:39 11/07/18 11:50 11/07/18 17:05 Bedside Glucose 113 123 145 91 Medications Medication Current Medications Docusate Sodium (Colace) 100 mg BID PO Last administered on 11/07/18at 08:25; Admin Dose 100 MG; Start 10/30/18 at 09:00 Senna (Senokot) 1 tab HS PO Last administered on 11/06/18at 20:19; Admin Dose 1 TAB; Start 10/30/18 at 21:00 Lactulose (Enulose) 20 gm DAILY PRN PO CONSTIPATION Last administered on 11/05/18at 12:08; Admin Dose 20 GM; Start 10/30/18 at 00:00 Bisacodyl (Dulcolax Supp) 10 mg DAILY PRN [place] CONSTIPATION; Start 10/30/18 at 00:00 Acetaminophen (Tylenol Tab) 650 mg Q4H PRN PO PAIN; Start 10/30/18 at 00:00 Miscellaneous Information (Pending Santyl Order For Wound Care) This patient almanzar... PRN PRN XX WOUND CARE; Start 10/30/18 at 00:00 Benazepril HCl (Lotensin) 40 mg BID PO Last administered on 11/07/18 08:25; Admin Dose 40 MG; Start 10/30/18 at 09:00 Cholecalciferol (Vitamin D) 2,000 unit DAILY PO Last administered on 11/07/18 08:25; Admin Dose 2,000 UNIT; Start 10/30/18 at 09:00 Aspirin (Halfprin) 81 mg DAILY PO Last administered on 11/07/18 08:25; Admin Dose 81 MG; Start 10/30/18 at 09:00 Famotidine (Pepcid) 20 mg DAILY PO Last administered on 11/07/18 08:25; Admin Dose 20 MG; Start 10/30/18 at 09:00 Insulin Aspart (Novolog Insulin Pen) 5 unit WITH BREAKFAST SC Last administere d on 11/06/18 08:22; Admin Dose 5 UNIT; Start 10/30/18 at 07:35 Insulin Aspart (Novolog Insulin Pen) 5 unit WITH LUNCH SC Last administered on 11/07/18 12:09; Admin Dose 5 UNIT; Start 10/30/18 at 12:00 Insulin Aspart (Novolog Insulin Pen) 5 unit WITH DINNER SC Last administered on 11/06/18 17:48; Admin Dose 5 UNIT; Start 10/30/18 at 17:35 Diagnostic Test (Pha) (Accu-Chek) 1 ea 02 XX Last administered on 11/06/18 02:13; Admin Dose 1 EA; Start 10/30/18 at 02:00 Levothyroxine Sodium (Synthroid) 100 mcg DAILY@06 PO Last administered on 11/07/18 06:13; Admin Dose 100 MCG; Start 10/30/18 at 06:00 Linagliptin (Tradjenta) 5 mg DAILY PO Last administered on 11/07/18 07:40; Admin Dose 5 MG; Start 10/30/18 at 09:00 Diagnostic Test (Pha) (Accu-Chek) 1 ea AC MEALS AND BEDTIME XX Last administe red on 11/07/18at 17:09; Admin Dose 1 EA; Start 10/30/18 at 07:05 Multivit/Ca Carb/ B Cmplx/FA/Prenat (Manasa-Haris) 1 tab DAILY PO Last administered on 11/07/18 08:25; Admin Dose 1 TAB; Start 10/30/18 at 09:00 Ondansetron HCl (Zofran Inj) 4 mg Q6H PRN IV NAUSEA AND/OR VOMITING; Start 10/30/18 at 01:00 Oxycodone HCl (Roxicodone) 5 mg Q4H PRN PO MILD PAIN LEVEL 1-3 Last administered on 10/30/18 14:32; Admin Dose 5 MG; Start 10/30/18 at 01:00 Oxycodone HCl (Roxicodone) 10 mg Q4H PRN PO MODERATE PAIN LEVEL 4-6 Last administered on 11/03/18 08:59; Admin Dose 10 MG; Start 10/30/18 at 01:00 Sevelamer Carbonate (Renvela) 1,600 mg WITH MEALS PO Last administered on 11/07/18 17:06; Admin Dose 1,600 MG; Start 10/30/18 at 07:35 Miscellaneous Information 1 ea NOTE XX ; Start 10/30/18 at 01:30 Glucose (Glutose) 15 gm Q15M PRN PO DECREASED GLUCOSE; Start 10/30/18 at 01:30 Glucose (Glutose) 22.5 gm Q15M PRN PO DECREASED GLUCOSE; Start 10/30/18 at 01:30 Dextrose (D50w Syringe) 25 ml Q15M PRN IV DECREASED GLUCOSE; Start 10/30/18 at 01:30 Dextrose (D50w Syringe) 50 ml Q15M PRN IV DECREASED GLUCOSE; Start 10/30/18 at 01:30 Glucagon (Glucagen) 1 mg Q15M PRN IM DECREASED GLUCOSE; Start 10/30/18 at 01:30 Glucose (Glutose) 15 gm Q15M PRN BUCCAL DECREASED GLUCOSE Last administered on 8/1/19at 08:03; Admin Dose 15 GM; Start 10/30/18 at 01:30 Diclofenac Sodium (Voltaren 1% Gel) 2 gm QID PRN TP PAIN Last administered on 11/02/18at 13:58; Admin Dose 2 GM; Start 10/30/18 at 09:00 Heparin Sodium (Porcine) (Heparin (5000 Units/1ml)) 5,000 unit BID SC Last administered on 11/07/18at 08:24; Admin Dose 5,000 UNIT; Start 10/30/18 at 21:00 Hydromorphone HCl (Dilaudid) 1 mg Q3H PRN IM SEVERE PAIN LEVEL 7-10 Last administered on 11/07/18at 07:42; Admin Dose 1 MG; Start 10/31/18 at 19:00 Diclofenac Sodium (Voltaren 1% Gel) 4 gm QID TP Last administered on 11/07/18at 17:09; Admin Dose 4 GM; Start 11/02/18 at 21:00 Insulin Glargine (Lantus) 3 units DAILY@2000 SC Last administered on 11/06/18at 20:29; Admin Dose 3 UNITS; Start 11/06/18 at 00:00 FELIX DREW MD Nov 07, 2018 18:42
[2018-11-07 20:11] VITALS: BP 140/65; PULSE 66; RESP 18
[2018-11-07] MEDS: SENNA TAB PO SCH (20:18)
[2018-11-07] MEDS: INSULIN GLARGINE [LANTus] (100 UNITS/ML) SYG SC SCH (20:41)
[2018-11-08] VITALS (18 sets, daily range): BP systolic 118–142; BP diastolic 48–66; PULSE 62–71; RESP 16–20
[2018-11-08] MEDS: ACCU-CHEK XX SCH ×6 (02:00→20:13)
[2018-11-08] MEDS: LEVOTHYROXINE 100 MCG TAB PO SCH (05:53)
[2018-11-08] MEDS: SEVELAMER CARBONATE 800 MG TABLET PO SCH ×3 (08:01→17:29)
[2018-11-08] MEDS: LINAGLIPTIN 5 MG TABLET PO SCH (08:02)
[2018-11-08] MEDS: INSULIN ASPART [NOVOLOG] 3 ML PEN SC SCH ×3 (08:02→17:29)
[2018-11-08] MEDS: CHOLECALCIFEROL 2,000 UNIT CAP PO SCH (09:00)
[2018-11-08] MEDS: FAMOTIDINE 20 MG TAB PO SCH (09:00)
[2018-11-08] MEDS: DOCUSATE SODIUM 100 MG CAP PO SCH ×2 (09:00→20:10)
[2018-11-08] MEDS: MULTIVIT/CA CARB/B CMPLX/FA TAB PO SCH (09:00)
[2018-11-08] MEDS: ASPIRIN (EC) 81 MG TAB PO SCH (09:00)
[2018-11-08] MEDS: BENAZEPRIL 40 MG TAB PO SCH ×2 (09:00→20:13)
[2018-11-08] MEDS: BALSAM PERU/CASTOR OIL 60 GM TUBE TOP SCH ×2 (09:02→20:12)
[2018-11-08] MEDS: HEPARIN 5,000 UNIT/1 ML VIAL SC SCH ×2 (09:02→20:11)
[2018-11-08] MEDS: DICLOFENAC SODIUM 1% GEL 100 GM TUBE TP SCH ×4 (09:02→20:12)
--- NOTE | 2018-11-08 12:15 | CONS ---
Assessment/Plan Assessment/Plan Assessment/Plan (Daily) 1. ESRD on HD MWF [facility] for HD Access 2.Left femur fracture s/p ORIF of left hip intertrochanteric fracture on 10/24/18 4. H/o HTN 5. H/o HL 6. H/o Hypothyroidism Plan: pt regular schedule for HD is MWF - AVF for HD access - ,s/p HD today 3L removed, Rehab care as per unit will follow up Consultation Date/Type/Reason Admit Date/Time Oct 29, 2018 at 23:08 Initial Consult Date Type of Consult NEPHROLOGY Requesting Provider: NYLA HADLEY MD Date/Time of Note DATE: 11/08/18 TIME: 12:14 Exam/Review of Systems Exam Vitals Vital Signs Date Temp Pulse Resp B/P (MAP) Pulse Ox O2 O2 Flow FiO2 Time Delivery Rate 11/08/18 97.6 68 18 142/66 97 Room Air 02:27 (91) Intake and Output 11/07/18 11/07/18 11/08/18 1515:00 23:00 07:00 IntakeIntake Total 520 ml 200 ml BalanceBalance 520 ml 200 ml Results Result Diagram: 11/04/18 0743 11/04/18 0743 Results 24hrs Laboratory Tests Test 11/07/18 17:05 11/07/18 20:25 11/08/18 07:55 11/08/18 11:41 Bedside Glucose 91 129 113 85 Medications Medication Current Medications Docusate Sodium (Colace) 100 mg BID PO Last administered on 11/08/18at 09:00; Admin Dose 100 MG; Start 10/30/18 at 09:00 Senna (Senokot) 1 tab HS PO Last administered on 11/07/18at 20:18; Admin Dose 1 TAB; Start 10/30/18 at 21:00 Lactulose (Enulose) 20 gm DAILY PRN PO CONSTIPATION Last administered on 11/05/18at 12:08; Admin Dose 20 GM; Start 10/30/18 at 00:00 Bisacodyl (Dulcolax Supp) 10 mg DAILY PRN [place] CONSTIPATION; Start 10/30/18 at 00:00 Acetaminophen (Tylenol Tab) 650 mg Q4H PRN PO PAIN; Start 10/30/18 at 00:00 Miscellaneous Information (Pending Santyl Order For Wound Care) This patient almanzar... PRN PRN XX WOUND CARE; Start 10/30/18 at 00:00 Benazepril HCl (Lotensin) 40 mg BID PO Last administered on 11/08/18 09:00; Admin Dose 40 MG; Start 10/30/18 at 09:00 Cholecalciferol (Vitamin D) 2,000 unit DAILY PO Last administered on 11/08/18 09:00; Admin Dose 2,000 UNIT; Start 10/30/18 at 09:00 Aspirin (Halfprin) 81 mg DAILY PO Last administered on 11/08/18 09:00; Admin Dose 81 MG; Start 10/30/18 at 09:00 Famotidine (Pepcid) 20 mg DAILY PO Last administered on 11/08/18 09:00; Admin Dose 20 MG; Start 10/30/18 at 09:00 Insulin Aspart (Novolog Insulin Pen) 5 unit WITH BREAKFAST SC Last administered on 11/08/18 08:02; Admin Dose 5 UNIT; Start 10/30/18 at 07:35 Insulin Aspart (Novolog Insulin Pen) 5 unit WITH LUNCH SC Last administered on 11/08/18 11:45; Admin Dose 5 UNIT; Start 10/30/18 at 12:00 Insulin Aspart (Novolog Insulin Pen) 5 unit WITH DINNER SC Last administered on 11/06/18 17:48; Admin Dose 5 UNIT; Start 10/30/18 at 17:35 Diagnostic Test (Pha) (Accu-Chek) 1 ea 02 XX Last administered on 11/06/18 02:13; Admin Dose 1 EA; Start 10/30/18 at 02:00 Levothyroxine Sodium (Synthroid) 100 mcg DAILY@06 PO Last administered on 11/08/18 05:53; Admin Dose 100 MCG; Start 10/30/18 at 06:00 Linagliptin (Tradjenta) 5 mg DAILY PO Last administered on 11/08/18 08:02; Admin Dose 5 MG; Start 10/30/18 at 09:00 Diagnostic Test (Pha) (Accu-Chek) 1 ea AC MEALS AND BEDTIME XX Last administered on 11/08/18 11:43; Admin Dose 1 EA; Start 10/30/18 at 07:05 Multivit/Ca Carb/ B Cmplx/FA/Prenat (Manasa-Haris) 1 tab DAILY PO Last administered on 11/08/18 09:00; Admin Dose 1 TAB; Start 10/30/18 at 09:00 Ondansetron HCl (Zofran Inj) 4 mg Q6H PRN IV NAUSEA AND/OR VOMITING; Start 10/30/18 at 01:00 Oxycodone HCl (Roxicodone) 5 mg Q4H PRN PO MILD PAIN LEVEL 1-3 Last administered on 10/30/18 14:32; Admin Dose 5 MG; Start 10/30/18 at 01:00 Oxycodone HCl (Roxicodone) 10 mg Q4H PRN PO MODERATE PAIN LEVEL 4-6 Last administered on 11/03/18 08:59; Admin Dose 10 MG; Start 10/30/18 at 01:00 Sevelamer Carbonate (Renvela) 1,600 mg WITH MEALS PO Last administered on 11/08/18 11:44; Admin Dose 1,600 MG; Start 10/30/18 at 07:35 Miscellaneous Information 1 ea NOTE XX ; Start 10/30/18 at 01:30 Glucose (Glutose) 15 gm Q15M PRN PO DECREASED GLUCOSE; Start 10/30/18 at 01:30 Glucose (Glutose) 22.5 gm Q15M PRN PO DECREASED GLUCOSE; Start 10/30/18 at 01:30 Dextrose (D50w Syringe) 25 ml Q15M PRN IV DECREASED GLUCOSE; Start 10/30/18 at 01:30 Dextrose (D50w Syringe) 50 ml Q15M PRN IV DECREASED GLUCOSE; Start 10/30/18 at 01:30 Glucagon (Glucagen) 1 mg Q15M PRN IM DECREASED GLUCOSE; Start 10/30/18 at 01:30 Glucose (Glutose) 15 gm Q15M PRN BUCCAL DECREASED GLUCOSE Last administered on 11/02/18 08:03; Admin Dose 15 GM; Start 10/30/18 at 01:30 Diclofenac Sodium (Voltaren 1% Gel) 2 gm QID PRN TP PAIN Last administered on 11/02/18 13:58; Admin Dose 2 GM; Start 10/30/18 at 09:00 Heparin Sodium (Porcine) (Heparin (5000 Units/1ml)) 5,000 unit BID SC Last administered on 11/08/18 09:02; Admin Dose 5,000 UNIT; Start 10/30/18 at 21:00 Hydromorphone HCl (Dilaudid) 1 mg Q3H PRN IM SEVERE PAIN LEVEL 7-10 Last administered on 11/07/18 07:42; Admin Dose 1 MG; Start 10/31/18 at 19:00 Diclofenac Sodium (Voltaren 1% Gel) 4 gm QID TP Last administered on 11/08/18 11:46; Admin Dose 4 GM; Start 11/02/18 at 21:00 Insulin Glargine (Lantus) 3 units DAILY@2000 SC Last administered on 11/07/18 20:41; Admin Dose 3 UNITS; Start 11/06/18 at 00:00 ANITA FLETCHER MD Nov 08, 2018 12:14
--- NOTE | 2018-11-08 13:22 | PN ---
Date/Time of Note Date/Time of Note DATE: 11/08/18 TIME: 13:20 Subjective patient feeling better, looking forward to dc home Objective Vital Signs Date Temp Pulse Resp B/P (MAP) Pulse Ox O2 O2 Flow FiO2 Time Delivery Rate 11/08/18 97.9 70 20 142/58 98 Room Air 08:00 (86) Intake and Output 11/07/18 11/07/18 11/08/18 1515:00 23:00 07:00 IntakeIntake Total 520 ml 200 ml BalanceBalance 520 ml 200 ml Exam pulm-cta abd-soft sba ambulation Results/Medications Result Diagram: 11/04/18 0743 11/04/18 0743 Results 24 hrs Laboratory Tests Test 11/07/18 17:05 11/07/18 20:25 11/08/18 07:55 11/08/18 11:41 Bedside Glucose 91 129 113 85 Medications Current Medications Docusate Sodium (Colace) 100 mg BID PO Last administered on 11/08/18 09:00; Adm in Dose 100 MG; Start 10/30/18 at 09:00 Senna (Senokot) 1 tab HS PO Last administered on 11/07/18 20:18; Admin Dose 1 TAB; Start 10/30/18 at 21:00 Lactulose (Enulose) 20 gm DAILY PRN PO CONSTIPATION Last administered on 11/05/18 12:08; Admin Dose 20 GM; Start 10/30/18 at 00:00 Bisacodyl (Dulcolax Supp) 10 mg DAILY PRN [place] CONSTIPATION; Start 10/30/18 at 00:00 Acetaminophen (Tylenol Tab) 650 mg Q4H PRN PO PAIN; Start 10/30/18 at 00:00 Miscellaneous Information (Pending Santyl Order For Wound Care) This patient almanzar... PRN PRN XX WOUND CARE; Start 10/30/18 at 00:00 Benazepril HCl (Lotensin) 40 mg BID PO Last administered on 11/08/18 09:00; Admin Dose 40 MG; Start 10/30/18 at 09:00 Cholecalciferol (Vitamin D) 2,000 unit DAILY PO Last administered on 11/08/18 09:00; Admin Dose 2,000 UNIT; Start 10/30/18 at 09:00 Aspirin (Halfprin) 81 mg DAILY PO Last administered on 11/08/18 09:00; Admin Dose 81 MG; Start 10/30/18 at 09:00 Famotidine (Pepcid) 20 mg DAILY PO Last administered on 11/08/18 09:00; Admin Dose 20 MG; Start 10/30/18 at 09:00 Insulin Aspart (Novolog Insulin Pen) 5 unit WITH BREAKFAST SC Last administered on 11/08/18 08:02; Admin Dose 5 UNIT; Start 10/30/18 at 07:35 Insulin Aspart (Novolog Insulin Pen) 5 unit WITH LUNCH SC Last administered on 11/08/18 11:45; Admin Dose 5 UNIT; Start 10/30/18 at 12:00 Insulin Aspart (Novolog Insulin Pen) 5 unit WITH DINNER SC Last administered on 11/06/18 17:48; Admin Dose 5 UNIT; Start 10/30/18 at 17:35 Diagnostic Test (Pha) (Accu-Chek) 1 ea 02 XX Last administered on 11/06/18 02:13; Admin Dose 1 EA; Start 10/30/18 at 02:00 Levothyroxine Sodium (Synthroid) 100 mcg DAILY@06 PO Last administered on 11/08/18 05:53; Admin Dose 100 MCG; Start 10/30/18 at 06:00 Linagliptin (Tradjenta) 5 mg DAILY PO Last administered on 11/08/18 08:02; Admin Dose 5 MG; Start 10/30/18 at 09:00 Diagnostic Test (Pha) (Accu-Chek) 1 ea AC MEALS AND BEDTIME XX Last administered on 11/08/18 11:43; Admin Dose 1 EA; Start 10/30/18 at 07:05 Multivit/Ca Carb/ B Cmplx/FA/Prenat (Manasa-Haris) 1 tab DAILY PO Last administered on 11/08/18 09:00; Admin Dose 1 TAB; Start 10/30/18 at 09:00 Ondansetron HCl (Zofran Inj) 4 mg Q6H PRN IV NAUSEA AND/OR VOMITING; Start 10/30/18 at 01:00 Oxycodone HCl (Roxicodone) 5 mg Q4H PRN PO MILD PAIN LEVEL 1-3 Last administered on 10/30/18 14:32; Admin Dose 5 MG; Start 10/30/18 at 01:00 Oxycodone HCl (Roxicodone) 10 mg Q4H PRN PO MODERATE PAIN LEVEL 4-6 Last administered on 11/03/18 08:59; Admin Dose 10 MG; Start 10/30/18 at 01:00 Sevelamer Carbonate (Renvela) 1,600 mg WITH MEALS PO Last administered on 11/08/18 11:44; Admin Dose 1,600 MG; Start 10/30/18 at 07:35 Miscellaneous Information 1 ea NOTE XX ; Start 10/30/18 at 01:30 Glucose (Glutose) 15 gm Q15M PRN PO DECREASED GLUCOSE; Start 10/30/18 at 01:30 Glucose (Glutose) 22.5 gm Q15M PRN PO DECREASED GLUCOSE; Start 10/30/18 at 01:30 Dextrose (D50w Syringe) 25 ml Q15M PRN IV DECREASED GLUCOSE; Start 10/30/18 at 01:30 Dextrose (D50w Syringe) 50 ml Q15M PRN IV DECREASED GLUCOSE; Start 10/30/18 at 01:30 Glucagon (Glucagen) 1 mg Q15M PRN IM DECREASED GLUCOSE; Start 10/30/18 at 01:30 Glucose (Glutose) 15 gm Q15M PRN BUCCAL DECREASED GLUCOSE Last administered on 11/02/18 08:03; Admin Dose 15 GM; Start 10/30/18 at 01:30 Diclofenac Sodium (Voltaren 1% Gel) 2 gm QID PRN TP PAIN Last administered on 11/02/18 13:58; Admin Dose 2 GM; Start 10/30/18 at 09:00 Heparin Sodium (Porcine) (Heparin (5000 Units/1ml)) 5,000 unit BID SC Last administered on 11/08/18 09:02; Admin Dose 5,000 UNIT; Start 10/30/18 at 21:00 Hydromorphone HCl (Dilaudid) 1 mg Q3H PRN IM SEVERE PAIN LEVEL 7-10 Last administered on 11/07/18 07:42; Admin Dose 1 MG; Start 10/31/18 at 19:00 Diclofenac Sodium (Voltaren 1% Gel) 4 gm QID TP Last administered on 11/08/18 11:46; Admin Dose 4 GM; Start 8/1/19 at 21:00 Insulin Glargine (Lantus) 3 units DAILY@2000 SC Last administered on 11/07/18at 20:41; Admin Dose 3 UNITS; Start 11/06/18 at 00:00 Assessment/Plan Additional Assessment/Plan Rehab- Left intertrochanteric hip fracture status post ORIF, lumbar djd Continues to make great progress. DC planning in progress Acute pain syndrome- continue current meds End-stage renal disease requiring hemodialysis-per renal Integ- Left heel deep tissue injury- improving Hypertension. Anemia. Diabetes mellitus type 2. Diabetic neuropathy. Diabetic retinopathy. Hypothyroidism. Hyperparathyroidism. Benign prostatic hypertrophy. Hyperlipidemia. History of ischemic bowel syndrome. History of left ankle ORIF. Peripheral vascular disease. NLYA HADLEY MD Nov 08, 2018 13:22
--- NOTE | 2018-11-08 18:28 | PN ---
Date/Time of Note Date/Time of Note DATE: 11/08/18 TIME: 18:25 Assessment/Plan VTE Prophylaxis Risk score (from Nsg)>0 risk: 17 SCD applied (from Ns): No SCD contraindicated: low risk/ambulating Pharmacological prophylaxis: heparin Lines/Catheters IV Catheter Type (from Nrs): [facility] Urinary Cath still in place: No Assessment/Plan Problems: (1) Diabetes mellitus type 2 with complications Status: Chronic Comment: Glucose control excellent. Cont. current doses of insulin. (2) ESRD (end stage renal disease) on dialysis Status: Chronic Comment: Cont. HD per renal (3) Essential (primary) hypertension Status: Chronic Comment: Defer BP control to nephrology to see if needs to be on additional meds w/o risk of hypotension during HD (4) Hypothyroidism Status: Chronic Comment: Cont. LT4 (5) Type 2 diabetes mellitus with diabetic peripheral angiopathy without gangrene Status: Chronic Comment: Stable PVD. (6) Anemia associated with chronic renal failure Status: Chronic Comment: Stable (7) Debility Status: Chronic Comment: Cont. PT in ARU daily (8) Closed fracture of left hip requiring operative repair Onset Date: ~ 10/24/2018 Status: Resolved Comment: Improving. Near baseline. Cont. PT in ARU. Plan d/c home in 2 days. Result Diagram: 11/04/18 0743 11/04/18 0743 Results 24hrs Laboratory Tests Test 11/07/18 20:25 11/08/18 07:55 11/08/18 11:41 11/08/18 17:25 Bedside Glucose 129 113 85 115 Subjective 24 Hr Interval Summary Constitutional: no complaints, improved Respiratory: no complaints Cardiovascular: no complaints Gastrointestinal: no complaints Genitourinary: no complaints Musculoskeletal: no complaints; No bone/joint pain (ambulating today w/o pain) Neurologic: no complaints Exam/Review of Systems Exam Vitals VS - Last 72 Hours, by Label Date Temp Pulse Resp B/P (MAP) Pulse Ox O2 O2 Flow FiO2 Time Delivery Rate 11/08/18 97.9 70 20 142/58 98 Room Air 08:00 (86) 11/08/18 97.6 68 18 142/66 97 Room Air 02:27 (91) 11/07/18 98.1 66 18 140/65 99 Room Air 20:11 (90) 11/07/18 97.5 70 18 132/56 100 Room Air 14:00 (81) 11/07/18 97.5 70 18 151/72 100 Room Air 07:30 (98) 11/07/18 97.7 59 18 147/58 99 Room Air 02:23 (87) 11/06/18 70 148/77 20:35 (100) 11/06/18 97.8 66 18 134/59 96 Room Air 20:29 (84) 11/06/18 60 19:25 11/06/18 61 19:10 11/06/18 61 18:55 11/06/18 62 18:40 11/06/18 61 18:25 11/06/18 63 18:10 11/06/18 63 17:55 11/06/18 67 17:40 11/06/18 65 17:25 11/06/18 61 17:10 11/06/18 63 16:55 11/06/18 67 16:40 11/06/18 65 16:25 11/06/18 61 18 128/59 96 Room Air 16:25 (82) 11/06/18 97.9 68 18 168/75 97 Room Air 14:00 (106) 11/06/18 80 150/60 09:00 (90) 11/06/18 189/74 08:17 (112) 11/06/18 97.6 70 18 189/74 100 Room Air 07:00 (112) 11/06/18 65 148/64 06:37 (92) 11/06/18 97.9 18 162/69 99 Room Air 02:00 (100) 11/05/18 98.2 18 150/67 98 Room Air 20:00 (94) Vital Signs Date Temp Pulse Resp B/P (MAP) Pulse Ox O2 O2 Flow FiO2 Time Delivery Rate 11/08/18 97.9 70 20 142/58 98 Room Air 08:00 (86) Intake and Output 11/07/18 11/07/18 11/08/18 1515:00 23:00 07:00 IntakeIntake Total 520 ml 200 ml BalanceBalance 520 ml 200 ml Constitutional: alert, oriented, well developed Psych: no complaints, nl mood/affect Respiratory: clear to auscultation, normal air movement Cardiovascular: regular rate and rhythm; No nl pulses, No edema, No murmurs/extra sounds, No rub Gastrointestinal: soft, nl liver, spleen, non-tender, bowel sounds; No mass, No rebound or guarding Musculoskeletal: nl extremities to inspection Extremities: normal pulses; No cyanosis, No clubbing, No edema 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: HTML DEVELOPER II-XII intact, nl mental status, nl speech, nl strength Additional Comments Bedside Glucose - 72 Hours Test 11/05/18 20:22 11/05/18 23:58 11/06/18 08:17 11/06/18 11:40 Bedside 129 121 111 81 Glucose mg/dL (70-220) mg/dL (70-220) mg/dL (70-220) mg/dL (70-220) Test 11/06/18 17:39 11/06/18 20:18 11/07/18 07:39 11/07/18 11:50 Bedside 115 113 123 145 Glucose mg/dL (70-220) mg/dL (70-220) mg/dL (70-220) mg/dL (70-220) Test 11/07/18 17:05 11/07/18 20:25 11/08/18 07:55 11/08/18 11:41 Bedside 91 129 113 85 Glucose mg/dL (70-220) mg/dL (70-220) mg/dL (70-220) mg/dL (70-220) Test 11/08/18 17:25 Bedside 115 Glucose mg/dL (70-220) Results Results 24hrs Laboratory Tests Test 11/07/18 20:25 11/08/18 07:55 11/08/18 11:41 11/08/18 17:25 Bedside Glucose 129 113 85 115 Medications Medication Current Medications Docusate Sodium (Colace) 100 mg BID PO Last administered on 11/08/18at 09:00; Admin Dose 100 MG; Start 10/30/18 at 09:00 Senna (Senokot) 1 tab HS PO Last administered on 11/07/18at 20:18; Admin Dose 1 TAB; Start 10/30/18 at 21:00 Lactulose (Enulose) 20 gm DAILY PRN PO CONSTIPATION Last administered on 11/05/18at 12:08; Admin Dose 20 GM; Start 10/30/18 at 00:00 Bisacodyl (Dulcolax Supp) 10 mg DAILY PRN [place] CONSTIPATION; Start 10/30/18 at 00:00 Acetaminophen (Tylenol Tab) 650 mg Q4H PRN PO PAIN; Start 10/30/18 at 00:00 [facility]isc[facility] This patient almanzar... PRN PRN XX WOUND CARE; Start 10/30/18 at 00:00 Benazepril HCl (Lotensin) 40 mg BID PO Last administered on 11/08/18 09:00; Adm in Dose 40 MG; Start 10/30/18 at 09:00 Cholecalciferol (Vitamin D) 2,000 unit DAILY PO Last administered on 11/08/18 09:00; Admin Dose 2,000 UNIT; Start 10/30/18 at 09:00 Aspirin (Halfprin) 81 mg DAILY PO Last administered on 11/08/18 09:00; Admin Dose 81 MG; Start 10/30/18 at 09:00 Famotidine (Pepcid) 20 mg DAILY PO Last administered on 11/08/18 09:00; Admin Dose 20 MG; Start 10/30/18 at 09:00 Insulin Aspart (Novolog Insulin Pen) 5 unit WITH BREAKFAST SC Last administered on 11/08/18 08:02; Admin Dose 5 UNIT; Start 10/30/18 at 07:35 Insulin Aspart (Novolog Insulin Pen) 5 unit WITH LUNCH SC Last administered on 11/08/18 11:45; Admin Dose 5 UNIT; Start 10/30/18 at 12:00 Insulin Aspart (Novolog Insulin Pen) 5 unit WITH DINNER SC Last administered on 11/06/18 17:48; Admin Dose 5 UNIT; Start 10/30/18 at 17:35 Diagnostic Test (Pha) (Accu-Chek) 1 ea 02 XX Last administered on 11/06/18 02:13; Admin Dose 1 EA; Start 10/30/18 at 02:00 Levothyroxine Sodium (Synthroid) 100 mcg DAILY@06 PO Last administered on 11/08/18 05:53; Admin Dose 100 MCG; Start 10/30/18 at 06:00 Linagliptin (Tradjenta) 5 mg DAILY PO Last administered on 11/08/18 08:02; Admin Dose 5 MG; Start 10/30/18 at 09:00 Diagnostic Test (Pha) (Accu-Chek) 1 ea AC MEALS AND BEDTIME XX Last administered on 11/08/18 17:29; Admin Dose 1 EA; Start 10/30/18 at 07:05 Multivit/Ca Carb/ B Cmplx/FA/Prenat (Manasa-Haris) 1 tab DAILY PO Last administered on 11/08/18 09:00; Admin Dose 1 TAB; Start 10/30/18 at 09:00 Ondansetron HCl (Zofran Inj) 4 mg Q6H PRN IV NAUSEA AND/OR VOMITING; Start 10/30/18 at 01:00 Oxycodone HCl (Roxicodone) 5 mg Q4H PRN PO MILD PAIN LEVEL 1-3 Last administered on 10/30/18at 14:32; Admin Dose 5 MG; Start 10/30/18 at 01:00 Oxycodone HCl (Roxicodone) 10 mg Q4H PRN PO MODERATE PAIN LEVEL 4-6 Last a dministered on 11/03/18at 08:59; Admin Dose 10 MG; Start 10/30/18 at 01:00 Sevelamer Carbonate (Renvela) 1,600 mg WITH MEALS PO Last administered on 11/08/18 17:29; Admin Dose 1,600 MG; Start 10/30/18 at 07:35 Miscellaneous Information 1 ea NOTE XX ; Start 10/30/18 at 01:30 Glucose (Glutose) 15 gm Q15M PRN PO DECREASED GLUCOSE; Start 10/30/18 at 01:30 Glucose (Glutose) 22.5 gm Q15M PRN PO DECREASED GLUCOSE; Start 10/30/18 at 01:30 Dextrose (D50w Syringe) 25 ml Q15M PRN IV DECREASED GLUCOSE; Start 10/30/18 at 01:30 Dextrose (D50w Syringe) 50 ml Q15M PRN IV DECREASED GLUCOSE; Start 10/30/18 at 01:30 Glucagon (Glucagen) 1 mg Q15M PRN IM DECREASED GLUCOSE; Start 10/30/18 at 01:30 Glucose (Glutose) 15 gm Q15M PRN BUCCAL DECREASED GLUCOSE Last administered on 11/02/18at 08:03; Admin Dose 15 GM; Start 10/30/18 at 01:30 Diclofenac Sodium (Voltaren 1% Gel) 2 gm QID PRN TP PAIN Last administered on 11/02/18 13:58; Admin Dose 2 GM; Start 10/30/18 at 09:00 Heparin Sodium (Porcine) (Heparin (5000 Units/1ml)) 5,000 unit BID SC Last administered on 11/08/18 09:02; Admin Dose 5,000 UNIT; Start 10/30/18 at 21:00 Hydromorphone HCl (Dilaudid) 1 mg Q3H PRN IM SEVERE PAIN LEVEL 7-10 Last admini stered on 11/07/18 07:42; Admin Dose 1 MG; Start 10/31/18 at 19:00 Diclofenac Sodium (Voltaren 1% Gel) 4 gm QID TP Last administered on 11/08/18 11:46; Admin Dose 4 GM; Start 11/02/18 at 21:00 Insulin Glargine (Lantus) 3 units DAILY@2000 SC Last administered on 11/07/18 20:41; Admin Dose 3 UNITS; Start 11/06/18 at 00:00 FELIX DREW MD Nov 08, 2018 18:28
[2018-11-08] MEDS: SENNA TAB PO SCH (20:10)
[2018-11-08] MEDS: INSULIN GLARGINE [LANTus] (100 UNITS/ML) SYG SC SCH (20:11)
--- NOTE | 2018-11-08 21:10 | PN ---
DATE: 11/08/2018 PSYCHOLOGY - INDIVIDUAL SESSION - [id number] This is a followup on a patient that was seen last week. The patient was seen up in his wheelchair. The patient does say that he is improving and getting better. He does not feel as strong as he woul d like to. The patient's mood is overall becoming better as he improves in his physical condition. The patient reports that he is likely to be discharged on Tuesday and is feeling positive about this . I worked with the patient to try to continue to encourage him to work on his underlying level of f rustration about his medical problems. Dictated By: JAD MCWILLIAMS PHD RK/AILYN Conf#: [id number] DID#: [id number] CC: NYLA HADLEY MD; LUISANA RICHARDS MD;*End*
[2018-11-09 02:00] VITALS: BP 119/51; PULSE 60; RESP 17
[2018-11-09] MEDS: LEVOTHYROXINE 100 MCG TAB PO SCH (06:38)
[2018-11-09] MEDS: ACCU-CHEK XX SCH ×4 (07:05→20:51)
[2018-11-09] MEDS: INSULIN ASPART [NOVOLOG] 3 ML PEN SC SCH ×3 (07:47→17:04)
[2018-11-09] MEDS: LINAGLIPTIN 5 MG TABLET PO SCH (07:59)
[2018-11-09 08:00] VITALS: BP 141/75; PULSE 66; RESP 18
[2018-11-09] MEDS: FAMOTIDINE 20 MG TAB PO SCH (08:56)
[2018-11-09] MEDS: DOCUSATE SODIUM 100 MG CAP PO SCH ×2 (08:56→20:43)
[2018-11-09] MEDS: CHOLECALCIFEROL 2,000 UNIT CAP PO SCH (08:56)
[2018-11-09] MEDS: MULTIVIT/CA CARB/B CMPLX/FA TAB PO SCH (08:56)
[2018-11-09] MEDS: BALSAM PERU/CASTOR OIL 60 GM TUBE TOP SCH ×2 (08:56→20:50)
[2018-11-09] MEDS: SEVELAMER CARBONATE 800 MG TABLET PO SCH ×3 (08:56→16:59)
[2018-11-09] MEDS: BENAZEPRIL 40 MG TAB PO SCH ×2 (08:56→20:43)
[2018-11-09] MEDS: ASPIRIN (EC) 81 MG TAB PO SCH (08:56)
[2018-11-09] MEDS: HEPARIN 5,000 UNIT/1 ML VIAL SC SCH ×2 (08:58→20:39)
[2018-11-09] MEDS: DICLOFENAC SODIUM 1% GEL 100 GM TUBE TP SCH ×4 (08:59→20:50)
--- NOTE | 2018-11-09 09:11 | PN ---
Date/Time of Note Date/Time of Note DATE: 11/09/18 TIME: 09:10 Objective Vital Signs Date Temp Pulse Resp B/P (MAP) Pulse Ox O2 O2 Flow FiO2 Time Delivery Rate 11/09/18 97.8 66 18 141/75 97 Room Air 08:00 (97) Intake and Output 11/08/18 11/08/18 11/09/18 1515:00 23:00 07:00 IntakeIntake Total 100 ml 30 ml 20 ml OutputOutput Total 3600 ml BalanceBalance 100 ml -3570 ml 20 ml Exam INTERDISCIPLINARY TEAM CONFERENCE Attended by PT, OT, ST, Social Work, Rehabilitation Nursing, Turbine Engine Assembler and Policy SpecialistSpecial Warfare Operator Exam: Pulm- cta Abd- soft BOWEL- Cont BLADDER-Cont SKIN- heel improving, incision c/d/i OT- DRESSING- s/NY BATHING-sba TOILETING-sba PT- BED MOBILITY- [place] TRANSFERS-NY AMBULATION-NY 150 feet A/P- Interdisciplinary team conference held today. Please see interdisciplinary sheet. Working toward d.cMariana on 11/10 with post discharge follow up of physical t herapy, occupational therapy. Results/Medications Results 24 hrs Laboratory Tests Test 11/08/18 11:41 11/08/18 17:25 11/08/18 20:10 11/09/18 07:35 Bedside Glucose 85 115 100 96 Medications Current Medications Docusate Sodium (Colace) 100 mg BID PO Last administered on 11/09/18at 08:56; Admin Dose 100 MG; Start 10/30/18 at 09:00 Senna (Senokot) 1 tab HS PO Last administered on 11/08/18at 20:10; Admin Dose 1 TAB; Start 10/30/18 at 21:00 Lactulose (Enulose) 20 gm DAILY PRN PO CONSTIPATION Last administered on 11/05/18at 12:08; Admin Dose 20 GM; Start 10/30/18 at 00:00 Bisacodyl (Dulcolax Supp) 10 mg DAILY PRN [place] CONSTIPATION; Start 10/30/18 at 00:00 Acetaminophen (Tylenol Tab) 650 mg Q4H PRN PO PAIN; Start 10/30/18 at 00:00 [facility]isc[facility] This patient almanzar... PRN PRN XX WOUND CARE; Start 10/30/18 at 00:00 Benazepril HCl (Lotensin) 40 mg BID PO Last administered on 11/09/18 08:56; Admin Dose 40 MG; Start 10/30/18 at 09:00 Cholecalciferol (Vitamin D) 2,000 unit DAILY PO Last administered on 11/09/18 08:56; Admin Dose 2,000 UNIT; Start 10/30/18 at 09:00 Aspirin (Halfprin) 81 mg DAILY PO Last administered on 11/09/18 08:56; Admin Dose 81 MG; Start 10/30/18 at 09:00 Famotidine (Pepcid) 20 mg DAILY PO Last administered on 11/09/18 08:56; Admin Dose 20 MG; Start 10/30/18 at 09:00 Insulin Aspart (Novolog Insulin Pen) 5 unit WITH BREAKFAST SC Last administered on 11/09/18 07:47; Admin Dose 5 UNIT; Start 10/30/18 at 07:35 Insulin Aspart (Novolog Insulin Pen) 5 unit WITH LUNCH SC Last administered on 11/08/18 11:45; Admin Dose 5 UNIT; Start 10/30/18 at 12:00 Insulin Aspart (Novolog Insulin Pen) 5 unit WITH DINNER SC Last administered on 11/06/18 17:48; Admin Dose 5 UNIT; Start 10/30/18 at 17:35 Diagnostic Test (Pha) (Accu-Chek) 1 ea 02 XX Last administered on 11/08/18 20:13; Admin Dose 1 EA; Start 10/30/18 at 02:00 Levothyroxine Sodium (Synthroid) 100 mcg DAILY@06 PO Last administered on 11/09/18 06:38; Admin Dose 100 MCG; Start 10/30/18 at 06:00 Linagliptin (Tradjenta) 5 mg DAILY PO Last administered on 11/09/18 07:59; Admin Dose 5 MG; Start 10/30/18 at 09:00 Diagnostic Test (Pha) (Accu-Chek) 1 ea AC MEALS AND BEDTIME XX Last administered on 11/08/18 20:12; Admin Dose 1 EA; Start 10/30/18 at 07:05 Multivit/Ca Carb/ B Cmplx/FA/Prenat (Manasa-Haris) 1 tab DAILY PO Last administered on 11/09/18 08:56; Admin Dose 1 TAB; Start 10/30/18 at 09:00 Ondansetron HCl (Zofran Inj) 4 mg Q6H PRN IV NAUSEA AND/OR VOMITING; Start 10/30/18 at 01:00 Oxycodone HCl (Roxicodone) 5 mg Q4H PRN PO MILD PAIN LEVEL 1-3 Last administered on 10/30/18 14:32; Admin Dose 5 MG; Start 10/30/18 at 01:00 Oxycodone HCl (Roxicodone) 10 mg Q4H PRN PO MODERATE PAIN LEVEL 4-6 Last administered on 11/03/18 08:59; Admin Dose 10 MG; Start 10/30/18 at 01:00 Sevelamer Carbonate (Renvela) 1,600 mg WITH MEALS PO Last administered on 11/09/18 08:56; Admin Dose 1,600 MG; Start 10/30/18 at 07:35 Miscellaneous Information 1 ea NOTE XX ; Start 10/30/18 at 01:30 Glucose (Glutose) 15 gm Q15M PRN PO DECREASED GLUCOSE; Start 10/30/18 at 01:30 Glucose (Glutose) 22.5 gm Q15M PRN PO DECREASED GLUCOSE; Start 10/30/18 at 01:30 Dextrose (D50w Syringe) 25 ml Q15M PRN IV DECREASED GLUCOSE; Start 10/30/18 at 01:30 Dextrose (D50w Syringe) 50 ml Q15M PRN IV DECREASED GLUCOSE; Start 10/30/18 at 01:30 Glucagon (Glucagen) 1 mg Q15M PRN IM DECREASED GLUCOSE; Start 10/30/18 at 01:30 Glucose (Glutose) 15 gm Q15M PRN BUCCAL DECREASED GLUCOSE Last administered on 11/02/18 08:03; Admin Dose 15 GM; Start 10/30/18 at 01:30 Diclofenac Sodium (Voltaren 1% Gel) 2 gm QID PRN TP PAIN Last administered on 11/02/18 13:58; Admin Dose 2 GM; Start 10/30/18 at 09:00 Heparin Sodium (Porcine) (Heparin (5000 Units/1ml)) 5,000 unit BID SC Last administered on 11/09/18 08:58; Admin Dose 5,000 UNIT; Start 10/30/18 at 21:00 Hydromorphone HCl (Dilaudid) 1 mg Q3H PRN IM SEVERE PAIN LEVEL 7-10 Last administered on 11/07/18 07:42; Admin Dose 1 MG; Start 10/31/18 at 19:00 Diclofenac Sodium (Voltaren 1% Gel) 4 gm QID TP Last administered on 11/09/18 08:59; Admin Dose 4 GM; Start 11/02/18 at 21:00 Insulin Glargine (Lantus) 3 units DAILY@2000 SC Last administered on 11/08/18at 20:11; Admin Dose 3 UNITS; Start 11/06/18 at 00:00 NYLA HADLEY MD Nov 09, 2018 09:11
--- NOTE | 2018-11-09 11:46 | CONS ---
Assessment/Plan Assessment/Plan Assessment/Plan (Daily) 1. ESRD on HD MWF AVF for HD Access 2.Left femur fracture s/p ORIF of left hip intertrochanteric fracture on 10/24/18 4. H/o HTN 5. H/o HL 6. H/o Hypothyroidism Plan: pt regular schedule for HD is MWF - AVF for HD access - ,s/p HD yesterday 3L removed,- HD ordered for tuesday Rehab care as per unit will follow up Consultation Date/Type/Reason Admit Date/Time Oct 29, 2018 at 23:08 Initial Consult Date Type of Consult NEPHROLOGY Requesting Provider: NYLA HADLEY MD Date/Time of Note DATE: 11/09/18 TIME: 11:45 Exam/Review of Systems Exam Vitals Vital Signs Date Temp Pulse Resp B/P (MAP) Pulse Ox O2 O2 Flow FiO2 Time Delivery Rate 11/09/18 97.8 66 18 141/75 97 Room Air 08:00 (97) Intake and Output 11/08/18 11/08/18 11/09/18 1515:00 23:00 07:00 IntakeIntake Total 100 ml 30 ml 20 ml OutputOutput Total 3600 ml BalanceBalance 100 ml -3570 ml 20 ml Exam Constitutional: alert Respiratory: diminished breath sounds Cardiovascular: regular rate and rhythm, nl pulses Gastrointestinal: soft, non-tender Musculoskeletal: nl extremities to inspection Extremities: normal pulses, other (AVF for HD access ) 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: Non focal Results Results 24hrs Laboratory Tests Test 11/08/18 17:25 11/08/18 20:10 11/09/18 07:35 Bedside Glucose 115 100 96 Medications Medication Current Medications Docusate Sodium (Colace) 100 mg BID PO Last administered on 11/09/18at 08:56; Admin Dose 100 MG; Start 10/30/18 at 09:00 Senna (Senokot) 1 tab HS PO Last administered on 11/08/18at 20:10; Admin Dose 1 TAB; Start 10/30/18 at 21:00 Lactulose (Enulose) 20 gm DAILY PRN PO CONSTIPATION Last administered on 11/05/18at 12:08; Admin Dose 20 GM; Start 10/30/18 at 00:00 Bisacodyl (Dulcolax Supp) 10 mg DAILY PRN [place] CONSTIPATION; Start 10/30/18 at 00:00 Acetaminophen (Tylenol Tab) 650 mg Q4H PRN PO PAIN; Start 10/30/18 at 00:00 Miscellaneous Information (Pending [facility] Order For Wound Care) This patient almanzar... PRN PRN XX WOUND CARE; Start 10/30/18 at 00:00 Benazepril HCl (Lotensin) 40 mg BID PO Last administered on 11/09/18 08:56; Admin Dose 40 MG; Start 10/30/18 at 09:00 Cholecalciferol (Vitamin D) 2,000 unit DAILY PO Last administered on 11/09/18 08:56; Admin Dose 2,000 UNIT; Start 10/30/18 at 09:00 Aspirin (Halfprin) 81 mg DAILY PO Last administered on 11/09/18 08:56; Admin Dose 81 MG; Start 10/30/18 at 09:00 Famotidine (Pepcid) 20 mg DAILY PO Last administered on 11/09/18 08:56; Admin Dose 20 MG; Start 10/30/18 at 09:00 Insulin Aspart (Novolog Insulin Pen) 5 unit WITH BREAKFAST SC Last administered on 11/09/18 07:47; Admin Dose 5 UNIT; Start 10/30/18 at 07:35 Insulin Aspart (Novolog Insulin Pen) 5 unit WITH LUNCH SC Last administered on 11/08/18 11:45; Admin Dose 5 UNIT; Start 10/30/18 at 12:00 Insulin Aspart (Novolog Insulin Pen) 5 unit WITH DINNER SC Last administered on 11/06/18 17:48; Admin Dose 5 UNIT; Start 10/30/18 at 17:35 Diagnostic Test (Pha) (Accu-Chek) 1 ea 02 XX Last administered on 11/08/18 20:13; Admin Dose 1 EA; Start 10/30/18 at 02:00 Levothyroxine Sodium (Synthroid) 100 mcg DAILY@06 PO Last administered on 11/09/18 06:38; Admin Dose 100 MCG; Start 10/30/18 at 06:00 Linagliptin (Tradjenta) 5 mg DAILY PO Last administered on 11/09/18 07:59; Admin Dose 5 MG; Start 10/30/18 at 09:00 Diagnostic Test (Pha) (Accu-Chek) 1 ea AC MEALS AND BEDTIME XX Last administered on 11/08/18 20:12; Admin Dose 1 EA; Start 10/30/18 at 07:05 Multivit/Ca Carb/ B Cmplx/FA/Prenat (Manasa-Haris) 1 tab DAILY PO Last administered on 11/09/18 08:56; Admin Dose 1 TAB; Start 10/30/18 at 09:00 Ondansetron HCl (Zofran Inj) 4 mg Q6H PRN IV NAUSEA AND/OR VOMITING; Start 10/30/18 at 01:00 Oxycodone HCl (Roxicodone) 5 mg Q4H PRN PO MILD PAIN LEVEL 1-3 Last administered on 10/30/18 14:32; Admin Dose 5 MG; Start 10/30/18 at 01:00 Oxycodone HCl (Roxicodone) 10 mg Q4H PRN PO MODERATE PAIN LEVEL 4-6 Last administered on 11/03/18 08:59; Admin Dose 10 MG; Start 10/30/18 at 01:00 Sevelamer Carbonate (Renvela) 1,600 mg WITH MEALS PO Last administered on 11/09/18 08:56; Admin Dose 1,600 MG; Start 10/30/18 at 07:35 Miscellaneous Information 1 ea NOTE XX ; Start 10/30/18 at 01:30 Glucose (Glutose) 15 gm Q15M PRN PO DECREASED GLUCOSE; Start 10/30/18 at 01:30 Glucose (Glutose) 22.5 gm Q15M PRN PO DECREASED GLUCOSE; Start 10/30/18 at 01:30 Dextrose (D50w Syringe) 25 ml Q15M PRN IV DECREASED GLUCOSE; Start 10/30/18 at 01:30 Dextrose (D50w Syringe) 50 ml Q15M PRN IV DECREASED GLUCOSE; Start 10/30/18 at 01:30 Glucagon (Glucagen) 1 mg Q15M PRN IM DECREASED GLUCOSE; Start 10/30/18 at 01:30 Glucose (Glutose) 15 gm Q15M PRN BUCCAL DECREASED GLUCOSE Last administered on 11/02/18 08:03; Admin Dose 15 GM; Start 10/30/18 at 01:30 Diclofenac Sodium (Voltaren 1% Gel) 2 gm QID PRN TP PAIN Last administered on 11/02/18 13:58; Admin Dose 2 GM; Start 10/30/18 at 09:00 Heparin Sodium (Porcine) (Heparin (5000 Units/1ml)) 5,000 unit BID SC Last administered on 11/09/18 08:58; Admin Dose 5,000 UNIT; Start 10/30/18 at 21:00 Hydromorphone HCl (Dilaudid) 1 mg Q3H PRN IM SEVERE PAIN LEVEL 7-10 Last administered on 11/07/18 07:42; Admin Dose 1 MG; Start 10/31/18 at 19:00 Diclofenac Sodium (Voltaren 1% Gel) 4 gm QID TP Last administered on 11/09/18 08:59; Admin Dose 4 GM; Start 11/02/18 at 21:00 Insulin Glargine (Lantus) 3 units DAILY@2000 SC Last administered on 11/08/18 20:11; Admin Dose 3 UNITS; Start 11/06/18 at 00:00 ANITA FLETCHER MD Nov 09, 2018 11:46
[2018-11-09] MEDS: LACTULOSE 30ML CUP PO PRN (12:06)
--- NOTE | 2018-11-09 18:09 | PN ---
Date/Time of Note Date/Time of Note DATE: 11/09/18 TIME: 18:04 Assessment/Plan VTE Prophylaxis Risk score (from Nsg)>0 risk: 9 SCD applied (from Ns): No SCD contraindicated: low risk/ambulating Pharmacological prophylaxis: heparin Lines/Catheters IV Catheter Type (from Nrs): [facility] Urinary Cath still in place: No Assessment/Plan Problems: (1) Type 2 diabetes mellitus with other specified complication Status: Chronic Comment: Excellent glycemic control. Cont. current doses of insulin now and after expected d/c tomorrow. (2) ESRD (end stage renal disease) on dialysis Status: Chronic Comment: Cont. HD per renal. Pt. to have one more HD session tomorrow before d/c (3) Essential (primary) hypertension Status: Chronic Comment: Fair BP control. Non-aggressive treatment. Defer to nephrology if they want to intensify his therapy. (4) Hypothyroidism Status: Chronic Comment: Cont. LT4 daily (5) Type 2 diabetes mellitus with diabetic peripheral angiopathy without gangrene Status: Chronic Comment: Vascular disease stable (6) Anemia associated with chronic renal failure Status: Chronic Comment: Stable. (7) Debility Status: Chronic Comment: Finishing stint in ARU. Ready for d/c home (8) Closed fracture of left hip requiring operative repair Onset Date: ~ 10/24/2018 Status: Resolved Comment: Doing well. Finishing rehab. Ok for d/c home from our perspective. Results 24hrs Laboratory Tests Test 11/08/18 20:10 11/09/18 07:35 11/09/18 11:46 11/09/18 16:54 Bedside Glucose 100 96 111 83 Subjective 24 Hr Interval Summary Constitutional: no complaints, improved Respiratory: no complaints Cardiovascular: no complaints Gastrointestinal: no complaints Genitourinary: no complaints Musculoskeletal: bone/joint pain (L hip hurts during ambulation) Neurologic: no complaints Exam/Review of Systems Exam Vitals VS - Last 72 Hours, by Label Date Temp Pulse Resp B/P (MAP) Pulse Ox O2 O2 Flow FiO2 Time Delivery Rate 11/09/18 97.8 66 18 141/75 97 Room Air 08:00 (97) 11/09/18 98.0 60 17 119/51 95 Room Air 02:00 (73) 11/08/18 62 21:10 11/08/18 63 20:55 11/08/18 65 20:40 11/08/18 64 20:25 11/08/18 63 20:10 11/08/18 97.9 63 18 125/48 97 Room Air 20:00 (73) 11/08/18 64 19:55 11/08/18 64 19:40 11/08/18 66 19:25 11/08/18 65 19:10 11/08/18 66 18:55 11/08/18 71 16 122/53 98 Room Air 18:45 (76) 11/08/18 66 18:40 11/08/18 67 18:25 11/08/18 70 18:10 11/08/18 98.0 65 19 129/63 99 Room Air 14:00 (85) 11/08/18 97.9 70 20 142/58 98 Room Air 08:00 (86) 11/08/18 97.6 68 18 142/66 97 Room Air 02:27 (91) 11/07/18 98.1 66 18 140/65 99 Room Air 20:11 (90) 11/07/18 97.5 70 18 132/56 100 Room Air 14:00 (81) 11/07/18 97.5 70 18 151/72 100 Room Air 07:30 (98) 11/07/18 97.7 59 18 147/58 99 Room Air 02:23 (87) 11/06/18 70 148/77 20:35 (100) 11/06/18 97.8 66 18 134/59 96 Room Air 20:29 (84) 11/06/18 60 19:25 11/06/18 61 19:10 11/06/18 61 18:55 11/06/18 62 18:40 11/06/18 61 18:25 11/06/18 63 18:10 Vital Signs Date Temp Pulse Resp B/P (MAP) Pulse Ox O2 O2 Flow FiO2 Time Delivery Rate 11/09/18 97.8 66 18 141/75 97 Room Air 08:00 (97) Intake and Output 11/08/18 11/08/18 11/09/18 1515:00 23:00 07:00 IntakeIntake Total 100 ml 30 ml 20 ml OutputOutput Total 3600 ml BalanceBalance 100 ml -3570 ml 20 ml Constitutional: alert, oriented, well developed Respiratory: clear to auscultation, normal air movement Cardiovascular: regular rate and rhythm; No edema, No murmurs/extra sounds, No rub Gastrointestinal: soft, nl liver, spleen, non-tender, bowel sounds; No mass, No rebound or guarding Musculoskeletal: No nl extremities to inspection (R great toe amp) Extremities: No cyanosis, No clubbing, No edema 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: [employer] II-XII intact, nl mental status, nl speech, nl strength Additional Comments Bedside Glucose - 72 Hours Test 11/06/18 20:18 11/07/18 07:39 11/07/18 11:50 11/07/18 17:05 Bedside 113 123 145 91 Glucose mg/dL (70-220) mg/dL (70-220) mg/dL (70-220) mg/dL (70-220) Test 11/07/18 20:25 11/08/18 07:55 11/08/18 11:41 11/08/18 17:25 Bedside 129 113 85 115 Glucose mg/dL (70-220) mg/dL (70-220) mg/dL (70-220) mg/dL (70-220) Test 11/08/18 20:10 11/09/18 07:35 11/09/18 11:46 11/09/18 16:54 Bedside 100 96 111 83 Glucose mg/dL (70-220) mg/dL (70-220) mg/dL (70-220) mg/dL (70-220) Results Results 24hrs Laboratory Tests Test 11/08/18 20:10 11/09/18 07:35 11/09/18 11:46 11/09/18 16:54 Bedside Glucose 100 96 111 83 Medications Medication Current Medications Docusate Sodium (Colace) 100 mg BID PO Last administered on 11/09/18at 08:56; Admin Dose 100 MG; Start 10/30/18 at 09:00 Senna (Senokot) 1 tab HS PO Last administered on 11/08/18at 20:10; Admin Dose 1 TAB; Start 10/30/18 at 21:00 Lactulose (Enulose) 20 gm DAILY PRN PO CONSTIPATION Last administered on 11/09/18at 12:06; Admin Dose 20 GM; Start 10/30/18 at 00:00 Bisacodyl (Dulcolax Supp) 10 mg DAILY PRN [place] CONSTIPATION; Start 10/30/18 at 00:00 Acetaminophen (Tylenol Tab) 650 mg Q4H PRN PO PAIN; Start 10/30/18 at 00:00 Miscellaneous Information (Pending Santyl Order For Wound Care) This patient almanzar... PRN PRN XX WOUND CARE; Start 10/30/18 at 00:00 Benazepril HCl (Lotensin) 40 mg BID PO Last administered on 11/09/18 08:56; Admin Dose 40 MG; Start 10/30/18 at 09:00 Cholecalciferol (Vitamin D) 2,000 unit DAILY PO Last administered on 11/09/18 08:56; Admin Dose 2,000 UNIT; Start 10/30/18 at 09:00 Aspirin (Halfprin) 81 mg DAILY PO Last administered on 11/09/18 08:56; Admin Dose 81 MG; Start 10/30/18 at 09:00 Famotidine (Pepcid) 20 mg DAILY PO Last administered on 11/09/18 08:56; Admin Dose 20 MG; Start 10/30/18 at 09:00 Insulin Aspart (Novolog Insulin Pen) 5 unit WITH BREAKFAST SC Last administered on 11/09/18 07:47; Admin Dose 5 UNIT; Start 10/30/18 at 07:35 Insulin Aspart (Novolog Insulin Pen) 5 unit WITH LUNCH SC Last administered on 11/09/18 12:03; Admin Dose 5 UNIT; Start 10/30/18 at 12:00 Insulin Aspart (Novolog Insulin Pen) 5 unit WITH DINNER SC Last administered on 11/09/18 17:04; Admin Dose 5 UNIT; Start 10/30/18 at 17:35 Diagnostic Test (Pha) (Accu-Chek) 1 ea 02 XX Last administered on 11/08/18 20:13; Admin Dose 1 EA; Start 10/30/18 at 02:00 Levothyroxine Sodium (Synthroid) 100 mcg DAILY@06 PO Last administered on 11/09/18 06:38; Admin Dose 100 MCG; Start 10/30/18 at 06:00 Linagliptin (Tradjenta) 5 mg DAILY PO Last administered on 11/09/18 07:59; Admin Dose 5 MG; Start 10/30/18 at 09:00 Diagnostic Test (Pha) (Accu-Chek) 1 ea AC MEALS AND BEDTIME XX Last administered on 11/08/18at 20:12; Admin Dose 1 EA; Start 10/30/18 at 07:05 Multivit/Ca Carb/ B Cmplx/FA/Prenat (Manasa-Haris) 1 tab DAILY PO Last administered on 11/09/18 08:56; Admin Dose 1 TAB; Start 10/30/18 at 09:00 Ondansetron HCl (Zofran Inj) 4 mg Q6H PRN IV NAUSEA AND/OR VOMITING; Start 10/30/18 at 01:00 Oxycodone HCl (Roxicodone) 5 mg Q4H PRN PO MILD PAIN LEVEL 1-3 Last administered on 10/30/18at 14:32; Admin Dose 5 MG; Start 10/30/18 at 01:00 Oxycodone HCl (Roxicodone) 10 mg Q4H PRN PO MODERATE PAIN LEVEL 4-6 Last administered on 11/03/18 08:59; Admin Dose 10 MG; Start 10/30/18 at 01:00 Sevelamer Carbonate (Renvela) 1,600 mg WITH MEALS PO Last administered on 11/09/18 16:59; Admin Dose 1,600 MG; Start 10/30/18 at 07:35 Miscellaneous Information 1 ea NOTE XX ; Start 10/30/18 at 01:30 Glucose (Glutose) 15 gm Q15M PRN PO DECREASED GLUCOSE; Start 10/30/18 at 01:30 Glucose (Glutose) 22.5 gm Q15M PRN PO DECREASED GLUCOSE; Start 10/30/18 at 01:30 Dextrose (D50w Syringe) 25 ml Q15M PRN IV DECREASED GLUCOSE; Start 10/30/18 at 01:30 Dextrose (D50w Syringe) 50 ml Q15M PRN IV DECREASED GLUCOSE; Start 10/30/18 at 01:30 Glucagon (Glucagen) 1 mg Q15M PRN IM DECREASED GLUCOSE; Start 10/30/18 at 01:30 Glucose (Glutose) 15 gm Q15M PRN BUCCAL DECREASED GLUCOSE Last administered on 11/02/18at 08:03; Admin Dose 15 GM; Start 10/30/18 at 01:30 Diclofenac Sodium (Voltaren 1% Gel) 2 gm QID PRN TP PAIN Last administered on 11/02/18 13:58; Admin Dose 2 GM; Start 10/30/18 at 09:00 Heparin Sodium (Porcine) (Heparin (5000 Units/1ml)) 5,000 unit BID SC Last administered on 11/09/18 08:58; Admin Dose 5,000 UNIT; Start 10/30/18 at 21:00 Hydromorphone HCl (Dilaudid) 1 mg Q3H PRN IM SEVERE PAIN LEVEL 7-10 Last administered on 11/07/18 07:42; Admin Dose 1 MG; Start 10/31/18 at 19:00 Diclofenac Sodium (Voltaren 1% Gel) 4 gm QID TP Last administered on 11/09/18 08:59; Admin Dose 4 GM; Start 11/02/18 at 21:00 Insulin Glargine (Lantus) 3 units DAILY@2000 SC Last administered on 11/08/18 20:11; Admin Dose 3 UNITS; Start 11/06/18 at 00:00 FELIX DREW MD Nov 09, 2018 18:09
[2018-11-09 19:23] VITALS: BP 138/62; PULSE 65; RESP 18
[2018-11-09] MEDS: INSULIN GLARGINE [LANTus] (100 UNITS/ML) SYG SC SCH (20:40)
[2018-11-09] MEDS: SENNA TAB PO SCH (20:43)
[2018-11-10] VITALS (22 sets, daily range): BP systolic 113–186; BP diastolic 49–96; PULSE 59–88; RESP 16–18
[2018-11-10] MEDS: ACCU-CHEK XX SCH ×3 (02:00→07:46)
[2018-11-10] MEDS: LEVOTHYROXINE 100 MCG TAB PO SCH (06:27)
[2018-11-10] MEDS: HYDROmorphONE 1 MG/ML SYG IM PRN ×3 (07:46→14:16)
[2018-11-10] MEDS: SEVELAMER CARBONATE 800 MG TABLET PO SCH ×2 (07:46→14:50)
[2018-11-10] MEDS: INSULIN ASPART [NOVOLOG] 3 ML PEN SC SCH ×2 (07:51→15:07)
[2018-11-10] MEDS: LINAGLIPTIN 5 MG TABLET PO SCH (07:55)
[2018-11-10] MEDS: DOCUSATE SODIUM 100 MG CAP PO SCH ×2 (09:00→16:21)
[2018-11-10] MEDS: DICLOFENAC SODIUM 1% GEL 100 GM TUBE TP SCH ×3 (09:00→17:00)
[2018-11-10] MEDS: CHOLECALCIFEROL 2,000 UNIT CAP PO SCH (09:00)
[2018-11-10] MEDS: MULTIVIT/CA CARB/B CMPLX/FA TAB PO SCH ×2 (09:00→16:54)
[2018-11-10] MEDS: FAMOTIDINE 20 MG TAB PO SCH ×2 (09:00→16:16)
[2018-11-10] MEDS: BENAZEPRIL 40 MG TAB PO SCH (09:00)
[2018-11-10] MEDS: ASPIRIN (EC) 81 MG TAB PO SCH ×3 (09:00→16:22)
[2018-11-10] MEDS: HEPARIN 5,000 UNIT/1 ML VIAL SC SCH (11:30)
--- NOTE | 2018-11-10 13:05 | CONS ---
Assessment/Plan Assessment/Plan Assessment/Plan (Daily) 1. ESRD on HD MWF [facility] for HD Access 2.Left femur fracture s/p ORIF of left hip intertrochanteric fracture on 10/24/18 4. H/o HTN 5. H/o HL 6. H/o Hypothyroidism Plan: pt regular schedule for HD is MWF - [facility]F for HD access - ,s/p HD today 3 l remove, ok to d/c after HD today Rehab care as per unit will follow up Consultation Date/Type/Reason Admit Date/Time Oct 29, 2018 at 23:08 Initial Consult Date Type of Consult NEPHROLOGY Requesting Provider: NYLA HADLEY MD Date/Time of Note DATE: 11/10/18 TIME: 13:05 Exam/Review of Systems Exam Vitals Vital Signs Date Temp Pulse Resp B/P (MAP) Pulse Ox O2 O2 Flow FiO2 Time Delivery Rate 11/10/18 62 12:55 11/10/18 97.6 16 162/71 100 Room Air 07:47 (101) Intake and Output 11/09/18 11/09/18 11/10/18 1515:00 23:00 07:00 IntakeIntake Total 480 ml BalanceBalance 480 ml Results Results 24hrs Laboratory Tests Test 11/09/18 16:54 11/09/18 20:25 11/10/18 00:05 11/10/18 07:49 Bedside Glucose 83 73 121 109 Medications Medication Current Medications Docusate Sodium (Colace) 100 mg BID PO Last administered on 11/09/18at 08:56; Admin Dose 100 MG; Start 10/30/18 at 09:00 Senna (Senokot) 1 tab HS PO Last administered on 11/08/18at 20:10; Admin Dose 1 TAB; Start 10/30/18 at 21:00 Lactulose (Enulose) 20 gm DAILY PRN PO CONSTIPATION Last administered on 11/09/18at 12:06; Admin Dose 20 GM; Start 10/30/18 at 00:00 Bisacodyl (Dulcolax Supp) 10 mg DAILY PRN [place] CONSTIPATION; Start 10/30/18 at 00:00 Acetaminophen (Tylenol Tab) 650 mg Q4H PRN PO PAIN; Start 10/30/18 at 00:00 Miscellaneous Information (Pending [facility] Order For Wound Care) This patient almanzar... PRN PRN XX WOUND CARE; Start 10/30/18 at 00:00 Benazepril HCl (Lotensin) 40 mg BID PO Last administered on 11/09/18 20:43; Admin Dose 40 MG; Start 10/30/18 at 09:00 Cholecalciferol (Vitamin D) 2,000 unit DAILY PO Last administered on 11/09/18 08:56; Admin Dose 2,000 UNIT; Start 10/30/18 at 09:00 Aspirin (Halfprin) 81 mg DAILY PO Last administered on 11/09/18 08:56; Admin Dose 81 MG; Start 10/30/18 at 09:00 Famotidine (Pepcid) 20 mg DAILY PO Last administered on 11/09/18 08:56; Admin Dose 20 MG; Start 10/30/18 at 09:00 Insulin Aspart (Novolog Insulin Pen) 5 unit WITH BREAKFAST SC Last administered on 11/10/18 07:51; Admin Dose 5 UNIT; Start 10/30/18 at 07:35 Insulin Aspart (Novolog Insulin Pen) 5 unit WITH LUNCH SC Last administered on 11/09/18 12:03; Admin Dose 5 UNIT; Start 10/30/18 at 12:00 Insulin Aspart (Novolog Insulin Pen) 5 unit WITH DINNER SC Last administered on 11/09/18 17:04; Admin Dose 5 UNIT; Start 10/30/18 at 17:35 Diagnostic Test (Pha) (Accu-Chek) 1 ea 02 XX Last administered on 11/08/18 20:13; Admin Dose 1 EA; Start 10/30/18 at 02:00 Levothyroxine Sodium (Synthroid) 100 mcg DAILY@06 PO Last administered on 11/10/18 06:27; Admin Dose 100 MCG; Start 10/30/18 at 06:00 Linagliptin (Tradjenta) 5 mg DAILY PO Last administered on 11/10/18 07:55; Admin Dose 5 MG; Start 10/30/18 at 09:00 Diagnostic Test (Pha) (Accu-Chek) 1 ea AC MEALS AND BEDTIME XX Last administered on 11/10/18 07:46; Admin Dose 1 EA; Start 10/30/18 at 07:05 Multivit/Ca Carb/ B Cmplx/FA/Prenat (Manasa-Haris) 1 tab DAILY PO Last administered on 11/09/18 08:56; Admin Dose 1 TAB; Start 10/30/18 at 09:00 Ondansetron HCl (Zofran Inj) 4 mg Q6H PRN IV NAUSEA AND/OR VOMITING; Start 10/30/18 at 01:00 Oxycodone HCl (Roxicodone) 5 mg Q4H PRN PO MILD PAIN LEVEL 1-3 Last administered on 10/30/18 14:32; Admin Dose 5 MG; Start 10/30/18 at 01:00 Oxycodone HCl (Roxicodone) 10 mg Q4H PRN PO MODERATE PAIN LEVEL 4-6 Last administered on 11/03/18 08:59; Admin Dose 10 MG; Start 10/30/18 at 01:00 Sevelamer Carbonate (Renvela) 1,600 mg WITH MEALS PO Last administered on 11/10/18 07:46; Admin Dose 1,600 MG; Start 10/30/18 at 07:35 Miscellaneous Information 1 ea NOTE XX ; Start 10/30/18 at 01:30 Glucose (Glutose) 15 gm Q15M PRN PO DECREASED GLUCOSE; Start 10/30/18 at 01:30 Glucose (Glutose) 22.5 gm Q15M PRN PO DECREASED GLUCOSE; Start 10/30/18 at 01:30 Dextrose (D50w Syringe) 25 ml Q15M PRN IV DECREASED GLUCOSE; Start 10/30/18 at 01:30 Dextrose (D50w Syringe) 50 ml Q15M PRN IV DECREASED GLUCOSE; Start 10/30/18 at 01:30 Glucagon (Glucagen) 1 mg Q15M PRN IM DECREASED GLUCOSE; Start 10/30/18 at 01:30 Glucose (Glutose) 15 gm Q15M PRN BUCCAL DECREASED GLUCOSE Last administered on 11/02/18 08:03; Admin Dose 15 GM; Start 10/30/18 at 01:30 Diclofenac Sodium (Voltaren 1% Gel) 2 gm QID PRN TP PAIN Last administered on 11/02/18 13:58; Admin Dose 2 GM; Start 10/30/18 at 09:00 Heparin Sodium (Porcine) (Heparin (5000 Units/1ml)) 5,000 unit BID SC Last administered on 11/10/18 11:30; Admin Dose 5,000 UNIT; Start 10/30/18 at 21:00 Hydromorphone HCl (Dilaudid) 1 mg Q3H PRN IM SEVERE PAIN LEVEL 7-10 Last administered on 11/10/18 11:18; Admin Dose 1 MG; Start 10/31/18 at 19:00 Diclofenac Sodium (Voltaren 1% Gel) 4 gm QID TP Last administered on 11/09/18 20:50; Admin Dose 4 GM; Start 11/02/18 at 21:00 Insulin Glargine (Lantus) 3 units DAILY@2000 SC Last administered on 11/09/18 20:40; Admin Dose 3 UNITS; Start 11/06/18 at 00:00 ANITA FLETCHER MD Nov 10, 2018 13:05
--- NOTE | 2018-11-10 13:05 | DS ---
Date/Time of Note Date/Time of Note DATE: 11/10/18 TIME: 13:03 Discharge Summary Admission/Discharge Info Admit Date/Time Oct 29, 2018 at 23:08 Discharge Date/Time Discharge Diagnosis 1. Left intertrochanteric hip fracture status post ORIF. 2. End-stage renal disease requiring hemodialysis. 3. Hypertension. 4. Anemia. 5. Diabetes mellitus type 2. 6. Diabetic neuropathy. 7. Diabetic retinopathy. 8. Hypothyroidism. 9. Lumbar degenerative joint disease. 10. Hyperparathyroidism. 11. Benign prostatic hypertrophy. 12. Hyperlipidemia. 13. History of ischemic bowel syndrome. 14. History of left ankle ORIF. 15. Peripheral vascular disease. 16. Left heel deep tissue injury. 17. Improvements in self-care and mobility. Patient Condition: Good Hospital Course The patient was admitted for comprehensive interdisciplinary rehabilitation and made steady functional gains from a Mod level to a S/OH level for self care tasks and mobility including ambulating over 150 feet with the use of a FWW. Patient is being discharged home with the recommendation of home health PT, OT and RN follow up. The DC meds are per the medication reconciliation sheet. The discharge equipment recommendations include: FWW, BSC, shower chair. The patient will follow up with PMD upon DC. Home Meds Active Scripts [Insulin Glargine] 100 UNITS/ML SOLN No Conflict Check, 6 UNITS SC QHS for 30 Days, #1 Prov:LUISANA RICHARDS MD 10/29/18 Benazepril Hcl* (Benazepril Hcl*) 20 Mg Tablet, 40 MG PO BID for 30 Days, #60 TAB Prov:LUISANA RICHARDS MD 10/29/18 Amoxicillin/Potassium Clav (Amox-Clav 875-125 mg Tablet) 875-125 mg Tab, 875 MG PO BID for 7 Days, #12 TAB Prov:LUISANA RICHARDS MD 10/29/18 Insulin Aspart* (Novolog Insulin Pen*) 100 Unit/Ml Soln, 5 UNIT SC WITH MEALS for 30 Days, #2 SYR 5 Refills Prov:PETE RODRIGUES MD 11/08/17 Diclofenac Sodium (Diclofenac Sodium) 100 Gm Gel..gram., 2 GM TP QID PRN for PAIN for 30 Days, #1 TUB 5 Refills Prov:PETE RODRIGUES MD 11/08/17 Reported Medications Hydrocodone/Acetaminophen (Hilmar 5-325 Tablet) 1 Each Tablet, 1 EACH PO, TAB 10/31/17 Hydrocodone/Acetaminophen ([place]mar 10-325 Tablet) 1 Each Tablet, 1 EACH PO Q6H, TAB 10/15/17 Clopidogrel Bisulfate (Clopidogrel) 75 Mg Tablet, 75 MG PO DAILY, #30 TAB 10/15/17 Sevelamer Carbonate* (Renvela*) 800 Mg Tablet, 1600 MG PO WITH MEALS, TAB 10/15/17 Pyridoxine Hcl* (Pyridoxine Hcl*) 100 Mg Tablet, 100 MG PO DAILY, TAB 10/15/17 Levothyroxine Sodium* (Levothyroxine Sodium*) 100 Mcg Tablet, 100 MCG PO BEFORE BREAKFAST, #30 TAB 10/15/17 Insulin Aspart* (Novolog Insulin Pen*) 100 Unit/Ml Soln, 0 SC .SLIDING SCALE AC, EA AC MEALS 10/15/17 Cholecalciferol (Vitamin D3) (Vitamin D-3) 2,000 Unit Tablet, 2000 UNIT PO DAILY, TAB 10/15/17 Aspirin* (Aspirin* EC) 81 Mg Tablet.dr, 81 MG PO DAILY, TAB 10/15/17 Linagliptin (TRADJENTA) 5 Mg Tablet, 5 MG PO DAILY, TAB 10/15/17 [Nephro-Haris] No Conflict Check, 1 TAB PO DAILY 10/15/17 Primary Care Provider Pete Rodrigues MD Pending Labs Laboratory Tests Test 11/09/18 16:54 11/09/18 20:25 11/10/18 00:05 11/10/18 07:49 Bedside 83 73 121 109 Glucose mg/dL (70-220) mg/dL (70-220) mg/dL (70-220) mg/dL (70-220) NYLA HADLEY MD Nov 10, 2018 13:05
[2018-11-10] MEDS: BALSAM PERU/CASTOR OIL 60 GM TUBE TOP SCH (14:14)
[2018-11-10] MEDS: DICLOFENAC SODIUM 1% GEL 100 GM TUBE TP PRN (14:14)
[2018-11-10] MEDS: oxyCODONE 5 MG TAB PO PRN (17:04)
== END 2018-11-10 18:00 | disposition home health service (06) | DRG 559 ==
LOC: VRC 23:08
PROVIDERS: ADMIT Physical Medicine & Rehabilitation; ATTEND Internal Medicine
PROC: F07Z5ZZ Bed Mobility Treatment (ICD-10-PCS; principal; 2018-10-30)
PROC: F07Z8ZZ Transfer Training Treatment (ICD-10-PCS; 2018-10-30)
PROC: F07Z9ZZ Gait Training/Functional Ambulation Treatment (ICD-10-PCS; 2018-10-30)
PROC: F08Z2ZZ Grooming/Personal Hygiene Treatment (ICD-10-PCS; 2018-10-30)
PROC: F08Z1ZZ Dressing Techniques Treatment (ICD-10-PCS; 2018-10-30)
PROC: F08Z0ZZ Bathing/Showering Techniques Treatment (ICD-10-PCS; 2018-10-30)
PROC: 5A1D70Z Performance of Urinary Filtration, Intermittent, Less than 6 Hours Per Day (ICD-10-PCS; 2018-10-30)
DX: S72.142D Displaced intertrochanteric fracture of left femur, subsequent encounter for closed fracture with routine healing (principal); N18.6 End stage renal disease; I12.0 Hypertensive chronic kidney disease with stage 5 chronic kidney disease or end stage renal disease; G89.18 Other acute postprocedural pain; E11.22 Type 2 diabetes mellitus with diabetic chronic kidney disease; E03.9 Hypothyroidism, unspecified; E21.3 Hyperparathyroidism, unspecified; E11.51 Type 2 diabetes mellitus with diabetic peripheral angiopathy without gangrene; W19.XXXD Unspecified fall, subsequent encounter; E11.319 Type 2 diabetes mellitus with unspecified diabetic retinopathy without macular edema; N40.0 Benign prostatic hyperplasia without lower urinary tract symptoms; D63.1 Anemia in chronic kidney disease; E11.40 Type 2 diabetes mellitus with diabetic neuropathy, unspecified; L89.620 Pressure ulcer of left heel, unstageable; R53.81 Other malaise; F06.31 Mood disorder due to known physiological condition with depressive features; Z99.2 Dependence on renal dialysis; Z79.4 Long term (current) use of insulin
CPT/HCPCS: 80053; 80069; 82962; 85025; 87081; 87340; 90935; 97110; 97112; 97116; 97150; 97163; 97166; 97530; 97535; J1170; J1644; J1650; J1815

== ENCOUNTER 2018-12-19 10:54 | Emergency (ER) | payer MEDICARE, OTHER ==
[~2018-12-19] VITALS: Wt 73.8 kg
[~2018-12-19 10:54] MED LIST changes: +CHOL100062 PO; +LEVEM SC; -LEVEM SC*; +LEVO125T7 PO; +NEPH PO; +PHEN-537 PO
[2018-12-19] MEDS ORDERED: LIDOCAINE 1% (MPF) 5 ML VIAL ONE (15:09)
[2018-12-19 15:24] VITALS: BP 138/45; PULSE 75; RESP 20
== END 2018-12-19 15:27 | disposition home or self-care (01) ==
LOC: E/R 10:54
DX: K74.60 Unspecified cirrhosis of liver (principal); R18.8 Other ascites; I10 Essential (primary) hypertension; E11.9 Type 2 diabetes mellitus without complications; Z79.4 Long term (current) use of insulin
CPT/HCPCS: 74176; 80053; 85025; 85610; 85730